=== PATIENT | male | born 1960 | race Caucasian/White ===

== ENCOUNTER → 2017-08-27 16:21 | Outpatient (CLI) | payer BC, SELFPAY ==
[2017-08-27 18:21] LABS: PSA,Total - Annual Screen 4.51 ng/mL (0.00-4.00)
== END ==
PROVIDERS: Family Provider Family Medicine; PCP Family Medicine; Visit Provider Family Medicine
DX: N40.0 Benign prostatic hyperplasia without lower urinary tract symptoms (principal); I48.91 Unspecified atrial fibrillation
CPT/HCPCS: 36415; 84153; G0103

== ENCOUNTER → 2017-09-09 16:31 | Outpatient (CLI) | payer BC, SELFPAY ==
[2017-09-09 18:21] LABS: International Normalized Ratio 2.2; Prothrombin Time (Protime)PT. 24.8 SECONDS (11.7-14.9)
== END ==
PROVIDERS: Family Provider Family Medicine; PCP Family Medicine; Visit Provider Family Medicine
DX: I48.0 Paroxysmal atrial fibrillation (principal)
CPT/HCPCS: 36415; 85610

== ENCOUNTER → 2017-09-23 16:42 | Outpatient (CLI) | payer BC, SELFPAY ==
[2017-09-23 17:56] LABS: International Normalized Ratio 3.1; Prothrombin Time (Protime)PT. 32.4 SECONDS (11.7-14.9)
== END ==
PROVIDERS: Family Provider Family Medicine; PCP Family Medicine; Visit Provider Family Medicine
DX: I48.91 Unspecified atrial fibrillation (principal)
CPT/HCPCS: 36415; 85610

== ENCOUNTER → 2017-09-30 16:37 | Outpatient (CLI) | payer BC, SELFPAY ==
--- NOTE | 2017-09-30 16:41 | RAD_ITS ---
STUDY: X-RAY - RIGHT FOOT CLINICAL: Male, 56 years old. FALL PAIN TECHNIQUE: 3 view(s) of the foot. COMPARISON: None. FINDINGS: There is a plantar calcaneal spur. There is an enthesophyte involving the posterior superior calcaneus at the site of insertion of the Achilles tendon. Normal visualized subtalar, talonavicular, calcaneocuboid, tarsal and tarsometatarsal articulations. Normal metatarsi. 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 Normal tibial and fibular sesamoid bones. Normal interphalangeal joint of the great toe. Normal phalanges of the great toe. There are atherosclerotic vascular calcifications. Normal second through fifth metatarsophalangeal joints. Normal interphalangeal joints and phalanges of the lesser toes. The soft tissue structures are unremarkable. 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 There is a plantar calcaneal spur. There is an enthesophyte involving the posterior superior calcaneus at the site of insertion of the Achilles tendon. There are atherosclerotic vascular calcifications. Electronically Signed: Callum Oliva MD at 17:01 EDT , Service support ,
== END ==
PROVIDERS: Family Provider Family Medicine; PCP Family Medicine; Visit Provider Physician Assistant Surgical
DX: S90.31XA Contusion of right foot, initial encounter (principal); X58.XXXA Exposure to other specified factors, initial encounter; Y93.9 Activity, unspecified; Y92.9 Unspecified place or not applicable; Y99.9 Unspecified external cause status
CPT/HCPCS: 73630

== ENCOUNTER → 2017-10-22 16:32 | Outpatient (CLI) | payer BC, SELFPAY ==
[2017-10-22 17:58] LABS: Prothrombin Time (Protime)PT. 35.8 SECONDS (11.7-14.9)
[2017-10-22 18:14] LABS: International Normalized Ratio 3.6
== END ==
PROVIDERS: Family Provider Family Medicine; PCP Family Medicine; Visit Provider Family Medicine
DX: I48.91 Unspecified atrial fibrillation (principal)
CPT/HCPCS: 36415; 85610

== ENCOUNTER → 2017-10-27 16:33 | Outpatient (CLI) | payer BC, SELFPAY ==
[2017-10-27 17:45] LABS: International Normalized Ratio 3.3; Prothrombin Time (Protime)PT. 33.8 SECONDS (11.7-14.9)
== END ==
PROVIDERS: Family Provider Family Medicine; PCP Family Medicine; Visit Provider Family Medicine
DX: I48.91 Unspecified atrial fibrillation (principal)
CPT/HCPCS: 36415; 85610

== ENCOUNTER → 2017-11-03 16:49 | Outpatient (CLI) | payer BC, SELFPAY ==
[2017-11-03 18:12] LABS: International Normalized Ratio 3.2; Prothrombin Time (Protime)PT. 32.6 SECONDS (11.7-14.9)
== END ==
PROVIDERS: Family Provider Family Medicine; PCP Family Medicine; Visit Provider Family Medicine
DX: I48.91 Unspecified atrial fibrillation (principal)
CPT/HCPCS: 36415; 85610

== ENCOUNTER → 2017-11-11 16:44 | Outpatient (CLI) | payer BC, SELFPAY ==
[2017-11-11 18:25] LABS: Prothrombin Time (Protime)PT. 35.9 SECONDS (11.7-14.9)
[2017-11-11 18:40] LABS: International Normalized Ratio 3.6
== END ==
PROVIDERS: Family Provider Family Medicine; PCP Family Medicine; Visit Provider Family Medicine
DX: I48.91 Unspecified atrial fibrillation (principal)
CPT/HCPCS: 36415; 85610

== ENCOUNTER → 2017-11-18 16:30 | Outpatient (CLI) | payer BC, SELFPAY ==
[2017-11-18 17:38] LABS: Prothrombin Time (Protime)PT. 36.6 SECONDS (11.7-14.9)
[2017-11-18 17:49] LABS: International Normalized Ratio 3.7
== END ==
PROVIDERS: Family Provider Family Medicine; PCP Family Medicine; Visit Provider Family Medicine
DX: I48.91 Unspecified atrial fibrillation (principal)
CPT/HCPCS: 36415; 85610

== ENCOUNTER → 2017-12-10 16:38 | Outpatient (CLI) | payer BC, SELFPAY ==
[2017-12-10 17:45] LABS: Absolute Lymphocyte Count 1.52 X10^3/ul (0.83-4.51); Absolute Neutrophil Count 5.7 X10^3/uL (2.0-7.7); Basophil# 0.04 X10^3/uL; Basophil% 0.5 % (0-1); Eosinophil# 0.19 X10^3/uL; Eosinophils% 2.3 % (0-5); Hemoglobin 14.6 g/dl (13.0-16.5); Lymphocyte # 1.52 X10^3/ul (4.0); Lymphocyte % 18.8 % (19-41); Mean Corp Hgb Conc 33.2 g/gl (32-36); Mean Corpuscular Hgb 31.2 pg (27.0-32.0); Mean Platelet Vol. 9.7 fl (6.2-12.0); Monocyte# 0.67 X10^3/uL; Monocyte% 8.3 % (0-10); Neutrophil # 5.65 X10^3/uL (2.7-7.7); Neutrophil % 69.9 % (47-70); Platelet Count 218 K/mm3 (150-450); RBC Distribution Width CV 14.2 % (11.6-14.6); RBC Distribution Width SD 48.2 fl (35.1-43.9); Red Blood Count 4.68 M/mm3 (4.6-6.2); White Blood Count 8.1 K/mm3 (4.4-11.0)
[2017-12-10 17:46] LABS: POSITIVE COUNT NO; POSITIVE DIFFERENTIAL NO; POSITIVE MORPHOLOGY NO
[2017-12-10 18:05] LABS: Anion Gap 8 (5-15); BUN 29 mg/dL (7-18); BUN/Creat Ratio 17.4 RATIO (10-20); Calcium,Total 8.9 mg/dL (8.5-10.1); Chloride 102 mmol/L (98-107); Creatinine, Serum 1.67 mg/dL (0.70-1.30); EST Glomerular Filtration Rate 45 mL/min (>60); Est Glom Filt Rate - Afr Amer 55 mL/min (>60); Glucose 94 mg/dL (74-106); Magnesium 2.3 mg/dL (1.6-2.6); Potassium 3.9 mmol/L (3.5-5.1); Sodium Level 142 mmol/L (136-145)
== END ==
PROVIDERS: Family Provider Family Medicine; PCP Family Medicine; Visit Provider Nurse Practitioner Family
DX: I48.0 Paroxysmal atrial fibrillation (principal); R42 Dizziness and giddiness; E78.5 Hyperlipidemia, unspecified; Z95.2 Presence of prosthetic heart valve
CPT/HCPCS: 36415; 80048; 83735; 85025

== ENCOUNTER → 2018-02-20 10:50 | Outpatient (CLI) | payer BC, SELFPAY | PROVIDERS: Family Provider Family Medicine; PCP Family Medicine; Visit Provider Internal Medicine Cardiovascular Disease | DX: I48.0 Paroxysmal atrial fibrillation (principal) | CPT/HCPCS: 93225; 93226 ==

== ENCOUNTER → 2018-03-20 06:05 | Outpatient (CLI) | payer BC, SELFPAY ==
[2018-03-20 06:43] LABS: Absolute Lymphocyte Count 1.11 X10^3/ul (0.83-4.51); Absolute Neutrophil Count 4.8 X10^3/uL (2.0-7.7); Basophil# 0.04 X10^3/uL; Basophil% 0.6 % (0-1); Eosinophil# 0.12 X10^3/uL; Eosinophils% 1.8 % (0-5); Hematocrit 44.6 % (40-54); Hemoglobin 14.6 g/dl (13.0-16.5); Lymphocyte # 1.11 X10^3/ul (4.0); Lymphocyte % 16.6 % (19-41); Mean Corp Hgb Conc 32.7 g/gl (32-36); Mean Corpuscular Hgb 31.1 pg (27.0-32.0); Mean Corpuscular Volume 95.1 fL (80-94); Mean Platelet Vol. 9.9 fl (6.2-12.0); Monocyte# 0.64 X10^3/uL; Monocyte% 9.6 % (0-10); Neutrophil # 4.78 X10^3/uL (2.7-7.7); Neutrophil % 71.3 % (47-70); POSITIVE COUNT NO; POSITIVE DIFFERENTIAL NO; POSITIVE MORPHOLOGY NO; Platelet Count 194 K/mm3 (150-450); RBC Distribution Width CV 14.2 % (11.6-14.6); RBC Distribution Width SD 48.4 fl (35.1-43.9); Red Blood Count 4.69 M/mm3 (4.6-6.2); White Blood Count 6.7 K/mm3 (4.4-11.0)
[2018-03-20 06:57] LABS: Anion Gap 6 (5-15); BUN 25 mg/dL (7-18); BUN/Creat Ratio 15.6 RATIO (10-20); Calcium,Total 9.2 mg/dL (8.5-10.1); Chloride 104 mmol/L (98-107); EST Glomerular Filtration Rate 47 mL/min (>60); Est Glom Filt Rate - Afr Amer 57 mL/min (>60); Glucose 125 mg/dL (74-106); Magnesium 2.7 mg/dL (1.6-2.6); Potassium 4.5 mmol/L (3.5-5.1); Sodium Level 141 mmol/L (136-145)
== END ==
PROVIDERS: Family Provider Family Medicine; PCP Family Medicine; Referring Provider Family Medicine; Visit Provider Family Medicine
DX: R55 Syncope and collapse (principal)
CPT/HCPCS: 36415; 80048; 83735; 85025

== ENCOUNTER → 2018-07-28 05:57 | Outpatient (CLI) | payer BC, SELFPAY ==
[2018-05-29 15:27] VITALS: BMI 47.6
[2018-07-28 07:47] LABS: Anion Gap 10 (5-15); BUN 22 mg/dL (7-18); BUN/Creat Ratio 13.8 RATIO (10-20); Calcium,Total 8.9 mg/dL (8.5-10.1); Chloride 105 mmol/L (98-107); Cholesterol 116 mg/dL (200); Creatinine, Serum 1.59 mg/dL (0.70-1.30); EST Glomerular Filtration Rate 48 mL/min (>60); Est Glom Filt Rate - Afr Amer 58 mL/min (>60); Glucose 110 mg/dL (74-106); High Density Lipoprotein 35 mg/dL; Potassium 4.2 mmol/L (3.5-5.1); Sodium Level 143 mmol/L (136-145); Thyroid Stim Hormone (TSH) 5.35 uIU/mL (0.358-3.74); Triglycerides 129 mg/dL; Very Low Density Lipoprotein 26 mg/dL (5-40)
== END ==
PROVIDERS: Family Provider Family Medicine; PCP Family Medicine; Referring Provider Family Medicine; Visit Provider Family Medicine
DX: E03.9 Hypothyroidism, unspecified (principal); E66.9 Obesity, unspecified
CPT/HCPCS: 36415; 80048; 80061; 84443

== ENCOUNTER → 2018-11-25 14:44 | Outpatient (CLI) | payer BC, SELFPAY ==
[2018-05-29 15:27] VITALS: BMI 47.6
--- NOTE | 2018-11-25 14:46 | ECHOD_ITS ---
Reason For Study: Valve Eval Procedure This was a 2D Doppler, Color Flow transthoracic echocardiogram. The study was technically difficult. Unable to utilize Definity for optimal endocardial imaging due to previous adverse reaction. Exam performed in department. Left Ventricle Mild to moderate concentric left ventricular hypertrophy. Based upon the 2D echocardiographic images obtained there appears to be grossly normal left ventricular size, wall motion, and systolic function. The estimated ejection fraction is 55 %. Unable to assess diastolic dysfunction. Right Ventricle Moderately dilated right ventricle. Moderate global right ventricular systolic dysfunction. Atria The left atrium is severely enlarged. The right atrium is moderately enlarged. No doppler evidence for ASD. Mitral Valve There is mild mitral annular calcification. Extension of the mitral annular calcification onto the mitral valve leaflet. Trivial mitral valve insufficiency. Tricuspid Valve Normal tricuspid valve. Mild tricuspid valve insufficiency. Right ventricular systolic pressure estimated to be 34 mmHg. Aortic Valve The aortic valve is not well visualized, however, the 2D echocardiograhic findings appear c/w a stable mechanical aortic valve prosthesis with associated spectral doppler findings c/w severe prosthetic aortic valve stenosis potentially secondary to an undersized prosthetic aortic valve. Pulmonic Valve The pulmonic valve is not well visualized. Great Vessels Normal sized aortic root. Pericardium/Pleural No pericardial effusion. MMode/2D Measurements & Calculations LVIDd: 5.2 cm IVSd: 1.6 cm LVOT diam: 2.2 cm LVIDs: 4.0 cm LVPWd: 1.3 cm LVOT area: 3.7 cm2 RVDd: 5.2 cm FS: 23.3 % Ao root diam: 2.9 cm LAV(MOD-bp): 172.7 ml LA A4 area: 41.1 cm2 LAV(MOD-bp) Indexed: 66.4 ml/m2 LAV(MOD-sp2): 156.6 ml LAV(MOD-sp4): 163.0 ml LA dimension(2D): 5.0 cm RA A4 area: 37.5 cm2 Doppler Measurements & Calculations MV E max hollis: 143.5 cm/sec Ao V2 max: 459.7 cm/sec LV V1 max: 117.8 cm/sec Ao max P.5 mmHg LV V1 max P.4 mmHg Ao V2 mean: 352.9 cm/sec LV V1 mean P.9 mmHg Ao mean P.4 mmHg LV V1 mean: 81.6 cm/sec Ao V2 VTI: 103.4 cm LV V1 VTI: 22.7 cm YOLI(I,D): 0.81 cm2 YOLI(V,D): 0.94 cm2 SV(LVOT): 83.3 ml PA V2 max: 98.0 cm/sec TR max hollis: 254.9 cm/sec TR max P.0 mmHg Interpretation Summary The study was technically difficult. The estimated ejection fraction is 55 %. Mild to moderate concentric left ventricular hypertrophy. Moderately dilated right ventricle. Moderate global right ventricular systolic dysfunction. The left atrium is severely enlarged. The right atrium is moderately enlarged. There is mild mitral annular calcification. Extension of the mitral annular calcification onto the mitral valve leaflet. Trivial mitral valve insufficiency. Mild tricuspid valve insufficiency. The aortic valve is not well visualized, however, the 2D echocardiograhic findings appear c/w a stable mechanical aortic valve prosthesis with associated spectral doppler findings c/w severe prosthetic aortic valve stenosis potentially secondary to an undersized prosthetic aortic valve. Right ventricular systolic pressure estimated to be 34 mmHg. Unable to assess diastolic dysfunction. Ordering Physician: Compa Chaudhary Referring Physician: Compa Rosado Performed By: Alida Armstrong RDCS, RVT
== END ==
PROVIDERS: Family Provider Family Medicine; PCP Family Medicine; Referring Provider Internal Medicine Cardiovascular Disease; Visit Provider Internal Medicine Cardiovascular Disease
DX: I25.10 Atherosclerotic heart disease of native coronary artery without angina pectoris (principal); I27.20 Pulmonary hypertension, unspecified; I48.0 Paroxysmal atrial fibrillation; Z95.2 Presence of prosthetic heart valve
CPT/HCPCS: 93306

== ENCOUNTER → 2018-12-29 10:51 | Outpatient (CLI) | payer BC, SELFPAY ==
[2018-12-16 06:07] VITALS: BMI 46.2
--- NOTE | 2018-12-29 10:53 | CDU_ITS ---
Reason For Study: vertigo, syncope, collapse Rt. Velocities/BP Lt. Velocities/BP Prox CCA 53.9/16.0 cm/sec. Prox CCA 77.3./24.5 cm/sec. Mid CCA 46.0/14.7 cm/sec. Mid CCA 69.6/19.0 cm/sec. Dist CCA 48.6/12.1 cm/sec. Dist CCA 59.7/11.3 cm/sec. Prox ICA 47.3/12.1 cm/sec. Prox ICA 38.8/12.4 cm/sec. Mid ICA 43.4/18.6 cm/sec. Mid ICA 54.2/19.0 cm/sec. Dist ICA 70.8/34.3 cm/sec. Dist ICA 67.4/22.3 cm/sec. Rt. ICA/CCA = 1.5. Lt. ICA/CCA = 1.0. Prox ECA 49.9/9.5 cm/sec. Prox ECA 80.6/15.7 cm/sec. Rt. Vert. 39.9/12.4 cm/sec. Lt. Vert. 22.3/7.3 cm/sec. Right Extracranial There is intimal thickening but no significant atherosclerotic plaque noted in the right common carotid artery. There is intimal thickening but no significant atherosclerotic plaque noted in the right internal carotid artery. There is intimal thickening but no significant atherosclerotic plaque noted in the right external carotid artery. Antegrade flow is noted in the right vertebral artery. Left Extracranial There is intimal thickening but no significant atherosclerotic plaque noted in the left common carotid artery. There is intimal thickening but no significant atherosclerotic plaque noted in the left internal carotid artery. There is intimal thickening but no significant atherosclerotic plaque noted in the left external carotid artery. Antegrade flow is noted in the left vertebral artery. Procedure Carotid Duplex [id number]. The exam was diagnostic. Exam performed in department. Interpretation Summary No hemodynamically significant plague or stenosis bilateral extracranial internal carotids with <50% stenosis <50% stenosis bilateral external carotids Patent and antegrade bilateral vertebrals Ordering Physician: Yessy Khan Referring Physician: Compa Chaudhary Performed By: Marcial Sandhu RVT
[2018-12-29 14:02] LABS: Absolute Lymphocyte Count 1.21 X10^3/ul (0.83-4.51); Absolute Neutrophil Count 3.5 X10^3/uL (2.0-7.7); Basophil# 0.05 X10^3/uL; Basophil% 0.9 % (0-1); Eosinophil# 0.11 X10^3/uL; Hematocrit 44.3 % (40-54); Hemoglobin 14.8 g/dl (13.0-16.5); Lymphocyte # 1.21 X10^3/ul (4.0); Lymphocyte % 22.2 % (19-41); Mean Corp Hgb Conc 33.4 g/gl (32-36); Mean Corpuscular Hgb 31.5 pg (27.0-32.0); Mean Corpuscular Volume 94.3 fL (80-94); Mean Platelet Vol. 9.7 fl (6.2-12.0); Monocyte# 0.55 X10^3/uL; Monocyte% 10.1 % (0-10); Neutrophil # 3.52 X10^3/uL (2.7-7.7); Neutrophil % 64.6 % (47-70); Platelet Count 219 K/mm3 (150-450); RBC Distribution Width CV 13.2 % (11.6-14.6); RBC Distribution Width SD 45.4 fl (35.1-43.9); White Blood Count 5.5 K/mm3 (4.4-11.0)
[2018-12-29 14:05] LABS: POSITIVE COUNT NO; POSITIVE DIFFERENTIAL NO; POSITIVE MORPHOLOGY NO
[2018-12-29 14:24] LABS: Anion Gap 6 (5-15); BUN 22 mg/dL (7-18); BUN/Creat Ratio 14.7 RATIO (10-20); Calcium,Total 9.2 mg/dL (8.5-10.1); Chloride 105 mmol/L (98-107); EST Glomerular Filtration Rate 51 mL/min (>60); Est Glom Filt Rate - Afr Amer 62 mL/min (>60); Glucose 85 mg/dL (74-106); Potassium 3.9 mmol/L (3.5-5.1); Sodium Level 139 mmol/L (136-145)
== END ==
PROVIDERS: Physician Assistant Medical; Family Provider Family Medicine; PCP Family Medicine; Referring Provider Internal Medicine Cardiovascular Disease; Visit Provider Internal Medicine Cardiovascular Disease
DX: R55 Syncope and collapse (principal)
CPT/HCPCS: 36415; 80048; 85025; 93270; 93880

== ENCOUNTER → 2019-01-15 20:00 | Outpatient (CLI) | payer BC, SELFPAY ==
[2018-12-16 06:07] VITALS: BMI 46.2
== END ==
PROVIDERS: Family Provider Family Medicine; PCP Family Medicine; Referring Provider Internal Medicine Critical Care Medicine; Visit Provider Internal Medicine Critical Care Medicine
DX: G47.33 Obstructive sleep apnea (adult) (pediatric) (principal)
CPT/HCPCS: 95811

== ENCOUNTER → 2019-01-18 16:29 | Outpatient (CLI) | payer BC, SELFPAY ==
[2018-12-16 06:07] VITALS: BMI 46.2
[2019-01-18 17:56] LABS: PSA,Total- Diagnostic 4.26 ng/mL (0.0-4.0); Thyroid Stim Hormone (TSH) 2.59 uIU/mL (0.358-3.74)
== END ==
PROVIDERS: Family Provider Family Medicine; PCP Family Medicine; Referring Provider Family Medicine; Visit Provider Family Medicine
DX: E03.9 Hypothyroidism, unspecified (principal); N40.0 Benign prostatic hyperplasia without lower urinary tract symptoms
CPT/HCPCS: 36415; 84153; 84443

== ENCOUNTER → 2019-02-12 06:41 | Outpatient (CLI) | payer BC, SELFPAY ==
[2018-12-16 06:07] VITALS: BMI 46.2
--- NOTE | 2019-02-12 13:08 | PFTCOMP ---
COMPLETE PULMONARY FUNCTION TEST INTERPRETATION Brief HPI: Patient is a 58 year old male, currently under the care of Geri Simon, who presents to [facility] for complete pulmonary function tests secondary to diagnosis of pulmonary hypertension. Respiratory therapist reports good effort and reproducible results. Interpretation: Forced expiration spirometry shows moderately severe large airways obstructive ventilatory defect with an FEV1 of 57% predicted. There is no significant bronchodilator response by strict ATS criteria. Spirograms are of good quality and plateau slowly, indicating slowly emptying areas of the lungs. The respiratory flow volume loop shows decreased expiratory flow rates at all lung volumes consistent with airway obstruction. Lung volumes by body plethysmography show a normal total lung capacity at 5.55 L, 83% predicted. FRC and RV are elevated out of proportion. Lung volume measurements are consistent with air-trapping. Diffusion capacity by carbon monoxide is normal at 81% predicted. The airway resistance is elevated. No previous pulmonary function tests were available for review. Impression: Irreversible moderately severe large airways obstructive ventilatory defect with preserved diffusion capacity.
== END ==
PROVIDERS: Family Provider Family Medicine; PCP Family Medicine; Referring Provider Nurse Practitioner Acute Care; Visit Provider Nurse Practitioner Acute Care
DX: I27.20 Pulmonary hypertension, unspecified (principal)
CPT/HCPCS: 94060; 94726; 94729

== ENCOUNTER → 2019-07-22 05:59 | Outpatient (CLI) | payer BC, SELFPAY ==
[2019-07-06 14:54] VITALS: BMI 46.7
[2019-07-22 08:19] LABS: Anion Gap 3 (5-15); BUN 25 mg/dL (7-18); BUN/Creat Ratio 15.2 RATIO (10-20); Calcium,Total 9.4 mg/dL (8.5-10.1); Chloride 106 mmol/L (98-107); Cholesterol 103 mg/dL (200); Creatinine, Serum 1.64 mg/dL (0.70-1.30); EST Glomerular Filtration Rate 46 mL/min (>60); Est Glom Filt Rate - Afr Amer 55 mL/min (>60); Free T3 3.1 pg/mL (2.18-3.98); Glucose 112 mg/dL (74-106); High Density Lipoprotein 34 mg/dL; Potassium 4.4 mmol/L (3.5-5.1); Sodium Level 141 mmol/L (136-145); T4 Total, Thyroxin 11.1 ug/dL (4.5-12.1); Thyroid Stim Hormone (TSH) 5.68 uIU/mL (0.358-3.74); Triglycerides 139 mg/dL; Very Low Density Lipoprotein 28 mg/dL (5-40)
== END ==
PROVIDERS: PCP Family Medicine; Referring Provider Family Medicine; Visit Provider Family Medicine
DX: I10 Essential (primary) hypertension (principal); E03.9 Hypothyroidism, unspecified; R53.83 Other fatigue
CPT/HCPCS: 36415; 80048; 80061; 84403; 84436; 84443; 84481

== ENCOUNTER → 2020-01-20 06:03 | Outpatient (CLI) | payer BC, SELFPAY ==
[2019-11-16 07:03] VITALS: BMI 46.7
[2020-01-20 08:30] LABS: Anion Gap 5 (5-15); BUN 23 mg/dL (7-18); BUN/Creat Ratio 14.6 RATIO (10-20); Calcium,Total 8.9 mg/dL (8.5-10.1); Chloride 106 mmol/L (98-107); Cholesterol 105 mg/dL (200); Creatinine, Serum 1.57 mg/dL (0.70-1.30); EST Glomerular Filtration Rate 48 mL/min (>60); Est Glom Filt Rate - Afr Amer 58 mL/min (>60); Glucose 124 mg/dL (74-106); High Density Lipoprotein 33 mg/dL; Potassium 4.1 mmol/L (3.5-5.1); Sodium Level 137 mmol/L (136-145); T4 Total, Thyroxin 8.9 ug/dL (4.5-12.1); Thyroid Stim Hormone (TSH) 5.03 uIU/mL (0.358-3.74); Triglycerides 151 mg/dL; Very Low Density Lipoprotein 30 mg/dL (5-40)
== END ==
PROVIDERS: PCP Family Medicine; Referring Provider Family Medicine; Visit Provider Family Medicine
DX: I10 Essential (primary) hypertension (principal); E03.9 Hypothyroidism, unspecified
CPT/HCPCS: 36415; 80048; 80061; 84436; 84443; 84481

== ENCOUNTER → 2020-02-07 14:48 | Outpatient (CLI) | payer BC, SELFPAY ==
[2020-01-20 16:13] VITALS: BMI 47.5
--- NOTE | 2020-02-07 14:50 | ECHOD_ITS ---
Reason For Study: Valve Replacement Eval Procedure This was a 2D Doppler, Color Flow transthoracic echocardiogram. Technically difficult study. Unable to utilize Definity for optimal endocardial imaging due to previous adverse reaction. The study was technically difficult. Exam performed in department. Left Ventricle Based upon the 2D echocardiographic images obtained there appears to be grossly normal left ventricular wall motion and systolic function. The estimated ejection fraction is 55 %. Post operative septal motion. Unable to assess diastolic dysfunction. Right Ventricle Moderately dilated right ventricle. Mild global right ventricular systolic dysfunction. Atria The left atrium is severely enlarged. The right atrium is severely enlarged. No doppler evidence for ASD. Mitral Valve There is mild mitral annular calcification. Extension of the mitral annular calcification onto the mitral valve leaflet. Trivial mitral valve insufficiency. Tricuspid Valve The tricuspid valve is not well visualized. Mild tricuspid valve insufficiency. Right ventricular systolic pressure estimated to be 32 mmHg. Aortic Valve The aortic valve is not well visualized. The aortic valve is not well visualized, however, the 2D echocardiograhic findings appear c/w a stable mechanical aortic valve prosthesis with associated spectral doppler findings c/w severe prosthetic aortic valve stenosis potentially secondary to an undersized prosthetic aortic valve. Pulmonic Valve The pulmonic valve is not well visualized. Great Vessels Normal sized aortic root. Pericardium/Pleural No pericardial effusion. MMode/2D Measurements & Calculations LVOT diam: 2.2 cm Ao root diam: 3.1 cm LAV(MOD-bp): 120.9 ml LVOT area: 3.8 cm2 LA dimension: 5.3 cm LAV(MOD-bp) Indexed: 47.1 ml/m2 LAV(MOD-sp2): 109.6 ml LAV(MOD-sp4): 129.6 ml LA A4 area: 35.9 cm2 RA A4 area: 36.6 cm2 Doppler Measurements & Calculations MV E max ángel: 157.2 cm/sec Lat Peak E' Ángel: 8.3 cm/sec MV V2 max: 171.4 cm/sec E/E' lat: 19.0 MV max P.8 mmHg MV V2 mean: 68.2 cm/sec MV mean P.8 mmHg MV V2 VTI: 40.3 cm MVA(VTI): 2.1 cm2 MV P1/2t max ángel: 169.5 cm/sec Ao V2 max: 485.0 cm/sec LV V1 max: 104.0 cm/sec MV P1/2t: 72.6 msec Ao max P.5 mmHg LV V1 max P.3 mmHg Ao V2 mean: 333.9 cm/sec LV V1 mean P.3 mmHg MV dec slope: 683.6 cm/sec2 Ao mean P.0 mmHg LV V1 mean: 69.9 cm/sec MVA(P1/2t): 3.0 cm2 Ao V2 VTI: 105.7 cm LV V1 VTI: 22.4 cm YOLI(I,D): 0.81 cm2 YOLI(V,D): 0.82 cm2 SV(LVOT): 85.2 ml PA V2 max: 88.6 cm/sec TR max ángel: 270.1 cm/sec TR max P.2 mmHg Interpretation Summary The study was technically difficult. Based upon the 2D echocardiographic images obtained there appears to be grossly normal left ventricular wall motion and systolic function. The estimated ejection fraction is 55 %. Post operative septal motion. Moderately dilated right ventricle. Mild global right ventricular systolic dysfunction. The left atrium is severely enlarged. The right atrium is severely enlarged. There is mild mitral annular calcification. Extension of the mitral annular calcification onto the mitral valve leaflet. Trivial mitral valve insufficiency. Mild tricuspid valve insufficiency. The aortic valve is not well visualized, however, the 2D echocardiograhic findings appear c/w a stable mechanical aortic valve prosthesis with associated spectral doppler findings c/w severe prosthetic aortic valve stenosis potentially secondary to an undersized prosthetic aortic valve. Right ventricular systolic pressure estimated to be 32 mmHg. Unable to assess diastolic dysfunction. Ordering Physician: Compa Chaudhary Referring Physician: Compa Chaudhary Performed By: [facility]
== END ==
PROVIDERS: PCP Family Medicine; Referring Provider Internal Medicine Cardiovascular Disease; Visit Provider Internal Medicine Cardiovascular Disease
DX: I48.0 Paroxysmal atrial fibrillation (principal); I49.3 Ventricular premature depolarization; I27.20 Pulmonary hypertension, unspecified; E78.5 Hyperlipidemia, unspecified; E66.01 Morbid (severe) obesity due to excess calories; Z68.42 Body mass index [BMI] 45.0-49.9, adult; Z95.2 Presence of prosthetic heart valve
CPT/HCPCS: 93306

== ENCOUNTER 2020-03-10 12:35 | Observation (INO) | payer BC, SELFPAY ==
[2020-01-20 16:13] VITALS: BMI 47.5
[2020-03-10] VITALS (10 sets, daily range): BP systolic 102–132; BP diastolic 68–95; PULSE 70–89; RESP 16–20; TEMP 36.3–36.6; O2SAT 97–100; BMI 48.4
--- NOTE | 2020-03-10 12:46 | RAD_ITS ---
STUDY: X-RAY CHEST REASON FOR EXAM: Male, 59 years old. CP/pressure on left side TECHNIQUE: Single AP portable view of the chest. COMPARISON: Comparison is made with prior study dated 05/16/2017. FINDINGS: EKG electrodes are seen. Mild degree of vascular congestion. There is no demonstrated pleural abnormality. Sternal cerclage wires and vascular clips are present from a prior sternotomy and coronary artery bypass graft procedure (CABG). Mild cardiomegaly. Aortic valve prosthesis. Normal mediastinum and arun. Normal visualized pulmonary arteries. Normal visualized aortic arch and descending thoracic aorta. There are degenerative changes of the visualized thoracic spine. Normal visualized ribs, clavicles, and shoulders. There is no demonstrated abnormality of the visualized soft tissue structures of the upper abdomen. RAD/Chest 1 View (Portable) IMPRESSION: Mild degree of vascular congestion and cardiomegaly. Electronically Signed: Kenton De Anda, at 13:35 EDT , Service support ,
--- NOTE | 2020-03-10 12:46 | EKG12_ITS ---
Test Reason : CP Blood Pressure : / mmHG Vent. Rate : 084 BPM Atrial Rate : 091 BPM P-R Int : 000 ms QRS Dur : 172 ms QT Int : 436 ms P-R-T Axes : 000 113 -09 degrees QTc Int : 515 ms Atrial fibrillation Right bundle branch block Septal infarct , age undetermined T wave abnormality, consider inferior ischemia Abnormal ECG Confirmed by ZANE LITTLE, CM ([id number]), greeting card editor SUKHDEEP STOUT ([id number]) on 03/13/2020 1:44:19 PM Referred By: ISABELLE Confirmed By:CM DEGROOT MD
--- NOTE | 2020-03-10 12:51 | ED.DCSUM_ITS ---
History of Present Illness Informant: Patient, Family Onset: Yesterday Current Severity: Mild Narrative: 59-year-old male with past medical history of hypertension, A. fib on Coumadin, mechanical aortic valve, RBBB, COPD presents with complaints of chest pain. States last night he had some left-sided chest pain before bed but slept fine. This morning around 7 AM when he woke he had left-sided chest pain that radiated to his neck that seemed worse with deep breathing. Now it just feels like left- sided pressure and is 3/10. It is worse with movement and he admits to mild shortness of breath. Denies nausea, vomiting, or diaphoresis. He had an echo done on 02/09 which he states was unremarkable. No history of OR. Quit smoking 30 years ago. Denies fevers, chills, cough, abdominal pain, or back pain. <Krysta Stern - Last Filed: 03/10/20 13:41> <Dai Hinojosa - Last Filed: 03/11/20 00:15> Chief Complaint: Chest Pain Capacity - Capacity Assessment Tool Can the patient make a choice & communicate that choice?: Yes <Krysta Stern - Last Filed: 03/10/20 13:41> Past Medical History Past Medical History: - - Hypertension, atrial fibrillation, mechanical aortic valve, COPD Surgical History: - - Aortic valve surgery x 3, most recently mechanical valve placement (prior was porcine), T+A, Ablation. Smoking Status: Former smoker - Family History Maternal Family History: Family History (Last Reviewed 01/20/20 @ 16:17 by Yessy Contreras) Father Cancer Mother Hypertension Brother Cancer Family History: Reports: Hypertension Paternal Family History: Family History (Last Reviewed 01/20/20 @ 16:17 by Yessy Contreras) Father Cancer Mother Hypertension Brother Cancer Family History: Reports: No pertinent history <Krysta Stern - Last Filed: 03/10/20 13:41> - Family History Maternal Family History: Family History (Last Reviewed 01/20/20 @ 16:17 by Yessy Contreras) Father Cancer Mother Hypertension Brother Cancer Paternal Family History: Family History (Last Reviewed 01/20/20 @ 16:17 by Yessy Contreras) Father Cancer Mother Hypertension Brother Cancer <Dai Hinojosa - Last Filed: 03/11/20 00:15> - Allergies and Home Meds Allergies/Adverse Reactions: Allergies aspirin Allergy (Verified 03/10/20 12:36) Hives Iodinated Contrast Media [Iodinated Contrast Media - IV Dye] Allergy (Verified 03/10/20 12:36) Hives shellfish derived Allergy (Verified 03/10/20 12:36) Hives Review of Systems General: Denies: Chills, Fever, Sweats Eyes: Denies: Visual changes - bilaterally, Diplopia ENT: Denies: Rhinorrhea, Sore throat Cardiovascular: Reports: Chest pain. Denies: Palpitations Respiratory: Reports: Dyspnea. Denies: Cough, Orthopnea Gastrointestinal: Denies: Abdominal pain, Nausea, Vomiting, Diarrhea Musculoskeletal: Denies: Myalgias Skin: Denies: Rash Neurological: Denies: Headache, Weakness Psych: Denies: Depression, Anxiety <Krysta Stern - Last Filed: 03/10/20 13:41> Physical Exam Vital Signs/Narrative: Vital Signs Temp Pulse Resp BP Pulse Ox 03/10/20 12:37 97.3 F L 89 19 H 119/91 H 99 Inital Vital Signs reviewed: Yes General: Well nourished, Well developed, No Acute Distress Head: Normocephalic, Atraumatic Eyes: Perrl, EOMI ENT: Moist mucous membranes, No rhinorrhea Neck: Supple, Nontender Cardiovascular: Irregular, Murmur, - - Irregularly irregular rhythm, aortic stenosis murmur Respiratory: No distress, CTA bilaterally, Chest nontender Abdomen: Soft, Nontender, Nondistended, Normal bowel sounds Back: Nontender, Normal Inspection Extremities: Nontender, - - Mild bilateral lower extremity edema Skin: Normal color Neurological: Alert, Oriented x3, Cranial nerves II-XII grossly intact, Normal Strength, Normal Sensation Psychological: Normal affect <Krysta Stern - Last Filed: 03/10/20 13:41> Diagnostic/Tx/Re-eval Clinical Impression(s) from Imaging Studies Chest X-Ray 03/10/20 12:46 IMPRESSION: Mild degree of vascular congestion and cardiomegaly. Electronically Signed: Kenton De Anda, at 13:35 EDT , Service support , Laboratory Data 03/10/20 03/10/20 03/10/20 12:40 12:40 12:40 WBC 7.4 RBC 4.66 Hgb 14.3 Hct 43.7 MCV 93.8 MCH 30.7 MCHC 32.7 RDW Std Deviation 46.3 H RDW Coeff of Ernestina 13.3 Plt Count 256 MPV 9.6 Immature Gran % (Auto) 0.300 Neut % (Auto) 70.0 Lymph % (Auto) 16.1 L Frontier % (Auto) 10.7 H Eos % (Auto) 1.8 Baso % (Auto) 1.1 H Absolute Neuts (auto) 5.2 Absolute Lymphs (auto) 1.19 Nucleated RBC % 0 PT 24.7 H INR 2.3 Sodium 141 Potassium 3.9 Chloride 107 Carbon Dioxide 27.0 Anion Gap 7 BUN 22 H Creatinine 1.47 H Estim Creat Clear Calc 55.18 Est GFR (MDRD) Af Amer 63 Est GFR (MDRD) Non-Af 52 L BUN/Creatinine Ratio 15.0 Glucose 126 H Calcium 9.3 Troponin I < 0.015 - Rhythm Strip Rhythm Strip: A-fib Rate: 84 - RBBB - Medical Decision Making Patient appears well nontoxic. Vital signs within normal limits. EKG shows A. fib with no signs of ischemia. Labs and initial troponin are negative. 3-hour delta troponin is pending. INR was therapeutic at 2.3. Chest x-ray shows no acute process. Heart score is 4 and he should be admitted for stress test. Patient has difficulty ambulating and will need a chemical stress. He was given aspirin. Case was discussed with hospitalist and he was transferred to the floor in stable condition. <Krysta Stern - Last Filed: 03/10/20 13:41> - Medical Decision Making I personally performed a [id number] assessment of the patient and have reviewed the PA note. My davila findings include 59-year-old male presenting with intermittent chest pain since last night. He has associated shortness of breath. Pain radiates into his neck. He was sent in by his primary care physician. Vitals are stable. Heart is regular rate and rhythm. Lungs are clear and equal bilaterally. Labs, EKG, chest x-ray ordered. Patient will be discussed with the hospitalist for observation. <Dai Hinojosa - Last Filed: 03/11/20 00:15> ED Disposition <Krysta Stern - Last Filed: 03/10/20 13:41> <Dai Hinojosa - Last Filed: 03/11/20 00:15> - Plan for ED Patient: Disposition: Acute Care Hospital [facility] Diagnosis: Chest pain
[2020-03-10 12:54] LABS: Absolute Lymphocyte Count 1.19 X10^3/uL (0.83-4.51); Absolute Neutrophil Count 5.2 X10^3/uL (2.0-7.7); Basophil# 0.08 X10^3/uL; Basophil% 1.1 % (0-1); Eosinophil# 0.13 X10^3/uL; Eosinophils% 1.8 % (0-5); Hematocrit 43.7 % (40-54); Hemoglobin 14.3 g/dL (13.0-16.5); Lymphocyte # 1.19 X10^3/ul (4.0); Lymphocyte % 16.1 % (19-41); Mean Corp Hgb Conc 32.7 g/dL (32-36); Mean Corpuscular Hgb 30.7 pg (27.0-32.0); Mean Corpuscular Volume 93.8 fL (80-94); Mean Platelet Vol. 9.6 fl (6.2-12.0); Monocyte# 0.79 X10^3/uL; Monocyte% 10.7 % (0-10); NRBC Flagged by Analyzer 0 % (0-5); Neutrophil # 5.18 X10^3/uL (2.7-7.7); Platelet Count 256 K/mm3 (150-450); RBC Distribution Width CV 13.3 % (11.6-14.6); RBC Distribution Width SD 46.3 fl (35.1-43.9); Red Blood Count 4.66 M/mm3 (4.6-6.2); White Blood Count 7.4 K/mm3 (4.4-11.0)
[2020-03-10 13:06] LABS: International Normalized Ratio 2.3; Prothrombin Time (Protime)PT. 24.7 SECONDS (11.7-14.9)
[2020-03-10 13:10] LABS: Anion Gap 7 (5-15); BUN 22 mg/dL (7-18); Calcium,Total 9.3 mg/dL (8.5-10.1); Chloride 107 mmol/L (98-107); Creatinine, Serum 1.47 mg/dL (0.70-1.30); EST Glomerular Filtration Rate 52 mL/min (>60); Est Glom Filt Rate - Afr Amer 63 mL/min (>60); Estimated Creatinine Clearance 55.18 ml/min; Glucose 126 mg/dL (74-106); Potassium 3.9 mmol/L (3.5-5.1); Sodium Level 141 mmol/L (136-145)
--- NOTE | 2020-03-10 13:35 | NURSING ---
DR FEDERICO RIVERS
--- NOTE | 2020-03-10 13:43 | NURSING ---
PCU OBS GABY CABALLERO
--- NOTE | 2020-03-10 14:13 | HP.PCM_ITS ---
History of Present Illness Date of Admission: 03/10/20 The patient is a 59 year old M with a PMH of permanent A-fib, Mech AV, COPD, PAOLA, Hypothyroidism, BPH, HTN, HPL and MO presented to the ED on 03/10/2020 c/o CP. He states that the pain started last evening 03/09 and was sharp on the L side and worsened with a deep breathing but was able to fall asleep and slept well. When he woke up this am around 7 am he woke with L sided chest pain and this time it radiated to his L neck and back. He states that he may have had some increases SOB as well with this. His pain was as high as 6/10 but was only 3/10 upon presentation. He had no associated N/V, diaphoresis and no increased pain with exertion. He in now pain free. In the ED he received no medications as he has an ASA allergy and is on plavix. His VSS. EKG shows chronic A-fib (rate controlled) with RBBB but no acute ischemia. His troponin is neg. His sCr is elevated but this is his baseline. His INR is 2.3. Past Medical History Past Medical History (Chronic Problems): Chronic Problems (Last Reviewed 01/20/20 @ 16:17 by Yessy Contreras) Stage 2 moderate COPD by GOLD classification (Chronic) PAOLA (obstructive sleep apnea) (Chronic) Nonrheumatic aortic (valve) stenosis (Chronic) Atherosclerotic heart disease of [place] coronary artery without angina pectoris (Chronic) Aortic valvular disease (Chronic) Aortic valve surgery 1964, AVR 02/2004, AVR redo 2010 Nicotine abuse (Chronic) Pulmonary hypertension (Chronic) Paroxysmal atrial fibrillation (Chronic) DCCV 02/2016, Cryoballon ablation 06/2016 @ [facility] [place] Hypokalemia (Chronic) Hx of aortic valve replacement, mechanical (Chronic ~2010) Aortic valve surgery 1965, AVR 02/2004, AVR redo 2010 PVC (premature ventricular contraction) (Chronic) HLD (hyperlipidemia) (Chronic) Obesity (Chronic) Morbid obesity with BMI of 45.0-49.9, adult (Chronic) Hypothyroidism (Chronic) Iron deficiency anemia (Chronic) Medical History: Medical History (Last Reviewed 03/10/20 @ 14:[address] Penny Price DO) Nonrheumatic aortic (valve) stenosis (Chronic) I35.0 Aortic valvular disease (Chronic) I35.9 Aortic valve surgery 1965, AVR 02/2004, AVR redo 2010 Nicotine abuse (Chronic) Z72.0 Pulmonary hypertension (Chronic) I27.20 Paroxysmal atrial fibrillation (Chronic) I48.0 DCCV 02/2016, Cryoballon ablation 06/2016 @ [facility] [place] Hypokalemia (Chronic) E87.6 PVC (premature ventricular contraction) (Chronic) I49.3 HLD (hyperlipidemia) (Chronic) E78.5 Morbid obesity with BMI of 45.0-49.9, adult (Chronic) E66.01, Z68.42 GERD (gastroesophageal reflux disease) K21.9 Gout M10.9 PAOLA (obstructive sleep apnea) G47.33 Abrasion, right lower leg, initial encounter (Resolved) S80.811A Contusion of right foot, initial encounter (Resolved) S90.31XA Edema R60.9 Fatigue R53.83 Shortness of breath R06.02 Atrial fibrillation and flutter (Inactive) I48.91, I48.92 Allergies aspirin Allergy (Verified 03/10/20 12:36) Hives Iodinated Contrast Media [Iodinated Contrast Media - IV Dye] Allergy (Verified 03/10/20 12:36) Hives shellfish derived Allergy (Verified 03/10/20 12:36) Hives Home Medications: Ambulatory Orders Medication Instructions Recorded Biotin/Keratin [Biotin Plus 1 ea PO QHS 04/12/16 Keratin Tablet] Cholecalciferol (VIT D3) [Vitamin 2,000 unit PO QHS 04/12/16 D3] Docusate Sodium [Colace] 100 mg PO QHS 04/12/16 Folic Acid 1 mg PO QHS 04/12/16 Fexofenadine HCl [Nikki Allergy] 60 mg PO DAILY 05/16/17 Tamsulosin HCl [Flomax] 0.4 mg PO DAILY 05/16/17 multivitamin with folic acid 400 1 tab PO BID #180 tab 06/30/17 mcg tablet terazosin 1 mg tablet 1 mg PO QDAY 12/10/17 warfarin 3 mg tablet 3 mg PO DAILY 02/11/18 potassium chloride 20 mEq 40 meq PO BID #360 tab 03/09/19 tablet,extended release torsemide 20 mg tablet 20 mg PO BID #180 tab 05/19/19 clopidogrel 75 mg tablet 75 mg PO DAILY #90 tab 06/30/19 atorvastatin 40 mg tablet 40 mg PO QHS #90 tab 07/12/19 umeclidinium 62.5 mcg-vilanterol 1 inh INHALATION QDAY #3 ea 09/20/19 25 mcg/actuation powdr for inhalation albuterol sulfate 90 mcg/actuation 2 puff INHALATION Q4H PRN #1 device 01/11/20 aerosol inhaler levothyroxine 88 mcg tablet 88 mcg PO DAILY 01/20/20 metoprolol tartrate 50 mg tablet 25 mg PO BID #180 tab 02/15/20 Ferrous Sulfate 325 mg PO DAILY@0800 03/10/20 buPROPion XL [Wellbutrin Xl] 300 mg PO DAILY 03/10/20 Surgical History: Surgical History (Last Reviewed 03/10/20 @ 14:[address] Penny Price DO) Hx of aortic valve replacement, mechanical (Chronic) Onset Date: ~2010 Z95.2 Aortic valve surgery 1965, AVR 02/2004, AVR redo 2010 H/O basal cell carcinoma excision Z98.890, Z85.828 excision 17 mm basal cell carcinoma right parietal scalp with STSG reconstruction from right lateral neck (13.7 cm2) 12/03/2016 History of deviated nasal septum Z87.09 History of tonsillectomy Z98.890, Z90.89 Hx of gastric bypass Z98.84 Surgical History: - - Aortic valve surgery x 3, most recently mechanical valve placement (prior was porcine), T+A, Ablation. Psychiatric History: No pertinent psych hx Lives: Spouse/ Significant Other Smoking Status: Former smoker Tobacco Use: Non-smoker Alcohol: Rare Drugs: None - *Family History Maternal Family History: Family History (Last Reviewed 03/10/20 @ 14:[address] Penny Price DO) Father Cancer Mother Hypertension Brother Cancer History Items: Hypertension Paternal Family History: Family History (Last Reviewed 03/10/20 @ 14:[address] Penny Price DO) Father Cancer Mother Hypertension Brother Cancer History Items: No pertinent history Review of Systems Constitutional: Denies: Anorexia, Chills, Fever, Night Sweats, Malaise, Weakness, Weight Change, Fatigue Eyes: Reports: Vision Change. Denies: Blurred vision, Double vision, Drainage, Eyelid Inflammation, Pain, Redness HEENT: Denies: Difficulty Hearing, Difficulty Swallowing, Head Aches, Nasal bleeding, Nasal Congestion, Post Nasal Drip, Sinus Congestion, Sinus Drainage, Sore Throat, Visual Changes Cardiovascular: Reports: Chest Pain, Chest Pressure, Chest Tightness, Edema - chronic. Denies: Heaviness, Light Headedness, Orthopnea, Palpitations, Paroxysmal Noc. Dyspnea, Syncope Respiratory: Reports: Shortness of Breath, Shortness of breath upon exertion. Denies: Cough, Hemoptysis, Pleuritic Pain, Shortness of breath at rest, Sputum production, Wheezing Gastrointestinal: Denies: Abdominal Pain, Constipation, Diarrhea, Dyspepsia, Hematemesis, Hematochezia, Nausea, Melena, Vomiting Genitourinary: Denies: Dysuria, Frequency, Hematuria, Hesitancy, Incontinence, Nocturia, Retention, Urgency Musculoskeletal: Reports: Back Pain, Joint stiffness, Muscle pain, Neck Pain. Denies: Joint Pain, Joint swelling, Joint Tenderness Skin: Denies: Dryness, Jaundice, Lesions, Pruritis, Rash, Skin Changes, Wounds Neurological: Reports: Blurred vision. Denies: Balance problems, Double vision, Change in Speech, Slurred speech, Confusion, Difficulty swallowing, Focal weakness, Headaches, Incoordination, Numbness, Tingling, Tremor, Seizures Psychiatric: Denies: Anxiety, Depression Endocrine: Denies: Change in Body Habitus, Heat/ Cold Intolerance, Polydipsia, Polyuria Hematologic/ Lymphatic: Denies: Adenopathy, Anemia, Easy Bruising, Easy Bleeding, Petechiae, Purpura VTE Information - Inpt Only VTE Present on Admission: No VTE Mechan Device Prophylaxis: None VTE Pharm Prophylaxis ordered?: No Reason prophylaxis not ordered:: Treatment Not Indicated - full OAC with coumadin Patient Problems: Active and Suspected Problems (Last Reviewed 01/20/20 @ 16:17 by Yessy Contreras) Chest pain (Acute) - Physical Exam Vitals/I&O's: Vital Signs Temp Pulse Resp BP Pulse Ox 97.8 F 76 20 H 110/80 97 03/10/20 14:03 03/10/20 14:03 03/10/20 14:03 03/10/20 14:03 03/10/20 14:03 Oxygen Flow Rate (L/min) 2 Oxygen Delivery Method Room Air Weight: 153 kg Body Mass Index (BMI) 48.4 General: Alert, Oriented x3, Cooperative, No apparent distress, Well developed, Well nourished, - - Obese middle aged WM sitting up in bed, at bedside HEENT: Atraumatic, PERRLA, EOMI, Normocephalic, EAC Clear, - - dentures in place, Mallampati 3 Oral: Moist Mucosa, No Gingival or Mucosal Lesions/ Ulcerations Neck: Supple, No JVD, Negative Carotid Bruits, Negative Hepatojugular Reflux, No Nodes, Trachea Midline, Thyroid Normal Size and Texture Lungs: Clear to auscultation, No rhonchi, No wheeze, No rales, Diminished - diffusely Cardiovascular: Regular rate, Regular Rhythm, Normal S1, Normal S2, No murmurs, No Ectopic Activity, No rub noted, No Gallop, - - opening click noted for AV Abdomen: Bowel Sounds Present, Soft, Non Tender, Non-Distended, No Hepato- splenomegaly, Obese, No hernias noted Extremities: No clubbing, No cyanosis Skin: No rashes, No breakdown Musculoskeletal: No Tenderness to Palpation of Joints or Extremities, No Muscle Wasting Lymphatic: No Cervical, Supraclavicular, or Inguinal Adenopathy Neurological: Cranial nerves II-XII grossly intact, Deep Tendon Reflexes 2+/4 and Symmetrical, Neuro grossly intact, Motor Exam 5/5 strength throughout, Muscle tone normal, Sensory exam intact to light touch and pain, Coordination normal Psych/Mental Status: Normal Affect, Appropriate, Alert and oriented to time, place, person, mood and affect Laboratory Results 03/10/20 12:40: WBC 7.4, RBC 4.66, Hgb 14.3, Hct 43.7, MCV 93.8, MCH 30.7, MCHC 32.7, RDW Std Deviation 46.3 H, RDW Coeff of [place] 13.3, Plt Count 256, MPV 9.6, Immature Gran % (Auto) 0.300, Neut % (Auto) 70.0, Lymph % (Auto) 16.1 L, [place] % (Auto) 10.7 H, Eos % (Auto) 1.8, Baso % (Auto) 1.1 H, Absolute Neuts (auto) 5.2, Absolute Lymphs (auto) 1.19, Nucleated RBC % 0 03/10/20 12:40: PT 24.7 H, INR 2.3 03/10/20 12:40: Sodium 141, Potassium 3.9, Chloride 107, Carbon Dioxide 27.0, Anion Gap 7, BUN 22 H, Creatinine 1.47 H, Estim Creat Clear Calc 55.18, Est GFR (MDRD) Af Amer 63, Est GFR (MDRD) Non-Af 52 L, BUN/Creatinine Ratio 15.0, Glucose 126 H, Calcium 9.3, Troponin I < 0.015 Assessment/Plan All Active Problems (Last Reviewed 01/20/20 @ 16:17 by Yessy Contreras) Chest pain (Acute) Laceration of right little finger w/o foreign body w/o damage to nail (Acute) Restless legs syndrome (RLS) (Acute) Abrasion, right lower leg, initial encounter (Resolved) Contusion of right foot, initial encounter (Resolved) Chest Pain -Initial troponin was negative -EKG shows chronic rate controlled A-fib with no ischemic changes -Pain free at this time -pt is fully anticoagulated with coumadin (INR 2.3) for [facility] AV -cycle cardiac enzymes -prn nitro -continue Statin (had full lipid profile 01/20/2020) -continue home BB -cardiac diet and NPO after MN -studies in the past have not found angiographically sig CAD previously -last stress test was in 2015 and was neg and neg cath in 2017 -check A1c -Nuc stress test in am [facility] AV -has had replacement x 3 -last replacement was 2010 (1964, 2003, 2010) -has been told that he is not a candidate for further replacement -on coumadin and INR is 2.3 with goal of 2-3 Chronic A-fib -has had multiple DCC with antiarrhythmics on board -had Ablation and Pulm vein isolation in 2016 but reverted back to fib -continue BB for rate control -OAC HPL -continue statin -lipids last assessed 01/20/2020 HTN -continue home meds PAH -mild -34 mmHg BPH -flomax CKD stage 3 -sCr is at baseline COPD -prn nebs -continue home inhaler PAOLA -CPAP 12 cm of H2O Hypothyroidism -continue Synthroid Depression -cont Wellbutrin MO recommend wgt loss DVT prophylaxis -full OAC Code status -Full Inpatient E&M: 05895 Init Hosp L3
--- NOTE | 2020-03-10 14:31 | EKG12_ITS ---
Test Reason : CHEST PAIN Blood Pressure : / mmHG Vent. Rate : 075 BPM Atrial Rate : 091 BPM P-R Int : 000 ms QRS Dur : 172 ms QT Int : 462 ms P-R-T Axes : 000 106 005 degrees QTc Int : 515 ms Atrial fibrillation Right bundle branch block Septal infarct , age undetermined T wave abnormality, consider inferior ischemia Abnormal ECG Confirmed by ZANE LITTLE, CM ([id number]), manuscript editor SUKHDEEP STOUT ([id number]) on 03/17/2020 1:09:10 PM Referred By: FEDERICO Confirmed By:CM DEGROOT MD
[2020-03-10] MEDS: Furosemide 40 MG Tablet PO (19:27)
[2020-03-10] MEDS: Ipratropium/Albuterol Sulfate 3 ML AMPUL.NEB INHALATION (19:27)
--- NOTE | 2020-03-10 19:28 | NURSING ---
Pt requesting to have Lasix early because he normally takes early afternoon so he isnt up all night.
[2020-03-10] MEDS: Metoprolol Tartrate 25 MG Tablet PO (21:03)
[2020-03-10] MEDS: Atorvastatin Calcium 40 MG Tablet PO (21:03)
[2020-03-10] MEDS: Folic Acid 1 MG Tablet PO (21:03)
[2020-03-10] MEDS: Docusate Sodium 100 MG Capsule PO (21:04)
[2020-03-10] MEDS: Doxazosin 1 MG Tablet PO (21:04)
[2020-03-11 03:00] VITALS: BP 104/75; PULSE 75; RESP 18; TEMP 36.5; O2SAT 96
[2020-03-11 03:01] VITALS: PULSE 97
[2020-03-11] MEDS: Levothyroxine 88 MCG Tablet PO (05:26)
[2020-03-11] MEDS: 0.9% Saline Lock 10 ML Syringe IV (05:32)
[2020-03-11 06:50] LABS: Absolute Lymphocyte Count 1.27 X10^3/uL (0.83-4.51); Absolute Neutrophil Count 5.3 X10^3/uL (2.0-7.7); Basophil# 0.05 X10^3/uL; Basophil% 0.7 % (0-1); Eosinophil# 0.16 X10^3/uL; Eosinophils% 2.1 % (0-5); Hematocrit 44.8 % (40-54); Hemoglobin 14.5 g/dL (13.0-16.5); Lymphocyte # 1.27 X10^3/ul (4.0); Lymphocyte % 16.7 % (19-41); Mean Corp Hgb Conc 32.4 g/dL (32-36); Mean Corpuscular Hgb 30.8 pg (27.0-32.0); Mean Corpuscular Volume 95.1 fL (80-94); Mean Platelet Vol. 9.6 fl (6.2-12.0); Monocyte# 0.78 X10^3/uL; Monocyte% 10.2 % (0-10); NRBC Flagged by Analyzer 0 % (0-5); Neutrophil # 5.33 X10^3/uL (2.7-7.7); Neutrophil % 69.9 % (47-70); Platelet Count 260 K/mm3 (150-450); RBC Distribution Width CV 13.4 % (11.6-14.6); RBC Distribution Width SD 46.9 fl (35.1-43.9); Red Blood Count 4.71 M/mm3 (4.6-6.2); White Blood Count 7.6 K/mm3 (4.4-11.0)
[2020-03-11 06:53] LABS: International Normalized Ratio 2.1; Prothrombin Time (Protime)PT. 22.8 SECONDS (11.7-14.9)
[2020-03-11 07:00] VITALS: PULSE 76
[2020-03-11 07:08] LABS: AST(SGOT) 34 U/L (15-37); Alanine Aminotransfer ALT/SGPT 38 U/L (16-61); Alkaline Phosphatase 118 U/L (45-117); Anion Gap 6 (5-15); BUN 22 mg/dL (7-18); BUN/Creat Ratio 14.9 RATIO (10-20); Calcium,Total 9.4 mg/dL (8.5-10.1); Chloride 108 mmol/L (98-107); Creatinine, Serum 1.48 mg/dL (0.70-1.30); EST Glomerular Filtration Rate 52 mL/min (>60); Est Glom Filt Rate - Afr Amer 62 mL/min (>60); Globulin 3.9 g/dL (2.2-4.2); Glucose 120 mg/dL (74-106); Magnesium 2.5 mg/dL (1.6-2.6); Phosphorus 3.6 mg/dL (2.5-4.9); Potassium 4.2 mmol/L (3.5-5.1); Protein, Total 7.9 g/dL (6.4-8.2); Sodium Level 140 mmol/L (136-145)
[2020-03-11 07:27] LABS: Hemoglobin A1c 5.8 % (3.8-5.6)
--- NOTE | 2020-03-11 08:50 | CASEMGMT ---
LW/POA forms both in summary tab of echart. HELGA Palmer
--- NOTE | 2020-03-11 09:26 | STRESSREP_ITS ---
Stress Test Report Pharmacologic myocardial perfusion stress test. 59-year-old man with a history of chest pain. Stress protocol: Resting EKG demonstrates atrial fibrillation with a rate of 76 bpm and a right bundle branch block pattern. 0.4 mg of regadenoson was infused per usual protocol. Continuous EKG monitoring was performed. The maximum heart rate attained was 112 bpm which was 70% of max impacted heart rate the maximum workload was 1 metabolic equivalent. At rest there were no ST or T wave changes noted to suggest abnormal flow reserve at p eak infusion nonspecific ST-T wave changes were noted with no meet the criteria for ischemia. The resting blood pressure was 124/82 with a final blood pressure 118/84 mmHg. Myocardial perfusion protocol. 15.0 mCi of technetium 99m sestamibi was injected at rest. 0.4 mg of regadenoson was infused per usual protocol. At peak infusion 45.0 mCi of technetium 99m sestamibi was injected stress images were obtained stress and rest images were reconstructed and compared in the short axis vertical long horizontal long axis. Gated images were also obtained per Perfusion SPECT analysis: Review of the images demonstrate normal uptake of tracer noted in all areas of the myocardium on the stress images. The resting images similarly demonstrate normal uptake of tracer noted in all areas of the myocardium. No areas of reversibility are noted to suggest ischemia. Gated SPECT analysis: The gated ejection fraction is 53%. Conclusion: Normal pharmacologic myocardial perfusion stress test. Preserved ejection fraction.
[2020-03-11 09:30] VITALS: BP 127/63; PULSE 67; RESP 16; TEMP 36.8; O2SAT 98
[2020-03-11] MEDS: Furosemide 40 MG Tablet PO (09:45)
[2020-03-11] MEDS: Ferrous Sulfate 325 MG Tablet PO (09:45)
[2020-03-11] MEDS: Multivitamins,Therapeutic Tablet 1 TABLET PO (09:45)
[2020-03-11] MEDS: Loratadine 10 MG Tablet PO (09:45)
[2020-03-11] MEDS: Clopidogrel Bisulfate 75 MG Tablet PO (09:45)
[2020-03-11] MEDS: Tamsulosin HCl 0.4 MG Capsule PO (09:45)
[2020-03-11] MEDS: buPROPion (XL) 300 MG TABLET.XL PO (09:45)
[2020-03-11 09:48] VITALS: PULSE 67
[2020-03-11] MEDS: Metoprolol Tartrate 25 MG Tablet PO (09:48)
--- NOTE | 2020-03-11 09:57 | DCINST_ITS ---
- Discharge Diagnoses Current Active Problems: Current Active and Chronic Problems (Last Reviewed 03/10/20 @ 14:[address] Penny Price, DO) Chest pain (Acute) You will use the following diet at home:: Cardiac Your food should be the consistency of: Regular Your liquids should be the consistency of: Regular/Thin Discharge Activity: Return to Normal Activity Allergies/Adverse Reactions: Allergies aspirin Allergy (Verified 03/10/20 12:36) Hives Iodinated Contrast Media [Iodinated Contrast Media - IV Dye] Allergy (Verified 03/10/20 12:36) Hives shellfish derived Allergy (Verified 03/10/20 12:36) Hives Medications to take at Discharge Biotin/Keratin [Biotin Plus Keratin Tablet] 1 ea PO QHS 04/12/16 Cholecalciferol (VIT D3) [Vitamin D3] 2,000 unit PO QHS 04/12/16 Docusate Sodium [Colace] 100 mg PO QHS 04/12/16 Folic Acid 1 mg PO QHS 04/12/16 Fexofenadine HCl [Nikki Allergy] 60 mg PO DAILY 05/16/17 Tamsulosin HCl [Flomax] 0.4 mg PO DAILY 05/16/17 warfarin 3 mg tablet 3 mg PO DAILY 02/11/18 potassium chloride 20 mEq tablet,extended release 40 meq PO BID #360 tab 03/09/19 clopidogrel 75 mg tablet 75 mg PO DAILY #90 tab 06/30/19 atorvastatin 40 mg tablet 40 mg PO QHS #90 tab 07/12/19 umeclidinium 62.5 mcg-vilanterol 25 mcg/actuation powdr for inhalation 1 inh INHALATION QDAY #3 ea 09/20/19 albuterol sulfate 90 mcg/actuation aerosol inhaler 2 puff INHALATION Q4H PRN #1 device 01/11/20 metoprolol tartrate 50 mg tablet 25 mg PO BID #180 tab 02/15/20 Ferrous Sulfate 325 mg PO QHS 03/10/20 Levothyroxine Sodium [Synthroid] 100 mcg PO DAILY 03/10/20 Multivitamins,Therapeutic [Multivitamin] 1 tab PO DAILY 03/10/20 Terazosin HCl 1 mg PO QHS 03/10/20 Torsemide [Demadex] 20 mg PO 0600,1200 03/10/20 buPROPion XL [Wellbutrin Xl] 300 mg PO DAILY 03/10/20 Primary Care Physician: Compa Rosado MD [Primary Care Provider] - Please follow up with your Primary Care Physician in: 1-2 weeks Test Results: Test results from this visit will be discussed in further detail at your follow- up appointment, if applicable. Proposed Discharge Date: 03/11/20
--- NOTE | 2020-03-11 13:24 | PCM.DC.SUM ---
<Papa Pederson - Last Filed: 03/11/20 13:24> Discharge Date and Diagnosis Date of Admission: 03/10/20 Date of Discharge: 03/11/20 - Primary Discharge Diagnosis Acute Problems: Chest pain - musculoskeletal - Secondary Discharge Diagnosis Chronic Problems: Chronic Problems (Last Reviewed 03/10/20 @ 14:[address] Penny Price, DO) Stage 2 moderate COPD by GOLD classification (Chronic) PAOLA (obstructive sleep apnea) (Chronic) Nonrheumatic aortic (valve) stenosis (Chronic) Atherosclerotic heart disease of [place] coronary artery without angina pectoris (Chronic) Aortic valvular disease (Chronic) Aortic valve surgery 1964, AVR 02/2004, AVR redo 2010 Nicotine abuse (Chronic) Pulmonary hypertension (Chronic) Paroxysmal atrial fibrillation (Chronic) DCCV 02/2016, Cryoballon ablation 06/2016 @ [facility] Hypokalemia (Chronic) Hx of aortic valve replacement, mechanical (Chronic ~2010) Aortic valve surgery 1964, AVR 02/2004, AVR redo 2010 PVC (premature ventricular contraction) (Chronic) HLD (hyperlipidemia) (Chronic) Obesity (Chronic) Morbid obesity with BMI of 45.0-49.9, adult (Chronic) Hypothyroidism (Chronic) Iron deficiency anemia (Chronic) Hospital Course and Treatment Imaging Results: DIAGNOSTICS: 03/11/20 05:55 Nuclear Stress Test - Chemical [NM] AM (NON MEDS) Gated SPECT analysis: The gated ejection fraction is 53%. Conclusion: Normal pharmacologic myocardial perfusion stress test. Preserved ejection fraction. RAD/Chest 1 View (Portable) IMPRESSION: Mild degree of vascular congestion and cardiomegaly. Operations: None Procedures: Stress test Summary of Care Provided: Hospital course: The patient is a 59 year old M with past medical history of hypertension, hyperlipidemia, chronic A. fib, mechanical aortic valve, otherwise as above, who presented to the emergency room with chest pain. This was described as left-sided pain radiating into the left side of the neck and back associated with shortness of breath. He came to the emergency room and was found to have EKG with no acute changes, negative troponin, chest x-ray with mild vascular congestion and cardiomegaly. He was admitted for chest pain work-up. He had no events on telemetry overnight. EKG showed no acute changes. Troponin was negative x3. He underwent a stress test the following morning which was negative for ischemia. He had no further chest pain the day of discharge. He was discharged home in stable condition. He will follow-up with his PCP in 1 to 2 weeks. This patient was seen by Papa Pederson PA-C under the supervision of Doctor Airam. [] - Physical Exam Vitals/I&O's: Vital Signs Temp Pulse Resp BP Pulse Ox 98.2 F 67 16 127/63 H 98 03/11/20 09:30 03/11/20 09:48 03/11/20 09:30 03/11/20 09:30 03/11/20 09:30 Oxygen Flow Rate (L/min) 2 Oxygen Delivery Method Room Air Weight: 337 lb 4.916 oz Body Mass Index (BMI) 48.4 Intake and Output for Last 24 Hours 03/09/20 03/10/20 03/11/20 23:59 23:59 23:59 Intake Total 660 / 660 Balance 660 / 660 General: Alert, Oriented x3, Cooperative HEENT: Atraumatic, PERRLA, EOMI, Normocephalic Neck: Supple, No JVD, Negative Carotid Bruits Lungs: Clear to auscultation, Normal air movement Cardiovascular: Regular rate, No murmurs Abdomen: Bowel Sounds Present, Soft, Non Tender Extremities: No edema, Capillary Refill Less than 3 Seconds Skin: No rashes, No breakdown Musculoskeletal: No Tenderness to Palpation of Joints or Extremities Neurological: Cranial nerves II-XII grossly intact Psych/Mental Status: Normal Affect, Appropriate, Alert and oriented to time, place, person, mood and affect Laboratory Results 03/10/20 14:53: Troponin I < 0.015 03/10/20 17:45: Troponin I < 0.015 03/11/20 06:18: WBC 7.6, RBC 4.71, Hgb 14.5, Hct 44.8, MCV 95.1 H, MCH 30.8, MCHC 32.4, RDW Std Deviation 46.9 H, RDW Coeff of Ernestina 13.4, Plt Count 260, MPV 9.6, Immature Gran % (Auto) 0.400, Neut % (Auto) 69.9, Lymph % (Auto) 16.7 L, Coleman % (Auto) 10.2 H, Eos % (Auto) 2.1, Baso % (Auto) 0.7, Absolute Neuts (auto) 5.3, Absolute Lymphs (auto) 1.27, Nucleated RBC % 0 03/11/20 06:18: Sodium 140, Potassium 4.2, Chloride 108 H, Carbon Dioxide 26.0, Anion Gap 6, BUN 22 H, Creatinine 1.48 H, Estim Creat Clear Calc 54.80, Est GFR (MDRD) Af Amer 62, Est GFR (MDRD) Non-Af 52 L, BUN/Creatinine Ratio 14.9, Glucose 120 H, Calcium 9.4, Phosphorus 3.6, Magnesium 2.5, Total Bilirubin 2.10 H, AST 34, ALT 38, Alkaline Phosphatase 118 H, Total Protein 7.9, Albumin 4.0, Globulin 3.9, Albumin/Globulin Ratio 1.0 03/11/20 06:18: PT 22.8 H, INR 2.1 03/11/20 06:18: Phosphorus Cancelled 03/11/20 06:18: Hemoglobin A1c 5.8 H Discharge Diet: Low fat/ Low Cholesterol, 2000 mg Sodium Diet Discharge Activity: Return to Normal Activity Home Medications: Medications to take at Discharge Biotin/Keratin [Biotin Plus Keratin Tablet] 1 ea PO QHS 04/12/16 Cholecalciferol (VIT D3) [Vitamin D3] 2,000 unit PO QHS 04/12/16 Docusate Sodium [Colace] 100 mg PO QHS 04/12/16 Folic Acid 1 mg PO QHS 04/12/16 Fexofenadine HCl [Nikki Allergy] 60 mg PO DAILY 05/16/17 Tamsulosin HCl [Flomax] 0.4 mg PO DAILY 05/16/17 warfarin 3 mg tablet 3 mg PO DAILY 02/11/18 potassium chloride 20 mEq tablet,extended release 40 meq PO BID #360 tab 03/09/19 clopidogrel 75 mg tablet 75 mg PO DAILY #90 tab 06/30/19 atorvastatin 40 mg tablet 40 mg PO QHS #90 tab 07/12/19 umeclidinium 62.5 mcg-vilanterol 25 mcg/actuation powdr for inhalation 1 inh INHALATION QDAY #3 ea 09/20/19 albuterol sulfate 90 mcg/actuation aerosol inhaler 2 puff INHALATION Q4H PRN #1 device 01/11/20 metoprolol tartrate 50 mg tablet 25 mg PO BID #180 tab 02/15/20 Ferrous Sulfate 325 mg PO QHS 03/10/20 Levothyroxine Sodium [Synthroid] 100 mcg PO DAILY 03/10/20 Multivitamins,Therapeutic [Multivitamin] 1 tab PO DAILY 03/10/20 Terazosin HCl 1 mg PO QHS 03/10/20 Torsemide [Demadex] 20 mg PO 0600,1200 03/10/20 buPROPion XL [Wellbutrin Xl] 300 mg PO DAILY 03/10/20 Primary Care Physician: Compa Rosado MD [Primary Care Provider] - Please follow up with your Primary Care Physician in: 1-2 weeks Please Follow Up With: Compa Rosado MD Disposition: Home Minutes spent on discharge:: 35 Patient Condition:: Stable Medical Necessity - Tobacco Use Smoking Status: Former smoker Tobacco Use: Cigarettes, Cigars Meaningful Use Info Meaningful Use Diagnoses (Choose all that apply): None applicable <Clay Alegria - Last Filed: 03/11/20 13:58> Discharge Date and Diagnosis - Secondary Discharge Diagnosis Chronic Problems: Chronic Problems (Last Reviewed 03/10/20 @ 14:[address] Penny Price, DO) Stage 2 moderate COPD by GOLD classification (Chronic) PAOLA (obstructive sleep apnea) (Chronic) Nonrheumatic aortic (valve) stenosis (Chronic) Atherosclerotic heart disease of [place] coronary artery without angina pectoris (Chronic) Aortic valvular disease (Chronic) Aortic valve surgery 1964, AVR 02/2004, AVR redo 2010 Nicotine abuse (Chronic) Pulmonary hypertension (Chronic) Paroxysmal atrial fibrillation (Chronic) DCCV 02/2016, Cryoballon ablation 06/2016 @ [facility] Hypokalemia (Chronic) Hx of aortic valve replacement, mechanical (Chronic ~2010) Aortic valve surgery 1964, AVR 02/2004, AVR redo 2010 PVC (premature ventricular contraction) (Chronic) HLD (hyperlipidemia) (Chronic) Obesity (Chronic) Morbid obesity with BMI of 45.0-49.9, adult (Chronic) Hypothyroidism (Chronic) Iron deficiency anemia (Chronic) Hospital Course and Treatment Imaging Results: 03/11/20 05:55 Nuclear Stress Test - Chemical [NM] AM (NON MEDS) Operations: None Procedures: Stress test Summary of Care Provided: Patient seen and examined independently. Data reviewed. I agree with the above note by the physician dental assistant medical assistant. The patient is a 59 year old M presents with chest pain. Worse with deep respirations. Patient noted that a few days prior is lifting some heavy bags of feed. Patient underwent a cardiac work-up including EKG, troponins and stress test. All of which were negative. Discussed with patient that this may be musculoskeletal though it is not reproducible on exam. No additional cardiac work-up nor hospitalization is necessary at this time. Patient has a history of heart disease and advised that if the quality changes or if he has other constitutional symptoms, such as diaphoresis or shortness of breath to notify someone or come back to the emergency room. [] - Physical Exam Vitals/I&O's: Vital Signs Temp Pulse Resp BP Pulse Ox 36.8 C 67 16 127/63 H 98 03/11/20 09:30 03/11/20 09:48 03/11/20 09:30 03/11/20 09:30 03/11/20 09:30 Oxygen Flow Rate (L/min) 2 Oxygen Delivery Method Room Air Weight: 153 kg Body Mass Index (BMI) 48.4 Intake and Output for Last 24 Hours 03/09/20 03/10/20 03/11/20 23:59 23:59 23:59 Intake Total 660 / 660 Balance 660 / 660 General: Alert, Cooperative HEENT: Atraumatic, Normocephalic Lungs: Clear to auscultation, Normal air movement, No rhonchi, No wheeze Cardiovascular: Regular rate, No murmurs Abdomen: Bowel Sounds Present, Soft, Non Tender Extremities: No edema, Capillary Refill Less than 3 Seconds Psych/Mental Status: Normal Affect, Appropriate Laboratory Results 03/10/20 14:53: Troponin I < 0.015 03/10/20 17:45: Troponin I < 0.015 03/11/20 06:18: WBC 7.6, RBC 4.71, Hgb 14.5, Hct 44.8, MCV 95.1 H, MCH 30.8, MCHC 32.4, RDW Std Deviation 46.9 H, RDW Coeff of Ernestina 13.4, Plt Count 260, MPV 9.6, Immature Gran % (Auto) 0.400, Neut % (Auto) 69.9, Lymph % (Auto) 16.7 L, Coleman % (Auto) 10.2 H, Eos % (Auto) 2.1, Baso % (Auto) 0.7, Absolute Neuts (auto) 5.3, Absolute Lymphs (auto) 1.27, Nucleated RBC % 0 03/11/20 06:18: Sodium 140, Potassium 4.2, Chloride 108 H, Carbon Dioxide 26.0, Anion Gap 6, BUN 22 H, Creatinine 1.48 H, Estim Creat Clear Calc 54.80, Est GFR (MDRD) Af Amer 62, Est GFR (MDRD) Non-Af 52 L, BUN/Creatinine Ratio 14.9, Glucose 120 H, Calcium 9.4, Phosphorus 3.6, Magnesium 2.5, Total Bilirubin 2.10 H, AST 34, ALT 38, Alkaline Phosphatase 118 H, Total Protein 7.9, Albumin 4.0, Globulin 3.9, Albumin/Globulin Ratio 1.0 03/11/20 06:18: PT 22.8 H, INR 2.1 03/11/20 06:18: Phosphorus Cancelled 03/11/20 06:18: Hemoglobin A1c 5.8 H Discharge Diet: Low fat/ Low Cholesterol, 2000 mg Sodium Diet Discharge Activity: Return to Normal Activity Disposition: Home Minutes spent on discharge:: 35 Patient Condition:: Stable Medical Necessity - Tobacco Use Smoking Status: Former smoker Tobacco Use: Cigarettes, Cigars Meaningful Use Info Meaningful Use Diagnoses (Choose all that apply): None applicable OBSV E&M: 89883 Observation care discharge
== END 2020-03-11 09:58 | disposition home or self-care (01) ==
LOC: ED 13:41 → PCU 14:27
PROVIDERS: Admitting Provider Internal Medicine; Emergency Provider Physician Assistant; PCP Family Medicine
DX: R07.89 Other chest pain (principal); J44.9 Chronic obstructive pulmonary disease, unspecified; G47.33 Obstructive sleep apnea (adult) (pediatric); E66.01 Morbid (severe) obesity due to excess calories; Z68.42 Body mass index [BMI] 45.0-49.9, adult; E03.9 Hypothyroidism, unspecified; Z23 Encounter for immunization; E78.5 Hyperlipidemia, unspecified; I25.10 Atherosclerotic heart disease of native coronary artery without angina pectoris; K21.9 Gastro-esophageal reflux disease without esophagitis; I12.9 Hypertensive chronic kidney disease with stage 1 through stage 4 chronic kidney disease, or unspecified chronic kidney disease; N18.3 Chronic kidney disease, stage 3 (moderate); D50.9 Iron deficiency anemia, unspecified; I27.20 Pulmonary hypertension, unspecified; I48.21 Permanent atrial fibrillation; N40.0 Benign prostatic hyperplasia without lower urinary tract symptoms; Z79.899 Other long term (current) drug therapy; Z79.02 Long term (current) use of antithrombotics/antiplatelets; Z79.01 Long term (current) use of anticoagulants; Z95.2 Presence of prosthetic heart valve; Z87.891 Personal history of nicotine dependence; Z98.84 Bariatric surgery status; F32.9 Major depressive disorder, single episode, unspecified
CPT/HCPCS: 36415; 71045; 78452; 80048; 80053; 83036; 83735; 84100; 84484; 85025; 85610; 93005; 93017; 94640; 99218; 99251; 99285; A9500; 90686; A4216; G0378; G0463; J2785

== ENCOUNTER 2020-06-19 15:57 | Emergency (ER) | payer BC, SELFPAY ==
[2020-03-10 12:37] VITALS: BMI 48.4
[2020-06-19 16:00] VITALS: BP 101/67; PULSE 91; RESP 17; TEMP 37.1; O2SAT 99; BMI 47.1
--- NOTE | 2020-06-19 16:18 | EKG12_ITS ---
Test Reason : WEAKNESS Blood Pressure : / mmHG Vent. Rate : 095 BPM Atrial Rate : 070 BPM P-R Int : 000 ms QRS Dur : 164 ms QT Int : 422 ms P-R-T Axes : 000 112 -12 degrees QTc Int : 530 ms Atrial fibrillation Right bundle branch block Septal infarct , age undetermined T wave abnormality, consider inferior ischemia Abnormal ECG Confirmed by NATE LITTLE, RENATO ([id number]), videotape editor SUKHDEEP STOUT ([id number]) on 06/26/2020 9:13:17 AM Referred By: DARION Confirmed By:CHENCHO SULLIVAN MD
--- NOTE | 2020-06-19 16:19 | ED.VIS.GEN ---
History of Present Illness Chief Complaint: Weakness Informant: Patient Narrative: 59-year-old male states that on Friday after dinner he began to have nausea and generalized weakness. Notes a sore throat and a left frontal headache. He states that yesterday he developed diarrhea that was pretty much every hour but is better today. He notes a slight cough. He states that he has COPD and is normally short of breath with exertion but recovers at rest. No fevers but has felt chilled. No rashes. No change in his chronic sinus congestion. He states that his is worried that he may have Covid. He denies any known bad food exposures. - Past Medical History (1) Stage 2 moderate COPD by GOLD classification Status: Chronic (2) Restless legs syndrome (RLS) Status: Chronic (3) PAOLA (obstructive sleep apnea) Status: Chronic (4) Nonrheumatic aortic (valve) stenosis Status: Chronic (5) Atherosclerotic heart disease of [place] coronary artery without angina pectoris Status: Chronic (6) Aortic valvular disease Status: Chronic Comment: Aortic valve surgery 1964, AVR 02/2004, AVR redo 2010 (7) Pulmonary hypertension Status: Chronic (8) Hx of aortic valve replacement, mechanical Status: Chronic Comment: Aortic valve surgery 1964, AVR 02/2004, AVR redo 2010 (9) HLD (hyperlipidemia) Status: Chronic (10) Obesity Status: Chronic (11) Hypothyroidism Status: Chronic (12) Iron deficiency anemia Status: Chronic Past Medical History - Allergies and Home Meds Allergies/Adverse Reactions: Allergies aspirin Allergy (Verified 06/19/20 16:00) Hives Iodinated Contrast Media [Iodinated Contrast Media - IV Dye] Allergy (Verified 06/19/20 16:00) Hives shellfish derived Allergy (Verified 06/19/20 16:00) Hives Primary Care Physician: Compa Rosado MD [Primary Care Provider] - Prior records reviewed: Yes Surgical History: - - Aortic valve surgery x 3, most recently mechanical valve placement (prior was porcine), T+A, Ablation. Lives: Spouse/ Significant Other Smoking Status: Former smoker Drugs: None - Family History Maternal Family History: Family History (Last Reviewed 03/10/20 @ 14:[address] Penny Price DO) Father Cancer Mother Hypertension Brother Cancer Family History: Reports: Hypertension Paternal Family History: Family History (Last Reviewed 03/10/20 @ 14:[address] Penny Price DO) Father Cancer Mother Hypertension Brother Cancer Family History: Reports: No pertinent history Review of Systems General: Reports: Chills, Malaise. Denies: Fever, Sweats Eyes: Denies: Visual changes - bilaterally, Diplopia ENT: Reports: Sore throat. Denies: Rhinorrhea Cardiovascular: Denies: Chest pain, Palpitations Respiratory: Reports: Cough, Dyspnea on exertion. Denies: Dyspnea Gastrointestinal: Reports: Nausea, Diarrhea. Denies: Abdominal pain, Vomiting, Melena, Hematochezia Genitourinary: Denies: Dysuria, Hematuria, Frequency Musculoskeletal: Reports: Myalgias. Denies: Back pain, Extremity Pain Skin: Denies: Rash, Wounds Neurological: Reports: Headache. Denies: Weakness, Numbness Physical Exam Vital Signs/Narrative: Vital Signs Temp Pulse Resp BP Pulse Ox 06/19/20 16:00 98.8 F 91 17 101/67 99 Inital Vital Signs reviewed: Yes General: Well nourished, Well developed, Obese, No Acute Distress Head: Normocephalic, Atraumatic Eyes: Perrl, EOMI ENT: Moist mucous membranes, No rhinorrhea Neck: Supple, Nontender Cardiovascular: No murmurs, Irregular - Irregularly irregular heart rhythm that appears rate controlled at rest. Respiratory: No distress, CTA bilaterally, Chest nontender Abdomen: Soft, Nontender, Nondistended, Normal bowel sounds Back: Nontender, Normal Inspection Extremities: Nontender, No edema Skin: Normal color, No rash Neurological: Alert, Oriented x3, Cranial nerves II-XII grossly intact, Normal Strength, Normal Sensation Psychological: Normal affect, Normal Mood Diagnostic/Tx/Re-eval Clinical Impression(s) from Imaging Studies Chest X-Ray 06/19/20 16:40 IMPRESSION: Mild congestive heart failure. Electronically Signed: Gus Birmingham MD at 16:49 EST Tel , Service support , Laboratory Last Values WBC 4.2 K/mm3 (4.4-11.0) L 06/19/20 16:25 RBC 4.81 M/mm3 (4.6-6.2) 06/19/20 16:25 Hgb 14.9 g/dL (13.0-16.5) 06/19/20 16:25 Hct 45.8 % (40-54) 06/19/20 16:25 MCV 95.2 fL (80-94) H 06/19/20 16:25 MCH 31.0 pg (27.0-32.0) 06/19/20 16:25 MCHC 32.5 g/dL (32-36) 06/19/20 16:25 RDW Std Deviation 49.1 fl (35.1-43.9) H 06/19/20 16:25 RDW Coeff of Ernestina 13.9 % (11.6-14.6) 06/19/20 16:25 Plt Count 226 K/mm3 (150-450) 06/19/20 16:25 MPV 9.6 fl (6.2-12.0) 06/19/20 16:25 Immature Gran % (Auto) 0.200 % (0.0-0.9) 06/19/20 16:25 Neut % (Auto) 57.1 % (47-70) 06/19/20 16:25 Lymph % (Auto) 19.3 % (19-41) 06/19/20 16:25 Edmunds % (Auto) 21.4 % (0-10) H 06/19/20 16:25 Eos % (Auto) 1.0 % (0-5) 06/19/20 16:25 Baso % (Auto) 1.0 % (0-1) 06/19/20 16:25 Absolute Neuts (auto) 2.4 X10^3/uL (2.0-7.7) 06/19/20 16:25 Absolute Lymphs (auto) 0.80 X10^3/uL (0.83-4.51) L 06/19/20 16:25 Nucleated RBC % 0 % (0-5) 06/19/20 16:25 PT 18.1 SECONDS (11.7-14.9) H 06/19/20 16:25 INR 1.6 06/19/20 16:25 Sodium 138 mmol/L (136-145) 06/19/20 16:25 Potassium 4.0 mmol/L (3.5-5.1) 06/19/20 16:25 Chloride 106 mmol/L (98-107) 06/19/20 16:25 Carbon Dioxide 26.0 mmol/L (21.0-32.0) 06/19/20 16:25 Anion Gap 6 (5-15) 06/19/20 16:25 BUN 24 mg/dL (7-18) H 06/19/20 16:25 Creatinine 1.75 mg/dL (0.70-1.30) H 06/19/20 16:25 Estim Creat Clear Calc 46.35 ml/min 06/19/20 16:25 Est GFR (MDRD) Af Amer 51 mL/min (>60) L 06/19/20 16:25 Est GFR (MDRD) Non-Af 42 mL/min (>60) L 06/19/20 16:25 BUN/Creatinine Ratio 13.7 RATIO (10-20) 06/19/20 16:25 Glucose 93 mg/dL (74-106) 06/19/20 16:25 Calcium 8.6 mg/dL (8.5-10.1) 06/19/20 16:25 Total Bilirubin 2.00 mg/dL (0.20-1.00) H 06/19/20 16:25 AST 54 U/L (15-37) H 06/19/20 16:25 ALT 48 U/L (16-61) 06/19/20 16:25 Alkaline Phosphatase 115 U/L (45-117) 06/19/20 16:25 Total Protein 8.0 g/dL (6.4-8.2) 06/19/20 16:25 Albumin 4.0 g/dL (3.2-5.0) 06/19/20 16:25 Globulin 4.0 g/dL (2.2-4.2) 06/19/20 16:25 Albumin/Globulin Ratio 1.0 RATIO (0.9-2.4) 06/19/20 16:25 - EKG Initial EKG Interpretation: Atrial Fibrillation - EKG demonstrates atrial fibrillation with right bundle branch block. Ventricular rate of 95. No concerning features of ACS - Medical Decision Making EKG shows his chronic atrial fibrillation. My interpretation of the single view portable chest x-ray shows prominent vasculature consistent with his history of CHF. Patient has a mild bump in his creatinine which would not be too unexpected given his diarrhea. His electrolytes are in check. Patient is Covid positive. On go to write for Decadron. He is otherwise having normal vital signs. He is subtherapeutic on his INR when I have him double his Coumadin dose for the next 3 days and have it rechecked on . He can call his doctor find out how they want to have him checked that day. Patient is advised to quarantine and inform those who are at his house for [place] that he is now positive. He was given return instructions and notes understanding. It also would appear based on screening criteria that the patient would initially qualify for a monoclonal antibody infusion. I will make the referral. ED Disposition - Plan for ED Patient: Disposition: Home or Assisted Living Diagnosis: COVID-19, Subtherapeutic anticoagulation Instructions: Coronavirus Disease 2019 (COVID-19): Caring for Yourself or Others Prescriptions: Dexamethasone [Decadron] 6 mg PO DAILY 5 Days #5 tab Prescription Printed Ondansetron [Zofran Odt] 4 mg PO Q6H PRN PRN #10 tab PRN Reason: Nausea Prescription Printed Referrals: Compa Rosado MD [Primary Care Provider] - Additional Instructions: You need to double your Coumadin dose for the next 3 nights and have your INR checked on . I have written you a prescription for Decadron. Monitor your breathing return if worsening or concerns. You need to self quarantine.
[2020-06-19 16:28] VITALS: BP 101/67; PULSE 91; RESP 17; TEMP 37.1; O2SAT 99
[2020-06-19 16:37] LABS: Absolute Neutrophil Count 2.4 X10^3/uL (2.0-7.7); Basophil# 0.04 X10^3/uL; Eosinophil# 0.04 X10^3/uL; Hematocrit 45.8 % (40-54); Hemoglobin 14.9 g/dL (13.0-16.5); Lymphocyte % 19.3 % (19-41); Mean Corp Hgb Conc 32.5 g/dL (32-36); Mean Corpuscular Volume 95.2 fL (80-94); Mean Platelet Vol. 9.6 fl (6.2-12.0); Monocyte# 0.89 X10^3/uL; Monocyte% 21.4 % (0-10); NRBC Flagged by Analyzer 0 % (0-5); Neutrophil # 2.37 X10^3/uL (2.7-7.7); Neutrophil % 57.1 % (47-70); Platelet Count 226 K/mm3 (150-450); RBC Distribution Width CV 13.9 % (11.6-14.6); RBC Distribution Width SD 49.1 fl (35.1-43.9); Red Blood Count 4.81 M/mm3 (4.6-6.2); White Blood Count 4.2 K/mm3 (4.4-11.0)
--- NOTE | 2020-06-19 16:40 | RAD_ITS ---
STUDY: X-RAY CHEST REASON FOR EXAM: Male, 59 years old. weakness, sore throat, headache, shortness of breath, nausea TECHNIQUE: Single AP portable view of the chest. COMPARISON: 03/10/2020 FINDINGS: Status post median sternotomy. The lungs are clear and expanded. There is no demonstrated pleural abnormality. There is moderate cardiac enlargement. Normal mediastinum and arun. There is prominence of the pulmonary hilar arteries and peripheral pulmonary arteries, consistent with congestive heart failure (CHF). Normal visualized aortic arch and descending thoracic aorta. Normal visualized thoracic spine. Normal visualized ribs, clavicles, and shoulders. There is no demonstrated abnormality of the visualized soft tissue structures of the upper abdomen. RAD/Chest 1 View (Portable) IMPRESSION: Mild congestive heart failure. Electronically Signed: Gus Birmingham MD at 16:49 EST Tel , Service support ,
[2020-06-19 16:57] LABS: AST(SGOT) 54 U/L (15-37); Alanine Aminotransfer ALT/SGPT 48 U/L (16-61); Alkaline Phosphatase 115 U/L (45-117); Anion Gap 6 (5-15); BUN 24 mg/dL (7-18); BUN/Creat Ratio 13.7 RATIO (10-20); Calcium,Total 8.6 mg/dL (8.5-10.1); Chloride 106 mmol/L (98-107); Creatinine, Serum 1.75 mg/dL (0.70-1.30); EST Glomerular Filtration Rate 42 mL/min (>60); Est Glom Filt Rate - Afr Amer 51 mL/min (>60); Estimated Creatinine Clearance 46.35 ml/min; Glucose 93 mg/dL (74-106); Sodium Level 138 mmol/L (136-145)
[2020-06-19 17:05] VITALS: BP 110/82; PULSE 89; RESP 17; TEMP 37.1; O2SAT 99
[2020-06-19 17:07] LABS: International Normalized Ratio 1.6; Prothrombin Time (Protime)PT. 18.1 SECONDS (11.7-14.9)
[2020-06-19 17:48] VITALS: PULSE 90; RESP 18
== END 2020-06-19 17:59 | disposition home or self-care (01) ==
PROVIDERS: Emergency Provider Emergency Medicine; PCP Family Medicine
DX: U07.1 COVID-19 (principal); R79.1 Abnormal coagulation profile; I48.20 Chronic atrial fibrillation, unspecified; I27.20 Pulmonary hypertension, unspecified; J44.9 Chronic obstructive pulmonary disease, unspecified; I45.10 Unspecified right bundle-branch block; I50.9 Heart failure, unspecified; I35.0 Nonrheumatic aortic (valve) stenosis; I25.10 Atherosclerotic heart disease of native coronary artery without angina pectoris; D50.9 Iron deficiency anemia, unspecified; E78.5 Hyperlipidemia, unspecified; E03.9 Hypothyroidism, unspecified; G25.81 Restless legs syndrome; G47.33 Obstructive sleep apnea (adult) (pediatric); E66.9 Obesity, unspecified; Z79.01 Long term (current) use of anticoagulants; Z79.02 Long term (current) use of antithrombotics/antiplatelets; Z79.899 Other long term (current) drug therapy; Z87.891 Personal history of nicotine dependence; Z95.2 Presence of prosthetic heart valve
CPT/HCPCS: 71045; 80053; 85025; 85610; 87426; 93005; 99283; A4216

== ENCOUNTER 2020-06-20 13:20 | Outpatient (CLI) | payer BC, SELFPAY ==
[2020-06-20 12:55] VITALS: BP 100/58; PULSE 81; RESP 18; TEMP 36.8; O2SAT 97; BMI 47.1
[2020-06-20 13:34] VITALS: BP 92/53; PULSE 80; RESP 18; O2SAT 97
[2020-06-20 14:04] VITALS: BP 102/74; PULSE 86; RESP 18; TEMP 36.8; O2SAT 97
[2020-06-20 14:34] VITALS: BP 95/63; PULSE 89; RESP 18; O2SAT 95
[2020-06-20 15:13] VITALS: BP 96/57; PULSE 75; RESP 18; TEMP 37; O2SAT 97
== END 2020-06-20 15:13 | disposition home or self-care (01) ==
LOC: MS2OUT 13:42
PROVIDERS: PCP Family Medicine; Referring Provider Nurse Practitioner Acute Care; Visit Provider Nurse Practitioner Acute Care
DX: U07.1 COVID-19 (principal)
CPT/HCPCS: 96365; J7050; M0239; Q0239

== ENCOUNTER → 2020-09-22 05:57 | Outpatient (CLI) | payer BC, SELFPAY ==
[2020-08-18 15:37] VITALS: BMI 48.0
[2020-09-22 07:56] LABS: Anion Gap 4 (5-15); BUN 24 mg/dL (7-18); BUN/Creat Ratio 15.6 RATIO (10-20); Calcium,Total 9.4 mg/dL (8.5-10.1); Chloride 103 mmol/L (98-107); Cholesterol 110 mg/dL (200); Creatinine, Serum 1.54 mg/dL (0.70-1.30); EST Glomerular Filtration Rate 49 mL/min (>60); Est Glom Filt Rate - Afr Amer 59 mL/min (>60); Glucose 158 mg/dL (74-106); High Density Lipoprotein 36 mg/dL; Potassium 4.3 mmol/L (3.5-5.1); Sodium Level 138 mmol/L (136-145); Thyroid Stim Hormone (TSH) 3.52 uIU/mL (0.358-3.74); Triglycerides 197 mg/dL; Very Low Density Lipoprotein 39 mg/dL (5-40)
[2020-09-22 08:32] LABS: Hemoglobin A1c 5.8 % (3.8-5.6)
== END ==
PROVIDERS: PCP Family Medicine; Referring Provider Family Medicine; Visit Provider Family Medicine
DX: E66.9 Obesity, unspecified (principal)
CPT/HCPCS: 36415; 80048; 80061; 83036; 84443

== ENCOUNTER 2020-09-27 16:09 | Outpatient (RCR) | payer BC, SELFPAY ==
[2020-08-18 15:37] VITALS: BMI 48.0
== END 2020-11-28 23:59 ==
LOC: IMMUN 16:09
PROVIDERS: PCP Family Medicine; Visit Provider Family Medicine
DX: Z23 Encounter for immunization (principal)
CPT/HCPCS: 0001A; 0002A; 91300

== ENCOUNTER → 2020-10-16 05:58 | Outpatient (CLI) | payer BC, SELFPAY ==
[2020-08-18 15:37] VITALS: BMI 48.0
[2020-10-16 06:42] LABS: Absolute Lymphocyte Count 0.88 X10^3/uL (0.83-4.51); Absolute Neutrophil Count 4.7 X10^3/uL (2.0-7.7); Basophil# 0.06 X10^3/uL; Eosinophil# 0.12 X10^3/uL; Hematocrit 46.3 % (40-54); Hemoglobin 15.1 g/dL (13.0-16.5); Lymphocyte # 0.88 X10^3/ul (0.83-4.51); Lymphocyte % 14.4 % (19-41); Mean Corp Hgb Conc 32.6 g/dL (32-36); Mean Corpuscular Hgb 31.1 pg (27.0-32.0); Mean Corpuscular Volume 95.3 fL (80-94); Mean Platelet Vol. 9.9 fl (6.2-12.0); Monocyte# 0.33 X10^3/uL; Monocyte% 5.4 % (0-10); NRBC Flagged by Analyzer 0 % (0-5); Neutrophil # 4.69 X10^3/uL (2.7-7.7); Platelet Count 231 K/mm3 (150-450); RBC Distribution Width CV 12.8 % (11.6-14.6); RBC Distribution Width SD 44.8 fl (35.1-43.9); Red Blood Count 4.86 M/mm3 (4.6-6.2); White Blood Count 6.1 K/mm3 (4.4-11.0)
[2020-10-16 06:47] LABS: Erythrocyte Sedimentation Rate 17 mm/hr (0-20)
[2020-10-16 07:15] LABS: ALB/GLOB Ratio 1.1 RATIO (0.9-2.4); AST(SGOT) 30 U/L (15-37); Alanine Aminotransfer ALT/SGPT 32 U/L (16-61); Albumin, Serum 3.9 g/dL (3.2-5.0); Alkaline Phosphatase 127 U/L (45-117); Anion Gap 7 (5-15); BUN 22 mg/dL (7-18); BUN/Creat Ratio 14.1 RATIO (10-20); CRP 8.04 mg/L (0.0-3.0); Calcium,Total 8.8 mg/dL (8.5-10.1); Chloride 104 mmol/L (98-107); Creatinine, Serum 1.56 mg/dL (0.70-1.30); EST Glomerular Filtration Rate 48 mL/min (>60); Est Glom Filt Rate - Afr Amer 59 mL/min (>60); Globulin 3.5 g/dL (2.2-4.2); Glucose 207 mg/dL (74-106); Potassium 3.8 mmol/L (3.5-5.1); Protein, Total 7.4 g/dL (6.4-8.2); Rheumatoid Factor < 10.0 IU/mL (<15); Sodium Level 139 mmol/L (136-145); Thyroid Stim Hormone (TSH) 3.45 uIU/mL (0.358-3.74)
[2020-10-16 08:51] LABS: Vitamin B12 645 pg/mL (211-911); Vitamin D,25 Hydroxy 47.3 ng/mL
[2020-10-17 23:03] LABS: ANTINUCLEAR ANTIBODIES DIRECT Negative (Negative)
[2020-10-20 16:49] LABS: CCP IgG Antibodies 3 units (0-19)
== END ==
PROVIDERS: PCP Family Medicine; Referring Provider Podiatrist; Visit Provider Podiatrist
DX: G62.9 Polyneuropathy, unspecified (principal)
CPT/HCPCS: 36415; 80053; 82306; 82607; 83036; 84207; 84443; 84550; 85025; 85652; 86038; 86140; 86200; 86431

== ENCOUNTER → 2020-11-03 13:30 | Outpatient (CLI) | payer BC, SELFPAY ==
[2020-08-18 15:37] VITALS: BMI 48.0
--- NOTE | 2020-11-03 13:37 | ART_ITS ---
Reason For Study: PVD Procedure A bilateral lower extremity continuous wave Doppler with analog waveform analysis,segmental pressures,and ankle brachial indexes without exercise. Left Segmental Pressures Left brachial= 106mmHg. Left posterior tibial artery = 163mmHg. Left dorsalis pedis artery = 157mmHg. Left digit = 131 mmHg. The left dorsalis pedis waveforms are triphasic. The left posterior tibial artery waveforms are triphasic. Right Segmental Pressures Right brachial= 109mmHg. Right posterior tibial artery = 152mmHg. Right dorsalis pedis artery = 150mmHg. Right digit = 113 mmHg. The right dorsalis pedis waveforms are triphasic. The right posterior tibial artery waveforms are triphasic. Indices The right ankle brachial index by the dorsalis pedis is 1.38. The right ankle brachial index by the posterior tibial artery is 1.39. The right digital-brachial index is 1.04. The left ankle brachial index by the dorsalis pedis is 1.44. The left ankle brachial index by the posterior tibial artery is 1.50. The left digital-brachial index is 1.20. VL/Lower Ext Art Exam w/o Exercis Interpretation Summary Triphasic Doppler waveforms are noted at ankle level bilaterally. Pulse-volume recordings appear satisfactory at all levels bilaterally, including low-thigh, calf, ankle, and d igital levels. The resting right ankle-brachial index is normal. The resting left ankle-brachial i ndex is supra-normal. Digital-brachial indices are normal biaterally. There is evidence of arterial calcification at ankle level on the left. There i s no evidence of significant arterial occlusive disease in the lower extremities bilaterally. Ordering Physician: Guilherme Scott Referring Physician: Compa Rosado Performed By: Penelope Duvall RVT
== END ==
PROVIDERS: PCP Family Medicine; Referring Provider Podiatrist; Visit Provider Podiatrist
DX: I73.9 Peripheral vascular disease, unspecified (principal)
CPT/HCPCS: 93923

== ENCOUNTER → 2020-11-29 07:47 | Outpatient (CLI) | payer BC, SELFPAY ==
[2020-08-18 15:37] VITALS: BMI 48.0
--- NOTE | 2020-11-29 14:54 | NEURO ---
NCS and/or EMG Patient Report Ordering Doctor: Compa Rosado DATE OF SERVICE: 11/29/20 Renato presents for electrodiagnostic testing with complaints of numbness and tingling in both hands. Electrodiagnostic findings: Prolonged left median motor latency with normal amplitude and reduced conduction velocity. Reduced right median motor conduction velocity. Ulnar motor conduction velocity is reduced bilaterally, though there is no evidence of conduction block at the elbow. Prolonged median sensory latency at the wrist and palm bilaterally. Prolonged ulnar sensory latency at the wrist bilaterally. On needle EMG, all muscles tested in upper limbs showed no evidence of denervation with normal motor unit action potentials. Electrodiagnostic assessment: This is an abnormal study in the upper limbs 1. Electrodiagnostic findings demonstrate bilateral median mononeuropathy. This consistent with a mild to moderate bilateral carpal tunnel syndrome. 2. 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 There is no electrodiagnostic evidence for cubital tunnel syndrome. 3. Would consider clinical correlation with electrodiagnostic testing in the lower limbs to evaluate for peripheral polyneuropathy.
== END ==
PROVIDERS: PCP Family Medicine; Referring Provider Family Medicine; Visit Provider Family Medicine
DX: R20.2 Paresthesia of skin (principal)
CPT/HCPCS: 95886; 95913

== ENCOUNTER → 2021-01-01 11:19 | Outpatient (CLI) | payer BC, SELFPAY ==
[2020-08-18 15:37] VITALS: BMI 48.0
--- NOTE | 2021-01-01 13:21 | NEURO ---
NCS and/or EMG Patient Report Ordering Doctor: Guilherme Scott DATE OF SERVICE: 01/01/21 Indication: Bilateral lower extremity numbness and tingling which has been progressive over several years. Feet feel cold. Frequent spasms in the legs. Prior electrodiagnostic testing of the upper extremities was completed on 11/29/20. This evaluation was recommended to screen for peripheral polyneuropathy based on the results of that study. Findings: Nerve conduction studies were performed in the bilateral lower extremities. The right peroneal motor study recording the extensor digitorum brevis showed a reduced amplitude and normal distal latency. The right tibial motor study recording the abductor hallucis brevis showed a reduced amplitude, normal distal latency and normal conduction velocity. The right sural sensory response was absent. The right superficial peroneal sensory response was absent. The right medial plantar sensory response was absent. The right lateral plantar sensory response was absent. The left peroneal motor study recording the extensor digitorum brevis showed a reduced amplitude, normal distal latency and borderline conduction velocity. No conduction block or focal slowing was present across the fibular neck. The left tibial motor study recording the abductor hallucis brevis showed a reduced amplitude, normal distal latency and normal conduction velocity. The left sural sensory response was absent. The left superficial peroneal sensory response was absent. The left medial plantar sensory response was absent. The left lateral plantar sensory response was absent. Limited needle EMG of the right lower extremity muscles was performed as the patient is on warfarin. Active denervation was present in any the right extensor hallucis longus muscle. Motor units in the right tibialis anterior and medial gastrocnemius were borderline large amplitude and long duration with normal recruitment. Motor units in the right extensor hallucis longus were large with reduced recruitment. Motor unit morphology, activation, and recruitment patterns were normal in the vastus medialis and tensor fascia sol muscles. Impression: This is a markedly abnormal study. There is electrophysiologic evidence of an active and chronic, length-dependent, sensorimotor, peripheral polyneuropathy. While this was a limited study, there was no clear evidence of a superimposed lumbosacral radiculopathy. These findings should be taken into consideration when interpreting the electrodiagnostic testing performed on 11/29/20. Nacho Berman D.O.
== END ==
PROVIDERS: PCP Family Medicine; Referring Provider Podiatrist; Visit Provider Podiatrist
DX: G62.9 Polyneuropathy, unspecified (principal); R20.0 Anesthesia of skin
CPT/HCPCS: 95886; 95912

== ENCOUNTER → 2021-01-08 16:55 | Outpatient (CLI) | payer BC, SELFPAY ==
[2020-08-18 15:37] VITALS: BMI 48.0
[2021-01-08 18:35] LABS: Anion Gap 10 (5-15); BUN 24 mg/dL (7-18); BUN/Creat Ratio 17.8 RATIO (10-20); Calcium,Total 9.1 mg/dL (8.5-10.1); Chloride 103 mmol/L (98-107); Creatinine, Serum 1.35 mg/dL (0.70-1.30); EST Glomerular Filtration Rate 57 mL/min (>60); Est Glom Filt Rate - Afr Amer 69 mL/min (>60); Glucose 103 mg/dL (74-106); Potassium 3.5 mmol/L (3.5-5.1); Sodium Level 139 mmol/L (136-145); Uric Acid 9.1 mg/dL (3.5-7.2)
== END ==
PROVIDERS: PCP Family Medicine; Referring Provider Family Medicine; Visit Provider Family Medicine
DX: M10.9 Gout, unspecified (principal)
CPT/HCPCS: 36415; 80048; 84550

== ENCOUNTER → 2021-04-04 05:57 | Outpatient (CLI) | payer BC, SELFPAY ==
[2021-04-04 07:09] LABS: Hemoglobin 14.5 g/dL (13.0-16.5); Mean Corp Hgb Conc 32.2 g/dL (32-36); Mean Corpuscular Hgb 30.5 pg (27.0-32.0); Mean Corpuscular Volume 94.5 fL (80-94); Platelet Count 243 K/mm3 (150-450); RBC Distribution Width CV 13.9 % (11.6-14.6); RBC Distribution Width SD 47.8 fl (35.1-43.9); Red Blood Count 4.76 M/mm3 (4.6-6.2); White Blood Count 7.6 K/mm3 (4.4-11.0)
[2021-04-04 08:20] LABS: Vitamin B12 739 pg/mL (211-911)
[2021-04-04 08:21] LABS: ALB/GLOB Ratio 0.9 RATIO (0.9-2.4); AST(SGOT) 37 U/L (15-37); Alanine Aminotransfer ALT/SGPT 38 U/L (16-61); Albumin, Serum 3.7 g/dL (3.2-5.0); Alkaline Phosphatase 137 U/L (45-117); Anion Gap 10 (5-15); BUN 27 mg/dL (7-18); BUN/Creat Ratio 16.4 RATIO (10-20); Chloride 104 mmol/L (98-107); Creatinine, Serum 1.65 mg/dL (0.70-1.30); EST Glomerular Filtration Rate 45 mL/min (>60); Est Glom Filt Rate - Afr Amer 55 mL/min (>60); Globulin 3.9 g/dL (2.2-4.2); Glucose 178 mg/dL (74-106); Potassium 4.3 mmol/L (3.5-5.1); Protein, Total 7.6 g/dL (6.4-8.2); Sodium Level 138 mmol/L (136-145); Thyroid Stim Hormone (TSH) 4.96 uIU/mL (0.358-3.74)
[2021-04-05 17:09] LABS: Free Kappa Light Chains 53.3 mg/L (3.3-19.4); Free Lambda Light Chains 28.2 mg/L (5.7-26.3)
== END ==
PROVIDERS: PCP Family Medicine; Referring Provider Psychiatry & Neurology Neurology; Visit Provider Psychiatry & Neurology Neurology
DX: G62.9 Polyneuropathy, unspecified (principal)
CPT/HCPCS: 36415; 80053; 82607; 82746; 83883; 84443; 85027

== ENCOUNTER → 2021-04-17 12:31 | Outpatient (CLI) | payer BC, SELFPAY ==
--- NOTE | 2021-04-17 12:42 | ECHOD_ITS ---
Reason For Study: Mechanical AV Procedure This was a 2D Doppler, Color Flow transthoracic echocardiogram. Technically difficult study due to patients body habitus. Unable to utilize Definity due to previously noted adverse reaction. The study was technically difficult. Exam performed in department. Left Ventricle Based upon the 2D echocardiographic images obtained there appears to be grossly normal left ventricular size, wall motion, and systolic function. The estimated ejection fraction is 55 %. There is evidence of diastolic dysfunction. Right Ventricle Moderately dilated right ventricle. Moderate global right ventricular systolic dysfunction. Atria The left atrium is severely enlarged. The right atrium is severely enlarged. No doppler evidence for ASD. Mitral Valve Mitral valve not well visualized. Trivial mitral valve insufficiency. Tricuspid Valve The tricuspid valve is not well visualized. Mild tricuspid valve insufficiency. Right ventricular systolic pressure estimated to be 44 mmHg. Aortic Valve The aortic valve is not well visualized, however, based upon the 2D echocardiographic findings there appears to be a stable mechanical aortic valve prosthesis with associated spectral Doppler findings compatible with moderate prosthetic aortic valve stenosis potentially secondary to an undersized prosthetic aortic valve. Pulmonic Valve The pulmonic valve is not well visualized. Great Vessels The aortic root is not well visualized. Pericardium/Pleural No pericardial effusion. MMode/2D Measurements & Calculations RVDd: 6.2 cm LVOT diam: 2.1 cm LAV(MOD-sp4): 117.5 ml LVOT area: 3.5 cm2 LA A4 area: 32.4 cm2 RA A4 area: 39.1 cm2 Time Measurements MV dec time: 0.19 sec Doppler Measurements & Calculations MV E max ángel: 152.3 cm/sec Lat Peak E' Ángel: 8.6 cm/sec Med Peak E' Ángel: 7.0 cm/sec MV A max ángel: 39.4 cm/sec E/E' lat: 17.7 E/E' med: 21.7 MV E/A: 3.9 MV V2 max: 183.6 cm/sec MV P1/2t max ángel: 183.6 cm/sec Ao V2 max: 484.9 cm/sec MV max P.5 mmHg MV P1/2t: 65.1 msec Ao max P.3 mmHg MV V2 mean: 80.5 cm/sec MV dec slope: 826.3 cm/sec2 Ao V2 mean: 339.3 cm/sec MV mean P.5 mmHg Ao mean P.9 mmHg MV V2 VTI: 40.8 cm MVA(P1/2t): 3.4 cm2 Ao V2 VTI: 101.5 cm MVA(VTI): 3.2 cm2 YOLI(I,D): 1.3 cm2 YOLI(V,D): 1.1 cm2 LV V1 max: 158.6 cm/sec SV(LVOT): 128.7 ml PA V2 max: 117.5 cm/sec LV V1 max P.1 mmHg LV V1 mean P.2 mmHg LV V1 mean: 115.9 cm/sec LV V1 VTI: 36.7 cm TR max ángel: 321.3 cm/sec TR max P.3 mmHg ECHO/Echo Complete Interpretation Summary The study was technically difficult. Based upon the 2D echocardiographic images obtained there appears to be grossly normal left ventricular size, wall motion, and systolic function. The estimated ejection fraction is 55 %. Moderately dilated right ventricle. Moderate global right ventricular systolic dysfunction. The left atrium is severely enlarged. The right atrium is severely enlarged. Trivial mitral valve insufficiency. Mild tricuspid valve insufficiency. The aortic valve is not well visualized, however, based upon the 2D echocardiog raphic findings there appears to be a stable mechanical aortic valve prosthesis with associated spect ral Doppler findings compatible with moderate prosthetic aortic valve stenosis potentially secondary to an undersized prosthetic aortic valve. Right ventricular systolic pressure estimated to be 44 mmHg. There is evidence of diastolic dysfunction. Ordering Physician: Marty Gonzales Referring Physician: Compa Rosado Performed By: Teofilo Ty RCS
== END ==
PROVIDERS: PCP Family Medicine; Referring Provider Nurse Practitioner Family; Visit Provider Nurse Practitioner Family
DX: I48.0 Paroxysmal atrial fibrillation (principal); Z95.2 Presence of prosthetic heart valve
CPT/HCPCS: 93306

== ENCOUNTER → 2021-04-19 05:59 | Outpatient (CLI) | payer BC, SELFPAY ==
[2021-04-20 16:09] LABS: Alpha-1-Globulins 0.2 g/dL (0.0-0.4); Alpha-2-Globulins 0.6 g/dL (0.4-1.0); Gamma Globulin 1.3 g/dL (0.4-1.8); Immunoglobulin A 250 mg/dL (61-437); Immunoglobulin G 1060 mg/dL (603-1613); Immunoglobulin M 180 mg/dL (20-172); PROEL- TOTAL PROTEIN 7.1 g/dL (6.0-8.5)
== END ==
PROVIDERS: PCP Family Medicine; Referring Provider Psychiatry & Neurology Neurology; Visit Provider Psychiatry & Neurology Neurology
DX: G62.9 Polyneuropathy, unspecified (principal)
CPT/HCPCS: 36415; 82784; 84165; 86334

== ENCOUNTER → 2021-04-20 | Outpatient (CLI) | payer BC, SELFPAY | END | disposition home or self-care (01) | LOC: LABSPEC 06:22 | PROVIDERS: PCP Family Medicine; Referring Provider Psychiatry & Neurology Neurology; Visit Provider Psychiatry & Neurology Neurology | DX: G62.9 Polyneuropathy, unspecified (principal) | CPT/HCPCS: 86335 ==

== ENCOUNTER → 2021-05-07 11:17 | Outpatient (CLI) | payer BC, SELFPAY ==
[2021-05-07 15:16] LABS: Hemoglobin A1c 6.3 % (3.8-5.6)
== END ==
PROVIDERS: PCP Family Medicine; Referring Provider Psychiatry & Neurology Neurology; Visit Provider Psychiatry & Neurology Neurology
DX: R73.9 Hyperglycemia, unspecified (principal)
CPT/HCPCS: 36415; 83036

== ENCOUNTER 2021-05-08 14:00 | Emergency (ER) | payer BC, SELFPAY ==
[2021-05-08 14:01] VITALS: BP 118/70; PULSE 78; RESP 16; TEMP 36.4; O2SAT 100; BMI 94.8
--- NOTE | 2021-05-08 14:34 | EDS_ITS ---
HPI History of Present Illness Chief Complaint: Nosebleed Detail of Chief Complaint: Nosebleed that started approximately 1 PM Informant: patient Narrative Narrative: Patient states that he was in his office working in approximately 1 PM when he started having spontaneous bleeding from the left side of his nose. Patient states this is happened over the last several days but would typically stop quickly with a little bit of pressure. Patient states that the bleeding is not stopping and is coughing up large clots. Patient is on Coumadin for history of A. fib and history of mechanical aortic valve. Patient's last INR was 2.3 a week ago. Patient denies any trauma to his nose. Typically does not have frequent nosebleeds. [facility] Medical History (Updated 05/08/21 @ 15:[address] Maureen Schaffer, ) Abrasion, right lower leg, initial encounter Aortic valvular disease Atrial fibrillation and flutter Contusion of right foot, initial encounter COVID-19 (06/19/20) Edema Fatigue GERD (gastroesophageal reflux disease) Gout HLD (hyperlipidemia) Hypokalemia Morbid obesity with BMI of 45.0-49.9, adult Nicotine abuse Nonrheumatic aortic (valve) stenosis PAOLA (obstructive sleep apnea) Paroxysmal atrial fibrillation Pulmonary hypertension PVC (premature ventricular contraction) Shortness of breath Home Medications biotin-keratin 1 ea PO QHS 04/12/16 [History Last Taken 03/09/20] cholecalciferol (vitamin D3) 2,000 unit PO QHS 04/12/16 [History Last Taken 03/09/20] docusate sodium 100 mg PO QHS 04/12/16 [History Last Taken 03/09/20] folic acid 1 mg PO QHS 04/12/16 [History Last Taken 03/09/20] fexofenadine 60 mg PO DAILY 05/16/17 [History Last Taken 03/10/20] tamsulosin 0.4 mg PO DAILY 05/16/17 [History Last Taken 03/10/20] warfarin 3 mg tablet 3 mg PO DAILY 02/11/18 [History Last Taken 03/09/20] bupropion HCl 300 mg PO DAILY 03/10/20 [History Last Taken 03/10/20] ferrous sulfate 325 mg PO QHS 03/10/20 [History Last Taken 03/09/20] levothyroxine 100 mcg PO DAILY 03/10/20 [History Last Taken 03/10/20] multivitamin 1 tab PO DAILY 03/10/20 [History Last Taken 03/10/20] terazosin 1 mg PO QHS 03/10/20 [History Last Taken 03/09/20] umeclidinium 62.5 mcg-vilanterol 25 mcg/actuation powdr for inhalation 1 inh INHALATION QDAY #3 ea 07/11/20 [Rx Last Taken Unknown] torsemide 20 mg tablet See Rx Instructions .ROUTE .COMPLEX #180 tablet 07/17/20 [Rx Last Taken Unknown] magnesium 200 mg tablet 200 mg PO QHS tab 08/18/20 [History Last Taken Unknown] metoprolol tartrate 50 mg tablet 25 mg PO BID #90 tablet 10/02/20 [Rx Last Taken Unknown] allopurinol 100 mg tablet 100 mg PO DAILY 01/11/21 [History Last Taken Unknown] atorvastatin 40 mg tablet 40 mg PO QHS 01/11/21 [History Last Taken Unknown] potassium chloride 20 mEq tablet,extended release 40 meq PO BID #360 tab 02/23/21 [Rx Last Taken Unknown] Disability Placard #1 ea 04/20/21 [Rx Last Taken Unknown] albuterol sulfate 90 mcg/actuation aerosol inhaler 2 puff INHALATION Q4H PRN #1 device 05/08/21 [Rx Last Taken Unknown] amoxicillin-pot clavulanate [Augmentin] 1 tab PO BID #10 tab 05/08/21 [Rx Last Taken Unknown] Allergy/AdvReac Type Severity Reaction Status Date / Time aspirin Allergy Hives Verified 05/08/21 14:09 Iodinated Contrast Media Allergy Hives Verified 05/08/21 14:09 [Iodinated Contrast Media - IV Dye] shellfish derived Allergy Hives Verified 05/08/21 14:09 Family History Father , age 40 Cancer stomach CA Mother Hypertension Brother Cancer Lung CA Aunt Cerebral aneurysm Surgical History H/O basal cell carcinoma excision History of deviated nasal septum History of tonsillectomy Hx of aortic valve replacement, mechanical (~2010) Hx of gastric bypass Social History Smoking Status: Former smoker Tobacco: How many years used: 20 how long ago did patient quit smokin, 0.5 second hand exposure: Yes alcohol intake: current alcohol intake frequency: holidays/special occasions only Alcohol type: beer details: social substance use type: former substance user Date of last use: used Marijuana as a teenager caffeine: Yes Type: coffee Number of servings: 2 what type of physical activity do you participate in: walking frequency: 3-4 times per week duration: 15-30 minutes/day seatbelt use: always do you feel safe at home: Yes ROS ROS ED Constitutional Constitutional ED: Reports systems reviewed and no addt'l complaints, except as documented; Denies body ache(s), change in weight or chills Eyes Eyes: Denies acute decrease in peripheral vision, change in vision, double vi marycruz or loss of vision ENT ENT ED: Reports none and other Details: Left-sided epistaxis ; Denies ear pain, lip swelling, loss taste/smell, neck pain, otalgia or sore throat Cardiovascular Cardiovascular: Reports none; Denies abdominal pain, chest pain with activity, leg edema, lightheadedness, palpitations, rapid heart rate or syncope Respiratory/Chest Respiratory/Chest: Reports none; Denies change in mental status, dry cough, dyspnea, hemoptysis, shortness of breath at rest or shortness of breath with exertion Gastrointestinal Gastrointestinal: Reports none; Denies abdominal pain, change in stool character, diarrhea, hematemesis, hematochezia, melena, rectal bleeding or vomiting Genitourinary Genitourinary ED: Reports none; Denies abdominal discomfort, anuria, dysuria, genital pain or polyuria Musculoskeletal Musculoskeletal: Reports none; Denies arthralgias, back pain, difficulty walking, extremity pain, muscle weakness or myalgias Integumentary Reports none; Denies abscess or rash Neurologic Neurologic: Reports none; Denies abnormal gait, confusion, focal weakness, frequent falls, headache(s), loss of vision, numbness, paresthesias, radicular pain, vertigo or weakness Psychiatric Psychiatric: Reports systems reviewed and no addt'l complaints, except as documented and none; Denies behavioral changes, confusion, difficulty concentrating, hallucinations, suicidal ideation, tactile hallucinations or visual hallucinations Endocrine Endocrinology: Denies none, cold intolerance, excessive sweating, fatigue or heat intolerance Hematologic/Lymphatic Hematologic/Lymphatic: Reports none; Denies anemia, easy bleeding or easy bruising Allergic/Immunologic Allergic/Immunologic ED: Denies as per HPI, none, lip swelling, mouth swelling, throat swelling, tongue swelling or hives EXAM Physical Exam Const Vital Signs: 05/08/21 14:01 Temperature 97.6 F L Temperature Source Temporal Pulse Rate 78 Respiratory Rate 16 Blood Pressure 118/70 Blood Pressure Mean 86 Pulse Ox 100 Oxygen Delivery Method Room Air Positive well nourished and well developed General Appearance ED: well developed and NAD HEENT Reports TM's clear and moist mucous membranes normocephalic and atraumatic; Negative for trauma or tenderness Tympanic Membrane ED: Yes TM's clear Eyes PERRL and EOMs intact bilaterally Eyes Narrative: Evaluation of the left side of the nose notes that he is got blood and clot within the nasal vault and difficult to assess where the location of the bleeding is. I had patient blow out the clot from the left side of his nose and inserted a 7.5 cm Rhino Rocket into the left nasal vault and inflated the balloon. General Eye ED: Negative for pale conjunctiva or scleral icterus Neck no lymphadenopathy, supple and no JVD General: Negative for tenderness Chest Wall inspection of chest normal and palpation of chest normal Chest: Negative for tenderness Resp normal respiratory effort and clear to auscultation bilaterally Effort and Inspection: Negative for respiratory distress or pain with movement Auscultation: Negative for rhonchi, wheezes or diminished lung sounds Cardio regular rate, regular rhythm, S1 normal heart sound, S2 normal heart sound and no murmurs Peripheral Pulses: pulses 2+ throughout GI normal to inspection, nondistended, normoactive bowel sounds, soft to palpation, non-tender, non-distended and no masses Back/Spine no CVA tenderness and no thoracic nor lumbar tenderness Extremity normal to inspection General Extremety ED: Negative for edema General Extremity: Negative for edema Neuro oriented x3, CN's II-XII intact bilaterally, no sensory deficits noted and gait normal Sensorium / Orientation: awake, alert, oriented to person, oriented to place and oriented to time Motor Exam: strength 5/5 throughout and strength abnormal Psych mental status grossly normal Skin no rashes or lesions noted and no wounds MDM MDM MDM Narrative Medical decision making narrative: After Rhino Rocket was placed in the left nasal vault patient was observed in the department for about an hour. On repeat evaluation he has no blood down the posterior oropharynx. Patient having small amount of pink-tinged fluid slowly oozing from the left side of the nasal vault but no bright red bleeding noted. Patient was started on Augmentin. He will be advised to follow-up with ENT within next 3 to 4 days to have the tampon removed. Lab Data Attestation: I reviewed the patient's lab results. Labs: Laboratory Results - last 24 hr 05/08/21 05/08/21 14:45 14:45 WBC 6.3 RBC 4.61 Hgb 14.2 Hct 43.9 MCV 95.2 H MCH 30.8 MCHC 32.3 RDW Std Deviation 48.9 H RDW Coeff of Ernestina 14.0 Plt Count 225 MPV 9.9 Immature Gran % (Auto) 0.200 Neut % (Auto) 71.8 H Lymph % (Auto) 13.9 L Meigs % (Auto) 10.1 H Eos % (Auto) 3.0 Baso % (Auto) 1.0 Absolute Neuts (auto) 4.5 Absolute Lymphs (auto) 0.88 Nucleated RBC % 0 PT 22.6 H INR 2.1 Discharge Plan Triage Chief Complaint: Nosebleed ED Provider: Maureen Schaffer Dx/Rx/DC Orders Clinical Impression: Epistaxis Instructions: ED Epistaxis (Adult) Prescriptions: New amoxicillin-pot clavulanate [Augmentin] 875-125 mg tablet 1 tab PO BID Qty: 10 RF: 0 No Action warfarin [Coumadin] 3 mg tablet 3 mg PO DAILY RF: 0 Anoro Ellipta 62.5-25 mcg/actuation blister with device 1 inh INHALATION QDAY Qty: 3 RF: 4 allopurinol 100 mg tablet 100 mg PO DAILY RF: 0 atorvastatin 40 mg tablet 40 mg PO QHS RF: 0 docusate sodium 100 MG capsule 100 mg PO QHS RF: 0 folic acid 1 MG tablet 1 mg PO QHS RF: 0 cholecalciferol (vitamin D3) 1,000 UNIT tablet 2,000 unit PO QHS RF: 0 biotin-keratin 1 EACH tablet 1 ea PO QHS RF: 0 tamsulosin 0.4 MG capsule 0.4 mg PO DAILY RF: 0 fexofenadine 60 MG tablet 60 mg PO DAILY RF: 0 ferrous sulfate 325 MG tablet 325 mg PO QHS RF: 0 bupropion HCl 300 MG tablet extended release 24 hr 300 mg PO DAILY RF: 0 multivitamin 1 TABLET tablet 1 tab PO DAILY RF: 0 terazosin 1 MG capsule 1 mg PO QHS RF: 0 levothyroxine 100 MCG tablet 100 mcg PO DAILY RF: 0 magnesium 200 mg tablet 200 mg PO QHS RF: 0 torsemide 20 mg tablet See Rx Instructions .ROUTE .COMPLEX Qty: 180 RF: 3 metoprolol tartrate 50 mg tablet 25 mg PO BID Qty: 90 RF: 3 potassium chloride 20 mEq tablet extended release 40 meq PO BID Qty: 360 RF: 3 (DME) Disability Placard See Rx Instructions .Route .MEDSUPPLY Qty: 1 RF: 0 albuterol sulfate 90 mcg/actuation HFA aerosol inhaler 2 puff INHALATION Q4H PRN (Reason: shortness of breath or wheezing) Qty: 1 RF: 3 Primary Care Provider: Compa Rosado Referrals: Jonas Gamboa MD [STAFF PHYSICIAN] - 3-5 Days Compa Rosado MD [Primary Care Provider] - Disposition Disposition: Home, Self Care
[2021-05-08 14:52] LABS: Absolute Lymphocyte Count 0.88 X10^3/uL (0.83-4.51); Absolute Neutrophil Count 4.5 X10^3/uL (2.0-7.7); Basophil# 0.06 X10^3/uL; Eosinophil# 0.19 X10^3/uL; Hematocrit 43.9 % (40-54); Hemoglobin 14.2 g/dL (13.0-16.5); Lymphocyte # 0.88 X10^3/ul (0.83-4.51); Lymphocyte % 13.9 % (19-41); Mean Corp Hgb Conc 32.3 g/dL (32-36); Mean Corpuscular Hgb 30.8 pg (27.0-32.0); Mean Corpuscular Volume 95.2 fL (80-94); Mean Platelet Vol. 9.9 fl (6.2-12.0); Monocyte# 0.64 X10^3/uL; Monocyte% 10.1 % (0-10); NRBC Flagged by Analyzer 0 % (0-5); Neutrophil # 4.53 X10^3/uL (2.7-7.7); Neutrophil % 71.8 % (47-70); Platelet Count 225 K/mm3 (150-450); RBC Distribution Width SD 48.9 fl (35.1-43.9); Red Blood Count 4.61 M/mm3 (4.6-6.2); White Blood Count 6.3 K/mm3 (4.4-11.0)
[2021-05-08 15:01] LABS: International Normalized Ratio 2.1; Prothrombin Time (Protime)PT. 22.6 SECONDS (11.7-14.9)
[2021-05-08] MEDS: Amox/Clavulanate 875 MG Tablet PO (16:00)
[2021-05-08 16:08] VITALS: BP 111/78; RESP 18
== END 2021-05-08 16:25 | disposition home or self-care (01) ==
PROVIDERS: Emergency Provider Emergency Medicine; PCP Family Medicine
DX: R04.0 Epistaxis (principal); I48.0 Paroxysmal atrial fibrillation; I27.20 Pulmonary hypertension, unspecified; E78.5 Hyperlipidemia, unspecified; M10.9 Gout, unspecified; K21.9 Gastro-esophageal reflux disease without esophagitis; G47.33 Obstructive sleep apnea (adult) (pediatric); E66.01 Morbid (severe) obesity due to excess calories; Z68.42 Body mass index [BMI] 45.0-49.9, adult; Z79.01 Long term (current) use of anticoagulants; Z79.890 Hormone replacement therapy; Z79.899 Other long term (current) drug therapy; Z87.891 Personal history of nicotine dependence; Z95.2 Presence of prosthetic heart valve; Z98.84 Bariatric surgery status
CPT/HCPCS: 30901; 85025; 85610; 99283; A4216

== ENCOUNTER 2021-06-29 05:52 | Outpatient (CLI) | payer BC, SELFPAY ==
[2021-06-29 07:49] LABS: AST(SGOT) 39 U/L (15-37); Alanine Aminotransfer ALT/SGPT 42 U/L (16-61); Albumin, Serum 3.7 g/dL (3.2-5.0); Alkaline Phosphatase 137 U/L (45-117); Bilirubin, Direct 0.59 mg/dL (0.00-0.30); Cholesterol 104 mg/dL (200); Globulin 4.1 g/dL (2.2-4.2); High Density Lipoprotein 34 mg/dL; Protein, Total 7.8 g/dL (6.4-8.2); Triglycerides 139 mg/dL; Very Low Density Lipoprotein 28 mg/dL (5-40)
== END 2021-06-29 23:59 | disposition short-term general hospital (02) ==
PROVIDERS: PCP Family Medicine; Referring Provider Internal Medicine Cardiovascular Disease; Visit Provider Internal Medicine Cardiovascular Disease
DX: E78.00 Pure hypercholesterolemia, unspecified (principal)
CPT/HCPCS: 36415; 80061; 80076

== ENCOUNTER 2021-07-23 05:53 | Outpatient (CLI) | payer BC, SELFPAY ==
[2021-07-23 08:09] LABS: Anion Gap 8 (5-15); BUN 24 mg/dL (7-18); BUN/Creat Ratio 14.5 RATIO (10-20); Calcium,Total 9.1 mg/dL (8.5-10.1); Chloride 104 mmol/L (98-107); Creatinine, Serum 1.65 mg/dL (0.70-1.30); EST Glomerular Filtration Rate 45 mL/min (>60); Est Glom Filt Rate - Afr Amer 55 mL/min (>60); Glucose 208 mg/dL (74-106); Sodium Level 138 mmol/L (136-145)
[2021-07-23 11:22] LABS: Vitamin B12 732 pg/mL (211-911)
[2021-07-30 13:36] LABS: Vitamin B1, Thiamine 209.1 nmol/L (66.5-200.0)
== END 2021-07-23 23:59 | disposition short-term general hospital (02) ==
LOC: LAB 05:54
PROVIDERS: PCP Family Medicine; Referring Provider Psychiatry & Neurology Neurology; Visit Provider Psychiatry & Neurology Neurology
DX: F03.90 Unspecified dementia, unspecified severity, without behavioral disturbance, psychotic disturbance, mood disturbance, and anxiety (principal)
CPT/HCPCS: 36415; 80048; 82607; 82746; 84425

== ENCOUNTER 2021-07-30 12:50 | Outpatient (CLI) | payer BC, SELFPAY ==
--- NOTE | 2021-07-31 08:25 | PFT ---
INTRODUCTION: The patient is a 60-year-old male that presents for pulmonary function studies secondary to a diagnosis of COPD. Respiratory therapy reported good patient effort. Bronchodilators were used during testing. INTERPRETATION: Forced expiration spirometry demonstrates the presence of a severe large airways obstructive ventilatory defect. There was no significant response to aerosolized bronchodilators. Spirograms are of good quality but do not plateau indicating slow emptying of the lungs. Body plethysmography was performed and revealed a decreased TLC to 4.38 L, 66% of predicted, indicative of a moderate restrictive ventilatory impairment. Diffusing capacity by single breath CO is mildly reduced at 76% of predicted. IMPRESSION: Irreversible severe mixed ventilatory defect with mild reduction in diffusing capacity.
== END 2021-07-30 23:59 | disposition home or self-care (01) ==
LOC: PSN 12:51
PROVIDERS: PCP Family Medicine; Referring Provider Internal Medicine Critical Care Medicine; Visit Provider Internal Medicine Critical Care Medicine
DX: J44.9 Chronic obstructive pulmonary disease, unspecified (principal)
CPT/HCPCS: 94060; 94726; 94729

== ENCOUNTER 2021-08-03 12:20 | Outpatient (CLI) | payer BC, SELFPAY ==
[2021-08-03 12:30] VITALS: PULSE 100; PULSE 103; PULSE 107; PULSE 108; PULSE 74; PULSE 98; O2SAT 92; O2SAT 93; O2SAT 94; O2SAT 95; O2SAT 96
--- NOTE | 2021-08-04 08:09 | PCM.PSN.6M ---
PSN 6 Minute Walk Test 6 Minute Walk Test 6 Minute Walk Test: 6 Minute Walk Test PSN:6-Minute Walk Test Start: 08/03/21 12:48 Freq: Status: Active Protocol: [id number].6MINW Document 08/03/21 12:30 JOAN (Rec: 08/03/21 13:02 JLA [id number]) 6 Minute Walk Test Date Performed 08/03/21 Time Performed 12:30 Height 5 ft 10 in Weight: 154.221 kg Weight in Pounds 340.[address]: Franck Barger Assistive device used: None Pre-test Oxygen Delivery Method Room Air Pulse Ox (%) 95 Pulse Rate (60-100 beats/min) 74 Dyspnea Tabatha Scale (0-10) 0 Exertion Tabatha Scale (6-20) 6 1st minute Oxygen Delivery Method Room Air Pulse Ox (%) 96 Pulse Rate (60-100 beats/min) 103 H 2nd minute Oxygen Delivery Method Room Air Pulse Ox (%) 95 Pulse Rate (60-100 beats/min) 107 H 3rd minute Oxygen Delivery Method Room Air Pulse Ox (%) 94 Pulse Rate (60-100 beats/min) 108 H 4th minute Oxygen Delivery Method Room Air Pulse Ox (%) 94 Pulse Rate (60-100 beats/min) 103 H 5th minute Oxygen Delivery Method Room Air Pulse Ox (%) 92 Pulse Rate (60-100 beats/min) 100 6th minute Oxygen Delivery Method Room Air Pulse Ox (%) 93 Pulse Rate (60-100 beats/min) 98 Dyspnea Tabatha Scale (0-10) 3 Exertion Tabatha Scale (6-20) 11 Post-test Oxygen Delivery Method Room Air Pulse Ox (%) 95 Pulse Rate (60-100 beats/min) 98 Full Laps Walked 15 Partial Lap, Number of Tiles Walked 30 Total Distance Walked (ft) 915 Interpretation Interpretation: The patient ambulated 950 feet over the course of 6 minutes beginning on room air without assistive devices. Pretesting oxygen saturation was noted to be 95% on room air. With ambulation, the che oxygen saturation was 92%. There was no significant exertional oxygen desaturation. Recommendations Recommendations: There is no indication for the use of supplemental oxygen at this time.
== END 2021-08-03 23:59 | disposition home or self-care (01) ==
LOC: PSN 12:21
PROVIDERS: PCP Family Medicine; Referring Provider Internal Medicine Critical Care Medicine; Visit Provider Internal Medicine Critical Care Medicine
DX: J44.9 Chronic obstructive pulmonary disease, unspecified (principal)
CPT/HCPCS: 94618

== ENCOUNTER 2021-08-10 06:25 | Outpatient (CLI) | payer BC, SELFPAY ==
--- NOTE | 2021-08-10 06:26 | MRI_ITS ---
EXAM: MR HEAD WITHOUT AND WITH INTRAVENOUS CONTRAST : 1960 CLINICAL INDICATION: Dementia -- TECHNIQUE: Multiplanar and multisequence MR images of the brain were obtained without and with intravenous contrast. This report was created using [employer] report generation technology. CONTRAST: IV 30cc dotarem COMPARISON: CT brain March 30, 2016 FINDINGS: BRAIN AND EXTRA-AXIAL SPACES: Tiny foci of susceptibility artifact noted within the left parietal lobe and right temporal occipital junction white matter suggestive of calcification. 4 mm focal T2 signal intensity within the left parietal white matter suggestive of gliosis. Brain signal intensity is otherwise unremarkable. No abnormal contrast enhancement. Prominence of the cortical sulci and ventricles related to volume loss change. No intra- or extra-axial hemorrhage. No evidence of acute infarct. No intracranial mass or mass effect. There is preservation of the gatica/white matter interface. Posterior fossa structures are unremarkable. Basal cisterns are patent. SELLA: Unremarkable. Normal sella turcica, pituitary gland, infundibular stalk, optic chiasm and hypothalamus. AUDITORY SYSTEM: Unremarkable. The internal auditory canals are patent. BONES/JOINTS: Unremarkable. No discrete lytic or blastic abnormalities. SINUSES: Unremarkable as visualized. Clear. MASTOID AIR CELLS: Unremarkable as visualized. Clear. ORBITS: Unremarkable as visualized. Both globes, extraocular muscles, optic nerves and retrobulbar fat appear unremarkable. VASCULATURE: Unremarkable as visualized. Normal flow voids in the major intracranial circulation. MRI/Brain W/WO Contrast IMPRESSION: 1. No acute intracranial abnormality. 2. As above. at 0859 Reported and signed by: Leandro Kam MD Electronically Signed: Leandro Kam MD at 8:57 EST ,
== END 2021-08-10 23:59 | disposition home or self-care (01) ==
PROVIDERS: PCP Family Medicine; Referring Provider Psychiatry & Neurology Neurology; Visit Provider Psychiatry & Neurology Neurology
DX: F03.90 Unspecified dementia, unspecified severity, without behavioral disturbance, psychotic disturbance, mood disturbance, and anxiety (principal)
CPT/HCPCS: 70553; A9575

== ENCOUNTER 2021-08-28 06:47 | Outpatient (CLI) | payer BC, SELFPAY ==
--- NOTE | 2021-08-28 06:50 | CT_ITS ---
STUDY: CT CHEST WITHOUT CONTRAST REASON FOR EXAM: Male, 60 years old. Restrictive lung disease RADIATION DOSAGE (If Supplied By Facility): CTDIvol = ( 20.15 ) mGy, DLP = ( 725.01 ) mGycm TECHNIQUE: Transaxial imaging was performed without the administration of intravenous contrast material. Individualized dose optimization techniques were used for this CT. COMPARISON: None. FINDINGS: Small benign-appearing bilateral axillary lymph nodes. Minimal increased linear markings in the anterior medial aspect of the lingular segment of the left upper lobe in keeping with a linear atelectasis and/or scarring. No radiographic evidence of interstitial fibrosis. There is no demonstrated pleural abnormality. There are calcifications of the coronary arteries. Prior CABG. Cardiomegaly. There are multiple small lymph nodes within the mediastinum, which are normal in size and morphology most compatible with reactive lymph hyperplasia. Normal hilar regions. Normal unenhanced pulmonary arteries. There is atherosclerotic calcification of the aortic arch with tortuosity and elongation of the aortic arch and descending thoracic aorta. There are degenerative changes of the thoracic spine. Small hiatal hernia. CT/Chest without Contrast IMPRESSION: Minimal increased linear markings in the anterior medial aspect of the lingular segment of the left upper lobe suggestive of mild linear atelectasis and/or scar. Electronically Signed: Kenton De Anda MD at 10:30 EST ,
== END 2021-08-28 23:59 | disposition home or self-care (01) ==
LOC: CT 06:50
PROVIDERS: PCP Family Medicine; Referring Provider Nurse Practitioner Acute Care; Visit Provider Nurse Practitioner Acute Care
DX: J98.4 Other disorders of lung (principal)
CPT/HCPCS: 71250

== ENCOUNTER 2021-11-01 06:25 | Emergency (ER) | payer BC, SELFPAY ==
[2021-11-01] VITALS (9 sets, daily range): BP systolic 89–113; BP diastolic 55–84; PULSE 59–109; RESP 17–22; TEMP 36.6; O2SAT 96–97; BMI 48.9
--- NOTE | 2021-11-01 06:47 | EDS_ITS ---
HPI <Dr. Clay Gutierrez DO - Last Filed: 11/01/21 07:08> History of Present Illness Chief Complaint: Chest Pain Informant: patient Onset/Context/Timing Onset: Today and Hours (1) Activity at onset: sudden Timing: Continuous Quality: Positive for Sharp Location: Substernal and Right Chest Worsened By: Breathing Relieved By: NTG Associated Symptoms: Positive for Lightheadedness; Negative for Nausea, Vomiting, Diaphoresis, Dyspnea, Cough, Fever, Acid Reflux and Palpitations Narrative Narrative: Patient presents with chest pain that began approximately 1 hour prior to arrival. Patient states he was moving his lunch box when the pain began. Patient states the pain started on the right side of his chest and is now in the substernal area. Patient describes the pain as sharp. Patient states the pain is worse with deep breathing. Patient states EMS gave him a sublingual nitroglycerin tablet which helped. Patient admits to some lightheadedness with the pain. Patient denies any nausea or vomiting. Patient denies any diaphoresis. Patient denies any shortness of breath. Patient states pain radiates into his neck and back. CVD Risk Factors: Positive for Hypercholesterolemia; Negative for Hypertension, Diabetes, Family History 1' </=55 and Smoking PE Risk Factors: Negative for Recent Travel/Surgery, Recent Immobilization, Prior DVT or PE, Cancer and OCP + Smoking + >/=35 PFSH <Dr. Clay Gutierrez DO - Last Filed: 11/01/21 07:08> [facility] Medical History Abrasion, right lower leg, initial encounter Aortic valvular disease Atrial fibrillation and flutter Contusion of right foot, initial encounter COVID-19 (06/19/20) Edema Fatigue GERD (gastroesophageal reflux disease) Gout HLD (hyperlipidemia) Hypokalemia Morbid obesity with BMI of 45.0-49.9, adult Nicotine abuse Nonrheumatic aortic (valve) stenosis PAOLA (obstructive sleep apnea) Paroxysmal atrial fibrillation Pulmonary hypertension PVC (premature ventricular contraction) Shortness of breath Home Medications biotin-keratin 1 ea PO QHS 04/12/16 [History Last Taken 03/09/20] cholecalciferol (vitamin D3) 2,000 unit PO QHS 04/12/16 [History Last Taken 03/09/20] docusate sodium 100 mg PO QHS 04/12/16 [History Last Taken 03/09/20] folic acid 1 mg PO QHS 04/12/16 [History Last Taken 03/09/20] fexofenadine 60 mg PO DAILY 05/16/17 [History Last Taken 03/10/20] tamsulosin 0.4 mg PO DAILY 05/16/17 [History Last Taken 03/10/20] warfarin 3 mg tablet 3 mg PO DAILY 02/11/18 [History Last Taken 03/09/20] bupropion HCl 300 mg PO DAILY 03/10/20 [History Last Taken 03/10/20] ferrous sulfate 325 mg PO QHS 03/10/20 [History Last Taken 03/09/20] levothyroxine 100 mcg PO DAILY 03/10/20 [History Last Taken 03/10/20] multivitamin 1 tab PO DAILY 03/10/20 [History Last Taken 03/10/20] terazosin 1 mg PO QHS 03/10/20 [History Last Taken 03/09/20] allopurinol 100 mg tablet 100 mg PO DAILY 01/11/21 [History Last Taken Unknown] potassium chloride 20 mEq tablet,extended release 40 meq PO BID #360 tab 02/23/21 [Rx Last Taken Unknown] Disability Placard #1 ea 04/20/21 [Rx Last Taken Unknown] albuterol sulfate 90 mcg/actuation aerosol inhaler 2 puff INHALATION Q4H PRN #1 device 05/08/21 [Rx Last Taken Unknown] torsemide 20 mg tablet See Rx Instructions .ROUTE .COMPLEX #180 tablet 06/25/21 [Rx Last Taken Unknown] atorvastatin 40 mg tablet 40 mg PO QHS #90 tab 07/16/21 [Rx Last Taken Unknown] fluticasone fur. 100 mcg-umeclid 62.5 mcg-vilant 25 mcg inhalat.powder 1 inh INHALATION DAILY #3 ea 08/08/21 [Rx Last Taken Unknown] oxcarbazepine 300 mg tablet 300 mg PO BID #60 tab 09/28/21 [Rx Last Taken Unknown] metoprolol tartrate 25 mg tablet 25 mg PO BID #180 tab 10/17/21 [Rx Last Taken Unknown] Allergy/AdvReac Type Severity Reaction Status Date / Time aspirin Allergy Hives Verified 11/01/21 06:30 Iodinated Contrast Media Allergy Hives Verified 11/01/21 06:30 [Iodinated Contrast Media - IV Dye] shellfish derived Allergy Hives Verified 11/01/21 06:30 Family History Father , age 40 Cancer stomach CA Mother Hypertension Brother Cancer Lung CA Aunt Cerebral aneurysm Surgical History H/O basal cell carcinoma excision History of deviated nasal septum History of tonsillectomy Hx of aortic valve replacement, mechanical (~2010) Hx of gastric bypass Social History Smoking Status: Former smoker Tobacco: How many years used: 20 how long ago did patient quit smokin, 0.5 second hand exposure: Yes alcohol intake: current alcohol intake frequency: holidays/special occasions only Alcohol type: beer details: social substance use type: former substance user Date of last use: used Marijuana as a teenager caffeine: Yes Type: coffee Number of servings: 2 what type of physical activity do you participate in: walking frequency: 3-4 times per week duration: 15-30 minutes/day seatbelt use: always do you feel safe at home: Yes ROS <Dr. Clay Gutierrez, - Last Filed: 11/01/21 07:08> ROS ED Constitutional Constitutional ED: Denies chills or fever(s) Eyes Eyes: Denies blurry vision or change in vision ENT ENT ED: Denies rhinorrhea or sore throat Cardiovascular Cardiovascular: Reports chest pain; Denies palpitations Respiratory/Chest Respiratory/Chest: Denies cough or dyspnea Gastrointestinal Gastrointestinal: Denies abdominal pain, nausea or vomiting Genitourinary Genitourinary ED: Denies dysuria or hematuria Musculoskeletal Musculoskeletal: Reports back pain and neck pain Integumentary Denies abscess or rash Neurologic Neurologic: Denies headache(s) or weakness Allergic/Immunologic Allergic/Immunologic ED: Denies mouth swelling or urticaria EXAM <Dr. Clay Gutierrez DO - Last Filed: 11/01/21 07:08> Physical Exam Const Vital Signs: 11/01/21 06:26 11/01/21 06:30 11/01/21 06:45 Temperature 97.9 F Temperature Source Temporal Pulse Rate 109 H Respiratory Rate 18 Blood Pressure 113/74 107/76 99/61 Blood Pressure Mean 87 86 73 Pulse Ox 97 Oxygen Delivery Method Room Air 11/01/21 06:57 11/01/21 07:12 11/01/21 07:31 Temperature Temperature Source Pulse Rate 71 71 Respiratory Rate 20 H 22 H Blood Pressure 93/56 L 97/57 L Blood Pressure Mean 68 70 Pulse Ox 97 97 Oxygen Delivery Method Room Air Room Air Room Air 11/01/21 08:06 11/01/21 08:12 11/01/21 09:14 Temperature Temperature Source Pulse Rate 59 L 70 Respiratory Rate 17 Blood Pressure 89/55 L 113/81 H 111/84 H Blood Pressure Mean 66 91 93 Pulse Ox 96 Oxygen Delivery Method Room Air Room Air Positive well nourished, well developed and obese General Appearance ED: well developed and NAD Nutritional Appearance: obese HEENT normocephalic and atraumatic Eyes PERRL and EOMs intact bilaterally Neck supple and no JVD Chest Wall Chest: tenderness pectoral muscle right and sternum Resp normal respiratory effort and clear to auscultation bilaterally Effort and Inspection: Negative for respiratory distress Cardio regular rate Rhythm: abnormal rhythm irregularly irregular GI normal to inspection, nondistended, normoactive bowel sounds, soft to palpation, non-tender and non-distended Extremity normal to inspection General Extremety ED: Negative for edema or tenderness General Extremity: Negative for edema Neuro oriented x3, CN's II-XII intact bilaterally and no sensory deficits noted Sensorium / Orientation: awake and alert Motor Exam: strength 5/5 throughout Psych mental status grossly normal <Dr. Oscar Bang MD - Last Filed: 11/01/21 09:34> Physical Exam Const Vital Signs: 11/01/21 06:26 11/01/21 06:30 11/01/21 06:45 Temperature 97.9 F Temperature Source Temporal Pulse Rate 109 H Respiratory Rate 18 Blood Pressure 113/74 107/76 99/61 Blood Pressure Mean 87 86 73 Pulse Ox 97 Oxygen Delivery Method Room Air 11/01/21 06:57 11/01/21 07:12 11/01/21 07:31 Temperature Temperature Source Pulse Rate 71 71 Respiratory Rate 20 H 22 H Blood Pressure 93/56 L 97/57 L Blood Pressure Mean 68 70 Pulse Ox 97 97 Oxygen Delivery Method Room Air Room Air Room Air 11/01/21 08:06 11/01/21 08:12 11/01/21 09:14 Temperature Temperature Source Pulse Rate 59 L 70 Respiratory Rate 17 Blood Pressure 89/55 L 113/81 H 111/84 H Blood Pressure Mean 66 91 93 Pulse Ox 96 Oxygen Delivery Method Room Air Room Air <Dr. Clay Gutierrez, - Last Filed: 11/01/21 07:08> Heart Score History: Slightly/Non-Suspicious ECG: Nonspecific Repolarization Age: >45 - <65 years Risk Factors: 1 or 2 Risk Factors Score: 3 <Dr. Oscar Bang MD - Last Filed: 11/01/21 09:34> Heart Score History: Slightly/Non-Suspicious ECG: Nonspecific Repolarization Age: >45 - <65 years Risk Factors: 1 or 2 Risk Factors Troponin: </= Normal Limit Score: 3 MDM <Dr. Clay Gutierrez, - Last Filed: 11/01/21 07:08> MDM MDM Narrative Medical decision making narrative: EKG was obtained. On my interpretation it shows atrial fibrillation with a rate of 82. QRS interval was slightly prolong ed at 166 ms. QTc interval was 521 ms. There are nonspecific ST-T wave changes noted. This was unchanged compared to previous EKG. CBC, basic metabolic profile, troponin, and PT with INR were ordered and are pending. Portable chest x-ray was ordered and is pending. Care of the patient was turned over to the oncoming physician. Lab Data Labs: Laboratory Results - last 24 hr 11/01/21 11/01/21 11/01/21 06:31 06:31 06:31 WBC 6.7 RBC 4.77 Hgb 14.7 Hct 44.8 MCV 93.9 MCH 30.8 MCHC 32.8 RDW Std Deviation 50.3 H RDW Coeff of Ernestina 14.4 Plt Count 194 MPV 9.9 Immature Gran % (Auto) 0.400 Neut % (Auto) 75.4 H Lymph % (Auto) 12.9 L Trinity % (Auto) 8.2 Eos % (Auto) 1.9 Baso % (Auto) 1.2 H Absolute Neuts (auto) 5.0 Absolute Lymphs (auto) 0.86 Nucleated RBC % 0 PT 25.2 H INR 2.3 Sodium 139 Potassium 3.9 Chloride 107 Carbon Dioxide 25.0 Anion Gap 7 BUN 22 H Creatinine 1.33 H Estim Creat Clear Calc 60.22 Est GFR (MDRD) Af Amer 70 Est GFR (MDRD) Non-Af 58 L BUN/Creatinine Ratio 16.5 Glucose 222 H Calcium 9.1 Troponin I High Sens 10 11/01/21 09:00 WBC RBC Hgb Hct MCV MCH MCHC RDW Std Deviation RDW Coeff of Ernestina Plt Count MPV Immature Gran % (Auto) Neut % (Auto) Lymph % (Auto) Trinity % (Auto) Eos % (Auto) Baso % (Auto) Absolute Neuts (auto) Absolute Lymphs (auto) Nucleated RBC % PT INR Sodium Potassium Chloride Carbon Dioxide Anion Gap BUN Creatinine Estim Creat Clear Calc Est GFR (MDRD) Af Amer Est GFR (MDRD) Non-Af BUN/Creatinine Ratio Glucose Calcium Troponin I High Sens 10 Radiography Diagnostic Testing: Clinical Impression(s) from Imaging Studies Chest X-Ray 11/01/21 06:56 IMPRESSION: No significant interval change. Stable mild findings of cardiac decompensation with cardiomegaly and pulmonary venous hypertension. No pneumonia or pulmonary edema. Electronically Signed: West Azul MD at 7:44 EDT , EKG Initial EKG: Attestation: I personally reviewed and interpreted this EKG as follows: Interpretation: Atrial Fibrillation (82), RBBB and Non-Specific ST Changes Prior EKG tracings: available for review Prior: Unchanged (06/19/2020) <Dr. Oscar Bang MD - Last Filed: 11/01/21 09:34> [facility] Narrative Medical decision making narrative: Patient checked out to me for reevaluation. He is chest pain-free. His initial troponin came back at 10 and his repeat 2.5 hours later came back at 10, for a delta of 0. He is feeling well. His warfarin is therapeutic. His pre-existing right bundle and atrial fibrillation with repolarization abnormality is chronic. His heart score is relatively low, I think outpatient follow-up is reasonable as the initial physician had planned if his delta was negative which it is. Patient is feeling well, he is reassured and advised to follow closely with his doctor. Lab Data Attestation: I reviewed the patient's lab results. Labs: Laboratory Results - last 24 hr 11/01/21 11/01/21 11/01/21 06:31 06:31 06:31 WBC 6.7 RBC 4.77 Hgb 14.7 Hct 44.8 MCV 93.9 MCH 30.8 MCHC 32.8 RDW Std Deviation 50.3 H RDW Coeff of Ernestina 14.4 Plt Count 194 MPV 9.9 Immature Gran % (Auto) 0.400 Neut % (Auto) 75.4 H Lymph % (Auto) 12.9 L Trinity % (Auto) 8.2 Eos % (Auto) 1.9 Baso % (Auto) 1.2 H Absolute Neuts (auto) 5.0 Absolute Lymphs (auto) 0.86 Nucleated RBC % 0 PT 25.2 H INR 2.3 Sodium 139 Potassium 3.9 Chloride 107 Carbon Dioxide 25.0 Anion Gap 7 BUN 22 H Creatinine 1.33 H Estim Creat Clear Calc 60.22 Est GFR (MDRD) Af Amer 70 Est GFR (MDRD) Non-Af 58 L BUN/Creatinine Ratio 16.5 Glucose 222 H Calcium 9.1 Troponin I High Sens 10 11/01/21 09:00 WBC RBC Hgb Hct MCV MCH MCHC RDW Std Deviation RDW Coeff of Ernestina Plt Count MPV Immature Gran % (Auto) Neut % (Auto) Lymph % (Auto) Trinity % (Auto) Eos % (Auto) Baso % (Auto) Absolute Neuts (auto) Absolute Lymphs (auto) Nucleated RBC % PT INR Sodium Potassium Chloride Carbon Dioxide Anion Gap BUN Creatinine Estim Creat Clear Calc Est GFR (MDRD) Af Amer Est GFR (MDRD) Non-Af BUN/Creatinine Ratio Glucose Calcium Troponin I High Sens 10 Radiography Diagnostic Testing: Clinical Impression(s) from Imaging Studies Chest X-Ray 11/01/21 06:56 IMPRESSION: No significant interval change. Stable mild findings of cardiac decompensation with cardiomegaly and pulmonary venous hypertension. No pneumonia or pulmonary edema. Electronically Signed: West Azul MD at 7:44 EDT , Discharge Plan Triage Chief Complaint: Chest Pain ED Provider: Clay Gutierrez Dx/Rx/DC Orders Clinical Impression: Atypical chest pain Instructions: ED Chest Pain, Uncertain Cause Prescriptions: No Action warfarin [Coumadin] 3 mg tablet 3 mg PO DAILY RF: 0 allopurinol 100 mg tablet 100 mg PO DAILY RF: 0 Trelegy Ellipta 100-62.5-25 mcg blister with device 1 inh inhalation DAILY Qty: 3 RF: 3 oxcarbazepine 300 mg tablet 300 mg PO BID Qty: 60 RF: 4 docusate sodium 100 MG capsule 100 mg PO QHS RF: 0 folic acid 1 MG tablet 1 mg PO QHS RF: 0 cholecalciferol (vitamin D3) 1,000 UNIT tablet 2,000 unit PO QHS RF: 0 biotin-keratin 1 EACH tablet 1 ea PO QHS RF: 0 tamsulosin 0.4 MG capsule 0.4 mg PO DAILY RF: 0 fexofenadine 60 MG tablet 60 mg PO DAILY RF: 0 ferrous sulfate 325 MG tablet 325 mg PO QHS RF: 0 bupropion HCl 300 MG tablet extended release 24 hr 300 mg PO DAILY RF: 0 multivitamin 1 TABLET tablet 1 tab PO DAILY RF: 0 terazosin 1 MG capsule 1 mg PO QHS RF: 0 levothyroxine 100 MCG tablet 100 mcg PO DAILY RF: 0 potassium chloride 20 mEq tablet extended release 40 meq PO BID Qty: 360 RF: 3 (DME) Disability Placard See Rx Instructions .Route .MEDSUPPLY Qty: 1 RF: 0 albuterol sulfate 90 mcg/actuation HFA aerosol inhaler 2 puff INHALATION Q4H PRN (Reason: shortness of breath or wheezing) Qty: 1 RF: 3 torsemide 20 mg tablet See Rx Instructions .ROUTE .COMPLEX Qty: 180 RF: 3 atorvastatin 40 mg tablet 40 mg PO QHS Qty: 90 RF: 3 metoprolol tartrate 25 mg tablet 25 mg PO BID Qty: 180 RF: 3 Primary Care Provider: Compa Rosado Referrals: Compa Rosado MD [Primary Care Provider] - 3-5 Days Disposition Disposition: Home, Self Care
--- NOTE | 2021-11-01 06:56 | RAD_ITS ---
STUDY: X-RAY CHEST REASON FOR EXAM: Male, 60 years old. chest pain TECHNIQUE: Single AP portable upright view of the chest. COMPARISON: Previous chest radiograph of 06/11/2020 and 03/10/2020. Chest CT of 08/28/2021. FINDINGS: Lordotic positioning. Large body habitus. Sternal wires are again noted. Heart size remains moderately enlarged. Stable minimal elongation of the thoracic aorta. There is stable chronic mild cephalization of pulmonary blood flow. No acute interstitial or alveolar pulmonary infiltrates. No pleural effusion. No hilar enlargement or mediastinal widening. No acute osseous abnormality. There is no demonstrated abnormality of the visualized soft tissue structures of the upper abdomen. RAD/Chest 1 View (Portable) IMPRESSION: No significant interval change. Stable mild findings of cardiac decompensation with cardiomegaly and pulmonary venous hypertension. No pneumonia or pulmonary edema. Electronically Signed: West Azul MD at 7:44 EDT ,
--- NOTE | 2021-11-01 06:56 | EKG12_ITS ---
Test Reason : CP Blood Pressure : / mmHG Vent. Rate : 082 BPM Atrial Rate : 088 BPM P-R Int : 000 ms QRS Dur : 166 ms QT Int : 446 ms P-R-T Axes : 000 112 -03 degrees QTc Int : 521 ms Atrial fibrillation Right bundle branch block Septal infarct , age undetermined T wave abnormality, consider inferior ischemia vs IVCD effect Abnormal ECG Confirmed by DAVID LITTLE, JEANNETTE ([id number]), brands editor SUKHDEEP STOUT ([id number]) on 11/05/2021 1:22:59 PM Referred By: CARMELINA Confirmed By:JEANNETTE HERNANDEZ MD
[2021-11-01 07:07] LABS: Absolute Lymphocyte Count 0.86 X10^3/uL (0.83-4.51); Basophil# 0.08 X10^3/uL; Basophil% 1.2 % (0-1); Eosinophil# 0.13 X10^3/uL; Eosinophils% 1.9 % (0-5); Hematocrit 44.8 % (40-54); Hemoglobin 14.7 g/dL (13.0-16.5); Lymphocyte # 0.86 X10^3/ul (0.83-4.51); Lymphocyte % 12.9 % (19-41); Mean Corp Hgb Conc 32.8 g/dL (32-36); Mean Corpuscular Hgb 30.8 pg (27.0-32.0); Mean Corpuscular Volume 93.9 fL (80-94); Mean Platelet Vol. 9.9 fl (6.2-12.0); Monocyte# 0.55 X10^3/uL; Monocyte% 8.2 % (0-10); NRBC Flagged by Analyzer 0 % (0-5); Neutrophil # 5.02 X10^3/uL (2.7-7.7); Neutrophil % 75.4 % (47-70); Platelet Count 194 K/mm3 (150-450); RBC Distribution Width CV 14.4 % (11.6-14.6); RBC Distribution Width SD 50.3 fl (35.1-43.9); Red Blood Count 4.77 M/mm3 (4.6-6.2); White Blood Count 6.7 K/mm3 (4.4-11.0)
[2021-11-01 07:25] LABS: Anion Gap 7 (5-15); BUN 22 mg/dL (7-18); BUN/Creat Ratio 16.5 RATIO (10-20); Calcium,Total 9.1 mg/dL (8.5-10.1); Chloride 107 mmol/L (98-107); Creatinine, Serum 1.33 mg/dL (0.70-1.30); EST Glomerular Filtration Rate 58 mL/min (>60); Est Glom Filt Rate - Afr Amer 70 mL/min (>60); Estimated Creatinine Clearance 60.22 ml/min; Glucose 222 mg/dL (74-106); Potassium 3.9 mmol/L (3.5-5.1); Sodium Level 139 mmol/L (136-145); Troponin-I HS (w/2H Reflex) 10 pg/mL (3.0-78.0)
[2021-11-01 08:28] LABS: International Normalized Ratio 2.3; Prothrombin Time (Protime)PT. 25.2 SECONDS (11.7-14.9)
[2021-11-01 09:00] LABS: Reflex Troponin-HS? (from REC) Y
[2021-11-01 09:28] LABS: Troponin-I HS 10 pg/mL (3.0-78.0)
== END 2021-11-01 09:56 | disposition home or self-care (01) ==
PROVIDERS: Emergency Medicine; Emergency Provider Emergency Medicine; PCP Family Medicine; Visit Provider Emergency Medicine
DX: R07.89 Other chest pain (principal); I48.0 Paroxysmal atrial fibrillation; E66.01 Morbid (severe) obesity due to excess calories; Z68.42 Body mass index [BMI] 45.0-49.9, adult; E78.5 Hyperlipidemia, unspecified; E78.00 Pure hypercholesterolemia, unspecified; K21.9 Gastro-esophageal reflux disease without esophagitis; G47.33 Obstructive sleep apnea (adult) (pediatric); Z79.01 Long term (current) use of anticoagulants; Z79.899 Other long term (current) drug therapy; Z87.891 Personal history of nicotine dependence; Z98.84 Bariatric surgery status; Z95.2 Presence of prosthetic heart valve
CPT/HCPCS: 71045; 80048; 84484; 85025; 85610; 93005; 99285; A4216

== ENCOUNTER 2021-11-12 01:53 | Emergency (ER) | payer BC, SELFPAY ==
[2021-11-12 01:54] VITALS: BP 149/104; PULSE 111; RESP 24; TEMP 35.7; O2SAT 96; BMI 48.2
--- NOTE | 2021-11-12 02:05 | EKG12_ITS ---
Test Reason : DYSRYTHMIA Blood Pressure : / mmHG Vent. Rate : 092 BPM Atrial Rate : 072 BPM P-R Int : 000 ms QRS Dur : 174 ms QT Int : 438 ms P-R-T Axes : 000 114 -15 degrees QTc Int : 541 ms Atrial fibrillation Right bundle branch block Anteroseptal infarct , age undetermined T wave abnormality, consider inferior ischemia Abnormal ECG Confirmed by ZANE LITTLE, CM ([id number]), supervising editor news reel SUKHDEEP STOUT ([id number]) on 11/13/2021 7:19:25 AM Referred By: ION Confirmed By:CM DEGROOT MD
--- NOTE | 2021-11-12 02:05 | EX.ED.DYSGE1 ---
HPI History of Present Illness Chief Complaint: Foreign Body Narrative Narrative: Several hours prior to arrival patient was taking his nighttime medications, he takes a lot of medicines at night. He was taking the oxcarbazepine by itself and he felt like it got stuck in his throat or the base of his tongue, he started swallowing liquids to try to get it to go down but it did not feel like it worked. Eventually he drank some coke and it felt like it went down and then he started having pain in his chest, he started coughing a lot. He did not feel like he aspirated it or choked on it. His throat still negrete, he has been coughing a lot for the last hour, and he still has some mid/right mid chest discomfort that is nonpleuritic. He has COPD and tried a breathing treatment but it did not make a difference. He is coughing up occasional mucus and a small amount of blood, he is on warfarin because of a mechanical heart valve, and there is a small amount of blood in it the last time. He checked his INR last 2 days ago and it was 2.1. No recent illness and he was feeling fine before swallowing the pills tonight. Last medication change he had was switching pregabalin for oxcarbazepine 5 months ago. [facility] Medical History Abrasion, right lower leg, initial encounter Aortic valvular disease Atrial fibrillation and flutter Contusion of right foot, initial encounter COVID-19 (06/19/20) Edema Fatigue GERD (gastroesophageal reflux disease) Gout HLD (hyperlipidemia) Hypokalemia Morbid obesity with BMI of 45.0-49.9, adult Nicotine abuse Nonrheumatic aortic (valve) stenosis PAOLA (obstructive sleep apnea) Paroxysmal atrial fibrillation Pulmonary hypertension PVC (premature ventricular contraction) Shortness of breath Home Medications biotin-keratin 1 ea PO QHS 04/12/16 [History Last Taken 03/09/20] cholecalciferol (vitamin D3) 2,000 unit PO QHS 04/12/16 [History Last Taken 03/09/20] docusate sodium 100 mg PO QHS 04/12/16 [History Last Taken 03/09/20] folic acid 1 mg PO QHS 04/12/16 [History Last Taken 03/09/20] fexofenadine 60 mg PO DAILY 05/16/17 [History Last Taken 03/10/20] tamsulosin 0.4 mg PO DAILY 05/16/17 [History Last Taken 03/10/20] warfarin 3 mg tablet 3 mg PO DAILY 02/11/18 [History Last Taken 03/09/20] bupropion HCl 300 mg PO DAILY 03/10/20 [History Last Taken 03/10/20] ferrous sulfate 325 mg PO QHS 03/10/20 [History Last Taken 03/09/20] levothyroxine 100 mcg PO DAILY 03/10/20 [History Last Taken 03/10/20] multivitamin 1 tab PO DAILY 03/10/20 [History Last Taken 03/10/20] terazosin 1 mg PO QHS 03/10/20 [History Last Taken 03/09/20] allopurinol 100 mg tablet 100 mg PO DAILY 01/11/21 [History Last Taken Unknown] potassium chloride 20 mEq tablet,extended release 40 meq PO BID #360 tab 02/23/21 [Rx Last Taken Unknown] Disability Placard #1 ea 04/20/21 [Rx Last Taken Unknown] albuterol sulfate 90 mcg/actuation aerosol inhaler 2 puff INHALATION Q4H PRN #1 device 05/08/21 [Rx Last Taken Unknown] torsemide 20 mg tablet See Rx Instructions .ROUTE .COMPLEX #180 tablet 06/25/21 [Rx Last Taken Unknown] atorvastatin 40 mg tablet 40 mg PO QHS #90 tab 07/16/21 [Rx Last Taken Unknown] fluticasone fur. 100 mcg-umeclid 62.5 mcg-vilant 25 mcg inhalat.powder 1 inh INHALATION DAILY #3 ea 08/08/21 [Rx Last Taken Unknown] oxcarbazepine 300 mg tablet 300 mg PO BID #60 tab 09/28/21 [Rx Last Taken Unknown] metoprolol tartrate 25 mg tablet 25 mg PO BID #180 tab 10/17/21 [Rx Last Taken Unknown] Allergy/AdvReac Type Severity Reaction Status Date / Time aspirin Allergy Hives Verified 11/01/21 06:30 Iodinated Contrast Media Allergy Hives Verified 11/01/21 06:30 [Iodinated Contrast Media - IV Dye] shellfish derived Allergy Hives Verified 11/01/21 06:30 Family History Father , age 40 Cancer stomach CA Mother Hypertension Brother Cancer Lung CA Aunt Cerebral aneurysm Surgical History H/O basal cell carcinoma excision History of deviated nasal septum History of tonsillectomy Hx of aortic valve replacement, mechanical (~2010) Hx of gastric bypass Social History Smoking Status: Former smoker Tobacco: How many years used: 20 how long ago did patient quit smokin, 0.5 second hand exposure: Yes alcohol intake: current alcohol intake frequency: holidays/special occasions only Alcohol type: beer details: social substance use type: former substance user Date of last use: used Marijuana as a teenager caffeine: Yes Type: coffee Number of servings: 2 what type of physical activity do you participate in: walking frequency: 3-4 times per week duration: 15-30 minutes/day seatbelt use: always do you feel safe at home: Yes ROS ROS ED Constitutional Constitutional ED: Denies chills or fever(s) Eyes Eyes: Denies change in vision or diplopia ENT ENT ED: Reports sore throat; Denies rhinorrhea Cardiovascular Cardiovascular: Reports as per HPI and chest pain; Denies palpitations Respiratory/Chest Respiratory/Chest: Reports cough; Denies dyspnea Gastrointestinal Gastrointestinal: Denies abdominal pain, diarrhea, nausea or vomiting Genitourinary Genitourinary ED: Denies dysuria or hematuria Musculoskeletal Musculoskeletal: Denies back pain or neck pain Integumentary Denies abscess or rash Neurologic Neurologic: Denies headache(s), paresthesias or weakness Psychiatric Psychiatric: Denies anxiety or suicidal thoughts EXAM Physical Exam Const Vital Signs: 11/12/21 01:54 11/12/21 02:01 Temperature 96.3 F L Temperature Source Temporal Pulse Rate 111 H Respiratory Rate 24 H Respiratory Effort Normal Non-Labored Respiratory Pattern Normal Blood Pressure 149/104 H Blood Pressure Mean 119 Pulse Ox 96 Oxygen Delivery Method Room Air Positive well nourished, well developed and obese General Appearance ED: well developed and NAD Nutritional Appearance: obese HEENT Reports moist mucous membranes normocephalic and atraumatic Mouth ED: Yes oral and palatal mucosa normal, Yes lips normal and Yes tongue normal Mouth: oral and palatal mucosa normal, lips normal and tongue normal Throat: posterior oropharynx normal, uvula midline and other Other Details: No stridor. Speaking normally with intermittent nonproductive coughing. No hemoptysis objectively. ; Negative for hoarseness Eyes PERRL and EOMs intact bilaterally Neck full ROM and supple Resp normal respiratory effort and clear to auscultation bilaterally Cardio regular rate and regular rhythm Cardio Narrative: Click and systolic decrescendo murmur Rate: Negative for tachycardic GI non-tender and non-distended Auscultation: normoactive bowel sounds Palpation: soft Back/Spine no CVA tenderness General Back: other FROM Extremity normal to inspection General Extremety ED: Negative for edema, pulses abnormal or tenderness General Extremity: Negative for edema or pulses abnormal Neuro oriented x3, CN's II-XII intact bilaterally and no sensory deficits noted Sensorium / Orientation: awake and alert Motor Exam: strength 5/5 throughout Skin no rashes or lesions noted and no wounds MDM MDM MDM Narrative Medical decision making narrative: Patient exam is normal except for the fact that he is intermittently coughing without any blood. He did cough up a small amount of blood prior to arrival, I think that was just because he was coughing so hard and so much with anticoagulation on warfarin, certainly he has had no clinically significant bleeding, and with his INR being checked 2 days ago I do not think we need to repeat that since he has not had any other medication changes. I did an EKG and a chest x-ray, they are stable and unremarkable. Given a GI cocktail and this fixed most of his symptoms. He states his throat is still little sore, his chest is still a little sore as well but he feels much better and he is no longer coughing. I reassured him, I suspect he has a mild case of pill esophagitis, may also involve the vallecula and/or the base of his tongue, but I think he unlikely aspirated. Supportive care advised, we discussed reasons to return. Radiography Diagnostic Testing: Clinical Impression(s) from Imaging Studies Chest X-Ray 11/12/21 02:14 IMPRESSION: 1. Stable moderate cardiomegaly. 2. Pulmonary vascular congestion. 3. No pulmonary edema. Electronically Signed: Marcos Bee MD at 2:37 EDT , Rhythm Strip Rhythm Strip: A-fib Rate: 90 Ectopy: None EKG Initial EKG: Attestation: I personally reviewed and interpreted this EKG as follows: Interpretation: No Acute Injury Pattern, Atrial Fibrillation and RBBB Prior EKG tracings: available for review Prior: Unchanged Discharge Plan Triage Chief Complaint: Foreign Body ED Provider: Oscar Bang Dx/Rx/DC Orders Clinical Impression: Globus sensation, Pill esophagitis Instructions: ED Esophageal Foreign Body, Resolved Prescriptions: No Action warfarin [Coumadin] 3 mg tablet 3 mg PO DAILY RF: 0 allopurinol 100 mg tablet 100 mg PO DAILY RF: 0 Trelegy Ellipta 100-62.5-25 mcg blister with device 1 inh inhalation DAILY Qty: 3 RF: 3 oxcarbazepine 300 mg tablet 300 mg PO BID Qty: 60 RF: 4 docusate sodium 100 MG capsule 100 mg PO QHS RF: 0 folic acid 1 MG tablet 1 mg PO QHS RF: 0 cholecalciferol (vitamin D3) 1,000 UNIT tablet 2,000 unit PO QHS RF: 0 biotin-keratin 1 EACH tablet 1 ea PO QHS RF: 0 tamsulosin 0.4 MG capsule 0.4 mg PO DAILY RF: 0 fexofenadine 60 MG tablet 60 mg PO DAILY RF: 0 ferrous sulfate 325 MG tablet 325 mg PO QHS RF: 0 bupropion HCl 300 MG tablet extended release 24 hr 300 mg PO DAILY RF: 0 multivitamin 1 TABLET tablet 1 tab PO DAILY RF: 0 terazosin 1 MG capsule 1 mg PO QHS RF: 0 levothyroxine 100 MCG tablet 100 mcg PO DAILY RF: 0 potassium chloride 20 mEq tablet extended release 40 meq PO BID Qty: 360 RF: 3 (DME) Disability Placard See Rx Instructions .Route .MEDSUPPLY Qty: 1 RF: 0 albuterol sulfate 90 mcg/actuation HFA aerosol inhaler 2 puff INHALATION Q4H PRN (Reason: shortness of breath or wheezing) Qty: 1 RF: 3 torsemide 20 mg tablet See Rx Instructions .ROUTE .COMPLEX Qty: 180 RF: 3 atorvastatin 40 mg tablet 40 mg PO QHS Qty: 90 RF: 3 metoprolol tartrate 25 mg tablet 25 mg PO BID Qty: 180 RF: 3 Primary Care Provider: Compa Rosado Referrals: Compa Rosado MD [Primary Care Provider] - As Needed Disposition Disposition: Home, Self Care
[2021-11-12] MEDS: Mag Hydrox/Al Hydrox/Simeth 30 ML UDC PO (02:11)
--- NOTE | 2021-11-12 02:14 | RAD_ITS ---
EXAM: XR CHEST, 2 VIEWS CLINICAL INDICATION: chest pain/cough TECHNIQUE: Frontal and lateral views of the chest. This report was created using 140Fire report generation technology. COMPARISON: 11/01/2021. FINDINGS: LUNGS AND PLEURAL SPACES: Pulmonary vascular congestion. No pulmonary edema. No pneumothorax. No effusion. HEART: Stable moderate cardiomegaly. MEDIASTINUM: Central airways and mediastinal contour are unremarkable. BONES/JOINTS: Sternal wires. SOFT TISSUES: Unremarkable. RAD/Chest PA and Lateral IMPRESSION: 1. Stable moderate cardiomegaly. 2. Pulmonary vascular congestion. 3. No pulmonary edema. Electronically Signed: Marcos Bee MD at 2:37 EDT ,
[2021-11-12 02:57] VITALS: BP 112/63; PULSE 89; RESP 15; O2SAT 95
[2021-11-12 02:59] VITALS: BP 112/63; PULSE 89; RESP 20; O2SAT 95
== END 2021-11-12 03:00 | disposition home or self-care (01) ==
PROVIDERS: Emergency Provider Emergency Medicine; PCP Family Medicine; Visit Provider Emergency Medicine
DX: K20.80 Other esophagitis without bleeding (principal); J44.9 Chronic obstructive pulmonary disease, unspecified; I27.20 Pulmonary hypertension, unspecified; I48.91 Unspecified atrial fibrillation; E66.01 Morbid (severe) obesity due to excess calories; F45.8 Other somatoform disorders; G47.33 Obstructive sleep apnea (adult) (pediatric); E78.5 Hyperlipidemia, unspecified; K21.9 Gastro-esophageal reflux disease without esophagitis; Z79.01 Long term (current) use of anticoagulants; Z79.890 Hormone replacement therapy; Z79.899 Other long term (current) drug therapy; Z95.2 Presence of prosthetic heart valve; Z87.891 Personal history of nicotine dependence
CPT/HCPCS: 71046; 93005; 99284

== ENCOUNTER → 2021-12-03 | Outpatient (CLI) | payer BC, SELFPAY ==
--- NOTE | 2021-12-03 08:40 | RAD_ITS ---
STUDY: X-RAY - ESOPHAGUS (BARIUM SWALLOW) WITH FLUOROSCOPY REASON FOR EXAM: Male, 61 years old. DYSPHAGIA TECHNIQUE: 19 view(s) of the esophagus were obtained following swallowing of barium. FLUOROSCOPY TIME (if supplied): (27 seconds) minutes/seconds COMPARISON: None. FINDINGS: There is no demonstrated esophageal foreign body. There is no demonstrated stricture or mucosal abnormality. Normal gastroesophageal junction, without a demonstrated hiatal hernia. The patient ingested a 12 mm tablet of barium without any difficulty. There is atherosclerotic calcification of the aortic arch with tortuosity of the descending aorta. Normal visualized pulmonary parenchyma. There are diffuse degenerative changes of the visualized thoracic spine. RAD/Esophagus Dual Contrast IMPRESSION: Normal plain film x-ray examination (barium swallow) of the esophagus. Electronically Signed: Kenton De Anda MD at 13:18 EDT ,
== END | disposition home or self-care (01) ==
LOC: RAD 08:15
PROVIDERS: PCP Family Medicine; Visit Provider Family Medicine
DX: R13.10 Dysphagia, unspecified (principal)
CPT/HCPCS: 74221

== ENCOUNTER → 2022-01-01 | Outpatient (CLI) | payer BC, SELFPAY ==
[2022-01-01 17:06] LABS: Basophil# 0.09 X10^3/uL; Basophil% 1.1 % (0-1); Eosinophil# 0.19 X10^3/uL; Eosinophils% 2.3 % (0-5); Hematocrit 46.1 % (40-54); Hemoglobin 15.2 g/dL (13.0-16.5); Lymphocyte % 15.4 % (19-41); Mean Corpuscular Hgb 31.5 pg (27.0-32.0); Mean Corpuscular Volume 95.6 fL (80-94); Mean Platelet Vol. 9.7 fl (6.2-12.0); Monocyte# 0.85 X10^3/uL; Monocyte% 10.1 % (0-10); NRBC Flagged by Analyzer 0 % (0-5); Neutrophil # 5.98 X10^3/uL (2.7-7.7); Neutrophil % 70.7 % (47-70); Platelet Count 238 K/mm3 (150-450); RBC Distribution Width CV 13.6 % (11.6-14.6); RBC Distribution Width SD 47.9 fl (35.1-43.9); Red Blood Count 4.82 M/mm3 (4.6-6.2); White Blood Count 8.4 K/mm3 (4.4-11.0)
[2022-01-01 17:20] LABS: Anion Gap 7 (5-15); BUN 23 mg/dL (7-18); BUN/Creat Ratio 15.8 RATIO (10-20); Calcium,Total 9.2 mg/dL (8.5-10.1); Chloride 106 mmol/L (98-107); Creatinine, Serum 1.46 mg/dL (0.70-1.30); EST Glomerular Filtration Rate 52 mL/min (>60); Est Glom Filt Rate - Afr Amer 63 mL/min (>60); Glucose 133 mg/dL (74-106); Potassium 3.4 mmol/L (3.5-5.1); Sodium Level 139 mmol/L (136-145)
[2022-01-01 17:21] LABS: BNP,B-Type NATRIURETIC PEPTIDE 196.8 pg/mL (0-100)
[2022-01-01 17:49] LABS: AST(SGOT) 35 U/L (15-37); Alanine Aminotransfer ALT/SGPT 37 U/L (16-61); Albumin, Serum 4.1 g/dL (3.2-5.0); Alkaline Phosphatase 158 U/L (45-117); Bilirubin, Direct 0.47 mg/dL (0.00-0.30); Cholesterol 118 mg/dL (200); Globulin 3.6 g/dL (2.2-4.2); High Density Lipoprotein 35 mg/dL; Protein, Total 7.7 g/dL (6.4-8.2); Triglycerides 161 mg/dL; Very Low Density Lipoprotein 32 mg/dL (5-40)
== END | disposition home or self-care (01) ==
LOC: LAB 16:02
PROVIDERS: Internal Medicine Cardiovascular Disease; PCP Family Medicine; Referring Provider Nurse Practitioner Gerontology; Visit Provider Nurse Practitioner Gerontology
DX: R06.09 Other forms of dyspnea (principal); E78.00 Pure hypercholesterolemia, unspecified; R73.9 Hyperglycemia, unspecified
CPT/HCPCS: 36415; 80048; 80061; 80076; 83880; 85025

== ENCOUNTER → 2022-01-10 | Outpatient (CLI) | payer BC, SELFPAY ==
[2022-01-10 07:45] LABS: Anion Gap 7 (5-15); BUN 24 mg/dL (7-18); BUN/Creat Ratio 17.9 RATIO (10-20); Calcium,Total 9.3 mg/dL (8.5-10.1); Chloride 105 mmol/L (98-107); Creatinine, Serum 1.34 mg/dL (0.70-1.30); EST Glomerular Filtration Rate 57 mL/min (>60); Est Glom Filt Rate - Afr Amer 69 mL/min (>60); Glucose 184 mg/dL (74-106); Potassium 3.8 mmol/L (3.5-5.1); Sodium Level 137 mmol/L (136-145)
== END | disposition home or self-care (01) ==
LOC: LAB 06:04
PROVIDERS: PCP Family Medicine; Referring Provider Nurse Practitioner Gerontology; Visit Provider Nurse Practitioner Gerontology
DX: R06.09 Other forms of dyspnea (principal)
CPT/HCPCS: 36415; 80048

== ENCOUNTER → 2022-02-06 | Outpatient (CLI) | payer BC, SELFPAY ==
[2022-02-06 08:29] LABS: Anion Gap 9 (5-15); BUN 26 mg/dL (7-18); Calcium,Total 8.9 mg/dL (8.5-10.1); Chloride 103 mmol/L (98-107); Creatinine, Serum 1.37 mg/dL (0.70-1.30); EST Glomerular Filtration Rate 56 mL/min (>60); Est Glom Filt Rate - Afr Amer 68 mL/min (>60); Glucose 163 mg/dL (74-106); Potassium 3.3 mmol/L (3.5-5.1); Sodium Level 139 mmol/L (136-145)
== END | disposition home or self-care (01) ==
LOC: LAB 05:58
PROVIDERS: PCP Family Medicine; Referring Provider Nurse Practitioner Gerontology; Visit Provider Nurse Practitioner Gerontology
DX: R06.09 Other forms of dyspnea (principal)
CPT/HCPCS: 36415; 80048

== ENCOUNTER → 2022-02-22 | Outpatient (CLI) | payer BC, SELFPAY ==
[2022-02-22 07:43] LABS: Anion Gap 9 (5-15); BUN 22 mg/dL (7-18); BUN/Creat Ratio 15.1 RATIO (10-20); Chloride 105 mmol/L (98-107); Creatinine, Serum 1.46 mg/dL (0.70-1.30); EST Glomerular Filtration Rate 52 mL/min (>60); Est Glom Filt Rate - Afr Amer 63 mL/min (>60); Glucose 165 mg/dL (74-106); Potassium 3.6 mmol/L (3.5-5.1); Sodium Level 140 mmol/L (136-145)
== END | disposition home or self-care (01) ==
LOC: LAB 05:50
PROVIDERS: PCP Family Medicine; Referring Provider Internal Medicine Cardiovascular Disease; Visit Provider Internal Medicine Cardiovascular Disease
DX: R06.09 Other forms of dyspnea (principal); Z95.2 Presence of prosthetic heart valve
CPT/HCPCS: 80048

== ENCOUNTER → 2022-03-12 | Outpatient (CLI) | payer BC, SELFPAY ==
--- NOTE | 2022-03-12 14:04 | SP.MBSS_ITS ---
Modified Barium Swallow - Patient Information Study Date: 03/12/22 Study Time: 13:00 Direct Billable Minutes: 90 Total Minutes procedure & reportin Diagnosis: Dysphagia (R13.10), COPD (J44.9) Referring Physician: Derek Fagan Reason for Referral: Objectively assess swallow function, risk for aspiration, and determine recommendations for least restrictive diet textures and compensatory strategies to improve safety of swallow. Medical History: The patient is a 61-year-old male with PMH including COPD, dysphagia, fatigue, GERD, paroxysmal A fib, pulmonary HTN (SEE EMR for full PMH and diagnoses). He reports swallowing difficulty since October of 2021 when he experienced difficulty swallowing a pill. He felt the pill was caught in his throat, and he required a visit to the ED. Since, he has predominantly had difficulty swallowing liquids. He coughs when he drinks too quickly. He also reports increased hoarseness since November of 2021. He is following with automation mechanic, Dr. Fagan, who referred him for this MBSS to assess aspiration risk. Dr. Fagan additionally referred the patient to ENT for endoscopy, which is planned in March of 2022 per pt report. Current Diet Ordered: Regular textures / Thin liquids Dentition: Partials - Patient removed dentures for the study because he stated he never eats with them in place. Mental Status: WNL Respiratory Status: Oxygenating on Room Air - Penetration-Aspiration Scale Penetration-Aspiration Scale: OBJECTIVE ASSESSMENT OF SWALLOW FUNCTION (QUANTITATIVE ? PER TRIAL): PENETRATION / ASPIRATION SCALE (ROBERT): 1 = does not enter airway 2 = enters airway/above vocal folds/ejected 3 = enters airway/above vocal folds/not ejected 4 = enters airway/contacts vocal folds/ejected 5 = enters airway/contacts vocal folds/not ejected 6 = enters airway/below vocal folds/ejected 7 = enters airway/below vocal folds/not ejected despite effort 8 = enters airway/below vocal folds/no effort VIDEOFLOROSCOPIC SCALE SCORE (ROBERT): Grade I = aspiration of material that has penetrated into the laryngeal vestibule, intact cough reflex Grade II = aspiration < 10 % of the bolus, intact cough reflex Grade III = aspiration of < 10 % of the bolus, reduced cough reflex or aspiration of > 10 % of the bolus, intact cough reflex Grade IV = aspiration of > 10 % of the bolus, reduced cough reflex - Penetration-Aspiration Scale Score Thin Liquid via teaspoon Result: 1= does not enter airway Thin Liquid via teaspoon Trial 2 Result: 1= does not enter airway Thin Liquid via large single sip from cup Result: 3= enters airways/above vocal folds/not ejected - laryngeal penetration of pharyngeal residue on the second swallow initiated by the patient Thin Liquid via sequential sips from cup Result: 3= enters airways/above vocal folds/not ejected - Cannot definitively rule out aspiration due to patient's body habitus Thin Liquid via small single sip from cup Effortful swallow Result: 1= does not enter airway [place] Thick Liquid via large single sip from cup Result: 1= does not enter airway [place] Thick Liquid via small single sip from cup Result: 1= does not enter airway Pudding via teaspoon Result: 1= does not enter airway Cookie with barium coating and esophageal screen Result: 1= does not enter airway Thin Liquid via single sip from straw Result: 1= does not enter airway Barium Tablet with water Result: 1= does not enter airway - good oral and pharyngeal clearance on the first swallow - Oral Phase Labial Seal: No Labial Escape Tongue Control During Bolus Hold: Posterior escape of greater than half of bolus Bolus Preparation/Mastication: Timely and efficient chewing and mashing Bolus Transport/Lingual Motion: Delayed initiation of tongue motion Oral Residue: Residue collection on oral structures - Pharyngeal Phase Initiation of Pharyngeal Swallow: Bolus head in pyriforms Soft Palate Elevation: Trace column of contrast/air between soft palate and pharyngeal wall Laryngeal Elevation: Partial superior movement thyroid cart/partial apprx aryt- epig petiole Anterior Hyoid Excursion: Partial anterior movement Epiglottic Movement: Complete inversion Laryngeal Vestibule Closure at Height of Swallow: Incomplete; narrow column of air/contrast in laryngeal vestibule Pharyngeal Stripping Wave: Present - complete Pharyngoesophageal Segment Opening: Complete distension and complete duration; no obstruction of flow Tongue Base Retraction: Narrow column of contrast between tongue base & post. pharyngeal wall - Esophageal Phase Esophageal Clearance: Esophageal retention - minimal retention of cookie in mid esophagus - Diagnosis/Impression Diagnosis: Mild oropharyngeal phase dysphagia (R13.12) Impression: Cannot definitively rule out aspiration for any of the above trials due to pt's body habitus. [employer] unable to view the level of the vocal folds or below to vocal folds to determine if aspiration occurred. The oral phase is primarily marked by... -Decreased bolus control with premature posterior loss of >1/2 of thin liquid boluses when consumed sequentially to the pyriforms prior to swallow onset. -Collection of oral residue, most notable with larger sips, which the patient effectively cleared with use of second swallow. -Timely and effective mastication abilities despite missing teeth. The pharyngeal phase is primarily marked by... -Delayed initiation of the swallow, most notable with large, sequential sips of thin liquids. -Decreased airway closure during the swallow due to decreased laryngeal elevation and anterior hyoid excursion. -Mildly decreased tongue base retraction with resulting trace-mild pharyngeal residues in the vallecula after the swallow. The patient did experience laryngeal penetration of thin liquid residue (large, single cup sip) remaining in the pharynx on a subsequent swallow. -Laryngeal penetration of large, single and sequential sips of thin liquids by cup, which did not fully eject from the laryngeal vestibule. A cued cough and re-swallow cleared the contrast from the larynx. - Recommendations Diet: Regular Textures, Thin Liquids Comment: consider taking large medications whole in applesauce/yogurt/pudding Compensatory Strategies: Small Bites, Small Sips - effortful swallows, Slow Rate, Alternate bites/solids and sips/liquids, Sitting upright, Remain sitting upright for 30 minutes after PO intake Recommend Repeat Modified Barium Swallow: No Need for Skilled Speech Therapy Services: Yes Comment: Will recommend the patient for outpatient dysphagia therapy to address deficits in oropharyngeal swallow function, as well as for voice evaluation and intervention due to increased hoarseness since November 2021. Will recommend the patient for oropharyngeal strengthening to improve laryngeal elevation, hyoid excursion, swallow onset, and tongue base retraction (Krystyna, Natalio, CTAR, effortful breath hold and swallow). The patient would benefit from thorough education regarding diet recommendations and recommended compensatory strategies. Recommended Referrals: ENT Consult - Proceed with ENT consult from Dr. Fagan due to increased hoarseness since November 2021. Education Completed: 1. Described result of evaluation. - Additional education provided re: general vocal hygiene strategies., 2. Pt understands evaluation & agrees with goals and treatment plan., 7. Pt requires further education on strategies & risks. - Status Active ST Patient: Active - Contact Information [facility] Speech Therapy:: Tiffany Schrader M.A. [facility]-[employer] L[employer]AGE INTERPRETER Speech-Language Pathologist [address] [address] [email or web address] [phone] 03/12/22 14:14
== END | disposition home or self-care (01) ==
LOC: RAD 12:47
PROVIDERS: PCP Family Medicine; Referring Provider Internal Medicine Gastroenterology; Visit Provider Internal Medicine Gastroenterology
DX: R13.10 Dysphagia, unspecified (principal)
CPT/HCPCS: 74230; 92611

== ENCOUNTER 2022-04-15 09:51 | Day surgery (SDC) | payer BC, SELFPAY ==
[2022-04-15] VITALS (7 sets, daily range): BP systolic 96–114; BP diastolic 66–78; PULSE 80–88; RESP 14–20; TEMP 36.3–36.6; O2SAT 92–97; BMI 46.1
--- NOTE | 2022-04-15 | ESO_PTH ---
PATIENT: STEPAN RIGGS LOC: EN U#:[id number] AGE/SX: 61/M ROOM: RE04/15/[address]: Dr. Derek Fagan DO : 1960 BED: DIS: 04/15/2022 SPEC #: [id number] RECD: 04/15/22 13:33 STATUS: JAMES REStanley #: [id number] ANN: 04/15/22 00:[address]: Derek Fagan DEPT: SURGICAL PATHOLOGY RECD BY: George Farah ENTERED: 04/16/22 09:08 SP TYPE: AUDRA ASHRAF DR: Dr. Compa Rosado MD Tissues: A - Esophagus, NOS B - Gastric mucous membrane Procedures: Special Stain Group II Surgery Specimen Level IV Alcian Blue/PAS (control) HEADER OPERATION: EGD (MAC), biopsy, dilation PRE-OP DIAGNOSIS: Dysphagia TISSUE SUBMITTED: A ? Distal esophagus biopsy, B ? Gastric body biopsy MICROSCOPIC DIAGNOSIS A. Distal esophagus, biopsy: Gastroesophageal junctional mucosa with chronic inflammation. Focal changes of reflux. No evidence of goblet cell metaplasia. See comment. B. Gastric body, biopsy: Mild chronic gastritis. See comment. AM:eileen 04/17/2022 COMMENT A. Alcian blue/PAS stain with matched control supports the above diagnosis. B. The results of immunohistochemistry for Helicobacter pylori will be reported separately ([id number]). MICROSCOPIC DESCRIPTION Slides are reviewed. GROSS DESCRIPTION A - Received in fixative is one container labeled with the patient's name and designated distal esophagus biopsy. The specimen consists of two irregular fragments of light mariscal soft tissue that in aggregate measure 0.6 x 0.2 x 0.1 cm. The specimen is totally submitted in one cassette. B - Received in fixative is one container labeled with the patient's name and designated gastric body biopsy. The specimen consists of one irregular fragment of light mariscal soft tissue that measures 0.7 x 0.2 x 0.1 cm. The specimen is totally submitted in one cassette. / AM:eileen 04/16/2022 TC:3 CPT: 67335 x2, 56497
[2022-04-15] MEDS: Lactated Ringers 1,000 ML 15 ML IV (10:53)
--- NOTE | 2022-04-15 11:00 | IMM_PTH ---
PATIENT: STEPAN RIGGS LOC: EN U#:[id number] AGE/SX: 61/M ROOM: RE04/15/[address]: Dr. Derek Fagan DO : 1960 BED: DIS: 04/15/2022 SPEC #: [id number] RECD: 04/16/22 09:58 STATUS: JAMES REQ #: [id number] ANN: 04/15/22 11:[address]: Derek Fagan DEPT: IMMUNOHISTOCHEMISTRY RECD BY: Deborah Oneill ENTERED: 04/16/22 09:59 SP TYPE: IMMUNO OTHR DR: Dr. Compa Rosado MD Tissues: B - Stomach, NOS Procedures: H Pylori (initial) PHYSICIAN & INSTITUTION [place] [id number] SPECIMEN INFORMATION: Tissue Source: B ? Gastric body biopsy Clinical Info: Dysphagia Specimen Number: [id number] CPT code: 89233 METHODOLOGY: Deparaffinized sections of prefer/formalin-fixed tissue or PAP/DQ stained slides are incubated with monoclonal/polyclonal antibodies/oligonucleotide probes. Localization is made via biotin free immunoperoxidase method. Appropriate controls are performed and reacted as expected. Results on target cell population are indicated in the following table: RESULTS: ANTIBODY / CLONE RESULT Block B H Pylori (polyclonal) negative These tests were developed and their performance characteristics determined by [facility]. They may not have been cleared or approved by the U.[place]. Food and Drug Administration. The FDA has determined that such clearance or approval is not necessary. The above immunohistochemical/dualISH markers are ordered and reviewed by the Pathologist. INTERPRETATION: B. Gastric body, biopsy: Negative for Helicobacter pylori organisms. AM:eileen 04/17/2022
--- NOTE | 2022-04-15 11:01 | PCM.HP.BLA ---
History and Physical Date of Admission: 04/15/22 61 M who presents to the office today for Initial consult. Renato established with this clinic 02.14.22 with referral from PCP for dysphagia with hoarseness and cough; symptoms occur spontaneously. [facility] ED presentation 11.12.21 for a globus sensation that was not relied with use of breathing treatment (COPD). EKG and CXR performed and stable and he was discharged home. Since this time he is continuing to have difficulty swallowing water, food and pills and liquids; approximately once a day he will have an issue with coughing for an extended time: ?it feels like it?s going down the wrong pipe?. PMH COPD, mechanical heart valve with anticoagulation (A-Fib, PVC), PAOLA, pulmonary HTN. Denies history of EGD. ROS Const Constitutional: Positive for other (10 ROS negative unless otherwise noted); No fatigue, fever(s) or weight change Eyes Eyes: Positive for blurry vision, irritation and vision loss ENT ENT: Positive for tinnitus, nasal congestion and difficulty swallowing Resp Respiratory: Positive for shortness of breath sob: SOB with activity and SOB at rest and wheezing Cardio Cardiology: Positive for shortness of breath and difficulty breathing; No chest pain at rest or chest pain with exertion Gastro GI: Positive for difficulty swallowing; No abdominal pain, change in bowel habits, constipation, diarrhea or nausea/dyspepsia Genitourinary Male: Positive for urinary frequency and urinary urgency; No difficulty urinating, urinary incontinence, urinary hesitancy, urinary retention or blood in urine Musc Musculoskeletal: Positive for joint pain, joint swelling, muscle cramps, muscle weakness, numbness, tingling and leg pain at night Skin Skin: Positive for dry skin and itchy eyes; No redness or rash Neuro Neurology: Positive for numbness and tingling; No memory loss or tremor(s) Psych Psychiatric: No anxiety, No depression and No memory loss Endo Endocrine: Positive for cold intolerance and increased thirst/drinking; No fatigue or weight change Aller/Imm Allergy/Immunologic: Positive for itchy eyes and wheezing Exam Const General: cooperative and comfortable Nutritional Appearance: average body habitus and well nourished HENMT Head: normal to inspection Ears: hearing grossly normal bilaterally Nose: external nose normal Face and sinus: normal facial exam Mouth: oral mucosae normal Throat: posterior oropharynx normal Eyes General: appearance normal, both eyes and all related structures Neck Neck: normal visual inspection Chest Chest palpation & inspection: normal inspection of the chest and normal palpation of entire chest wall Resp Effort & Inspection: normal respiratory effort Auscultation: Bilateral: Clear to Auscultation Cardio Palpation: normal PMI Rate: regular rate Rhythm: regular rhythm GI Inspection: normal to inspection Auscultation: normal bowel sounds Percussion: normal to percussion Palpation: no hepatosplenomegaly Skin General: no rashes or lesions noted Neuro General: patient alert Extrem General: normal to inspection Psych Affect: normal affect Quality Reporting Tobacco Screening ([facility] 138) Smoking Status: Former smoker Assessment and Plan Assessment and Plan (1) Dysphagia: ?Plan: The differential diagnosis for esophageal dysphagia would be oropharyngeal dysphagia secondary to transfer dysphagia from abnormalities of the cricopharyngeus.? Such as cricopharyngeal achalasia.? Most of his dysphagia is liquid dysphagia.? I think is associated with cold liquids could be causing esophageal spasm of the upper esophageal sphincter also in the differential diagnosis would be Suzanne esophagitis due to his corticosteroids.? Along with pill induced esophagitis due to the fact that he takes multiple pills a day in particular, very large potassium pill.? He should undergo an upper endoscopy to evaluate his upper GI tract, swallowing study and esophageal manometry. ? ? ? Orders: Orders Swallowing Function w/Video Today R13.10 - Dysphagia, unspecified ? I have re-examined the patient. There are no clinical changes since date of exam.
[2022-04-15 11:16] LABS: INR Fingerstick 1.6; Prothrombin Time Fingerstick 19.4 SEC (11.7-14.9)
--- NOTE | 2022-04-15 11:34 | OP.EGD_ITS ---
Patient Name: Renato Polo Procedure Date: 04/15/2022 11:03 AM Date of : 1960 Age: 61 Procedure: Upper GI endoscopy Indications: Dysphagia, Suspected esophageal reflux, Failure to respond to medical treatment Providers: Derek Fagan DO Medicines: Monitored Anesthesia Care Patient Profile: This is a 61 year old male. Refer to note in patient chart for documentation of history and physical. Patient has symptoms of dysphagia with both liquids and solids. Complications: No immediate complications. Procedure: Pre-Anesthesia Assessment: - Prior to the procedure, a History and Physical was performed, and patient medications and allergies were reviewed. The patient is competent. The risks and benefits of the procedure and the sedation options and risks were discussed with the patient. All questions were answered and informed consent was obtained. Patient identification and proposed procedure were verified by the physician in the pre-procedure area. Mental Status Examination: alert and oriented. Airway Examination: normal oropharyngeal airway and neck mobility. Respiratory Examination: clear to auscultation. CV Examination: normal. Prophylactic Antibiotics: The patient does not require prophylactic antibiotics. Prior Anticoagulants: The patient has taken no previous anticoagulant or antiplatelet agents. ASA Grade Assessment: II - A patient with mild systemic disease. After reviewing the risks and benefits, the patient was deemed in satisfactory condition to undergo the procedure. The anesthesia plan was to use monitored anesthesia care (MAC). Immediately prior to administration of medications, the patient was re-assessed for adequacy to receive sedatives. The heart rate, respiratory rate, oxygen saturations, blood pressure, adequacy of pulmonary ventilation, and response to care were monitored throughout the procedure. The physical status of the patient was re-assessed after the procedure. After obtaining informed consent, the endoscope was passed under direct vision. Throughout the procedure, the patient's blood pressure, pulse, and oxygen saturations were monitored continuously. The gastroscope was introduced through the mouth, and advanced to the second part of duodenum. The upper GI endoscopy was accomplished without difficulty. The patient tolerated the procedure well. Scope In: 11:14:34 AM Scope Out: 11:21:29 AM Total Procedure Duration Time 0 hours 6 minutes 55 seconds Findings: The cricopharyngeus and proximal esophagus were moderately tortuous. A moderate Schatzki ring was found in the lower third of the esophagus. A guidewire was placed and the scope was withdrawn. Dilation was performed with a Savary dilator with no resistance at 60 Fr. The dilation site was examined following endoscope reinsertion and showed moderate improvement in luminal narrowing. Estimated blood loss: none. The Z-line was irregular and was found 39 cm from the incisors. Biopsies were taken with a cold forceps for histology. Verification of patient identification for the specimen was done. Estimated blood loss was minimal. A small hiatal hernia was present. Patchy mildly erythematous mucosa without bleeding was found in the gastric body. Biopsies were taken with a cold forceps for histology. Verification of patient identification for the specimen was done. Estimated blood loss was minimal. The first portion of the duodenum was normal. Impression: - Tortuous esophagus. - Moderate Schatzki ring. Dilated. - Z-line irregular, 39 cm from the incisors. Biopsied. - Small hiatal hernia. - Erythematous mucosa in the gastric body. Biopsied. - Normal first portion of the duodenum. Recommendation: - Discharge patient to home. - Resume previous diet today. - Continue present medications. - Await pathology results. Procedure Code(s): --- Professional --- 16361, Esophagogastroduodenoscopy, flexible, transoral; with insertion of guide wire followed by passage of dilator(s) through esophagus over guide wire 46232, 59,51, Esophagogastroduodenoscopy, flexible, transoral; with biopsy, single or multiple CPT copyright 2017 [employer]. All rights reserved. The codes documented in this report are preliminary and upon legal advisor review may be revised to meet current compliance requirements. Derek Fagan DO 04/15/2022 11:33:47 AM This report has been signed electronically. Number of Addenda: 0 Note Initiated On: 04/15/2022 11:03 AM
--- NOTE | 2022-04-15 11:35 | OP.CCLET_ITS ---
04/15/2022 Compa Rosado MD [address] [phone] Re : Upper GI endoscopy procedure for [facility] Dear Dr. Rosado This procedure was performed on Friday, April 15, 2022. My impressions and recommendations are as follows: Impressions : - Tortuous esophagus. - Moderate Schatzki ring. Dilated. - Z-line irregular, 39 cm from the incisors. Biopsied. - Small hiatal hernia. - Erythematous mucosa in the gastric body. Biopsied. - Normal first portion of the duodenum. Recommendations : - Discharge patient to home. - Resume previous diet today. - Continue present medications. - Await pathology results. My findings are described in the full procedure note, which is enclosed. If I can be of further assistance, please feel free to contact me at . Sincerely, Derek Fagan, 04/15/2022 11:33:47 AM This report has been signed electronically.
== END 2022-04-15 12:40 | disposition home or self-care (01) ==
LOC: EN 09:52 → AC 09:53
PROVIDERS: PCP Family Medicine; Referring Provider Family Medicine; Visit Provider Internal Medicine Gastroenterology
PROC: 0DJ08ZZ Inspection of Upper Intestinal Tract, Via Natural or Artificial Opening Endoscopic (ICD-10-PCS; CPT 43235; principal; 2022-04-15 10:55)
DX: K22.2 Esophageal obstruction (principal); Z95.812 Presence of fully implantable artificial heart; J44.9 Chronic obstructive pulmonary disease, unspecified; I27.20 Pulmonary hypertension, unspecified; I48.91 Unspecified atrial fibrillation; R13.12 Dysphagia, oropharyngeal phase; K20.90 Esophagitis, unspecified without bleeding; K44.9 Diaphragmatic hernia without obstruction or gangrene; G47.33 Obstructive sleep apnea (adult) (pediatric); Z79.01 Long term (current) use of anticoagulants; Z79.890 Hormone replacement therapy; Z79.899 Other long term (current) drug therapy; Z87.891 Personal history of nicotine dependence
CPT/HCPCS: 43248; 43239; 36416; 85610; 88305; 88313; 88342; J7120; C1769; J2405

== ENCOUNTER → 2022-05-03 | Outpatient (CLI) | payer BC, SELFPAY ==
[2022-05-03 16:38] LABS: Absolute Lymphocyte Count 1.43 X10^3/uL (0.83-4.51); Absolute Neutrophil Count 7.2 X10^3/uL (2.0-7.7); Basophil# 0.09 X10^3/uL; Basophil% 0.9 % (0-1); Eosinophil# 0.16 X10^3/uL; Eosinophils% 1.6 % (0-5); Hematocrit 47.2 % (40-54); Lymphocyte # 1.43 X10^3/ul (0.83-4.51); Lymphocyte % 14.4 % (19-41); Mean Corp Hgb Conc 33.9 g/dL (32-36); Mean Corpuscular Hgb 31.6 pg (27.0-32.0); Mean Corpuscular Volume 93.3 fL (80-94); Mean Platelet Vol. 9.3 fl (6.2-12.0); Monocyte# 0.97 X10^3/uL; Monocyte% 9.8 % (0-10); NRBC Flagged by Analyzer 0 % (0-5); Neutrophil # 7.24 X10^3/uL (2.7-7.7); Platelet Count 264 K/mm3 (150-450); RBC Distribution Width SD 43.9 fl (35.1-43.9); Red Blood Count 5.06 M/mm3 (4.6-6.2); White Blood Count 9.9 K/mm3 (4.4-11.0)
[2022-05-03 17:25] LABS: Anion Gap 7 (5-15); BUN 25 mg/dL (7-18); BUN/Creat Ratio 17.6 RATIO (10-20); Calcium,Total 9.9 mg/dL (8.5-10.1); Chloride 105 mmol/L (98-107); Creatinine, Serum 1.42 mg/dL (0.70-1.30); EST Glomerular Filtration Rate 54 mL/min (>60); Est Glom Filt Rate - Afr Amer 65 mL/min (>60); Free T3 2.3 pg/mL (2.18-3.98); Glucose 148 mg/dL (74-106); Magnesium 2.4 mg/dL (1.6-2.6); Potassium 3.6 mmol/L (3.5-5.1); Sodium Level 139 mmol/L (136-145); T4 Free Direct 1.18 ng/dL (0.76-1.46); Thyroid Stim Hormone (TSH) 4.25 uIU/mL (0.358-3.74)
== END | disposition home or self-care (01) ==
LOC: LAB 16:14
PROVIDERS: PCP Family Medicine; Visit Provider Nurse Practitioner Gerontology
DX: R53.83 Other fatigue (principal)
CPT/HCPCS: 36415; 80048; 83735; 84439; 84443; 84481; 85025

== ENCOUNTER → 2022-05-24 | Outpatient (CLI) | payer BC, SELFPAY ==
--- NOTE | 2022-05-24 06:19 | ECHOD_ITS ---
Reason For Study: AV DISORDER Procedure This was a 2D Doppler, Color Flow transthoracic echocardiogram. The study was technically difficult. PT is noted to have a previous adverse reaction to Defininty. Exam performed in department. Left Ventricle Based upon the 2D echocardiographic images obtained there appears to be grossly normal left ventricular size, wall motion, and systolic function. The estimated ejection fraction is 55 %. Diastolic function is indeterminate. Right Ventricle Moderately dilated right ventricle. Moderate global right ventricular systolic dysfunction. Atria The left atrium is severely enlarged. The right atrium is severely enlarged. No doppler evidence for ASD. Mitral Valve There is no mitral annular calcification. Mild focal mitral valve calcification. Trivial mitral valve insufficiency. Tricuspid Valve Normal tricuspid valve. Mild tricuspid valve insufficiency. Right ventricular systolic pressure estimated to be 43 mmHg. 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 Pulmonic Valve The pulmonic valve is not well visualized. Great Vessels The aortic root is not well visualized. Pericardium/Pleural No pericardial effusion. MMode/2D Measurements & Calculations LVIDd: 5.5 cm IVSd: 1.2 cm LVOT diam: 2.1 cm LVIDs: 4.0 cm LVPWd: 1.3 cm LVOT area: 3.5 cm2 RVDd: 5.1 cm FS: 27.0 % LAV(MOD-bp): 180.4 ml LA A4 area: 45.3 cm2 LA dimension(2D): 5.2 cm LAV(MOD-bp) Indexed: 71.0 ml/m2 LAV(MOD-sp2): 157.9 ml LAV(MOD-sp4): 203.2 ml RA A4 area: 35.3 cm2 Doppler Measurements & Calculations MV E max hollis: 145.8 cm/sec MV V2 max: 163.6 cm/sec Ao V2 max: 441.6 cm/sec MV max P.7 mmHg Ao max P.1 mmHg MV V2 mean: 55.2 cm/sec Ao V2 mean: 345.1 cm/sec MV mean P.0 mmHg Ao mean P.8 mmHg MV V2 VTI: 30.6 cm Ao V2 VTI: 95.9 cm MVA(VTI): 3.5 cm2 AV (velocity ratio): 0.31 YOLI(I,D): 1.1 cm2 YOLI(V,D): 1.0 cm2 LV V1 max: 127.4 cm/sec SV(LVOT): 105.5 ml PA V2 max: 126.6 cm/sec LV V1 max P.5 mmHg PA V2 mean: 87.0 cm/sec LV V1 mean P.2 mmHg LV V1 mean: 99.3 cm/sec LV V1 VTI: 30.1 cm TR max hollis: 295.9 cm/sec TR max P.1 mmHg ECHO/Echo Complete Interpretation Summary The study was technically difficult. Based upon the 2D echocardiographic images obtained there appears to be grossly normal left ventricular size, wall motion, and systolic function. The estimated ejection fraction is 55 %. Moderately dilated right ventricle. Moderate global right ventricular systolic dysfunction. The left atrium is severely enlarged. The right atrium is severely enlarged. Mild focal mitral valve calcification. Trivial mitral valve insufficiency. Mild tricuspid valve insufficiency. 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 Right ventricular systolic pressure estimated to be 43 mmHg. Diastolic function is indeterminate. Ordering Physician: Halima Silverio Referring Physician: Compa Rosado Performed By: Alida Armstrong, GRANTCS, RVT
--- NOTE | 2022-05-24 08:07 | STRESSREP_ITS ---
Stress Test Report Date: 05-24-2022 Procedure: Pharmacologic stress nuclear imaging study Indications: Chest pain; fatigue; CAD; status post AVR x3;-year-old for relation; status post EPS/RFA Consent: Per the patient Procedure: The patient underwent pharmacologic (Regadenoson 0.4mg ) evaluation with a peak heart rate of 108 beats per minute (68%predicted maximal heart rate) and a resting blood pressure of 122/70 mmHg and a peak blood pressure of 122/70 mmHg. The baseline ECG demonstrated atrial fibrillation; right bundle branch block. The peak pharmacologic ECG demonstrated no obvious ECG changes. There were no cardiac dysrhythmias pretest, during pharmacologic infusion, or recovery. There was no complaint of chest discomfort during pharmacologic infusion or recovery. The examination was discontinued secondary to completion of protocol. Impression: 1. Pharmacologic (Regadenoson) evaluation 2. Peak pharmacologic ECG with continued atrial fibrillation with right bundle branch block with no obvious ECG changes. 3. There were no cardiac dysrhythmias pretest, during pharmacologic infusion, or recovery. 4. Nuclear images pending Myocardial perfusion imaging study: Technique: The patient was injected with 14.9 millicuries of technetium 99m Cardiolite and subsequently rest SPECT Cardiolite nuclear imaging was obtained in the hori zontal long, vertical long, and short axis views. The patient underwent pharmacologic (Regadenoson) evaluation with a peak heart rate of 108 beats per minute (68% percent predicted maximal heart rate) and a resting blood pressure of 122/70 mmHg and a peak blood pressure of 122/7 mmHg. The patient was injected with 44.8= millicuries of technetium 99m Cardiolite and subsequently stress SPECT Cardiolite nuclear imaging was obtained in the horizontal long, vertical long, and short axis views. A gated Cardiolite study at peak stress was obtained. Interpretation: Rest and stress SPECT Cardiolite nuclear imaging status post realignment, normalization, and attenuation correction demonstrate area of subtle diminished tracer uptake near the apical segments at both rest and stress without signific ant change. There is end systolic thickening and brightening. The gated Cardiolite study demonstrates myocardial thickening and inward wall motion. The reported LVEF is 51%. Impression: 1. Rest and stress SPECT current nuclear imaging demonstrate myocardial perfusion changes appearing compatible with an element of physiologic apical thinning with no myocardial perfusion changes considered diagnostic for associated stress-induced myocardial ischemia. 2. The gated Cardiolite study reports an LVEF of 51%. This note was generated with [employer] software. It may contain incorrect words, spelling, and punctuation that were not noted in checking the note before signing.
== END | disposition home or self-care (01) ==
LOC: CVS 06:18
PROVIDERS: PCP Family Medicine; Visit Provider Nurse Practitioner Gerontology
DX: R07.9 Chest pain, unspecified (principal); R53.83 Other fatigue; I35.9 Nonrheumatic aortic valve disorder, unspecified
CPT/HCPCS: 78452; 93017; 93306; A9500; A4216; J2785

== ENCOUNTER → 2022-05-28 | Outpatient (CLI) | payer BC, SELFPAY ==
[2022-05-28 17:07] LABS: Vitamin D,25 Hydroxy 60.7 ng/mL
[2022-05-28 17:14] LABS: Prothrombin Time (Protime)PT. 38.6 SECONDS (11.7-14.9)
[2022-05-28 17:20] LABS: AST(SGOT) 36 U/L (15-37); Alanine Aminotransfer ALT/SGPT 45 U/L (16-61); Albumin, Serum 3.9 g/dL (3.2-5.0); Alkaline Phosphatase 142 U/L (45-117); Bilirubin, Direct 0.72 mg/dL (0.00-0.30); Ferritin 877 ng/mL (26-388); Globulin 3.7 g/dL (2.2-4.2); Iron 58 ug/dL (65-175); Iron Binding Capacity,Total 311 ug/dL (250-450); PERCENT IRON SATURATION 18.6 % (15.0-55.0); PSA,Total- Diagnostic 7.65 ng/mL (0.0-4.0); Protein, Total 7.6 g/dL (6.4-8.2)
== END | disposition home or self-care (01) ==
LOC: BIMLAB 14:56
PROVIDERS: PCP Internal Medicine; Referring Provider Internal Medicine; Visit Provider Internal Medicine
DX: E61.1 Iron deficiency (principal); I25.10 Atherosclerotic heart disease of native coronary artery without angina pectoris; R39.11 Hesitancy of micturition; I35.9 Nonrheumatic aortic valve disorder, unspecified
CPT/HCPCS: 36415; 80076; 82306; 82728; 83540; 83550; 84153; 85610

== ENCOUNTER → 2022-05-30 | Outpatient (CLI) | payer BC, SELFPAY | END | disposition home or self-care (01) | LOC: PSN 10:24 | PROVIDERS: PCP Internal Medicine; Visit Provider Internal Medicine | DX: R42 Dizziness and giddiness (principal); I48.0 Paroxysmal atrial fibrillation | CPT/HCPCS: 93225; 93226 ==

== ENCOUNTER → 2022-06-03 | Outpatient (CLI) | payer BC, SELFPAY ==
--- NOTE | 2022-06-03 07:53 | AAAS_ITS ---
Reason For Study: Screening Aorta Measurements Aorta Doppler Measurements Proximal aorta measures1.74 x 1.79cm. in cross- Peak systolic flow velocities within the proximal sectional axis. aorta measure 122.7 cm/sec. Proximal aorta measures1.78cm. in longitudinal Peak systolic flow velocities within the mid aorta axis. measure 89.8 cm/sec. Mid aorta measures1.57 x 1.57cm. in cross- Peak systolic flow velocities within the distal sectional axis. aorta measure 122.7 cm/sec. Mid aorta measures1.53cm. in longitudinal axis. Distal aorta measures1.73 x 1.73cm. in cross- sectional axis. Distal aorta measures1.76cm. in longitudinal axis. Left Iliac Artery Left iliac artery measures 1.09 x 1.09 cm. in the cross-sectional axis. Left iliac artery measures 1.10 cm. in the longitudinal axis. Peak systolic velocity in the left iliac artery measures 76.6 cm/sec. Right Iliac Artery Right iliac artery measures 1.10 x 1.09 cm. in the cross-sectional axis. Right iliac artery measures 1.09 cm. in the longitudinal axis. Peak systolic velocity in the right iliac artery measures 65.6 cm/sec. Procedure Aorta IVC Iliac vasculature or bypass grafts 84391. Technically difficult due to patient body habitus. Exam performed in department. VL/AAA Screening Interpretation Summary Technically difficult examination secondary to body habitus Maximum dimension of the abdominal aorta at 1.74 x 1.75 cm proximally. Flow rates just slightly elevated proximally and distally of undetermined signi ficance. Left common iliac artery measures a normal 1.09 x 1.09 cm Right common iliac artery measures abnormal 1.1 x 1.09 cm in diameter Ordering Physician: Silva Webster Referring Physician: [place]. Ascencio Performed By: Penelope Duvall RVRosio
== END | disposition home or self-care (01) ==
LOC: CVS 07:52
PROVIDERS: PCP Internal Medicine; Visit Provider Internal Medicine
DX: Z13.6 Encounter for screening for cardiovascular disorders (principal)
CPT/HCPCS: 76706

== ENCOUNTER 2022-06-19 11:40 | Outpatient (RCR) | payer BC, SELFPAY ==
[2022-06-19 12:30] LABS: International Normalized Ratio 3.9; Prothrombin Time (Protime)PT. 37.7 SECONDS (11.7-14.9)
== END 2022-06-22 23:59 ==
LOC: BIMLAB 11:40
PROVIDERS: PCP Internal Medicine; Referring Provider Internal Medicine; Visit Provider Internal Medicine
DX: I35.9 Nonrheumatic aortic valve disorder, unspecified (principal)
CPT/HCPCS: 36415; 85610

== ENCOUNTER → 2022-06-19 | Outpatient (CLI) | payer BC, SELFPAY ==
--- NOTE | 2022-06-19 09:08 | US_ITS ---
INDICATION: Elevated liver enzymes EXAMINATION: Ultrasound US Abdomen Limited (quadrant) TECHNIQUE: Layne scale and color doppler imaging was performed of the right upper quadrant. COMPARISON: None. FINDINGS: LIVER: Nodular, hyperechoic liver. No focal hepatic lesion. There is no free fluid. GALLBLADDER AND BILIARY TREE: Small gallstones without gallbladder wall thickening or pericystic fluid. The proximal common bile duct measures 7.1 mm, which is within normal limits for the patient''s age. Sonographic Burton''s sign: Negative. PANCREAS: Limited visualization of the head with nonvisualization of the remaining pancreas. RIGHT KIDNEY: Left 0.8 x 6.2 x 7.0 cm. Cortex measures 2.1 cm. No hydronephrosis or renal mass. US/Liver IMPRESSION: Early cirrhotic appearance of the liver. Electronically Signed: Compa Ayala MD at 22:26 EST ,
--- NOTE | 2022-06-19 13:03 | NEURO ---
NCS and/or EMG Patient Report Ordering Doctor: Kevin Britton DATE OF SERVICE: 06/19/22 Renato presents for electrodiagnostic testing of the upper limbs. He reports numbness and weakness in both hands. Electrodiagnostic findings: Left median motor nerve demonstrates borderline prolonged distal latency with normal amplitude and reduced conduction velocity. Right median motor nerve demonstrates normal distal latency and amplitude with reduced conduction velocity. Left ulnar motor nerve demonstrates normal distal latency with reduced amplitude and approximately 20% drop in conduction across the elbow. Right ulnar motor nerve demonstrates normal distal latency with reduced amplitude and reduced conduction velocity. Prolonged right median right ulnar F wave. Prolonged sensory latency at the wrist bilaterally. Prolonged ulnar sensory latency bilaterally. On needle EMG, 1+ plus fibrillations noted bilaterally in the first dorsal interosseous with decreased recruitment pattern. Electrodiagnostic impression: This is an abnormal study in the upper limbs 1. Electrodiagnostic findings suggestive of bilateral median mononeuropathy, consistent with a mild to moderate carpal tunnel syndrome. 2. Electrodiagnostic evidence suggestive of a mild left cubital tunnel syndrome. 3. Electrodiagnostic evidence is suggestive of peripheral polyneuropathy. 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
== END | disposition home or self-care (01) ==
LOC: PSN 09:06
PROVIDERS: PCP Internal Medicine; Referring Provider Psychiatry & Neurology Neurology; Visit Provider Psychiatry & Neurology Neurology
DX: R74.8 Abnormal levels of other serum enzymes (principal); G56.03 Carpal tunnel syndrome, bilateral upper limbs; G56.20 Lesion of ulnar nerve, unspecified upper limb
CPT/HCPCS: 76705; 95886; 95913

== ENCOUNTER 2022-07-22 05:27 | Day surgery (SDC) | payer BC, SELFPAY ==
[2022-07-22] VITALS (8 sets, daily range): BP systolic 84–123; BP diastolic 58–94; PULSE 66–86; RESP 16–18; TEMP 36.2–36.3; O2SAT 93–98; BMI 43.3
--- NOTE | 2022-07-22 | COLBX_PTH ---
PATIENT: STEPAN RIGGS LOC: EN U#:[id number] AGE/SX: 61/M ROOM: RE07/22/[address]: Dr. Derek Fagan DO : 1960 BED: DIS: 07/22/2022 SPEC #: [id number] RECD: 07/22/22 14:38 STATUS: JAMES REQ #: [id number] ANN: 07/22/22 00:[address]: Derek Fagan DEPT: SURGICAL PATHOLOGY RECD BY: George Farah ENTERED: 07/23/22 09:08 SP TYPE: COLON BX OTHR DR: Dr. Silva Webster MD Tissues: A - Transverse colon B - SPLENIC FLEXURE Procedures: Surgery Specimen Level IV HEADER OPERATION: Colonoscopy (MAC) PRE-OP DIAGNOSIS: Screening TISSUE SUBMITTED: A ? Transverse colon polyp, B ? Splenic flexure polyp biopsy and hot snare MICROSCOPIC DIAGNOSIS A. Transverse colon polyp, biopsy: Fragments of tubular adenoma. B. Colonic polyp at splenic flexure, biopsy: Fragments of hyperplastic polyp. Tubular adenoma. AM:eileen 07/24/2022 MICROSCOPIC DESCRIPTION Slides are reviewed. GROSS DESCRIPTION A - Received in fixative is one container labeled with the patient's name and designated transverse colon polyp. The specimen consists of multiple irregular fragments of light mariscal soft tissue mixed with fecal material that in aggregate measure 2.5 x 0.5 x 0.1 cm. The specimen is totally submitted in one cassette. B - Received in fixative is one container labeled with the patient's name and designated splenic flexure polyp biopsy. The specimen consists of multiple irregular fragments of mariscal-pink polypoid tissue mixed with fecal material that in aggregate measure 1.8 x 1 x 0.4 cm. The specimen is totally submitted in one cassette. / SJ:eileen 07/23/2022 TC:5 CPT: 89276 x2
[2022-07-22] MEDS: Lactated Ringers 1,000 ML 15 ML IV (06:06)
--- NOTE | 2022-07-22 07:30 | OP.COLON_ITS ---
Patient Name: Renato Polo Procedure Date: 07/22/2022 6:20 AM Date of : 1960 Age: 61 Procedure: Colonoscopy Indications: Screening for colorectal malignant neoplasm Providers: Derek Fagan DO Referring MD: Silva Webster Md Medicines: Monitored Anesthesia Care Patient Profile: This is a 61 year old male. Refer to note in patient chart for documentation of history and physical. Last Colonoscopy: none. The patient's first colonoscopy is today. Complications: No immediate complications. Procedure: Pre-Anesthesia Assessment: - Prior to the procedure, a History and Physical was performed, and patient medications and allergies were reviewed. The risks and benefits of the procedure and the sedation options and risks were discussed with the patient. All questions were answered and informed consent was obtained. Patient identification and proposed procedure were verified by the physician. Mental Status Examination: alert and oriented. Respiratory Examination: clear to auscultation. Prophylactic Antibiotics: The patient does not require prophylactic antibiotics. Prior Anticoagulants: The patient has taken no previous anticoagulant or antiplatelet agents. ASA Grade Assessment: II - A patient with mild systemic disease. After reviewing the risks and benefits, the patient was deemed in satisfactory condition to undergo the procedure. The anesthesia plan was to use moderate sedation / analgesia (conscious sedation). Immediately prior to administration of medications, the patient was re-assessed for adequacy to receive sedatives. The heart rate, respiratory rate, oxygen saturations, blood pressure, adequacy of pulmonary ventilation, and response to care were monitored throughout the procedure. The physical status of the patient was re-assessed after the procedure. After I obtained informed consent, the scope was passed under direct vision. Throughout the procedure, the patient's blood pressure, pulse, and oxygen saturations were monitored continuously. The Colonoscope was introduced through the anus and advanced to the cecum, identified by appendiceal orifice and ileocecal valve. The colonoscopy was performed without difficulty. The patient tolerated the procedure well. The quality of the bowel preparation was adequate. Scope In: 6:48:11 AM Scope Withdrawal Time 0 hours 15 minutes 53 seconds Scope Out: 7:12:23 AM Total Procedure Duration Time 0 hours 24 minutes 12 seconds Findings: The perianal and digital rectal examinations were normal. A moderate amount of stool was found in the recto-sigmoid colon, in the sigmoid colon and in the cecum. Seven sessile polyps were found in the splenic flexure, transverse colon and hepatic flexure. The polyps were 1 to 2 mm in size. These polyps were removed with a hot snare. Resection and retrieval were complete. Verification of patient identification for the specimen was done. Estimated blood loss was minimal. Impression: - Stool in the recto-sigmoid colon, in the sigmoid colon and in the cecum. - Seven 1 to 2 mm polyps at the splenic flexure, in the transverse colon and at the hepatic flexure, removed with a hot snare. Resected and retrieved. Recommendation: - Repeat colonoscopy in 3 years for surveillance. - Continue present medications. Procedure Code(s): --- Professional --- 27760, Colonoscopy, flexible; with removal of tumor(s), polyp(s), or other lesion(s) by snare technique CPT copyright 2017 [employer]. All rights reserved. The codes documented in this report are preliminary and upon orderlies teacher review may be revised to meet current compliance requirements. Derek Fagan DO 07/22/2022 7:29:25 AM This report has been signed electronically. Number of Addenda: 0 Note Initiated On: 07/22/2022 6:20 AM
--- NOTE | 2022-07-22 07:30 | OP.CCLET_ITS ---
07/22/2022 Silva Webster Md Re : Colonoscopy procedure for Renato Polo Dear Eleanor This procedure was performed on Friday, July 22, 2022. My impressions and recommendations are as follows: Impressions : - Stool in the recto-sigmoid colon, in the sigmoid colon and in the cecum. - Seven 1 to 2 mm polyps at the splenic flexure, in the transverse colon and at the hepatic flexure, removed with a hot snare. Resected and retrieved. Recommendations : - Repeat colonoscopy in 3 years for surveillance. - Continue present medications. My findings are described in the full procedure note, which is enclosed. If I can be of further assistance, please feel free to contact me at . Sincerely, Derek Fagan, 07/22/2022 7:29:25 AM This report has been signed electronically.
--- NOTE | 2022-07-22 07:45 | HP.PCM_ITS ---
[facility] - General General Date of Admission: 07/22/22 Date of Service: 07/22/22 Chief Complaint: Screening colonoscopy HPI Narrative STEPAN RIGGS, is a 61 M who presents today for screening colonoscopy. He has a history of aortic valve disease with aortic valve replacement ?3, he currently has a #19 Top-Hat aortic valve apparatus, atrial fibrillation, PVCs, hyperlipidemia, and pulmonary hypertension. He is currently being bridged for colonoscopy with Lovenox. His last INR was 2.7 that was back on 07/19/2022. He is not have any abdominal pain. He not having any nausea, vomiting or diarrhea. [facility] Medical History (Updated 07/22/22 @ 07:[address] Reed Friend, DO) Abrasion, right lower leg, initial encounter Anemia Aortic valvular disease Cardiology follow-up encounter Contusion of right foot, initial encounter COPD (chronic obstructive pulmonary disease) COVID-19 (06/19/20) CPAP (continuous positive airway pressure) dependence Dysphagia Edema Fatigue Former smoker GERD (gastroesophageal reflux disease) Gout History of echocardiogram History of echocardiogram History of edema History of Holter monitoring History of stress test History of stress test HLD (hyperlipidemia) Hypertension Hypokalemia Injury of back long-term current use of anticoagulant Loss of hearing Morbid obesity with BMI of 45.0-49.9, adult Nicotine abuse Nonrheumatic aortic (valve) stenosis PAOLA (obstructive sleep apnea) Paroxysmal atrial fibrillation Prostate disease Pulmonary hypertension PVC (premature ventricular contraction) Shortness of breath Shortness of breath on exertion Thyroid disease Wears glasses Wears partial dentures Home Medications biotin 10,000 mcg-keratin 100 mg tablet 1 ea PO QHS supplement 04/12/16 [History Last Taken 03/09/20] cholecalciferol (vitamin D3) 25 mcg (1,000 unit) tablet 2,000 unit PO QHS supplement 04/12/16 [History Last Taken 03/09/20] folic acid 1 mg tablet 1 mg PO QHS supplement 04/12/16 [History Last Taken 03/09/20] tamsulosin 0.4 mg capsule 0.4 mg PO DAILY help with urinating 05/16/17 [History Last Taken 03/10/20] warfarin 3 mg tablet (Coumadin) 3 mg PO DAILY 02/11/18 [History Last Taken 07/17/22] ferrous sulfate 325 mg (65 mg iron) tablet 325 mg PO QHS anemia 03/10/20 [History Last Taken 03/09/20] levothyroxine 100 mcg tablet 100 mcg PO DAILY thyroid 03/10/20 [History Last Taken 07/22/22] multivitamin 1 tab PO DAILY supplement 03/10/20 [History Last Taken 03/10/20] terazosin 1 mg capsule 1 mg PO QHS blood pressure 03/10/20 [History Last Taken 03/09/20] allopurinol 100 mg tablet 100 mg PO DAILY 01/11/21 [History Last Taken Unknown] Disability Placard #1 ea 04/20/21 [Rx Last Taken Unknown] albuterol sulfate 90 mcg/actuation aerosol inhaler 2 puff inhalation Q4H PRN shortness of breath or wheezing #1 device 05/08/21 [Rx Last Taken Unknown] fluticasone fur. 100 mcg-umeclid 62.5 mcg-vilant 25 mcg inhalat.powder (Trelegy Ellipta) 1 inh inhalation DAILY #3 ea 08/08/21 [Rx Last Taken Unknown] metoprolol tartrate 25 mg tablet 25 mg PO BID blood pressure/heart rate #180 tabs 10/17/21 [Rx Last Taken 07/22/22] docusate sodium 100 mg capsule 200 mg PO QHS stool softener 01/01/22 [History Last Taken Unknown] spironolactone 25 mg tablet 25 mg PO DAILY pt waiting on mail order RX #30 tabs 03/04/22 [Rx Last Taken Unknown] cetirizine 10 mg tablet (Zyrtec) 10 mg PO DAILY PRN ALLLERGY 04/23/22 [History Last Taken Unknown] fluticasone propionate 50 mcg/actuation nasal spray,suspension (Flonase Allergy Relief) 1 spray intranasal DAILY 04/23/22 [History Last Taken Unknown] pantoprazole 40 mg tablet,delayed release 40 mg PO QAM #90 tabs 04/30/22 [Rx Last Taken 07/22/22] potassium chloride 10 mEq capsule,extended release 60 meq PO DAILY Pt has Throat injury, needs capsules #540 caps 05/03/22 [Rx Last Taken Unknown] bupropion HCl 300 mg 24 hr tablet, extended release 300 mg PO DAILY mental health #90 tabs 06/04/22 [Rx Last Taken Unknown] torsemide 20 mg tablet See Rx Instructions .Route .COMPLEX #180 tabs 06/11/22 [Rx Last Taken Unknown] diltiazem HCl 120 mg capsule,extended release 24 hr 120 mg PO DAILY #90 caps 07/04/22 [Rx Last Taken 07/22/22] atorvastatin 40 mg tablet 40 mg PO QHS #90 tabs 07/15/22 [Rx Last Taken Unknown] enoxaparin 120 mg/0.8 mL subcutaneous syringe (Lovenox) 120 mg (0.8 mL) subcut Q12H #8 mL 07/16/22 [Rx Last Taken Unknown] duloxetine 60 mg capsule,delayed release 60 mg PO DAILY 07/17/22 [History Last Taken Unknown] Allergy/AdvReac Type Severity Reaction Status Date / Time aspirin Allergy Hives Verified 07/22/22 06:00 Iodinated Contrast Media Allergy Hives Verified 07/22/22 06:00 [Iodinated Contrast Media - IV Dye] shellfish derived Allergy Hives Verified 07/22/22 06:00 Family History Father , age 40 Cancer COPD (chronic obstructive pulmonary disease) Mother Hypertension Brother Cancer Lung CA Aunt Cerebral aneurysm Brother Aortic valve disease Surgical History (Updated 07/17/22 @ 14:06 by Geraldine Kinsey) H/O basal cell carcinoma excision History of cardiac catheterization History of deviated nasal septum History of esophagogastroduodenoscopy (EGD) History of tonsillectomy Hx of aortic valve replacement, mechanical (~2010) Hx of gastric bypass Social History household members: spouse current occupational status: employed 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 Smoking Status: Former smoker quit date: 06/23/96 pack-years: 10 Tobacco: How many years used: 20 Electronic Cigarette Use: not used how long ago did patient quit smokin, 0.5 second hand exposure: Yes alcohol intake: current alcohol intake frequency: holidays/special occasions only Alcohol type: beer details: social substance use type: former substance user Date of last use: used Marijuana as a teenager caffeine: Yes Type: coffee Number of servings: 2 what type of physical activity do you participate in: walking frequency: 3-4 times per week duration: 15-30 minutes/day seatbelt use: always do you feel safe at home: Yes ROS Review of Systems ROS Unobtainable: other Constitutional Constitutional: Denies fatigue, fever(s), poor appetite, weight gain or weight loss ENT HEENT: Denies mouth lesions Cardiovascular Cardiovascular: Denies abdominal bloating, abdominal edema or abdominal pain Respiratory/Chest Respiratory/Chest: Denies change in mental status, change in phlegm color, chest congestion or chest tightness Gastrointestinal Gastrointestinal: Denies belching, bloating, change in bowel habits, change in stool character, chewing difficulty, coffee ground emesis, constipation, cramping, diarrhea, dyspepsia, dysphagia, early satiety, excessive flatus, fecal incontinence, heartburn, hematemesis, hematochezia, hemorrhoids, loose stools, melena, nausea, odynophagia, rectal bleeding, tenesmus, vomiting or weight changes Genitourinary Genitourinary: Denies abdominal discomfort, burning urination or itching Musculoskeletal Musculoskeletal: Reports as per HPI; Denies muscle weakness or myalgias Integumentary Integumentary: Denies jaundice Neurologic Neurologic: Denies lack of coordination or weakness Psychiatric Psychiatric: Denies confusion, depression, memory loss, mood swings, paranoia or suicidal ideation Endocrine Endocrinology: Denies systems reviewed and no addt'l complaints, except as documented Hematologic/Lymphatic Hematologic/Lymphatic: Denies anemia, easy bleeding, easy bruising or lymphadenopathy Allergic/Immunologic Allergic/Immunologic: Denies systems reviewed and no addt'l complaints, except a s documented Vital Signs Vital Signs Vital Signs: 07/22/22 05:48 07/22/22 05:48 07/22/22 07:20 Temperature 97.4 F L 97.1 F L Temperature Source Temporal Temporal Pulse Rate 86 70 Respiratory Rate 18 16 Respiratory Pattern Normal Normal Blood Pressure 123/77 H 109/90 H Blood Pressure Mean 92 96 Blood Pressure Source Monitor Monitor Blood Pressure Position Semi-Fowlers Left Lateral Blood Pressure Location Left Arm Left Arm Baseline BP 123/77 Pulse Ox 98 94 Oxygen Delivery Method Room Air Nasal Cannula Oxygen Flow Rate (L/min) 2 07/22/22 07:25 07/22/22 07:30 07/22/22 07:35 Temperature Temperature Source Pulse Rate 70 68 70 Respiratory Rate 18 16 16 Respiratory Pattern Blood Pressure 121/94 H 95/67 84/58 L Blood Pressure Mean 103 76 66 Blood Pressure Source Monitor Monitor Monitor Blood Pressure Position Left Lateral Left Lateral Semi-Fowlers Blood Pressure Location Left Arm Left Arm Left Arm Baseline BP 123/77 123/77 123/77 Pulse Ox 94 96 93 Oxygen Delivery Method Nasal Cannula Nasal Cannula Room Air Oxygen Flow Rate (L/min) 2 2 07/22/22 07:40 Temperature Temperature Source Pulse Rate 66 Respiratory Rate 18 Respiratory Pattern Blood Pressure 98/68 Blood Pressure Mean 78 Blood Pressure Source Monitor Blood Pressure Position Semi-Fowlers Blood Pressure Location Left Arm Baseline BP 123/77 Pulse Ox 94 Oxygen Delivery Method Room Air Oxygen Flow Rate (L/min) Weight Weight: 302 lb 0.533 oz Body Mass Index (BMI) 43.3 Physical Exam Const alert General Appearance: cooperative Orientation / Consciousness: oriented to person HEENT hearing grossly normal bilaterally Head and Scalp: normal to inspection Face and Sinus: face symmetric Nose: external nose normal Mouth: oral and palatal mucosa normal Eyes conjunctivae normal General Eye: normal appearance of both eyes Neck full ROM General: normal visual inspection Lymph Lymphatic: no lymphadenopathy noted Chest inspection of chest normal and palpation of chest normal Chest: symmetrical chest wall rise Resp normal respiratory effort Effort and Inspection: able to speak in complete sentences Cardio regular rate GI non-distended Percussion: normal to percussion Rectal Exam: deferred Neuro Speech: speech normal Gait (Neuro): normal gait Assessment & Plan Assessment/Plan (1) Encounter for screening for colorectal cancer in high risk patient: PLAN: He was explained alternatives, risk, benefits including infection, sepsis, perforation,. He will have an ASA of 3.
--- NOTE | 2022-07-22 08:10 | SUR.PHASEII ---
Spoke with Dr. Fagan's nurse, Viktoriya, who verified with Dr. Fagan, ok for patient to resume Coumadin tonight.
== END 2022-07-22 08:23 | disposition home or self-care (01) ==
LOC: EN 05:27 → AC 05:28
PROVIDERS: PCP Internal Medicine; Referring Provider Internal Medicine; Visit Provider Internal Medicine Gastroenterology
PROC: 0DJD8ZZ Inspection of Lower Intestinal Tract, Via Natural or Artificial Opening Endoscopic (ICD-10-PCS; CPT 45378; principal; 2022-07-22 06:25)
DX: Z12.11 Encounter for screening for malignant neoplasm of colon (principal); D12.3 Benign neoplasm of transverse colon; J44.9 Chronic obstructive pulmonary disease, unspecified; I27.20 Pulmonary hypertension, unspecified; I48.0 Paroxysmal atrial fibrillation; Z79.01 Long term (current) use of anticoagulants; I10 Essential (primary) hypertension; M10.9 Gout, unspecified; D64.9 Anemia, unspecified; I49.3 Ventricular premature depolarization; E78.5 Hyperlipidemia, unspecified; E07.9 Disorder of thyroid, unspecified; Z87.891 Personal history of nicotine dependence; Z95.2 Presence of prosthetic heart valve
CPT/HCPCS: 45385; 88305; J7120; J2405

== ENCOUNTER 2022-07-23 05:54 | Outpatient (RCR) | payer BC, SELFPAY ==
[2022-06-25 07:46] LABS: AST(SGOT) 30 U/L (15-37); Alanine Aminotransfer ALT/SGPT 38 U/L (16-61); Albumin, Serum 3.6 g/dL (3.2-5.0); Alkaline Phosphatase 147 U/L (45-117); Bilirubin, Direct 0.68 mg/dL (0.00-0.30); Cholesterol 126 mg/dL (200); High Density Lipoprotein 40 mg/dL; Protein, Total 7.6 g/dL (6.4-8.2); Triglycerides 159 mg/dL; Very Low Density Lipoprotein 32 mg/dL (5-40)
[2022-06-25 08:25] LABS: International Normalized Ratio 3.2; Prothrombin Time (Protime)PT. 32.6 SECONDS (11.7-14.9)
[2022-07-02 09:10] LABS: International Normalized Ratio 3.7; Prothrombin Time (Protime)PT. 36.4 SECONDS (11.7-14.9)
[2022-07-10 08:26] LABS: International Normalized Ratio 3.2; Prothrombin Time (Protime)PT. 32.2 SECONDS (11.7-14.9)
[2022-07-18 06:52] LABS: International Normalized Ratio 3.5; Prothrombin Time (Protime)PT. 34.8 SECONDS (11.7-14.9)
[2022-07-19 08:34] LABS: International Normalized Ratio 2.7; Prothrombin Time (Protime)PT. 28.3 SECONDS (11.7-14.9)
[2022-07-23 09:00] LABS: International Normalized Ratio 1.5; Prothrombin Time (Protime)PT. 17.3 SECONDS (11.7-14.9)
== END 2022-07-23 07:00 | disposition home or self-care (01) ==
LOC: LAB 05:54
PROVIDERS: Internal Medicine Cardiovascular Disease; PCP Internal Medicine; Referring Provider Internal Medicine; Visit Provider Internal Medicine
DX: I35.9 Nonrheumatic aortic valve disorder, unspecified (principal); E78.5 Hyperlipidemia, unspecified
CPT/HCPCS: 36415; 80061; 80076; 85610

== ENCOUNTER → 2022-08-01 | Outpatient (CLI) | payer BC, SELFPAY ==
--- NOTE | 2022-08-01 | IMM_PTH ---
PATIENT: STEPAN RIGGS LOC: [facility] U#:[id number] AGE/SX: 61/M ROOM: RE08/01/[address]: Dr. David Romero MD : 1960 BED: DIS: 08/01/2022 SPEC #: [id number] RECD: 08/05/22 13:25 STATUS: JAMES REQ #: [id number] ANN: 08/01/22 00:[address]: David Romero DEPT: IMMUNOHISTOCHEMISTRY RECD BY: Deborah Oneill ENTERED: 08/05/22 13:26 SP TYPE: IMMUNO OTHR DR: Dr. Silva Webster MD Tissues: B - PROSTATE RIGHT C - PROSTATE RIGHT E - PROSTATE LEFT Procedures: 34BE12 (add) P40 (add) 34BE12 (initial) PHYSICIAN & INSTITUTION [place] [address] SPECIMEN INFORMATION: Tissue Source: A - Right prostate, mid, B - Right prostate, base, E - Left prostate, mid Clinical Info: Elevated PSA Specimen Number: [id number] B, C & E CPT code: 22922, 77877 x5 METHODOLOGY: Deparaffinized sections of prefer/formalin-fixed tissue or PAP/DQ stained slides are incubated with monoclonal/polyclonal antibodies/oligonucleotide probes. Localization is made via biotin free immunoperoxidase method. Appropriate controls are performed and reacted as expected. Results on target cell population are indicated in the following table: RESULTS: ANTIBODY / CLONE RESULT Block B 34BE12 (34BE12) negative P40 (BC28) negative Block C 34BE12 (34BE12) negative P40 (BC28) negative Block E 34BE12 (34BE12) negative P40 (BC28) negative These tests were developed and their performance characteristics determined by [facility]. They may not have been cleared or approved by the U.S. Food and Drug Administration. The FDA has determined that such clearance or approval is not necessary. The above immunohistochemical/dualISH markers are ordered and reviewed by the Pathologist. INTERPRETATION: B. Right prostate, mid, core biopsy: Adenocarcinoma. C. Right prostate, base, core biopsy: Adenocarcinoma. E. Left prostate, mid, core biopsy: Adenocarcinoma. AM:eileen 08/06/2022
--- NOTE | 2022-08-01 13:30 | PROSBIL_PTH ---
PATIENT: STEPAN RIGGS LOC: [facility] U#:[id number] AGE/SX: 61/M ROOM: RE08/01/[address]: Dr. David Romero MD : 1960 BED: DIS: 08/01/2022 SPEC #: [id number] RECD: 08/02/22 08:15 STATUS: JAMES VASQUEZ #: [id number] ANN: 08/01/22 13:[address]: David Romero DEPT: SURGICAL PATHOLOGY RECD BY: Marion Poon ENTERED: 08/02/22 08:15 SP TYPE: PROST BX ANDRIY DR: Dr. Silva Webster MD Tissues: A - PROSTATE RIGHT B - PROSTATE RIGHT C - PROSTATE RIGHT D - PROSTATE LEFT E - PROSTATE LEFT F - PROSTATE LEFT Procedures: PROSTATE BX HEADER OPERATION: Prostate biopsy PRE-OP DIAGNOSIS: Elevated PSA TISSUE SUBMITTED: A - Right apex, B - Right mid, C - Right base, D - Left apex, E - Left mid, F - Left base MICROSCOPIC DIAGNOSIS A. Right prostate, apex, core biopsy: Focal high-grade prostatic intraepithelial neoplasia (HGPIN). B. Right prostate, mid, core biopsy: Adenocarcinoma. Shane grade: 6 (3+3) Cores involved: 1 out of 2 cores Tissue involved: 5% Greatest tumor length: 2 millimeters Perineural invasion: Focally present. See comment. C. Right prostate, base, core biopsy: Adenocarcinoma. Shane grade: 6 (3+3) Cores involved: 2 out of 2 cores Tissue involved: % Greatest tumor length: 8 millimeters (discontinuous) See comment. D. Left prostate, apex, core biopsy: Benign prostatic tissue. E. Left prostate, mid, core biopsy: Adenocarcinoma. Dagmar grade: 6 (3+3) Cores involved: 1 out of 2 cores Tissue involved: 15% Greatest tumor length: 3 millimeters See comment. F. Left prostate, base, core biopsy: Adenocarcinoma. Dagmar grade: 7 (3+4) Cores involved: 2 out of 2 cores Tissue involved: 80% Greatest tumor length: 13.0 millimeters Perineural invasion: Present. AM:eileen 08/06/2022 COMMENT B, C & E - Immunohistochemistry ([id number]) supports the above diagnosis. Case has been reviewed in consultation with Dr. Loving who concurs with the above diagnosis. IDC:SJ MICROSCOPIC DESCRIPTION Slides are reviewed. GROSS DESCRIPTION A - Received is one container designated prostate, right apex. The specimen consists of two elongated fragments of light mariscal-white soft tissue each measuring 1 cm in length and 0.1 cm in diameter. The specimen is totally submitted in one cassette. B - Received is one container designated prostate, right mid. The specimen consists of two elongated fragments of light mariscal-white soft tissue each measuring 1.5 cm in length and 0.1 cm in diameter. The specimen is totally submitted in one cassette. C - Received is one container designated prostate, right base. The specimen consists of two elongated fragments of light mariscal-white soft tissue each measuring 1 cm in length and 0.1 cm in diameter. The specimen is totally submitted in one cassette. D - Received is one container designated prostate, left apex. The specimen consists of two elongated fragments of light mariscal-white soft tissue each measuring 1 cm in length and 0.1 cm in diameter. The specimen is totally submitted in one cassette. E - Received is one container designated prostate, left mid. The specimen consists of two elongated fragments of light mariscal-white soft tissue each measuring 1 cm in length and 0.1 cm in diameter. The specimen is totally submitted in one cassette. F - Received is one container designated prostate, left base. The specimen consists of two elongated fragments of light mariscal-white soft tissue each measuring 1.5 cm in length and 0.1 cm in diameter. The specimen is totally submitted in one cassette. / AM:eileen 08/02/2022 TC:0 [facility]: [id number] x6
== END | disposition home or self-care (01) ==
LOC: LABSPEC 16:39
PROVIDERS: PCP Internal Medicine; Referring Provider Urology; Visit Provider Urology
DX: C61 Malignant neoplasm of prostate (principal); R97.20 Elevated prostate specific antigen [PSA]
CPT/HCPCS: 88305; 88341; 88342; G0416

== ENCOUNTER → 2022-08-07 | Outpatient (CLI) | payer BC, SELFPAY ==
--- NOTE | 2022-08-07 09:36 | CDU_ITS ---
Reason For Study: Rt Carotid Bruit Rt. Velocities/BP Lt. Velocities/BP Prox CCA 58/8 cm/sec. Prox CCA 104/12 cm/sec. Mid CCA 63/8 cm/sec. Mid CCA 86/12 cm/sec. Dist CCA 50/20 cm/sec. Dist CCA 67/12 cm/sec. Prox ICA 41/9 cm/sec. Prox ICA 75/15 cm/sec. Mid ICA 46/12 cm/sec. Mid ICA 49/12 cm/sec. Dist ICA 60/13 cm/sec. Dist ICA 56/18 cm/sec. Rt. ICA/CCA = 1.0. Lt. ICA/CCA = 0.9. Prox ECA 70/10 cm/sec. Prox ECA 85/6 cm/sec. Rt. Vert. 39/14 cm/sec. Lt. Vert. 24/6 cm/sec. Right Extracranial There is intimal thickening but no significant atherosclerotic plaque noted in the right common carotid artery. There is intimal thickening but no significant atherosclerotic plaque noted in the right internal carotid artery. There is no significant atherosclerotic plaque noted in the right external carotid artery. Antegrade flow is noted in the right vertebral artery. Left Extracranial There is intimal thickening but no significant atherosclerotic plaque noted in the left common carotid artery. There is heterogeneous, smooth atherosclerotic plaque noted in the left internal carotid artery. There is no significant atherosclerotic plaque noted in the left external carotid artery. Antegrade flow is noted in the left vertebral artery. Procedure Carotid Duplex 26689. This is a Carotid Duplex examination using B-mode, color flow and specral Doppler. Exam performed in department. VL/Carotid Duplex Ultrasound Interpretation Summary Normal right extracranial internal carotid. Mild (<50%) stenosis left extracranial internal carotid. Patent and antegrade vertebrals bilaterally. Ordering Physician: Kevin Britton Referring Physician: Naty Webster Performed By: Natacha Gonzales, GRANTCS, RVT
== END | disposition home or self-care (01) ==
LOC: CVS 09:35
PROVIDERS: PCP Internal Medicine; Referring Provider Psychiatry & Neurology Neurology; Visit Provider Psychiatry & Neurology Neurology
DX: R09.89 Other specified symptoms and signs involving the circulatory and respiratory systems (principal)
CPT/HCPCS: 93880

== ENCOUNTER 2022-08-09 08:07 | Outpatient (RCR) | payer BC, SELFPAY ==
[2022-08-05 16:42] LABS: International Normalized Ratio 1.4; Prothrombin Time (Protime)PT. 16.4 SECONDS (11.7-14.9)
[2022-08-07 08:36] LABS: International Normalized Ratio 2.1
[2022-08-09 10:11] LABS: International Normalized Ratio 2.9; Prothrombin Time (Protime)PT. 29.6 SECONDS (11.7-14.9)
== END 2022-08-09 18:00 | disposition home or self-care (01) ==
LOC: LAB 08:07
PROVIDERS: Internal Medicine Cardiovascular Disease; PCP Internal Medicine; Referring Provider Internal Medicine; Visit Provider Internal Medicine
DX: I35.0 Nonrheumatic aortic (valve) stenosis (principal)
CPT/HCPCS: 36415; 85610

== ENCOUNTER → 2022-08-27 | Outpatient (CLI) | payer BC, SELFPAY ==
--- NOTE | 2022-08-27 09:14 | NM_ITS ---
CLINICAL: 61-year-old male with history of primary prostate carcinoma. WHOLE BODY 99m Tc MDP RADIONUCLIDE BONE SCINTIGRAPHY COMPARISON: None available FINDINGS: Following the intravenous administration of 25.3 mCi of 99m Tc MDP, whole body bone images reveal: 1. Increased radiotracer is defined in the acromioclavicular compartments of both shoulders, the patellofemoral compartments of the bilateral knees, the posterior midline sacrum. 2. The remaining skeletal structures are scintigraphically unremarkable with normal-appearing renal images and urinary bladder activity identified. Facilitated uptake is defined in the proximal-distal sternum most consistent with post surgical change-sternotomy. NM/Bone Scan Whole Body IMPRESSION: 1. The increase in radiopharmaceutical defined in the bilateral shoulders, both knee articulations, the visualized posterior midline sacrum is commensurate with degenerative arthrosis. 2. There is no definitive scintigraphic evidence of diffuse axial skeletal metastatic disease on the current examination. Electronically Signed: Gus Umaña, at 20:30 EST ,
== END | disposition home or self-care (01) ==
LOC: NM 09:03
PROVIDERS: PCP Internal Medicine; Referring Provider Urology; Visit Provider Urology
DX: C61 Malignant neoplasm of prostate (principal)
CPT/HCPCS: 78306; A9503

== ENCOUNTER 2022-09-19 06:14 | Outpatient (RCR) | payer BC, SELFPAY ==
[2022-08-27 09:52] LABS: International Normalized Ratio 3.6; Prothrombin Time (Protime)PT. 35.3 SECONDS (11.7-14.9)
[2022-09-11 08:15] LABS: Prothrombin Time (Protime)PT. 38.5 SECONDS (11.7-14.9)
[2022-09-19 07:12] LABS: International Normalized Ratio 3.8; Prothrombin Time (Protime)PT. 36.9 SECONDS (11.7-14.9)
== END 2022-09-20 23:21 | disposition home or self-care (01) ==
LOC: LAB 06:14
PROVIDERS: Internal Medicine Cardiovascular Disease; PCP Internal Medicine; Referring Provider Internal Medicine; Visit Provider Internal Medicine
DX: Z95.2 Presence of prosthetic heart valve (principal); Z79.01 Long term (current) use of anticoagulants
CPT/HCPCS: 36415; 85610

== ENCOUNTER 2022-10-02 09:20 | Day surgery (SDC) | payer BC, SELFPAY ==
[2022-10-02] VITALS (8 sets, daily range): BP systolic 93–124; BP diastolic 65–86; PULSE 65–79; RESP 16–18; TEMP 36.1–36.8; O2SAT 92–98; BMI 44.1
[2022-10-02] MEDS: Lactated Ringers 1,000 ML 15 ML IV (09:51)
[2022-10-02] MEDS: Cefazolin 2 GM in 0.9% Normal Saline 100 ML IV (10:32)
--- NOTE | 2022-10-02 10:56 | HP.PCM_ITS ---
[facility] - General General Date of Service: 10/02/22 HPI Narrative STEPAN RIGGS, is a 61 M who presents for placement of gold markers and spacer gel matrix the patient has prostate cancer and is elected to have radiation treatments. [facility] Medical History (Reviewed 10/01/22 @ 14:34 by Geri Simon [employer], [employer]) Abrasion, right lower leg, initial encounter Anemia Aortic valvular disease Cardiology follow-up encounter Contusion of right foot, initial encounter COPD (chronic obstructive pulmonary disease) COVID-19 (06/19/20) CPAP (continuous positive airway pressure) dependence Dysphagia Edema Emphysema, unspecified Fatigue Former smoker GERD (gastroesophageal reflux disease) Gout History of echocardiogram History of echocardiogram History of edema History of Holter monitoring History of stress test History of stress test HLD (hyperlipidemia) Hypertension Hypokalemia Impacted cerumen of both ears Injury of back FPC current use of anticoagulant Loss of hearing Morbid obesity with BMI of 45.0-49.9, adult Nicotine abuse Nocturia Nonrheumatic aortic (valve) stenosis PAOLA (obstructive sleep apnea) Paroxysmal atrial fibrillation Prostate disease Pulmonary hypertension PVC (premature ventricular contraction) Shortness of breath Shortness of breath on exertion Thyroid disease Wears glasses Wears partial dentures Home Medications biotin 10,000 mcg-keratin 100 mg tablet 1 ea PO QHS supplement 04/12/16 [History Last Taken 03/09/20] cholecalciferol (vitamin D3) 25 mcg (1,000 unit) tablet 2,000 unit PO QHS supplement 04/12/16 [History Last Taken 03/09/20] folic acid 1 mg tablet 1 mg PO QHS supplement 04/12/16 [History Last Taken 03/09/20] tamsulosin 0.4 mg capsule 0.4 mg PO DAILY help with urinating 05/16/17 [History Last Taken 03/10/20] warfarin 3 mg tablet (Coumadin) 3 mg PO DAILY 02/11/18 [History Last Taken 09/26/22 17:00] ferrous sulfate 325 mg (65 mg iron) tablet 325 mg PO QHS anemia 03/10/20 [History Last Taken 03/09/20] levothyroxine 100 mcg tablet 100 mcg PO DAILY thyroid 03/10/20 [History Last Taken 10/02/22 06:30] multivitamin 1 tab PO DAILY supplement 03/10/20 [History Last Taken 03/10/20] terazosin 1 mg capsule 1 mg PO QHS blood pressure 03/10/20 [History Last Taken 03/09/20] allopurinol 100 mg tablet 100 mg PO DAILY 01/11/21 [History Last Taken Unknown] Disability Placard #1 ea 04/20/21 [Rx Last Taken Unknown] albuterol sulfate 90 mcg/actuation aerosol inhaler 2 puff inhalation Q4H PRN shortness of breath or wheezing #1 device 05/08/21 [Rx Last Taken Unknown] docusate sodium 100 mg capsule 200 mg PO QHS stool softener 01/01/22 [History Last Taken Unknown] spironolactone 25 mg tablet 25 mg PO DAILY pt waiting on mail order RX #30 tabs 03/04/22 [Rx Last Taken Unknown] cetirizine 10 mg tablet (Zyrtec) 10 mg PO DAILY PRN ALLLERGY 04/23/22 [History Last Taken Unknown] fluticasone propionate 50 mcg/actuation nasal spray,suspension (Flonase Allergy Relief) 1 spray intranasal DAILY 04/23/22 [History Last Taken Unknown] potassium chloride 10 mEq capsule,extended release 60 meq PO DAILY Pt has Throat injury, needs capsules #540 caps 05/03/22 [Rx Last Taken Unknown] torsemide 20 mg tablet See Rx Instructions .Route .COMPLEX #180 tabs 06/11/22 [Rx Last Taken Unknown] diltiazem HCl 120 mg capsule,extended release 24 hr 120 mg PO DAILY #90 caps 07/04/22 [Rx Last Taken 10/02/22 06:30] atorvastatin 40 mg tablet 40 mg PO QHS #90 tabs 07/15/22 [Rx Last Taken Unknown] Bilateral wrist splints for carpal tunnel syndrome #2 ea 07/31/22 [Rx Last Taken Unknown] duloxetine 30 mg capsule,delayed release 30 mg PO QPM #90 caps 07/31/22 [Rx Last Taken Unknown] duloxetine 60 mg capsule,delayed release 60 mg PO QAM #90 caps 07/31/22 [Rx Last Taken Unknown] pantoprazole 40 mg tablet,delayed release 40 mg PO QAM #90 tabs 08/07/22 [Rx Last Taken 10/02/22 06:30] bupropion HCl 300 mg 24 hr tablet, extended release 300 mg PO DAILY mental health #90 tabs 09/02/22 [Rx Last Taken Unknown] fluticasone fur. 100 mcg-umeclid 62.5 mcg-vilant 25 mcg inhalat.powder (Trelegy Ellipta) 1 inh inhalation DAILY #3 ea 09/16/22 [Rx Last Taken Unknown] metoprolol tartrate 25 mg tablet 25 mg PO BID blood pressure/heart rate #180 tabs 09/23/22 [Rx Last Taken 10/02/22 06:30] dutasteride 0.5 mg capsule 0.5 mg PO DAILY 09/25/22 [History Last Taken Unknown] enoxaparin 120 mg/0.8 mL subcutaneous syringe (Lovenox) 120 mg subcut Q12H 09/27/22 [History Last Taken Unknown] Allergy/AdvReac Type Severity Reaction Status Date / Time aspirin Allergy Hives Verified 10/02/22 09:49 Iodinated Contrast Media Allergy Hives Verified 10/02/22 09:49 [Iodinated Contrast Media - IV Dye] shellfish derived Allergy Hives Verified 10/02/22 09:49 Family History (Reviewed 10/01/22 @ 14:34 by Geri Simon [employer], [employer]) Father , age 40 Cancer COPD (chronic obstructive pulmonary disease) Mother Hypertension Brother Cancer Lung CA Aunt Cerebral aneurysm Brother Aortic valve disease Surgical History (Reviewed 10/01/22 @ 14:34 by Geri Simon [employer], [employer]) H/O basal cell carcinoma excision History of cardiac catheterization History of deviated nasal septum History of esophagogastroduodenoscopy (EGD) History of tonsillectomy Hx of aortic valve replacement, mechanical (~2010) Hx of gastric bypass Social History (Reviewed 10/01/22 @ 14:34 by Geri Simon [employer], [employer]) household members: spouse current occupational status: employed 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 Smoking Status: Former smoker quit date: 06/23/96 pack-years: 10 Tobacco: How many years used: 20 Electronic Cigarette Use: not used how long ago did patient quit smokin, 0.5 second hand exposure: Yes alcohol intake: current alcohol intake frequency: holidays/special occasions only Alcohol type: beer details: social substance use type: former substance user Date of last use: used Marijuana as a teenager caffeine: Yes Type: coffee Number of servings: 2 what type of physical activity do you participate in: walking frequency: 3-4 times per week duration: 15-30 minutes/day seatbelt use: always do you feel safe at home: Yes Vital Signs Vital Signs Vital Signs: 10/02/22 09:52 10/02/22 09:52 Temperature 97.3 F L Temperature Source Temporal Pulse Rate 66 Respiratory Rate 18 Respiratory Pattern Normal Blood Pressure 124/86 H Blood Pressure Mean 98 Blood Pressure Source Monitor Blood Pressure Position Semi-Fowlers Blood Pressure Location Right Arm Pulse Ox 98 Oxygen Delivery Method Room Air Weight Weight: 139.706 kg Body Mass Index (BMI) 44.1 Assessment & Plan Assessment/Plan (1) Cancer of prostate with intermediate recurrence risk (stage T2b-c or Francitas 7 or PSA 10-20): PLAN: Plan to proceed with placement of gold markers and spacer gel matrix
--- NOTE | 2022-10-02 10:57 | DCINST_ITS ---
Discharge Instructions Diet Discharge Diet: No restrictions Activity Discharge Activity: Return to Normal Activity Dressing / Incision Call your doctor if you observe: Fever of 101 or Higher Follow Up Care Please Follow Up With: David Romero MD When: 4 months Test Results: Test results from this visit will be discussed in further detail at your follow- up appointment, if applicable. Discharge Plan Admission Primary Reason for Your Visit: Placement of gold markers and spacer gel Attending Provider: David Romero Primary Care Provider: Silva Webster Discharge Orders/Prescriptions Prescriptions: No Action warfarin [Coumadin] 3 mg tablet 3 mg PO DAILY Protocol: Dose Management Condition: Friday Dose/Route: 0 mg Instruction: 0 tablets Condition: Friday Dose/Route: 0 mg Instruction: 0 tablets Condition: Friday Dose/Route: 0 mg Instruction: 0 tablets Condition: Friday Dose/Route: 0 mg Instruction: 0 tablets Condition: Dose/Route: 1.5 mg Instruction: 0.5 x 3 mg tablets Condition: Friday Dose/Route: 1.5 mg Instruction: 0.5 x 3 mg tablets Condition: Friday Dose/Route: 3 mg Instruction: 1 x 3 mg tablet Protocol Text: Adjustment Start Date: Friday10/01/22 INR Value: 1.8 INR Date: 10/01/22 allopurinol 100 mg tablet 100 mg PO DAILY cetirizine [Zyrtec] 10 mg tablet 10 mg PO DAILY PRN (Reason: ALLLERGY) fluticasone propionate [Flonase Allergy Relief] 50 mcg/actuation spray,suspension 1 spray intranasal DAILY Rx Instructions: administer into each nostril diltiazem HCl 120 mg capsule,extended release 24hr 120 mg PO DAILY Qty: 90 3RF potassium chloride 10 mEq capsule, extended release 60 meq PO DAILY Qty: 540 3RF pantoprazole 40 mg tablet,delayed release (DR/EC) 40 mg PO QAM Qty: 90 3RF (DME) Bilateral wrist splints for carpal tunnel syndrome See Rx Instructions .Route .MEDSUPPLY Qty: 2 0RF Rx Instructions: Wear at night duloxetine 60 mg capsule,delayed release(DR/EC) 60 mg PO QAM Qty: 90 1RF duloxetine 30 mg capsule,delayed release(DR/EC) 30 mg PO QPM Qty: 90 1RF folic acid 1 MG tablet 1 mg PO QHS cholecalciferol (vitamin D3) 1,000 UNIT tablet 2,000 unit PO QHS biotin-keratin 1 EACH tablet 1 ea PO QHS docusate sodium 100 mg capsule 200 mg PO QHS tamsulosin 0.4 MG capsule 0.4 mg PO DAILY ferrous sulfate 325 MG tablet 325 mg PO QHS multivitamin 1 TABLET tablet 1 tab PO DAILY terazosin 1 MG capsule 1 mg PO QHS levothyroxine 100 MCG tablet 100 mcg PO DAILY dutasteride 0.5 mg capsule 0.5 mg PO DAILY (DME) Disability Placard See Rx Instructions .Route .MEDSUPPLY Qty: 1 0RF Rx Instructions: expires 04/20/2026 albuterol sulfate 90 mcg/actuation HFA aerosol inhaler 2 puff INHALATION Q4H PRN (Reason: shortness of breath or wheezing) Qty: 1 3RF Rx Instructions: administer with spacer spironolactone 25 mg tablet 25 mg PO DAILY Qty: 30 11RF torsemide 20 mg tablet See Rx Instructions .ROUTE .COMPLEX Qty: 180 3RF Dose Instruction: TAKE 1 TABLET TWICE A DAY Rx Instructions: TAKE 1 TABLET TWICE A DAY atorvastatin 40 mg tablet 40 mg PO QHS Qty: 90 3RF bupropion HCl 300 mg tablet extended release 24 hr 300 mg PO DAILY Qty: 90 0RF Trelegy Ellipta 100-62.5-25 mcg blister with device 1 inh inhalation DAILY Qty: 3 3RF metoprolol tartrate 25 mg tablet 25 mg PO BID Qty: 180 3RF enoxaparin [Lovenox] 120 mg/0.8 mL syringe 120 mg subcut Q12H Referrals / Follow Up: Silva Webster MD [Primary Care Provider] - David Romero MD [Med Staff - Active Staff] - Disposition Disposition (needs filled in before D/C Order can be placed): Home, Self Care
--- NOTE | 2022-10-02 10:58 | PCM.OPRPT ---
Report of Operation Date of Procedure: 10/02/22 Pre-Operative Diagnosis: Prostate cancer Post-Operative Diagnosis: The same Surgery/Procedure Performed:: Placement of spacer gel matrix gel and also placement of gold markers for radiation treatments Description of Surgical Findings:: In the preoperative area I reviewed with the patient how the procedure is done we talked about the risk of the procedure including the risk of infection, bleeding, migration of the spacer gel, the patient is planning to have radiation to the prostate he understands that the spacer gel has demonstrated benefit in reducing the risk of toxicity from the ration radiation to the rectum but there is no guarantees that this spacer gel will prevent any serious complications or toxicity to the rectum or bowels. After reviewing this with the patient and his family organ to proceed with placement of a spacer gel matrix. Patient was taken back to the operating room after smooth induction of anesthesia he was placed supine on the table. The penis and testicles were prepped and draped in usual sterile fashion, ultrasound probe was placed into the rectum and biplanar ultrasound was performed on the prostate. Identified the base mid and apex of the prostate identified the transition zone prostate. Then using a needle the first chief deputy court clerk was placed into the right base of the prostate, the second chief deputy court clerk was placed in the left base of the prostate, and the third core marker was placed in the right apex of the prostate after all 3 markers were placed the placement of the markers were confirmed by ultrasonography The genitals and perineum were prepped and draped in usual sterile fashion. I then introduced a biplanar ultrasound probe into the rectum and performed ultrasonography and identified the Denonvilliers' fascia the prostate mid base and apex and seminal vesicles. The spacer gel mix was then prepared on the back table per manufactures instruction. Under ultrasound guidance in the midline perineum a bevel needle down we advanced through the perineum below the prostate into the space of Denonvilliers' fascia. This space which could be identified by ultrasound with a bright white layer between the prostate and the rectum. I then injected a puff of normal saline to identify the space further. After I confirmed that the needle was in the correct space in the mid prostate and the space of Denonvilliers' fascia between the rectum and the prostate. Then over the course of 15 seconds the gel matrix was injected slowly there was nice separation between the prostate and the rectum at the gel matrix was injected. The position of the gel matrix was confirmed by ultrasound. Then the injection needle was removed intact. Patient's perineum was cleaned patient was taken out of stirrups and then taken back to the PACU in good condition. . Type of Anesthesia: General Admit VTE Documentation VTE Present on Admission: No VTE Mechan Device Prophylaxis: SCD's
[2022-10-02 13:20] LABS: INR Fingerstick 1.7; Prothrombin Time Fingerstick 18.9 SEC (11.7-14.9)
== END 2022-10-02 12:45 | disposition home or self-care (01) ==
LOC: SDC 09:23 → AC 09:23
PROVIDERS: PCP Internal Medicine; Referring Provider Urology; Visit Provider Urology
PROC: (CPT 55874; principal; 2022-10-02 11:15)
DX: C61 Malignant neoplasm of prostate (principal); J43.9 Emphysema, unspecified; I48.0 Paroxysmal atrial fibrillation; E66.01 Morbid (severe) obesity due to excess calories; Z68.42 Body mass index [BMI] 45.0-49.9, adult; I25.10 Atherosclerotic heart disease of native coronary artery without angina pectoris; I10 Essential (primary) hypertension; E78.5 Hyperlipidemia, unspecified; D64.9 Anemia, unspecified; E07.9 Disorder of thyroid, unspecified; G47.33 Obstructive sleep apnea (adult) (pediatric); M10.9 Gout, unspecified; Z79.01 Long term (current) use of anticoagulants; Z79.890 Hormone replacement therapy; Z79.899 Other long term (current) drug therapy; Z87.891 Personal history of nicotine dependence; Z86.16 Personal history of COVID-19
CPT/HCPCS: 55874; 55876; 00902; 36416; 85610; J2405

== ENCOUNTER → 2022-10-07 | Outpatient (CLI) | payer BC, SELFPAY ==
--- NOTE | 2022-10-07 08:02 | MRI_ITS ---
STUDY: MR PELVIS WITH T WITHOUT CONTRAST REASON FOR EXAM: Male, 61 years old. Evaluate for prostate cancer. Planning for x-ray therapy for prostate cancer. TECHNIQUE: Standardized fat and water weighted pulse sequences were obtained in all 3 orthogonal planes, pre-and post contrast administration. IV 28ML CLARISCAN was administered for the contrast portion of the examination. COMPARISON: None. FINDINGS: The prostate measures 6.1 x 6.1 x 5.8 cm with a volume of 108 mL. The left aspect peripheral zone demonstrates focal low signal on diffusion-weighted imaging and ADC mapping measuring 1.7 x 0.7 cm. This appears low in signal intensity on T2-weighted imaging. Measures approximately 2 x 1.2 cm (image 23 of series 4. This area demonstrates mildly decreased enhancement on post gadolinium imaging. The transitional zone is markedly heterogenous. There is large triangular area of low signal on the right seen on image 24 of series 3. This appears to be markedly low in signal with a halo of increased signal intensity on diffusion-weighted imaging and markedly low signal on ADC mapping. Question whether this represents focal calcification. This area is markedly low signal on postgadolinium imaging as well as other levels smaller focal areas of very low signal. Superiorly there is soft tissue mass which is low signal on T2-weighted imaging and the loculated imaging which demonstrates normal enhancement which extends upward into the bladder floor. Normal seminal vesicles. There is trabeculation of the urinary bladder lumen without focal mass. Normal visualized small intestine. Normal visualized colon. There is no pelvic fluid. There is no pelvic mass lesion or lymphadenopathy. Normal visualized pelvic arteries. Normal osseous structures. Normal abdominal wall. MRI/Pelvis W/WO Contrast IMPRESSION: 1. A focal area in the left posterior peripheral zone considered highly suspicious for malignancy (PI-RADS 5) 2. Heterogenous transitional zone which is intermediate presence of cancer (PI-RADS 3). Electronically Signed: Manuel Wall DO at 19:06 EDT ,
[2022-10-07 08:40] LABS: EGFR FINGERSTICK > 60.0000 mL/min (>60)
== END | disposition home or self-care (01) ==
LOC: MRI 08:02
PROVIDERS: PCP Internal Medicine; Visit Provider Student in an Organized Health Care Education/Training Program
DX: C61 Malignant neoplasm of prostate (principal)
CPT/HCPCS: 72197; A9575

== ENCOUNTER 2022-10-09 07:08 | Outpatient (RCR) | payer BC, SELFPAY ==
[2022-09-27 07:09] LABS: Prothrombin Time (Protime)PT. 38.7 SECONDS (11.7-14.9)
[2022-09-30 07:05] LABS: International Normalized Ratio 2.2; Prothrombin Time (Protime)PT. 24.1 SECONDS (11.7-14.9)
[2022-10-01 09:04] LABS: International Normalized Ratio 1.8; Prothrombin Time (Protime)PT. 20.8 SECONDS (11.7-14.9)
[2022-10-07 10:30] LABS: International Normalized Ratio 1.7; Prothrombin Time (Protime)PT. 19.8 SECONDS (11.7-14.9)
[2022-10-09 08:36] LABS: International Normalized Ratio 2.3; Prothrombin Time (Protime)PT. 25.2 SECONDS (11.7-14.9)
== END 2022-10-20 02:12 | disposition home or self-care (01) ==
LOC: LAB 07:08
PROVIDERS: Anesthesiology; Nurse Practitioner Family; PCP Internal Medicine; Referring Provider Internal Medicine; Visit Provider Internal Medicine
DX: Z95.2 Presence of prosthetic heart valve (principal); Z79.01 Long term (current) use of anticoagulants; I35.9 Nonrheumatic aortic valve disorder, unspecified; Z01.818 Encounter for other preprocedural examination
CPT/HCPCS: 36415; 85610; J7120

== ENCOUNTER 2022-11-05 15:30 | Outpatient (RCR) | payer BC, SELFPAY ==
--- NOTE | 2022-10-07 18:03 | HP.PTEVAL ---
Patient's Visit Information STEPAN RIGGS is a 61 year old M referred to Physical Therapy by Dr. Kevin Britton MD with a diagnosis of polyneuropathy. Date of Evaluation: 10/07/22 Physical Therapist: Callum Bonds, PT, ATC - Visit Plan Frequency: 2-3x /Week Duration: 4-6 Weeks Plan: B LE strengthening, balance and proprio, core strengthening, gait training, stair negotiation, nustep, and HEP - Subjective Pt reports he is here today secondary to his balance and Hx of falls. Pt reports he has fallen at least 12 times in the past month. Pt reports he has had varying opinions as to why he has fallen so many times. Pt reports he has been told he has Neuropathy, and that he has pinched nerves in his spine. 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 Pt reports he has been using a cane for stability, and notes he has not fallen with the cane. Pt reports he cane just barely feel his feet as it feels like his feet are wrapped in a cast. Pt reports he is currently getting teady to move, but for now lives in a condo with a lot of stairs. Pt is not in any pain today - Objective Neuro: Pt is hyposensitive from the ankles down. Otherwise, is WNL to light touch. ROM: B LE's are WNL when compared bilaterally. MMT: L LE is grossly 4-/5, R LE is 4+/5 throughout. Gait: Pt is able to ambulate 680 feet until needing to rest secondary to pain. Pt experienced 1 LOB episode but was able to recover quickly. Pt requires the use of a cane at this time - Balance/Special Test Scores Lower Extremity Functional Score: 22 - Goals Goal 1:: Increase B LE strength x 1 grade to aid with stair negotiation Goal Time Frame: 4-6 Weeks Goal 2:: Pt will be able to ascend and descend 10 stairs without difficulty to aid with I with stairs Goal Time Frame: 4-6 Weeks Goal 3:: Pt will be able3 to ambulate 1000 feet with cane to aid with community Goal Time Frame: 4-6 Weeks Goal 4:: I with HEP Goal Time Frame: 4-6 Weeks - Rehabilitation Potential Physical Therapy Diagnosis: Pt has L LE weakness and a Hx of falls secondary to polyneuropathy Rehabilitation Potential: Good - Anticipated Interventions Patient/Client Instruction: Educate patient on: Condition, Plan of Care For the Purpose of:: To improve self management Therapeutic Exercise to Include: Strength training, Endurance training, Balance training, Gait and locomotor training, Dynamic Lumbar Stabilization For the Purpose of:: To improve muscle performance and motor function, To improve ability to perform ADL's, To increase tolerance to activity/condition/position Thank you for the opportunity to evaluate your patient. For Medicare and Medicare HMO plans, please review the plan of care and approve it. It will need to be FAXED BACK to us at [phone] for Medicare purposes. For Medicare only, by signing this I certify the plan of care. Please let me know if there are questions or concerns regarding this plan of care. Physician Signature: Date:
--- NOTE | 2022-11-05 16:39 | HP.PTREVAL ---
Dr. Kevin Britton MD, It has been my pleasure to treat STEPAN RIGGS over the last 8 visits for polyneuropathy. Please see the progress note below for an update on the physical therapy plan of care! Subjective: Pt reports he is getting a little better overall, but he still has balance issues. Objective/Function: B LE MMT 4/5 throughout. Pt is able to negotiate stairs reciprocally with use of cane and one handrail. Pt is able to ambulate 1000 feet without difficulty. Pt is progressing with strength and tolerance for ambulation, but lacks dynamic balance still Plan Plan: Attempt to get 12 more visits approved to focus on safe ambulation and LE strengthening Balance/Gait/Functional tests - Balance/Special Test Scores Lower Extremity Functional Score: 30 Goals Goal 1:: Increase B LE strength x 1 grade to aid with stair negotiation Goal Time Frame: 4-6 Weeks Goal Progress: Progressing Goal 2:: Pt will be able to ascend and descend 10 stairs without difficulty to aid with I with stairs Goal Time Frame: 4-6 Weeks Goal Progress: Progressing Goal 3:: Pt will be able3 to ambulate 1000 feet with cane to aid with community Goal Time Frame: 4-6 Weeks Goal Progress: Goal Met Goal 4:: I with HEP Goal Time Frame: 4-6 Weeks Goal Progress: Progressing Anticipated Interventions Patient/Client Instruction: Educate patient on: Condition, Plan of Care For the Purpose of:: To improve self management Therapeutic Exercise to Include: Strength training, Endurance training, Balance training, Gait and locomotor training, Dynamic Lumbar Stabilization For the Purpose of:: To improve muscle performance and motor function, To improve ability to perform ADL's, To increase tolerance to activity/condition/position Please do not hesitate to contact me at [phone] by phone or if you have questions or concerns regarding this new plan of care! Sincerely, Callum Bonds, PT, ATC
== END 2022-11-05 19:00 | disposition home or self-care (01) ==
LOC: PT 15:30
PROVIDERS: PCP Internal Medicine; Referring Provider Psychiatry & Neurology Neurology; Visit Provider Psychiatry & Neurology Neurology
DX: G62.9 Polyneuropathy, unspecified (principal); M54.2 Cervicalgia; Z91.81 History of falling
CPT/HCPCS: 97110; 97161; 97164

== ENCOUNTER → 2022-11-12 | Outpatient (CLI) | payer BC, SELFPAY ==
--- NOTE | 2022-11-12 07:01 | CT_ITS ---
INDICATION: prostate cancer, balance problems EXAMINATION: CT Spine Cervical W/O Contrast Injection TECHNIQUE: Helically acquired images were obtained of the cervical spine. 2D reformatted images were reviewed. A radiation dose optimization technique was used for this scan. IV Contrast dosage and agent: None. COMPARISON: Cervical spine radiograph from July 11, 2015. FINDINGS: No acute fracture or subluxation. Mild reversal of the normal cervical curvature which may relate to patient positioning or muscle spasm or strain. No spondylolisthesis or traumatic malalignment. Mild multilevel degenerative spondylitic changes most prominent at the C6-C7 level. Assessment of the spinal canal is limited without intrathecal contrast but there is no definitive high-grade stenosis or foraminal narrowing on an osseous basis. No suspicious destructive osseous lesions. The visualized neck soft tissues are unremarkable. The minimally visualized lung apices are clear. CT/Spine Cervical without Contras IMPRESSION: 1. No acute fracture or subluxation. 2. No suspicious destructive osseous lesions. 3. Mild reversal of the normal cervical curvature may relate to patient positioning or muscle spasm/strain. 4. Mild multilevel degenerative changes most prominent at the C6-C7 level. Electronically Signed: Darrion Vazquez MD at 12:12 EDT ,
--- NOTE | 2022-11-12 07:04 | MRI_ITS ---
STUDY: MRI BRAIN WITHOUT CONTRAST REASON FOR EXAM: Male, 62 years old. prostate cancer, vision change, balance problems TECHNIQUE: Standardized multiplanar fat and water weighted pulse sequences were obtained. COMPARISON: August 10, 2021 FINDINGS: Normal size of the ventricles and extra-axial spaces for the patient''s age. Minor nonspecific periventricular white matter disease most likely small vessel ischemic changes without mass effect or restricted diffusion.. Normal bilateral basal ganglia. Normal thalami. There is no extra-axial fluid accumulation. Normal flow voids within the major intracranial circulation suggesting patency by spin echo criteria. Normal sella turcica, pituitary gland, infundibular stalk, optic chiasm and hypothalamus. Normal tectal plate and pineal gland. Normal midbrain, linda and medulla. Normal cerebellum. Normal basal cisterns. Normal bilateral temporal bones. Normal bilateral internal auditory canals. No demonstrated orbital abnormality, within the constraints of a routine brain study. Normal visualized paranasal sinuses. There are focal areas of low signal intensity within the diploic space of the skull on the T1-weighted imaging sequences as well as T2 raising question of blastic metastasis however this may be better assessed with CAT scan or bone scan if clinically warranted. Normal visualized soft tissue structures. Normal visualized upper cervical spine. No significant change since prior study MRI/Brain without Contrast IMPRESSION: Minor periventricular white matter ischemic changes without evidence for acute infarct. No definitive evidence for brain metastasis however this may be further assessed with contrast-enhanced exam if clinically warranted Electronically Signed: Guilherme Lee MD at 19:50 EDT ,
== END | disposition home or self-care (01) ==
LOC: MRI 06:58
PROVIDERS: PCP Internal Medicine; Referring Provider Internal Medicine; Visit Provider Internal Medicine
DX: C61 Malignant neoplasm of prostate (principal); R26.89 Other abnormalities of gait and mobility; H53.9 Unspecified visual disturbance
CPT/HCPCS: 70551; 72125

== ENCOUNTER 2022-11-20 06:52 | Outpatient (RCR) | payer BC, SELFPAY ==
[2022-10-22 08:37] LABS: Prothrombin Time (Protime)PT. 44.2 SECONDS (11.7-14.9)
[2022-10-22 08:51] LABS: International Normalized Ratio 4.6
[2022-11-06 08:26] LABS: ALB/GLOB Ratio 1.1 RATIO (0.9-2.4); AST(SGOT) 36 U/L (15-37); Alanine Aminotransfer ALT/SGPT 40 U/L (16-61); Alkaline Phosphatase 155 U/L (45-117); Anion Gap 6 (5-15); BUN 31 mg/dL (7-18); BUN/Creat Ratio 20.4 RATIO (10-20); Calcium,Total 9.2 mg/dL (8.5-10.1); Chloride 105 mmol/L (98-107); Creatinine, Serum 1.52 mg/dL (0.70-1.30); EST Glomerular Filtration Rate 50 mL/min (>60); Est Glom Filt Rate - Afr Amer 60 mL/min (>60); Globulin 3.7 g/dL (2.2-4.2); Glucose 197 mg/dL (74-106); Potassium 3.8 mmol/L (3.5-5.1); Protein, Total 7.7 g/dL (6.4-8.2); Sodium Level 139 mmol/L (136-145); Thyroid Stim Hormone (TSH) 4.35 uIU/mL (0.358-3.74)
[2022-11-06 09:06] LABS: International Normalized Ratio 2.5; Prothrombin Time (Protime)PT. 26.9 SECONDS (11.7-14.9)
[2022-11-20 08:00] LABS: Prothrombin Time (Protime)PT. 31.3 SECONDS (11.7-14.9)
== END 2022-11-20 08:00 | disposition home or self-care (01) ==
LOC: LAB 06:52
PROVIDERS: PCP Internal Medicine; Referring Provider Nurse Practitioner Family; Visit Provider Nurse Practitioner Family
DX: Z95.2 Presence of prosthetic heart valve (principal); Z79.01 Long term (current) use of anticoagulants; I35.9 Nonrheumatic aortic valve disorder, unspecified; E11.9 Type 2 diabetes mellitus without complications; E03.9 Hypothyroidism, unspecified
CPT/HCPCS: 36415; 80053; 84443; 85610

== ENCOUNTER → 2022-11-20 | Outpatient (CLI) | payer BC, SELFPAY ==
--- NOTE | 2022-11-20 17:57 | CT_ITS ---
EXAM: CT HEAD WITHOUT AND WITH INTRAVENOUS CONTRAST CLINICAL INDICATION: BALANCE TROUBLE TECHNIQUE: Multiple axial images were obtained of the head without and with intravenous contrast. This CT exam was performed using one or more of the following dose reduction techniques: automated exposure control, adjustment of the mA and/or kV according to patient size, and/or use of iterative reconstruction technique. CONTRAST: 50 cc of Isovue-370 IV. RADIATION DOSE: CTDIvol = 44.99 mGy, DLP = 2528.94 mGy-cm COMPARISON: Noncontrast CT of the brain 03/30/2016. MR brain 09/12/2022. FINDINGS: LIMITATIONS: The evaluation of brain parenchyma is limited due to poor enhancement of the brain on the postcontrast images. The patient may have not gotten contrast. BRAIN AND EXTRA-AXIAL SPACES: Small cortical calcifications involving the right insular cortex in the left posterior parieto-occipital cortex unchanged since previous exam. Mild generalized atrophy. Mild low density bilaterally in the deep white matter. No intra- or extra-axial hemorrhage. BONES/JOINTS: Unremarkable. No discrete lytic or blastic abnormalities. SINUSES: Unremarkable as visualized. Clear. MASTOID AIR CELLS: Unremarkable. Clear. ORBITS: Visualized globes, extraocular muscles, optic nerves and retrobulbar fat appear unremarkable. CT/Brain/Head W/WO Contrast IMPRESSION: 1. The evaluation of brain parenchyma is limited due to poor enhancement of the brain on the postcontrast images. The patient may have not gotten contrast. 2. No blastic metastases identified. 3. Mild generalized atrophy. Mild low density bilaterally in the deep white matter. This likely represents chronic small vessel ischemic changes in the deep white matter. No acute intracranial abnormality. Electronically Signed: Marcos Bee MD at 22:50 EDT ,
== END | disposition home or self-care (01) ==
LOC: CT 17:55
PROVIDERS: PCP Internal Medicine; Referring Provider Internal Medicine; Visit Provider Internal Medicine
DX: C61 Malignant neoplasm of prostate (principal); R26.89 Other abnormalities of gait and mobility; H53.9 Unspecified visual disturbance; R93.89 Abnormal findings on diagnostic imaging of other specified body structures
CPT/HCPCS: 70470

== ENCOUNTER 2022-12-04 06:33 | Outpatient (RCR) | payer BC, SELFPAY ==
[2022-12-04 07:06] LABS: International Normalized Ratio 2.8
== END 2022-12-04 18:00 | disposition home or self-care (01) ==
LOC: LAB 06:33
PROVIDERS: PCP Internal Medicine; Referring Provider Nurse Practitioner Family; Visit Provider Nurse Practitioner Family
DX: Z95.2 Presence of prosthetic heart valve (principal); Z79.01 Long term (current) use of anticoagulants; I35.9 Nonrheumatic aortic valve disorder, unspecified
CPT/HCPCS: 36415; 85610

== ENCOUNTER 2023-01-02 06:09 | Outpatient (RCR) | payer BC, SELFPAY ==
[2023-01-02 07:09] LABS: International Normalized Ratio 3.1; Prothrombin Time (Protime)PT. 32.1 SECONDS (11.7-14.9)
[2023-01-02 08:21] LABS: AST(SGOT) 45 U/L (15-37); Alanine Aminotransfer ALT/SGPT 49 U/L (16-61); Albumin, Serum 3.8 g/dL (3.2-5.0); Alkaline Phosphatase 146 U/L (45-117); Bilirubin, Direct 0.47 mg/dL (0.00-0.30); Cholesterol 124 mg/dL (200); Globulin 3.7 g/dL (2.2-4.2); High Density Lipoprotein 42 mg/dL; Protein, Total 7.5 g/dL (6.4-8.2); Triglycerides 163 mg/dL; Very Low Density Lipoprotein 33 mg/dL (5-40)
== END 2023-01-20 18:00 | disposition home or self-care (01) ==
LOC: LAB 06:09
PROVIDERS: Internal Medicine Cardiovascular Disease; PCP Internal Medicine; Referring Provider Nurse Practitioner Family; Visit Provider Nurse Practitioner Family
DX: Z95.2 Presence of prosthetic heart valve (principal); Z79.01 Long term (current) use of anticoagulants; I35.9 Nonrheumatic aortic valve disorder, unspecified
CPT/HCPCS: 36415; 80061; 80076; 85610

== ENCOUNTER 2023-01-13 07:38 | Emergency (ER) | payer BC, SELFPAY ==
[2023-01-13 07:39] VITALS: BP 133/85; PULSE 68; RESP 18; TEMP 36.2; O2SAT 97; BMI 43.6
[2023-01-13 08:10] VITALS: BP 101/73; PULSE 88; RESP 16; TEMP 36.6; O2SAT 100
--- NOTE | 2023-01-13 08:15 | EKG12_ITS ---
Test Reason : SOB Blood Pressure : / mmHG Vent. Rate : 107 BPM Atrial Rate : 000 BPM P-R Int : 000 ms QRS Dur : 176 ms QT Int : 422 ms P-R-T Axes : 000 110 020 degrees QTc Int : 563 ms Atrial fibrillation with rapid ventricular response Right bundle branch block Septal infarct , age undetermined Abnormal ECG Confirmed by ZANE LITTLE, CM ([id number]), proposal editor SUKHDEEP STOTU ([id number]) on 01/15/2023 9:15:19 AM Referred By: CARA Confirmed By:CM DEGROOT MD
--- NOTE | 2023-01-13 08:23 | RAD_ITS ---
INDICATION: chest pain EXAMINATION/TECHNIQUE: X-RAY - XR Chest 2 Views COMPARISON: November 12, 2021 FINDINGS: LINES/DEVICES: None. LUNGS: There is mild pulmonary vascular congestion appearing stable. Otherwise no consolidation, edema or effusion. No pneumothorax. MEDIASTINUM AND CARDIOVASCULAR STRUCTURES: Cardiac silhouette not enlarged. Central airways and mediastinal contour are unremarkable. BONES AND SOFT TISSUES: Unremarkable. RAD/Chest PA and Lateral IMPRESSION: Mild pulmonary vascular congestion. Otherwise no Radiographic evidence of acute cardiopulmonary disease. Electronically Signed: Cecil Pace, at 8:34 EDT ,
[2023-01-13 08:39] LABS: Absolute Lymphocyte Count 0.51 X10^3/uL (0.83-4.51); Absolute Neutrophil Count 4.7 X10^3/uL (2.0-7.7); Basophil# 0.05 X10^3/uL; Basophil% 0.8 % (0-1); Eosinophil# 0.02 X10^3/uL; Eosinophils% 0.3 % (0-5); Hematocrit 39.6 % (40-54); Hemoglobin 13.5 g/dL (13.0-16.5); Lymphocyte # 0.51 X10^3/ul (0.83-4.51); Lymphocyte % 8.3 % (19-41); Mean Corp Hgb Conc 34.1 g/dL (32-36); Mean Corpuscular Hgb 31.7 pg (27.0-32.0); Mean Platelet Vol. 9.7 fl (6.2-12.0); Monocyte# 0.83 X10^3/uL; Monocyte% 13.5 % (0-10); NRBC Flagged by Analyzer 0 % (0-5); Neutrophil # 4.73 X10^3/uL (2.7-7.7); Neutrophil % 76.6 % (47-70); POSITIVE DIFFERENTIAL YES; Platelet Count 241 K/mm3 (150-450); RBC Distribution Width CV 13.7 % (11.6-14.6); RBC Distribution Width SD 46.5 fl (35.1-43.9); Red Blood Count 4.26 M/mm3 (4.6-6.2); White Blood Count 6.2 K/mm3 (4.4-11.0)
[2023-01-13 08:44] LABS: Differential Indicated SCAN CRITERIA MET
[2023-01-13 08:49] LABS: International Normalized Ratio 1.9; Prothrombin Time (Protime)PT. 22.4 SECONDS (11.7-14.9)
[2023-01-13 08:56] LABS: Anion Gap 7 (5-15); BUN 26 mg/dL (7-18); BUN/Creat Ratio 14.9 RATIO (10-20); Calcium,Total 8.9 mg/dL (8.5-10.1); Chloride 102 mmol/L (98-107); Creatinine, Serum 1.74 mg/dL (0.70-1.30); EST Glomerular Filtration Rate 42 mL/min (>60); Est Glom Filt Rate - Afr Amer 51 mL/min (>60); Estimated Creatinine Clearance 44.87 ml/min; Glucose 214 mg/dL (74-106); Magnesium 2.2 mg/dL (1.6-2.6); Potassium 3.4 mmol/L (3.5-5.1); Sodium Level 135 mmol/L (136-145); Troponin-I HS (w/2H Reflex) 11 pg/mL (3.0-78.0)
--- NOTE | 2023-01-13 09:03 | EDS_ITS ---
HPI History of Present Illness Chief Complaint: Chest Pain Narrative Narrative: Patient is a 62-year-old male presenting from home with for shortness of breath. Patient states over the weekend (is currently Friday) he started to have sinus congestion and felt like he is coming in with a cold. He notes he was very short of breath this morning and was having hard time breathing. He also developed a pain in the center of his chest. It is worse with deep breathing. His cough has been mildly productive of yellow phlegm. Denies any fever. Denies any swelling of his legs. Notes he is on Coumadin long-term for atrial fibrillation as well as mechanical aortic valve. Patient denies any GI or complaints. No other complaints at this time. [facility] Medical History Abrasion, right lower leg, initial encounter Anemia Aortic valvular disease Cardiology follow-up encounter Contusion of right foot, initial encounter COPD (chronic obstructive pulmonary disease) COVID-19 (06/19/20) CPAP (continuous positive airway pressure) dependence Dysphagia Edema Emphysema, unspecified Fatigue Former smoker GERD (gastroesophageal reflux disease) Gout History of echocardiogram History of echocardiogram History of edema History of Holter monitoring History of stress test History of stress test HLD (hyperlipidemia) Hypertension Hypokalemia Impacted cerumen of both ears 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 Longstanding persistent atrial fibrillation Loss of hearing Morbid obesity with BMI of 45.0-49.9, adult Nicotine abuse Nocturia Nonrheumatic aortic (valve) stenosis PAOLA (obstructive sleep apnea) Paroxysmal atrial fibrillation Prostate disease Pulmonary hypertension PVC (premature ventricular contraction) Shortness of breath Shortness of breath on exertion Thyroid disease Wears glasses Wears partial dentures Home Medications biotin 10,000 mcg-keratin 100 mg tablet 1 ea PO QHS supplement 04/12/16 [History Last Taken 03/09/20] cholecalciferol (vitamin D3) 25 mcg (1,000 unit) tablet 2,000 unit PO QHS supplement 04/12/16 [History Last Taken 03/09/20] folic acid 1 mg tablet 1 mg PO QHS supplement 04/12/16 [History Last Taken 03/09/20] warfarin 3 mg tablet (Coumadin) 3 mg PO DAILY 02/11/18 [History Last Taken 09/26/22 17:00] ferrous sulfate 325 mg (65 mg iron) tablet 325 mg PO QHS anemia 03/10/20 [History Last Taken 03/09/20] levothyroxine 100 mcg tablet 100 mcg PO DAILY thyroid 03/10/20 [History Last Taken 10/02/22 06:30] multivitamin 1 tab PO DAILY supplement 03/10/20 [History Last Taken 03/10/20] terazosin 1 mg capsule 1 mg PO QHS blood pressure 03/10/20 [History Last Taken 03/09/20] allopurinol 100 mg tablet 100 mg PO DAILY 01/11/21 [History Last Taken Unknown] Disability Placard #1 ea 04/20/21 [Rx Last Taken Unknown] albuterol sulfate 90 mcg/actuation aerosol inhaler 2 puff inhalation Q4H PRN shortness of breath or wheezing #1 device 05/08/21 [Rx Last Taken Unknown] docusate sodium 100 mg capsule 200 mg PO QHS stool softener 01/01/22 [History Last Taken Unknown] spironolactone 25 mg tablet 25 mg PO DAILY pt waiting on mail order RX #30 tabs 03/04/22 [Rx Last Taken Unknown] cetirizine 10 mg tablet (Zyrtec) 10 mg PO DAILY PRN ALLLERGY 04/23/22 [History Last Taken Unknown] fluticasone propionate 50 mcg/actuation nasal spray,suspension (Flonase Allergy Relief) 1 spray intranasal DAILY 04/23/22 [History Last Taken Unknown] potassium chloride 10 mEq capsule,extended release 60 meq (6 x 10 mEq) PO DAILY Pt has Throat injury, needs capsules #540 caps 05/03/22 [Rx Last Taken Unknown] torsemide 20 mg tablet See Rx Instructions .Route .COMPLEX #180 tabs 06/11/22 [Rx Last Taken Unknown] diltiazem HCl 120 mg capsule,extended release 24 hr 120 mg PO DAILY #90 caps 07/04/22 [Rx Last Taken 10/02/22 06:30] atorvastatin 40 mg tablet 40 mg PO QHS #90 tabs 07/15/22 [Rx Last Taken Unknown] Bilateral wrist splints for carpal tunnel syndrome #2 ea 07/31/22 [Rx Last Taken Unknown] pantoprazole 40 mg tablet,delayed release 40 mg PO QAM #90 tabs 08/07/22 [Rx Last Taken 10/02/22 06:30] fluticasone fur. 100 mcg-umeclid 62.5 mcg-vilant 25 mcg inhalat.powder (Trelegy Ellipta) 1 inh inhalation DAILY #3 ea 09/16/22 [Rx Last Taken Unknown] dutasteride 0.5 mg capsule 0.5 mg PO DAILY 09/25/22 [History Last Taken Unknown] tamsulosin 0.4 mg capsule 0.8 mg PO DAILY help with urinating 10/31/22 [History Last Taken Unknown] bupropion HCl 300 mg 24 hr tablet, extended release 300 mg PO DAILY mental health #90 tabs 11/13/22 [Rx Last Taken Unknown] diphenhydramine HCl 50 mg tablet 50 mg PO ONCE #1 TAB 11/19/22 [Rx Last Taken Unknown] prednisone 50 mg tablet 50 mg PO .COMPLEX #3 tabs 11/19/22 [Rx Last Taken Unknown] metoprolol tartrate 25 mg tablet 12.5 mg (1/2 x 25 mg) PO BID blood pressure/heart rate #180 tabs 11/21/22 [Rx Last Taken Unknown] duloxetine 60 mg capsule,delayed release 60 mg PO DAILY #90 caps 12/07/22 [Rx Last Taken Unknown] azithromycin 250 mg tablet 250 mg PO DAILY #6 TABLETS 01/13/23 [Rx Last Taken Unknown] prednisone 20 mg tablet 40 mg (2 x 20 mg) PO DAILY #10 tabs 01/13/23 [Rx Last Taken Unknown] Allergy/AdvReac Type Severity Reaction Status Date / Time aspirin Allergy Hives Verified 01/09/23 14:31 Iodinated Contrast Media Allergy Hives Verified 01/09/23 14:31 [Iodinated Contrast Media - IV Dye] shellfish derived Allergy Hives Verified 01/09/23 14:31 Family History Father , age 40 Cancer COPD (chronic obstructive pulmonary disease) Mother Hypertension Brother Cancer Lung CA Aunt Cerebral aneurysm Brother Aortic valve disease Surgical History H/O basal cell carcinoma excision History of cardiac catheterization History of colonoscopy History of deviated nasal septum History of esophagogastroduodenoscopy (EGD) History of tonsillectomy Hx of aortic valve replacement, mechanical (~2010) Hx of gastric bypass Social History household members: spouse current occupational status: employed 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 Smoking Status: Former smoker quit date: 06/23/96 pack-years: 10 Tobacco: How many years used: 20 Electronic Cigarette Use: not used how long ago did patient quit smokin, 0.5 second hand exposure: Yes alcohol intake: current alcohol intake frequency: holidays/special occasions only Alcohol type: beer details: social substance use type: former substance user Date of last use: used Marijuana as a teenager caffeine: Yes Type: coffee Number of servings: 2 what type of physical activity do you participate in: walking frequency: 3-4 times per week duration: 15-30 minutes/day seatbelt use: always do you feel safe at home: Yes EXAM Physical Exam Const Vital Signs: 01/13/23 07:39 01/13/23 08:10 01/13/23 08:10 Temperature 97.2 F L 97.8 F Temperature Source Temporal Oral Pulse Rate 68 88 Respiratory Rate 18 16 Respiratory Pattern Normal Blood Pressure 133/85 H 101/73 Blood Pressure Mean 101 82 Pulse Ox 97 100 Oxygen Delivery Method Room Air Room Air 01/13/23 08:15 01/13/23 10:52 01/13/23 10:52 Temperature 98 F Temperature Source Oral Pulse Rate 90 90 Respiratory Rate 20 H 20 H Respiratory Pattern Blood Pressure 105/80 105/80 Blood Pressure Mean 88 88 Pulse Ox 98 98 Oxygen Delivery Method Room Air Room Air Room Air 01/13/23 11:20 01/13/23 11:21 Temperature 98 F Temperature Source Oral Pulse Rate 86 88 Respiratory Rate 18 16 Respiratory Pattern Blood Pressure 99/55 L 99/55 L Blood Pressure Mean 69 69 Pulse Ox 98 Oxygen Delivery Method Room Air Room Air MDM MDM MDM Narrative Medical decision making narrative: Patient is evaluated for URI symptoms, cough and then chest pain. Patient notes he started to feel better while in the emergency room. Patient is mildly tachycardic in the ER but EKG is nonischemic. Differential includes pneumonia, viral syndrome, ACS, pleurisy and less likely pulmonary emboli as he is chronically anticoagulated. Patient does not have a leukocytosis, fever or other symptoms consistent with an acute bacterial process. Chest x-ray does not show any acute infiltrate. Patient's heart rate improved without any further intervention in the ER and I do not think this is atrial fibrillation with RVR that is causing his symptoms. The A-fib is chronic. While he is mildly subtherapeutic on his INR, 1.9, he states just 11 days ago he was 3.1 and I do not think he has been subtherapeutic long enough to developed a pulmonary emboli. Patient is able in the ER and does not have any hypoxia. Again he states he is feeling better in the emergency room. Delta high-sensitivity troponin stable at 11 and 13. Low suspicion for ACS. He does have a mild elevation of his BNP however this appears chronic is actually lower than his last BNP. Chest x-ray shows findings shows chronic venous congestion. This is interpreted myself as well as radiology. I do not think he has decompensated heart failure. Patient does have significant underlying COPD and is on Trilogy. We will place him on a course of steroids as well as a short course of antibiotics as he has had change in his cough as well as sputum production. Patient agreeable this plan of care. Is comfortable waiting till he picks up his prescriptions later today instead of receiving first dose in the emergency room. Is given return precautions. Discharged home in stable condition. As his preceding symptoms included sinus congestion will be treated likely has a viral syndrome. Lab Data Labs: Laboratory Results - last 24 hr 01/13/23 01/13/23 08:10 10:58 WBC 6.2 RBC 4.26 L Hgb 13.5 Hct 39.6 L MCV 93.0 MCH 31.7 MCHC 34.1 RDW Std Deviation 46.5 H RDW Coeff of Ernestina 13.7 Plt Count 241 MPV 9.7 Immature Gran % (Auto) 0.500 Neut % (Auto) 76.6 H Lymph % (Auto) 8.3 L [place] % (Auto) 13.5 H Eos % (Auto) 0.3 Baso % (Auto) 0.8 Absolute Neuts (auto) 4.7 Absolute Lymphs (auto) 0.51 L Nucleated RBC % 0 Differential Comment COMMENT PT 22.4 H INR 1.9 Sodium 135 L Potassium 3.4 L Chloride 102 Carbon Dioxide 26.0 Anion Gap 7 BUN 26 H Creatinine 1.74 H Estim Creat Clear Calc 44.87 Est GFR (MDRD) Af Amer 51 L Est GFR (MDRD) Non-Af 42 L BUN/Creatinine Ratio 14.9 Glucose 214 H Calcium 8.9 Magnesium 2.2 Troponin I High Sens 11 13 B-Natriuretic Peptide 173.7 H Radiography Diagnostic Testing: Clinical Impression(s) from Imaging Studies Chest X-Ray 01/13/23 08:23 IMPRESSION: Mild pulmonary vascular congestion. Otherwise no Radiographic evidence of acute cardiopulmonary disease. Electronically Signed: Cecil Pace, at 8:34 EDT Reading Location ID and State: [address] [place] [address] Tel , Service support , Rhythm Strip Rhythm Strip: A-fib Rate: 107 Ectopy: None EKG Initial EKG: Attestation: I personally reviewed and interpreted this EKG as follows: Interpretation: Atrial Fibrillation Comments: Atrial fibrillation at a rate of 107 bpm Right bundle branch block Nonspecific T wave changes Compared to prior EKG on 11/12/2021, patient's rate is slightly increased but no other acute changes Discharge Plan Triage Chief Complaint: Chest Pain Other Complaint: Shortness of Breath ED Provider: Ruby Carrasco Dx/Rx/DC Orders Clinical Impression: Acute viral syndrome, Subtherapeutic anticoagulation, Chest pain of uncertain etiology Instructions: ED COPD Flare, ED Chest Pain, Uncertain Cause Prescriptions: New prednisone 20 mg tablet 40 mg PO DAILY Qty: 10 0RF azithromycin 250 mg tablet 250 mg PO DAILY Qty: 6 0RF Rx Instructions: 2 tablets the first day, 1 tablet daily after that No Action warfarin [Coumadin] 3 mg tablet 3 mg PO DAILY Protocol: Dose Management Condition: Friday Dose/Route: 3 mg Instruction: 1 x 3 mg tablet Condition: Friday Dose/Route: 3 mg Instruction: 1 x 3 mg tablet Condition: Friday Dose/Route: 3 mg Instruction: 1 x 3 mg tablet Condition: Friday Dose/Route: 3 mg Instruction: 1 x 3 mg tablet Condition: Dose/Route: 1.5 mg Instruction: 0.5 x 3 mg tablets Condition: Friday Dose/Route: 1.5 mg Instruction: 0.5 x 3 mg tablets Condition: Friday Dose/Route: 3 mg Instruction: 1 x 3 mg tablet Protocol Text: Adjustment Start Date: 01/02/23 INR Value: 3.1 INR Date: 01/02/23 Recheck Date: 02/27/23 allopurinol 100 mg tablet 100 mg PO DAILY cetirizine [Zyrtec] 10 mg tablet 10 mg PO DAILY PRN (Reason: ALLLERGY) fluticasone propionate [Flonase Allergy Relief] 50 mcg/actuation spray,suspension 1 spray intranasal DAILY Rx Instructions: administer into each nostril diltiazem HCl 120 mg capsule,extended release 24hr 120 mg PO DAILY Qty: 90 3RF potassium chloride 10 mEq capsule, extended release 60 meq PO DAILY Qty: 540 3RF pantoprazole 40 mg tablet,delayed release (DR/EC) 40 mg PO QAM Qty: 90 3RF (DME) Bilateral wrist splints for carpal tunnel syndrome See Rx Instructions .Route .MEDSUPPLY Qty: 2 0RF Rx Instructions: Wear at night duloxetine 60 mg capsule,delayed release(DR/EC) 60 mg PO DAILY Qty: 90 1RF metoprolol tartrate 25 mg tablet 12.5 mg PO BID Qty: 180 3RF folic acid 1 MG tablet 1 mg PO QHS cholecalciferol (vitamin D3) 1,000 UNIT tablet 2,000 unit PO QHS biotin-keratin 1 EACH tablet 1 ea PO QHS docusate sodium 100 mg capsule 200 mg PO QHS tamsulosin 0.4 mg capsule 0.8 mg PO DAILY ferrous sulfate 325 MG tablet 325 mg PO QHS multivitamin 1 TABLET tablet 1 tab PO DAILY terazosin 1 MG capsule 1 mg PO QHS levothyroxine 100 MCG tablet 100 mcg PO DAILY dutasteride 0.5 mg capsule 0.5 mg PO DAILY (DME) Disability Placard See Rx Instructions .Route .MEDSUPPLY Qty: 1 0RF Rx Instructions: expires 04/20/2026 albuterol sulfate 90 mcg/actuation HFA aerosol inhaler 2 puff INHALATION Q4H PRN (Reason: shortness of breath or wheezing) Qty: 1 3RF Rx Instructions: administer with spacer spironolactone 25 mg tablet 25 mg PO DAILY Qty: 30 11RF torsemide 20 mg tablet See Rx Instructions .ROUTE .COMPLEX Qty: 180 3RF Dose Instruction: TAKE 1 TABLET TWICE A DAY Rx Instructions: TAKE 1 TABLET TWICE A DAY atorvastatin 40 mg tablet 40 mg PO QHS Qty: 90 3RF Trelegy Ellipta 100-62.5-25 mcg blister with device 1 inh inhalation DAILY Qty: 3 3RF bupropion HCl 300 mg tablet extended release 24 hr 300 mg PO DAILY Qty: 90 0RF prednisone 50 mg tablet 50 mg PO .COMPLEX Qty: 3 0RF Rx Instructions: Take 50 mg orally at 13 hours prior, 7 hours prior and [address] scan; diphenhydramine HCl 50 mg tablet 50 mg PO ONCE Qty: 1 0RF Rx Instructions: take [address] scan Primary Care Provider: Silva Webster Referrals: Silva Webster MD [Primary Care Provider] - Activity Restrictions/Additional Instructions: Follow-up with your primary care doctor for your Coumadin therapy as your level was 1.9 today. I suspect you may have a viral syndrome which possibly could be flaring up some underlying lung disease and that is what is causing your chest pain and symptoms today. If your symptoms progress or worsen please return to the emergency room. Unless you hear otherwise, double your warfarin dose today and follow-up closely for outpatient monitoring of your INR. Use your rescue inhaler as needed for shortness of breath or chest discomfort. Disposition Disposition: Home, Self Care
[2023-01-13 09:37] LABS: BNP,B-Type NATRIURETIC PEPTIDE 173.7 pg/mL (0-100)
[2023-01-13 10:29] LABS: Reflex Troponin-HS? (from REC) Y
[2023-01-13 10:52] VITALS: BP 105/80; PULSE 90; RESP 20; TEMP 36.6; O2SAT 94; O2SAT 98
[2023-01-13 11:20] VITALS: BP 99/55; PULSE 86; RESP 18; TEMP 36.6
[2023-01-13 11:21] VITALS: BP 99/55; PULSE 88; RESP 16; O2SAT 98
[2023-01-13 11:22] LABS: Troponin-I HS 13 pg/mL (3.0-78.0)
--- NOTE | 2023-01-13 11:40 | ED.RN ---
Patient resting without complaint. Awaiting reevaluation. at bedside.
== END 2023-01-13 12:04 | disposition home or self-care (01) ==
PROVIDERS: Emergency Provider Emergency Medicine; PCP Internal Medicine; Visit Provider Emergency Medicine
DX: B34.9 Viral infection, unspecified (principal); J43.9 Emphysema, unspecified; I48.20 Chronic atrial fibrillation, unspecified; R06.02 Shortness of breath; I10 Essential (primary) hypertension; R79.1 Abnormal coagulation profile; E78.5 Hyperlipidemia, unspecified; K21.9 Gastro-esophageal reflux disease without esophagitis; Z79.01 Long term (current) use of anticoagulants; Z79.890 Hormone replacement therapy; Z79.899 Other long term (current) drug therapy; Z98.84 Bariatric surgery status; Z95.2 Presence of prosthetic heart valve; Z87.891 Personal history of nicotine dependence
CPT/HCPCS: 71046; 80048; 83735; 83880; 84484; 85025; 85610; 93005; 99284; A4216

== ENCOUNTER 2023-01-30 18:00 | Outpatient (RCR) | payer BC, SELFPAY ==
--- NOTE | 2023-01-02 18:28 | HP.PTEVAL ---
Patient's Visit Information Visit Information Visit Information: STEPAN RIGGS is a 62 year old M referred to Physical Therapy by Dr. Kevin Britton MD with a diagnosis of falling, cervicalgia. Date of Evaluation: 01/02/23 Physical Therapist: Clay Rosado, DAIANAT, OCS, CSCS Visit Plan Frequency: 1x/Week Duration: 4-6 Weeks Plan: 2x/week for 4-6 weeks for 1. balance ex to utilize motor control in feet and ankles/proprioception 2. ankle strength 3. hip strength, stretch quads, HS, gastroc 4. General ex for body, neck, posture, hips, function Please progress all to I with pics as safety allows. Subjective Subjective: Have neuropathy in hands and feet adn upper legs start shaking and can fall over. Laasts 10 sec -50 seconds. This happens 2-3x/week and heavy ones monthly. neuroapthy in hands and feet is constant. hands and feet 2+ years and worsening. Shaking in legs started 3 yrs ago. Uses cane now to to unpredictable nature of it. Gets a one second warning in head and it is insidous. Sees neurologist and may have pinched nerve in spine and needs therapy to get MRI. Had PT and was working on balance and leg strength. Had previous head and neck MRI which was OK. Therapy was helping for endurance and moving around. Balance feels off lately. No recent falls outside of legs shaking. 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 Wants to retire at 64 Sleeping is not great as he uses a cpap, hard to get back to sleep if he wakes up. No real neck pain, intermittent central neck pain for no reason. No regular exercise. Both knees are shot. Basic ADLS are getting done slowly. cooks cleans. Hobbies: waste collector, puzzles. Usses cane to get around and has for 3 weeks since his legs shake and he fell. Moving to one story house. Objective Objective: Walks very slowly without cane and short steps hesitantly. Walks slowly back to PT with cane mod I but avoiding pushoff and weight shifts and slow. neuropathic gait pattern. back and neck move reasonably well for his girth and are symmetrical and not painful. bi and tri reflexes 1/3 sensation UE at deficit in wrists and hands. Hands and wrist and elbow and shoulder AROM WFL but hands have muscular degeneration in fine motor and muscle wasting in hands. Full aROM UE and LE but tightness in quads, HS at -40 90-90 test and gastroc at 0 DF. strength hips abd R 3 and L 3+, extension R 3 and L 3+, flexion R 3+ and L 4-, knee ext adn flexion 5/5 B. ankle strength 4-/5 ev adn inversion with poor motor control here. DF 3+ R and 4- L, PF 4- B, hard to heel raise due to balance, can do it with UE assist. reflexes 1/3 patella adn achilles, - babinski, no clonus noted. - Hoffmans. Sensation B feet and ankles at deficit to gross light touch. Obvious motor control deficits with reciprocal toe and heel tapping. Weakness in trunk and excessive girth make mobility harder. SOB after steps but recovers quickly. 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 requires PT to have MRI of neck(has already had head MRI and NCT in UE and LE without finding problem) Rehabilitation Potential: Questionable Anticipated Interventions Patient/Client Instruction: Educate patient on: Condition and Plan of Care For the Purpose of:: To increase ROM, To improve nutrient delivery to tissue, To improve muscle performance and motor function, To increase tolerance to activity/condition/position, To improve gait and locomotor functions, To improve health of tissue and To improve balance Therapeutic Exercise to Include: Strength training, Balance training, Flexibilty training, Gait and locomotor training, Passive ROM and Active ROM For the Purpose of:: To increase ROM, To improve nutrient delivery to tissue, To improve muscle performance and motor function, To increase tolerance to activity/condition/position, To improve performance and independence with ADL's, To improve ability of physical actions for home/community/work/leisure and To improve gait and locomotor functions Text: Thank you for the opportunity to evaluate your patient. For Medicare and Medicare HMO plans, please review the plan of care and approve it. It will need to be FAXED BACK to us at [phone] for Medicare purposes. For Medicare only, by signing this I certify the plan of care. Please let me know if there are questions or concerns regarding this plan of care. Physician Signature: Date:
--- NOTE | 2023-01-30 18:55 | HP.PTDCSUM ---
Discharge Summary D/C summary: It has been my pleasure to treat STEPAN RIGGS referred by Dr. Kevin Britton MD, with the diagnosis of falling, cervicalgia for a total of 7 visit(s). Discharge Date: 01/30/23 Please see the following information for a summary of their discharge status. Subjective Subjective: No episodes of leg getting weak over the last two days! Legs are generally a little tired today though from walking in [place] quite a bit. Overall Improvement % Improvement: 10 Objective Objective/Function: Alternated upper body and lower body exercises in circuit to allow for recovery between bouts. Tolerated this set up well. Goals Goal 1:: FGA to limit fall risk Goal Progress: Not Progressing Goal 2:: I appropr HEP to helop with retirement strength and balance Goal Progress: Progressing Goal 3:: Pt feel 50% better in moblity and balance Goal Progress: 10% Goal 4:: Fulfill requirement to have MRI for docctor Goal Progress: Goal Met Goal 5:: 45 LEFS score Goal Progress: Not Progressing Plan Plan: Progress to I with other exercises adn per POC.2x/week for 4-6 weeks for 1. balance ex to utilize motor control in feet and ankles/proprioception 2. ankle strength 3. hip strength, stretch quads, HS, gastroc 4. General ex for body, neck, posture, hips, function Please progress all to I with pics as safety allows. D/C Information Discharge Comments: back to doctor for next appropriate step due to lack of progress. d/c sentence: If there are questions or concerns regarding this patient's physical therapy, please feel free to call me at [phone]. Thank you for the referral of this patient. Sincerely, Clay Rosado, DPT, OCS, CSCS Balance/Gait/Functional tests Balance/Special Test Scores Functional Gait Assessment Score: 18 % Disability: 40.0000 Lower Extremity Functional Score: 18
== END 2023-01-30 19:00 | disposition home or self-care (01) ==
LOC: PT 18:00
PROVIDERS: PCP Internal Medicine; Referring Provider Psychiatry & Neurology Neurology; Visit Provider Psychiatry & Neurology Neurology
DX: M54.2 Cervicalgia (principal); G62.9 Polyneuropathy, unspecified; Z91.81 History of falling
CPT/HCPCS: 97110; 97163; 97164

== ENCOUNTER 2023-02-19 06:13 | Outpatient (RCR) | payer BC, SELFPAY ==
[2023-01-22 07:13] LABS: International Normalized Ratio 2.9
[2023-01-22 07:46] LABS: PSA,Total- Diagnostic 0.79 ng/mL (0.0-4.0)
[2023-02-19 08:29] LABS: International Normalized Ratio 2.9; Prothrombin Time (Protime)PT. 30.8 SECONDS (11.7-14.9)
== END 2023-02-19 18:00 | disposition home or self-care (01) ==
LOC: LAB 06:13
PROVIDERS: PCP Internal Medicine; Referring Provider Nurse Practitioner Family; Visit Provider Nurse Practitioner Family
DX: Z79.01 Long term (current) use of anticoagulants; I35.9 Nonrheumatic aortic valve disorder, unspecified; C61 Malignant neoplasm of prostate
CPT/HCPCS: 36415; 84153; 85610

== ENCOUNTER → 2023-02-25 | Outpatient (CLI) | payer BC, SELFPAY ==
[2023-02-25 10:33] LABS: Bacteria 0 SEEN /hpf (None Seen); Mucous, Urine 0 SEEN /hpf (<or=2+); Red Blood Cells-Urine 0 SEEN /hpf (0-5); Squamous Epithelial Cells - UA 0 SEEN /hpf (0-5); White Blood Cells 0 SEEN /hpf (0-5)
[2023-02-25 12:27] LABS: Color, Urine Yellow (Yellow); Glucose, Dipstick Normal (Normal); Ketone-Dipstick Negative (Negative); Leukocyte Esterase-Dipstick Negative /ul (Negative); Nitrite-Dipstick Negative (Negative); Occult Blood-Urine Negative /ul (Negative); Protein-Dipstick Negative (Negative); Urine Bilirubin Dipstick Negative (Negative); Urine Clarity Clear (Clear); Urine Urobilinogen Normal (Normal)
[2023-02-25 13:06] LABS: Microalbumin,Random Urine 18.1 mg/L (NO RANGE EST.); Microalbumin:Creatinine Ratio 73.6 mg/g CRE (<30 mg/g CRE)
== END | disposition home or self-care (01) ==
LOC: BIMLAB 10:32
PROVIDERS: PCP Internal Medicine; Visit Provider Internal Medicine
DX: E11.9 Type 2 diabetes mellitus without complications (principal); R39.11 Hesitancy of micturition
CPT/HCPCS: 81001; 82043; 82570

== ENCOUNTER → 2023-02-27 | Outpatient (CLI) | payer BC, SELFPAY ==
--- NOTE | 2023-02-27 15:14 | MRI_ITS ---
INDICATION: Cervicalgia; gait imbalance EXAMINATION: MRI - MR Spine Cervical W/O Contrast TECHNIQUE: Multiplanar and multisequence MR images of the cervical spine were performed. IV Contrast Dosage and Agent: None. COMPARISON: 11/12/2022 CT. No prior MRI for comparison. FINDINGS: No acute abnormal bone marrow signal. No fracture or subluxation. Degenerative signal changes in the discs. Mild spondylotic degenerative change. Zlar-uj-ypjkwkag facet arthrosis. Exam is limited due to poor dvtgvp-oq-bjgxt ratio with the neural foramina not well evaluated on the axial images. C2-C3: Unremarkable. C3-C4: Unremarkable. C4-C5: Unremarkable. C5-C6: Unremarkable. C6-C7: Small broad posterior disc protrusion with no significant central canal stenosis. C7-T1: Unremarkable. CERVICAL SPINAL CORD: Unremarkable. CRANIOCERVICAL JUNCTION: Unremarkable. SOFT TISSUES: Unremarkable. MRI/Spine Cervical (Routine) IMPRESSION: Mild degenerative changes and a small disc protrusion at C6-C7 with no evidence of significant central canal stenosis. Exam is limited due to poor efwxpf-sk-ymrjf ratio with the neural foramina not well evaluated. Electronically Signed: Guilherme Orellana DO at 22:48 EDT ,
== END | disposition home or self-care (01) ==
PROVIDERS: PCP Internal Medicine; Referring Provider Psychiatry & Neurology Neurology; Visit Provider Psychiatry & Neurology Neurology
DX: M54.2 Cervicalgia (principal); R26.89 Other abnormalities of gait and mobility; Z91.81 History of falling
CPT/HCPCS: 72141

== ENCOUNTER → 2023-03-11 | Outpatient (CLI) | payer BC, SELFPAY ==
[2023-03-11 14:35] LABS: Bacteria 0 SEEN /hpf (None Seen); Mucous, Urine 0 SEEN /hpf (<or=2+); Red Blood Cells-Urine 0 SEEN /hpf (0-5); Squamous Epithelial Cells - UA 0 SEEN /hpf (0-5); White Blood Cells 0 SEEN /hpf (0-5)
[2023-03-11 14:45] LABS: Color, Urine Yellow (Yellow); Glucose, Dipstick 1000 mg/dl (Normal); Ketone-Dipstick Negative (Negative); Leukocyte Esterase-Dipstick Negative /ul (Negative); Nitrite-Dipstick Negative (Negative); Occult Blood-Urine Negative /ul (Negative); Protein-Dipstick 15 mg/dl (Negative); Specific Gravity, Urine 1.015 (1.002-1.030); Urine Bilirubin Dipstick Negative (Negative); Urine Clarity Clear (Clear); Urine Urobilinogen Normal (Normal)
== END | disposition home or self-care (01) ==
LOC: LABSPEC 14:33
PROVIDERS: PCP Internal Medicine; Referring Provider Internal Medicine; Visit Provider Internal Medicine
DX: R35.0 Frequency of micturition (principal)
CPT/HCPCS: 81001

== ENCOUNTER → 2023-03-14 | Outpatient (CLI) | payer BC, SELFPAY ==
--- NOTE | 2023-03-14 14:38 | CT_ITS ---
STUDY: CT ABDOMEN AND PELVIS WITH CONTRAST REASON FOR EXAM: Male, 62 years old. cirrhosis RADIATION DOSAGE (If Supplied By Facility): CTDIvol = ( 15.41 ) mGy, DLP = ( 1305.09 ) mGycm TECHNIQUE: Transaxial images were obtained from the dome of the diaphragm to the symphysis pubis without oral contrast. 100mL Isovue-300 was administered. Sagittal and coronal images were reconstructed. Individualized dose optimization techniques were used for this CT. COMPARISON: None. FINDINGS: The visualized lung bases are unremarkable. The visualized portions of the heart are within normal limits. Sternotomy wires. No hepatic masses. Gallbladder sludge layers dependently. Normal spleen. Normal pancreas. Normal bilateral adrenal glands. Punctate calculi of the inferior right kidney are stable. No hydronephrosis. Status post surgery of the stomach. Normal small intestine. Normal colon. The appendix is visualized and appears normal. Normal abdominal aorta. There is an IVC filter in place. Normal retroperitoneum. Poorly evaluated/distended urinary bladder. Metallic implants of the prostate gland. Normal abdominal wall. There are diffuse degenerative changes of the visualized lumbar spine. 9.7 mm sclerotic lesion of right L2 vertebral body on image 45 series [address]/Abdomen/Pelvis WITH Contrast IMPRESSION: 1. Metallic implants of the prostate gland. No pelvic sidewall adenopathy. 2. Nonspecific 9.7 mm L2 sclerotic lesion, unchanged since 10/07/2022. Electronically Signed: Blair Patrick MD ([place]) at 19:16 EDT ,
[2023-03-14 15:04] LABS: EGFR FINGERSTICK > 60.0000 mL/min (>60)
== END | disposition home or self-care (01) ==
LOC: CT 14:32
PROVIDERS: PCP Internal Medicine; Referring Provider Internal Medicine; Visit Provider Internal Medicine
DX: K74.60 Unspecified cirrhosis of liver (principal)
CPT/HCPCS: 74177; Q9967

== ENCOUNTER 2023-03-20 06:44 | Outpatient (RCR) | payer BC, SELFPAY ==
[2023-03-20 07:49] LABS: International Normalized Ratio 2.1; Prothrombin Time (Protime)PT. 23.4 SECONDS (11.7-14.9)
== END 2023-03-20 18:00 | disposition home or self-care (01) ==
LOC: LAB 06:44
PROVIDERS: PCP Internal Medicine; Referring Provider Nurse Practitioner Family; Visit Provider Nurse Practitioner Family
DX: Z79.01 Long term (current) use of anticoagulants (principal); Z95.2 Presence of prosthetic heart valve
CPT/HCPCS: 36415; 85610

== ENCOUNTER → 2023-03-20 | Outpatient (CLI) | payer BC, SELFPAY ==
--- NOTE | 2023-03-20 14:45 | RAD_ITS ---
STUDY: X-RAY - LUMBAR SPINE REASON FOR EXAM: Male, 62 years old. sclerotic lesion on CT abdomen TECHNIQUE: 3 view(s) of the lumbar spine were obtained. COMPARISON: Bone scan 08/27/2022, CT scan 03/14/2023 FINDINGS: Normal lumbar lordosis. There is no substantial scoliosis. There is a normal alignment of the vertebrae. There is multilevel endplate spondylosis of the lumbar vertebrae. There is multi-level degenerative disc disease with multi-level disc space narrowing. There is no demonstrated fracture. No focal blastic or lytic lesions are seen. IVC filter in normal position. RAD/Lumbar Spine 2 or 3 Views IMPRESSION: Degenerative changes consistent with patient''s age. No definite lytic or blastic lesions. Note: Radiographs are far less sensitive than the recent CT scan or the bone scan performed in August. Electronically Signed: Pj Luis MD at 16:17 EDT ,
== END | disposition home or self-care (01) ==
LOC: RAD 14:41
PROVIDERS: PCP Internal Medicine; Referring Provider Internal Medicine; Visit Provider Internal Medicine
DX: M89.9 Disorder of bone, unspecified (principal)
CPT/HCPCS: 72100

== ENCOUNTER 2023-04-16 07:07 | Outpatient (RCR) | payer BC, SELFPAY ==
[2023-04-16 08:19] LABS: International Normalized Ratio 1.5; Prothrombin Time (Protime)PT. 18.5 SECONDS (11.7-14.9)
== END 2023-04-16 18:00 | disposition home or self-care (01) ==
LOC: LAB 07:07
PROVIDERS: PCP Internal Medicine; Referring Provider Nurse Practitioner Family; Visit Provider Nurse Practitioner Family
DX: I35.9 Nonrheumatic aortic valve disorder, unspecified
CPT/HCPCS: 36415; 85610

== ENCOUNTER → 2023-04-23 | Outpatient (CLI) | payer BC, SELFPAY ==
--- NOTE | 2023-04-23 11:55 | RAD_ITS ---
STUDY: X-RAY - UNILATERAL RIBS ( RIGHT ) WITH CHEST REASON FOR EXAM: Male, 62 years old. Right rib pain s/p fall TECHNIQUE - RIBS: 4 view(s) of the ribs. TECHNIQUE - CHEST: Single PA view of the chest. COMPARISON: Comparison is made with prior chest radiograph dated January 13, 2023. FINDINGS - RIBS: Normal visualized ribs without a demonstrated fracture. FINDINGS - CHEST: The lungs are clear and expanded. There is no demonstrated pleural abnormality. Sternal cerclage wires and vascular clips are present from a prior sternotomy and coronary artery bypass graft procedure (CABG). Mild cardiomegaly. Normal mediastinum and arun. Normal visualized pulmonary arteries. There is atherosclerotic calcification of the aortic arch with tortuosity. There are diffuse degenerative changes of the visualized thoracic spine. Normal visualized ribs, clavicles, and shoulders. Inferior vena cava filter is seen. RAD/Ribs Uni Min 3V w/PA Chest IMPRESSION: RIBS: Normal x-ray examination of the ribs. CHEST: Normal x-ray examination of the chest. Electronically Signed: Kenton De Anda MD at 12:46 EDT ,
== END | disposition home or self-care (01) ==
LOC: MTLAB 11:52
PROVIDERS: PCP Internal Medicine; Referring Provider Physician Assistant; Visit Provider Physician Assistant
DX: R07.81 Pleurodynia (principal); W19.XXXA Unspecified fall, initial encounter
CPT/HCPCS: 71101

== ENCOUNTER 2023-05-22 06:43 | Outpatient (RCR) | payer BC, SELFPAY ==
[2023-05-01 07:07] LABS: International Normalized Ratio 3.4; Prothrombin Time (Protime)PT. 34.8 SECONDS (11.7-14.9)
[2023-05-22 08:27] LABS: Prothrombin Time (Protime)PT. 40.7 SECONDS (11.7-14.9)
[2023-05-22 08:36] LABS: International Normalized Ratio 4.1
== END 2023-05-22 18:00 | disposition home or self-care (01) ==
LOC: LAB 06:43
PROVIDERS: PCP Internal Medicine; Referring Provider Nurse Practitioner Family; Visit Provider Nurse Practitioner Family
DX: Z79.01 Long term (current) use of anticoagulants (principal); Z95.2 Presence of prosthetic heart valve
CPT/HCPCS: 36415; 85610

== ENCOUNTER 2023-06-18 06:53 | Outpatient (RCR) | payer BC, SELFPAY ==
[2023-05-30 09:20] LABS: International Normalized Ratio 2.2; Prothrombin Time (Protime)PT. 24.7 SECONDS (11.7-14.9)
[2023-06-18 07:47] LABS: International Normalized Ratio 3.1; Prothrombin Time (Protime)PT. 32.1 SECONDS (11.7-14.9)
[2023-06-18 08:18] LABS: AST(SGOT) 33 U/L (15-37); Alanine Aminotransfer ALT/SGPT 36 U/L (16-61); Albumin, Serum 3.7 g/dL (3.2-5.0); Alkaline Phosphatase 144 U/L (45-117); Bilirubin, Direct 0.41 mg/dL (0.00-0.30); Cholesterol 137 mg/dL (200); Globulin 3.8 g/dL (2.2-4.2); High Density Lipoprotein 38 mg/dL; Protein, Total 7.5 g/dL (6.4-8.2); Triglycerides 199 mg/dL; Very Low Density Lipoprotein 40 mg/dL (5-40)
== END 2023-06-22 18:00 | disposition home or self-care (01) ==
LOC: LAB 06:53
PROVIDERS: PCP Internal Medicine; Referring Provider Nurse Practitioner Family; Visit Provider Nurse Practitioner Family
DX: Z79.01 Long term (current) use of anticoagulants (principal); Z95.2 Presence of prosthetic heart valve
CPT/HCPCS: 36415; 80061; 80076; 85610

== ENCOUNTER → 2023-06-24 | Outpatient (CLI) | payer BC, SELFPAY ==
[2023-06-24 16:08] LABS: Bacteria 0 SEEN /hpf (None Seen); Mucous, Urine 0 SEEN /hpf (<or=2+); Red Blood Cells-Urine 0 SEEN /hpf (0-5); Squamous Epithelial Cells - UA 0 SEEN /hpf (0-5); White Blood Cells 0 SEEN /hpf (0-5)
[2023-06-24 16:52] LABS: Color, Urine Yellow (Yellow); Glucose, Dipstick 100 mg/dl (Normal); Ketone-Dipstick Negative (Negative); Leukocyte Esterase-Dipstick Negative /ul (Negative); Nitrite-Dipstick Negative (Negative); Occult Blood-Urine Negative /ul (Negative); Protein-Dipstick Negative (Negative); Specific Gravity, Urine 1.015 (1.002-1.030); Urine Bilirubin Dipstick Negative (Negative); Urine Clarity Clear (Clear); Urine Urobilinogen Normal (Normal); Urine pH 6.5 (5.0 - 8.0)
[2023-06-24 17:06] LABS: Anion Gap 6 (5-15); BUN 30 mg/dL (7-18); BUN/Creat Ratio 18.6 RATIO (10-20); Calcium,Total 9.8 mg/dL (8.5-10.1); Chloride 103 mmol/L (98-107); Creatinine, Serum 1.61 mg/dL (0.70-1.30); EST Glomerular Filtration Rate 46 mL/min (>60); Est Glom Filt Rate - Afr Amer 56 mL/min (>60); Glucose 169 mg/dL (74-106); Potassium 3.7 mmol/L (3.5-5.1); Sodium Level 138 mmol/L (136-145)
== END | disposition home or self-care (01) ==
LOC: BIMLAB 16:06
PROVIDERS: PCP Internal Medicine; Visit Provider Internal Medicine
DX: E11.9 Type 2 diabetes mellitus without complications (principal)
CPT/HCPCS: 36415; 80048; 81001

== ENCOUNTER 2023-07-14 07:59 | Outpatient (RCR) | payer BC, SELFPAY ==
[2023-07-01 17:26] LABS: International Normalized Ratio 3.6; Prothrombin Time (Protime)PT. 36.4 SECONDS (11.7-14.9)
[2023-07-14 09:09] LABS: International Normalized Ratio 3.4; Prothrombin Time (Protime)PT. 34.6 SECONDS (11.7-14.9)
[2023-07-14 09:13] LABS: PSA,Total- Diagnostic 0.05 ng/mL (0.0-4.0)
== END 2023-07-14 18:00 | disposition home or self-care (01) ==
LOC: LAB 07:59
PROVIDERS: Student in an Organized Health Care Education/Training Program; PCP Internal Medicine; Referring Provider Nurse Practitioner Family; Visit Provider Nurse Practitioner Family
DX: Z79.01 Long term (current) use of anticoagulants (principal); Z95.2 Presence of prosthetic heart valve; C61 Malignant neoplasm of prostate
CPT/HCPCS: 36415; 84153; 85610

== ENCOUNTER → 2023-07-21 | Outpatient (CLI) | payer BC, SELFPAY ==
--- OUTSIDE RECORDS SUMMARY | 2023-07-21 08:12 | XMS RPT_ITS | CCD ---
Author Name Unknown Address [address] [place] [address] Organization [facility] Care Team Providers Care [employer] Name Role Phone Compa Wills Unavailable [phone] Luis Antonio Centeno Unavailable COMPA HERNANDEZ Unavailable Unavailable LUIS ANTONIO CENTENO Unavailable Unavailab COMPA Busby Unavailable Unavailable COMPA WILLS Unavailable Unavailable LUIS ANTONIO CENTENO Unavailable Unavailab LUIS ANTONIO Thakur Unavailable Unavailab COMPA Gardner Unavailable Unavailable Compa Wills Primary Care Provider Luis Antonio Centeno Unavailable Allergies Allergy Classification Reported Allergen(s) Allergy Type Date of Onset Reaction(s) Facility (4 sources) aspirin; Translations: [ASPIRIN] Drug Allergy 6 Hives [facility] Work Phone: (4 sources) Iodine Compounds; Translations: [IODINE AND IODIDE CONTAINING PRODUCTS] Propensity to adverse reactions to drug 6 Unknown [facility] Work Phone: Medications Current Medications Medication Drug Class(es) Dates Sig (Normalized) Sig (Original) atorvastatin 40 mg oral tablet (1 source) HMG-CoA Reductase Inhibitor Start: 12-29-2017 take 1 tablet by mouth once daily atorvastatin (LIPITOR) 40 MG tablet Take 40 mg by mouth daily. 0 12/29/2017 Active biotin (2 sources) take 1 tablet by mouth once daily BIOTIN ORAL Take 1 tablet by mouth daily. 0 Active Completed/Discontinued Medications Medication Drug Class(es) Dates Sig (Normalized) Sig (Original) NALTREXONE HCL/BUPROPION HCL (CONTRAVE ORAL) (1 source) End: 05-13-2017 take 2 tablets by mouth twice daily NALTREXONE HCL/BUPROPION HCL (CONTRAVE ORAL) Take 2 tablets by mouth 2 (two) times a day. 05/13/2017 Discontinued Problems Problem Classification Problem Date Documented Da te Episodic/Chronic Cardiac dysrhythmias (7 sources) Paroxysmal atrial fibrillation; Translations: [Paroxysmal atrial fibrillation] Onset: 05-15-2016 05-13-2017 Chronic Heart valve disorders (2 sources) History of aortic valve replacement; Translations: [S/P AVR (aortic valve replacement)] Onset: 05-15-2016 05-15-2016 Chronic Results Test Name Value Interpretation Reference Range Facil ity Vital Signs Date Time Vital Sign Value Performing Clinician Italia martinez 05-13-2017 09:46-0500 BP Diastolic 75 mm[Hg] [facility] 05-13-2017 09:46-0500 BP Systolic 113 mm[Hg] [facility] Work [facility]: 05-13-2017 09:46-0500 Pulse (Heart Rate) 63 /min [facility] Work [facility]: 05-13-2017 09:40-0500 BMI (Body Mass Index) 46.13 kg/m2 [facility] Work Phone: 05-13-2017 09:40-0500 Height 177.8 cm [facility] Work [facility]: 05-13-2017 09:40-0500 Weight 145.83 kg Luis Antonio [facility] Work Phone: Encounters Encounter Date Encounter Type Care Provider Facility Start: 08-23-2020 End: 08-23-2020 Orders Only Lennie Ledezma Work Phone: [facility] Start: 03-25-2018 End: 03-26-2018 Patient encounter procedure LUIS ANTONIO BROOKS [facility] Start: 05-13-2017 End: 05-13-2017 Ambulatory COMPA HERNANDEZ [facility] Start: 05-13-2017 Office outpatient vi sit 15 minutes Compa Hernandez Work Phone: [facility] Plan of Treatment Date Care Activity Detail Author Start: 09-04-2022 Tetanus vaccination Tetanus: Every 10yrs [facility] Start: 02-22-2020 Influenza vaccination given Sequential Influenza Vaccine (#1) [facility] Start: 2017 CLASS III : OFFICE VISIT CLASS III : OFFICE VISIT [facility] Work Phone: Start: 02-21-2017 Influenza vaccination SEQUENTIAL INFLUENZA VACCINE (#1) [facility] Work Phone: Start: 11-09-2009 Administration of herpes zoster vaccine Zoster Vaccines (1 of 2) [facility] Start: 11-09-2009 Screening for malignant neoplasm of colon [facility] Start: 11-09-1977 Hepatitis C antibody, confirmatory test Hepatitis C Screening [facility] Start: 1975 COVID-19 Vaccine (1 of 2) COVID-19 Vaccine (1 of 2) [facility] Start: 11-09-1974 HIV screening HIV Screening [facility] Start: 1971 Adolescent depression screening assessment Depression Screening (PHQ9) [facility] Start: 11-09-1962 History and physical examination, annual for health maintenance Wellness Visit [facility] Start: 1959 Prostate specific antigen measurement PSA Level [facility] Start: 1959 CLASS III : CREATININE CLASS III : CREATININE [facility] Work Phone: Start: 1959 CLASS III : EKG CLASS III : EKG [facility] Work Phone: Start: 1959 CLASS III : MAGNESIUM CLASS III : MAGNESIUM [facility] Work Phone: Start: 1959 CLASS III : POTASSIUM CLASS III : POTASSIUM [facility] Work Phone: Start: 1959 HEPATITIS C SCREENING HEPATITIS C SCREENING [facility] Work Phone: Start: 1959 Screening colonoscopy COLONOSCOPY [facility] Work Phone: Start: 1959 Tetanus vaccination TETANUS EVERY 10 YR [facility] Work Phone: Payers Date Payer Category Payer Unknown [id number] 2015 Unknown K[employer]USHAL JALLOH/PREF/HMO/PPO [id number] 2015-Present [id number] 1959 Unknown [id number] Social History Date Type Detail Facility Start: 05-13-2017 End: 03-24-2018 Tobacco smoking status NHIS Former smoker [facility] Work Phone: End: 06-23-2014 History of tobacco use Current smoker [facility] Work Phone: Sex Assigned At Not on file [facility] Work Phone: Start: 03-24-2018 Tobacco use and exposure Former user [facility] Start: 03-24-2018 Alcohol intake Current drinke r of alcohol (finding) [facility] Start: 09-20-2016 Alcohol Comment rob [facility] Instructions * Patient Instructions - Emmy Scales RN - 05/13/2017 9:30 AM EST 1. Please increase your Metoprolol from 25 mg to 50 mg twice daily. in this encounter Assessments Diagnosis Paroxysmal atrial fibrillati on - Primary Atrial fibrillation Summary Purpose Family History No Family History Records FoundNo Family History Records FoundNo Family History Records Found Advance Directives Latest Code Status on File Code Status Date Activated Date Inactivated Comments Full Code - Unverified 07/03/2016 10:33 AM Additional Source Comments Assessment & Plan Note - Luis Antonio Centeno MD - 05/13/2017 10:06 AM EST Miscellaneous Notes (unrecog nized section and content) Associated Problem(s): Paroxysmal atrial fibrillation I would advise continuation of Tikosyn at this juncture. I am not in favor of repeat ablation as of yet. Metoprolol was increased to 50 mg twice daily. I suggested continued efforts at weight loss and compliance with CPAP for obstructive sleep apnea. He plans to have repeat echocardiography for reassessment of valve function and left ventricular systolic function through Dr. Hernandez's office. A 30 day MCOT to assess atrial fibrillation burden would also be useful. Further adjustment of his diuretic regimen may be needed.in this encounter (unrecognized sect ion and content) No Status Records FoundNo Status Records FoundNo Status Records Found INFORMATION SOURCE (unrecogn ized section and content) DATE CREATED AUTHOR AUTHOR'S GENARO ATION 05/31/2018 [facility] DATE CREATED AUTHOR AUTHOR'S ORGANIZ ATION 04/02/2019 [facility] FOR RECORDS PERTAINING TO PATIENTS WHO ARE OR HAVE BEEN ENROLLED IN A CHEMICAL DEPENDENCY/SUBSTANCEABUSE PROGRAM, SOME INFORMATION MAY BE OMITTED. This clinical summary was aggregated from multiple sources. Caution should be exercised in using it in the provision of clinical care. This summary normalizes information from multiple sources, and as a consequence, information in this document may materially change the coding, format and clinical context of patient data. In addition, data may be omitted in some cases. CLINICAL DECISIONS SHOULD BE BASED ON THE PRIMARY CLINICAL RECORDS. [facility] [employer] [facility]. provides no warranty or guarantee of the accuracy or completeness of information in this document.
[2023-07-21 09:51] LABS: Anion Gap 7 (5-15); BUN 28 mg/dL (7-18); BUN/Creat Ratio 19.7 RATIO (10-20); Calcium,Total 9.8 mg/dL (8.5-10.1); Chloride 105 mmol/L (98-107); Creatinine, Serum 1.42 mg/dL (0.70-1.30); EST Glomerular Filtration Rate 53 mL/min (>60); Est Glom Filt Rate - Afr Amer 65 mL/min (>60); Glucose 182 mg/dL (74-106); Potassium 3.4 mmol/L (3.5-5.1); Sodium Level 138 mmol/L (136-145)
== END | disposition home or self-care (01) ==
LOC: LAB 07:57
PROVIDERS: PCP Internal Medicine; Visit Provider Physician Assistant Medical
DX: E11.9 Type 2 diabetes mellitus without complications (principal); Z51.81 Encounter for therapeutic drug level monitoring; Z79.899 Other long term (current) drug therapy
CPT/HCPCS: 36415; 80048

== ENCOUNTER → 2023-07-30 | Outpatient (CLI) | payer BC, SELFPAY ==
--- OUTSIDE RECORDS SUMMARY | 2023-07-30 08:54 | XMS RPT_ITS | CCD ---
Author Name Unknown Address [address] [place] [address] Organization [facility] Care Team Providers Care [employer] Eng[employer]ver Name Role Phone Compa Wills Unavailable [phone] Luis Antonio Centeno Unavailable [phone] COMPA HERNANDEZ Unavailable Unavailable LUIS ANTONIO CENTENO Unavailable Unavailab COMPA Busby Unavailable Unavailable COMPA WILLS Unavailable Unavailable LUIS ANTONIO CENTENO Unavailable Unavailab LUIS ANTONIO Thakur Unavailable Unavailab COMPA Gardner Unavailable Unavailable Compa Wills Primary Care Provider Luis Antonio Centeno Unavailable Allergies Allergy Classification Reported Allergen(s) Allergy Type Date of Onset Reaction(s) Facility (4 sources) aspirin; Translations: [ASPIRIN] Drug Allergy 6 Hives [facility] Work Phone: (4 sources) Iodine Compounds; Translations: [IODINE AND IODIDE CONTAINING PRODUCTS] Propensity to adverse reactions to drug 6 Unknown [facility] Work Phone: Medications Current Medications Medication Drug [...] 09:46-0500 BP Diastolic 75 mm[Hg] [facility]: 05-13-2017 09:46-0500 BP Systolic 113 mm[Hg] [facility] Work Phone: 05-13-2017 09:46-0500 Pulse (Heart Rate) 63 /min [facility] Work Phone: 05-13-2017 09:40-0500 BMI (Body Mass Index) 46.13 kg/m2 [facility] Work Phone: 05-13-2017 09:40-0500 Height 177.8 cm [facility] Work Phone: 05-13-2017 09:40-0500 Weight 145.83 kg Luis Antonio [facility] Work Phone: Encounters Encounter Date Encounter Type Care Provider Facility Start: 08-23-2020 End: 08-23-2020 Orders Only Lennie Ledezma Work Phone: [facility] Start: 03-25-2018 End: 03-26-2018 Patient encounter procedure LUIS ANTONIO BROOKS [facility] Start: 05-13-2017 End: 05-13-2017 Ambulatory COMPA HERNANDEZ [facility] Start: 05-13-2017 Office outpatient vi sit 15 minutes Compa Hernandez Work Phone: [facility] Plan of Treatment Date Care Activity Detail Author Start: 09-04-2022 Tetanus vaccination Tetanus: Every 10yrs [facility] Start: 02-22-2020 Influenza vaccination given Sequential Influenza Vaccine (#1) [facility] Start: 2017 CLASS III : OFFICE VISIT CLASS III : OFFICE VISIT [facility] Work Phone: Start: 02-21-2017 Influenza vaccination SEQUENTIAL INFLUENZA VACCINE (#1) [facility] Work Phone: Start: 11-09-2009 Administration of herpes zoster vaccine Zoster Vaccines (1 of 2) [facility] Start: 11-09-2009 Screening for malignant neoplasm of colon [facility] Start: 11-09-1977 Hepatitis C antibody, confirmatory test Hepatitis C Screening [facility] Start: 1975 COVID-19 Vaccine (1 of 2) COVID-19 Vaccine (1 of 2) [facility] Start: 11-09-1974 HIV screening HIV Screening [facility] Start: 1971 Adolescent depression screening assessment Depression Screening (PHQ9) [facility] Start: 11-09-1962 History and physical examination, annual for health maintenance Wellness Visit [facility] Start: 1959 Prostate specific antigen measurement PSA Level [facility] Start: 1959 CLASS III : CREATININE CLASS III : CREATININE [facility] Work Phone: Start: 1959 CLASS III : EKG CLASS III : EKG [facility] Work Phone: Start: 1959 CLASS III : MAGNESIUM CLASS III : MAGNESIUM [facility] Work Phone: Start: 1959 CLASS III : POTASSIUM CLASS III : POTASSIUM [facility] Work Phone: Start: 1959 HEPATITIS C SCREENING HEPATITIS C SCREENING [facility] Work Phone: Start: 1959 Screening colonoscopy COLONOSCOPY [facility] Work Phone: Start: 1959 Tetanus vaccination TETANUS EVERY 10 YR [facility] Work Phone: Payers Date Payer Category Payer Unknown [id number] 2015 Unknown KAUSHAL JALLOH/PREF/HMO/PPO [id number] 2015-Present [id number] 1959 Unknown [id number] Social History Date Type Detail Facility Start: 05-13-2017 End: 03-24-2018 Tobacco smoking status NHIS Former smoker [facility] Work Phone: End: 06-23-2014 History of tobacco use Current smoker [facility] Work Phone: Sex Assigned At Not on file [facility] Work Phone: Start: 03-24-2018 Tobacco use and exposure Former user [facility] Start: 03-24-2018 Alcohol intake Current drinke r of alcohol (finding) [facility] Start: 09-20-2016 Alcohol Comment rob [facility] Instructions * Patient Instructions - Emmy Scales [...] DATE CREATED AUTHOR AUTHOR'S GENARO ATION 05/31/2018 [facility] DATE CREATED AUTHOR AUTHOR'S ORGANIZ ATION 04/02/2019 [facility] FOR RECORDS PERTAINING TO PATIENTS WHO ARE [...] BE BASED ON THE PRIMARY CLINICAL RECORDS. [facility]. provides no warranty or guarantee of the accuracy or completeness of information in this document.
--- NOTE | 2023-07-30 12:49 | NEURO_ITS ---
NCS and/or EMG Patient Report Ordering Doctor: Silva Webster DATE OF SERVICE: 07/30/23 Renato presents for electrodiagnostic testing of the upper limbs. He complains of numbness and tingling in both hands. Electrodiagnostic Testing: Testing was performed in the upper limbs. Median motor nerve on the right side demonstrates prolonged distal latency with normal amplitude and reduced conduction velocity. Left median motor nerve demonstrates prolonged distal latency with normal amplitude. Decreased ulnar motor amplitudes and conduction velocities bilaterally. Prolonged left ulnar F?wave. Absent median sensory latency at the wrist bilaterally. Absent median palmar latency bilaterally. Absent radial sensory responses bilaterally. Absent right ulnar sensory response. Needle EMG testing was performed in the upper limbs. Decreased recruitment pattern noted bilaterally in the first dorsal interosse ous. Electrodiagnostic impression: This is an abnormal study in the upper limbs 1. Electrodiagnostic findings are suggestive of peripheral polyneuropathy, with evidence of both demyelination and axonal loss. There is sensory and motor nerve involvement. Correlation should be made with electrodiagnostic testing in the lower limbs to more accurately assess for this condition. Multi [facility] Codes Neurology Neurology Interp Codes: 75035-94 Musc test done w/n test comp (interp) (2) and 87268-65 [facility] cndj test 13/> studies (interp)
== END | disposition home or self-care (01) ==
LOC: PSN 08:30
PROVIDERS: PCP Internal Medicine; Referring Provider Internal Medicine; Visit Provider Internal Medicine
DX: G62.9 Polyneuropathy, unspecified (principal)
CPT/HCPCS: 95886; 95913

== ENCOUNTER 2023-09-17 07:02 | Outpatient (RCR) | payer BC, SELFPAY ==
[2023-09-02 07:55] LABS: International Normalized Ratio 3.5; Prothrombin Time (Protime)PT. 34.8 SECONDS (11.7-14.9)
[2023-09-17 08:31] LABS: International Normalized Ratio 3.4
== END 2023-09-21 01:12 | disposition home or self-care (01) ==
LOC: LAB 07:02
PROVIDERS: PCP Internal Medicine; Referring Provider Nurse Practitioner Family; Visit Provider Nurse Practitioner Family
DX: Z79.01 Long term (current) use of anticoagulants (principal); Z95.2 Presence of prosthetic heart valve
CPT/HCPCS: 36415; 85610

== ENCOUNTER 2023-10-05 14:38 | Emergency (ER) | payer BC, SELFPAY ==
[2023-10-05 14:39] VITALS: BP 115/80; PULSE 95; RESP 18; TEMP 36.7; O2SAT 95; BMI 41.7
--- NOTE | 2023-10-05 15:07 | CT_ITS ---
STUDY: CT THORACIC SPINE WITHOUT CONTRAST REASON FOR EXAM: Male, 62 years old. thoracic injury TECHNIQUE: The patient was scanned in a multi detector CT scanner. High resolution imaging was performed. Images were obtained from T1 to T12. Sagittal and coronal images were reconstructed. Individualized dose optimization techniques were used for this CT. COMPARISON: None. FINDINGS: Normal visualized cervical spine. Normal kyphosis of the thoracic spine. There is no substantial scoliosis. There is multilevel endplate spondylosis of the thoracic spine. There is multilevel degenerative disc disease with loss of the disc space heights. Median sternotomy wires. Coronary artery calcifications. Thoracic aortic calcifications. Subcentimeter mediastinal lymph nodes. The soft tissue structures are unremarkable. CT/Spine Thoracic without Contras IMPRESSION: (NOT LISTED IN ORDER OF SIGNIFICANCE) There are degenerative changes as noted above. Electronically Signed: Callum Oliva MD at 16:01 EDT ,
--- NOTE | 2023-10-05 15:07 | CT_ITS ---
STUDY: CT LUMBAR SPINE WITHOUT CONTRAST REASON FOR EXAM: Male, 62 years old. Trauma hit head RADIATION DOSAGE (If Supplied By Facility): CTDIvol = ( 47.90 ) mGy, DLP = ( 1846.75 ) mGycm Individualized dose optimization techniques were used for this CT. TECHNIQUE: The patient was scanned in a multi detector CT scanner. High resolution transaxial imaging was performed. Images were obtained from T12 to S1. Sagittal and coronal images were reconstructed. COMPARISON: None FINDINGS: There is normal alignment. The vertebral bodies do maintain their height. No pre-vertebral soft tissue swelling is seen. The conus medullaris is seen at the level of L1. There is no anterolisthesis or fracture. The intravertebral disc height is lost. There are degenerative changes of the osseous structures. There is bilateral facet arthropathy. IVC filter in place. Degenerative findings in the hips. There is bilateral neural foraminal stenosis at L4-5 and L5-S1. Normal visualized paraspinous soft tissue structures. CT/Spine Lumbar without Contrast IMPRESSION: No acute abnormality of the lumbar spine. Electronically Signed: Callum Oliva MD at 16:00 EDT ,
--- NOTE | 2023-10-05 15:07 | CT_ITS ---
EXAM: CT HEAD WITHOUT INTRAVENOUS CONTRAST CLINICAL INDICATION: head injury TECHNIQUE: Multiple axial images were obtained of the head without intravenous contrast. This CT exam was performed using one or more of the following dose reduction techniques: automated exposure control, adjustment of the mA and/or kV according to patient size, and/or use of iterative reconstruction technique. RADIATION DOSE: CTDIvol = 44.99 mGy, DLP = 829.85 mGy-cm COMPARISON: 5.31.23 FINDINGS: BRAIN AND EXTRA-AXIAL SPACES: Unremarkable. No intra- or extra-axial hemorrhage. No evidence of acute infarct. No intracranial mass or mass effect. There is preservation of the gatica/white matter interface. Posterior fossa structures are unremarkable. Ventricles are appropriate for age. No hydrocephalus. Basal cisterns are patent. BONES/JOINTS: Unremarkable. No discrete lytic or blastic abnormalities. SINUSES: Unremarkable as visualized. Clear. MASTOID AIR CELLS: Unremarkable. Clear. ORBITS: Visualized globes, extraocular muscles, optic nerves and retrobulbar fat appear unremarkable. CT/Brain/Head without Contrast IMPRESSION: Negative head/brain CT without intravenous contrast. Electronically Signed: Callum Oliva MD at 15:44 EDT ,
--- NOTE | 2023-10-05 15:07 | CT_ITS ---
EXAM: CT SPINE - CERVICAL WITHOUT IV REASON FOR EXAM: Male, 62 years old. NECK PAIN neck injury HISTORY: NECK PAIN neck injury Individualized dose optimization techniques were used for this CT. TECHNIQUE: Multiplanar images were obtained of the cervical spine. IV contrast was not utilized. COMPARISON: None. FINDINGS: The vertebral bodies do maintain their height. The odontoid process is intact. No pre-vertebral soft tissue swelling is seen. The intravertebral disc height is lost. There are scattered lymph nodes in the neck. There are degenerative changes of the osseous structures. There is bilateral facet arthropathy. There are scattered levels of foraminal stenosis. There are vascular calcifications. CT/Spine Cervical without Contras IMPRESSION: Degenerative changes of the cervical spine. There are no acute findings. Electronically Signed: Callum Oliva MD at 15:59 EDT ,
--- NOTE | 2023-10-05 15:13 | EX.ED.DYSGE1 ---
HPI <HINA Wong - Last Filed: 10/05/23 16:38> History of Present Illness Chief Complaint: Fall Narrative Narrative: Patient is a 62-year-old male with history of type 2 diabetes, obesity, hypothyroidism, COPD, atrial fibrillation on Coumadin who presents to the emergency department after mechanical fall. Patient dates he was doing some work on the counter when he slid off striking his back and the back of his head on a corner. Patient denies any LOC however the patient did come in by ambulance. Patient is bleeding from the back of his head, he denies any LOC. Patient's most of his pain is in his head neck and thoracic spine. Patient is also complaining of pain to his lumbar area. He denies any other injuries. PFS <HINA Wong - Last Filed: 10/05/23 16:38> [facility] Medical History Abrasion, right lower leg, initial encounter Anemia Aortic valvular disease Cardiology follow-up encounter Contusion of right chest wall Contusion of right foot, initial encounter COPD (chronic obstructive pulmonary disease) COVID-19 (06/19/20) CPAP (continuous positive airway pressure) dependence Dysphagia Edema Emphysema, unspecified Fatigue Former smoker GERD (gastroesophageal reflux disease) Gout History of echocardiogram History of echocardiogram History of edema History of Holter monitoring History of stress test History of stress test HLD (hyperlipidemia) Hypertension Hypokalemia Impacted cerumen of both ears Injury of back senior care current use of anticoagulant Longstanding persistent atrial fibrillation Loss of hearing Morbid obesity with BMI of 45.0-49.9, adult Nicotine abuse Nocturia Nonrheumatic aortic (valve) stenosis PAOLA (obstructive sleep apnea) Paroxysmal atrial fibrillation Prostate disease Pulmonary hypertension PVC (premature ventricular contraction) Shortness of breath Shortness of breath on exertion Thyroid disease Wears glasses Wears partial dentures Home Medications biotin 10,000 mcg-keratin 100 mg tablet 1 ea PO QHS supplement 04/12/16 [History Last Taken 03/09/20] cholecalciferol (vitamin D3) 25 mcg (1,000 unit) tablet 2,000 unit PO QHS supplement 04/12/16 [History Last Taken 03/09/20] folic acid 1 mg tablet 1 mg PO QHS supplement 04/12/16 [History Last Taken 03/09/20] ferrous sulfate 325 mg (65 mg iron) tablet 325 mg PO QHS anemia 03/10/20 [History Last Taken 03/09/20] levothyroxine 100 mcg tablet 100 mcg PO DAILY thyroid 03/10/20 [History Last Taken 10/02/22 06:30] multivitamin 1 tab PO DAILY supplement 03/10/20 [History Last Taken 03/10/20] Disability Placard #1 ea 04/20/21 [Rx Last Taken Unknown] docusate sodium 100 mg capsule 200 mg PO QHS stool softener 01/01/22 [History Last Taken Unknown] cetirizine 10 mg tablet (Zyrtec) 10 mg PO DAILY PRN ALLLERGY 04/23/22 [History Last Taken Unknown] fluticasone propionate 50 mcg/actuation nasal spray,suspension (Flonase Allergy Relief) 1 spray intranasal DAILY 04/23/22 [History Last Taken Unknown] dutasteride 0.5 mg capsule 0.5 mg PO DAILY 09/25/22 [History Last Taken Unknown] Bilateral wrist splints #2 ea 02/17/23 [Rx Last Taken Unknown] warfarin 3 mg tablet 3 mg PO DAILY 02/25/23 [History Last Taken Unknown] blood-glucose meter #1 ea 03/06/23 [Rx Last Taken Unknown] atorvastatin 40 mg tablet 40 mg PO QHS #90 tabs 06/17/23 [Rx Last Taken Unknown] tamsulosin 0.4 mg capsule 0.4 mg PO DAILY help with urinating 06/24/23 [History Last Taken Unknown] duloxetine 60 mg capsule,delayed release 60 mg PO QAM #10 caps 07/21/23 [Rx Last Taken Unknown] albuterol sulfate 90 mcg/actuation aerosol inhaler 2 puff inhalation Q4H PRN shortness of breath or wheezing #1 device 07/25/23 [Rx Last Taken Unknown] diltiazem HCl 120 mg capsule,extended release 24 hr 120 mg PO DAILY #90 caps 07/25/23 [Rx Last Taken Unknown] potassium chloride 10 mEq capsule,extended release 60 meq (6 x 10 mEq) PO DAILY Pt has Throat injury, needs capsules #540 caps 07/25/23 [Rx Last Taken Unknown] terazosin 1 mg capsule 1 mg PO QHS blood pressure #90 caps 07/25/23 [Rx Last Taken Unknown] torsemide 20 mg tablet 20 mg PO .COMPLEX #180 tabs 07/29/23 [Rx Last Taken Unknown] duloxetine 30 mg capsule,delayed release 30 mg PO QHS #90 caps 07/30/23 [Rx Last Taken Unknown] tizanidine 4 mg tablet 4 mg PO QHS #90 tabs 07/30/23 [Rx Last Taken Unknown] pantoprazole 40 mg tablet,delayed release 40 mg PO QAM #90 tabs 08/05/23 [Rx Last Taken Unknown] dapagliflozin propanediol 10 mg tablet (Farxiga) 10 mg PO DAILY #90 tabs 08/20/23 [Rx Last Taken Unknown] lancets (Accu-Chek Softclix Lancets) #100 ea 09/01/23 [Rx Last Taken Unknown] blood sugar diagnostic (Accu-Chek Guide test strips) #100 ea 09/09/23 [Rx Last Taken Unknown] spironolactone 25 mg tablet 25 mg PO DAILY #90 tabs 09/10/23 [Rx Last Taken Unknown] fluticasone fur. 100 mcg-umeclid 62.5 mcg-vilant 25 mcg inhalat.powder (Trelegy Ellipta) 1 inh inhalation DAILY #3 ea 09/12/23 [Rx Last Taken Unknown] bupropion HCl 300 mg 24 hr tablet, extended release 300 mg PO DAILY mental health #90 tabs 09/15/23 [Rx Last Taken Unknown] amoxicillin 875 mg tablet 875 mg PO BID 10 days #20 tabs 09/28/23 [Rx Last Taken Unknown] metoprolol succinate 25 mg tablet,extended release 24 hr 25 mg PO DAILY #90 tabs 10/03/23 [Rx Last Taken Unknown] oxycodone-acetaminophen 5 mg-325 mg tablet (Percocet) 1 tab PO Q8H PRN pain 3 days #10 tabs 10/05/23 [Rx Last Taken Unknown] Allergy/AdvReac Type Severity Reaction Status Date / Time aspirin Allergy Severe Hives Verified 10/05/23 14:38 Iodinated Contrast Media Allergy Severe Hives Verified 10/05/23 14:38 [Iodinated Contrast Media - IV Dye] shellfish derived Allergy Severe Hives Verified 10/05/23 14:38 Family History Father , age 40 Cancer COPD (chronic obstructive pulmonary disease) Mother Hypertension Brother Cancer Lung CA Aunt Cerebral aneurysm Brother Aortic valve disease Surgical History H/O basal cell carcinoma excision History of cardiac catheterization History of colonoscopy History of deviated nasal septum History of esophagogastroduodenoscopy (EGD) History of tonsillectomy Hx of aortic valve replacement, mechanical (~2010) Hx of gastric bypass Social History household members: spouse current occupational status: employed current occupation: [employer] Smoking Status: Former smoker quit date: 06/23/96 pack-years: 10 Tobacco: How many years used: 20 Electronic Cigarette Use: not used how long ago did patient quit smokin, 0.5 second hand exposure: Yes alcohol intake: current alcohol intake frequency: holidays/special occasions only Alcohol type: beer details: social substance use type: former substance user Date of last use: used Marijuana as a teenager caffeine: Yes Type: coffee Number of servings: 2 what type of physical activity do you participate in: walking frequency: 3-4 times per week duration: 15-30 minutes/day seatbelt use: always do you feel safe at home: Yes ROS <HINA Wong - Last Filed: 10/05/23 16:38> ROS ED ROS Narrative Constitutional: Negative for fever, chills, weight loss, weakness Eyes: Negative for vision loss, vision change, double vision ENT: Negative for any sore throat, ear pain, congestion Cardiovascular: Negative for any chest pain, tightness, palpitations Respiratory: Negative for any cough, sputum production, hemoptysis, dyspnea, dyspnea on exertion, orthopnea Gastrointestinal: Negative for any abdominal pain, nausea, vomiting, diarrhea, constipation, blood in stool, blood in vomit : Negative for any urinary frequency, dysuria, retention, blood in urine Muscle skeletal: Positive for neck, back pain Neurological: Negative for any syncope, dizziness. Positive for headache Skin: Negative for any rashes, itching, abrasions. positive scalp laceration Psychiatric: Negative for any depression, anxiety, stress, suicidal ideation, homicidal ideation Hematologic: Negative for any excessive bruising, easy bleeding EXAM <HINA Wong - Last Filed: 10/05/23 16:38> Physical Exam Narrative Exam Narrative: Vital signs reviewed. HEET: Head normocephalic atraumatic, TMs clear bilaterally. Posterior pharynx is clear, moist mucous membranes. Nares clear bilaterally. Pupils are equal round reactive to light. Patient is acting appropriate. Denies any hematoma, septal hematoma. Negative any Shepherd sign. Patient does have a laceration to the posterior scalp. Neck: Supple with no lymphadenopathy . No signs of meningismus. Cardiac: Regular rate and rhythm no murmurs gallops or rubs, equal peripheral pulses bilaterally. Respiratory: Lungs clear to auscultation bilaterally. No chest tenderness. Abdomen: Soft, nontender, nondistended. No abdominal bruit or pulsatile masses. No hepatosplenomegaly Extremities: No peripheral edema, no signs of gross trauma or deformity. Active full range of motion of all extremities. Neuro: Cranial nerves II through XII intact, no focal neurological deficits. Skin: Clean dry and intact with no rash, purpura, petechiae, vesicles or pustules. Backs/flank: No CVA tenderness, no deformity. Patient has tenderness from the cervical spine down to the lumbar spine, this is likely from falling directly hitting a corner. No step-off deformity. There is no bruising. Psych: Normal mood and affect. No SI, HI or acute psychosis. Const Vital Signs: 10/05/23 14:39 10/05/23 14:46 10/05/23 15:38 Temperature 98.1 F Temperature Source Oral Pulse Rate 95 85 Respiratory Rate 18 16 Respiratory Effort Normal Respiratory Depth Normal Respiratory Pattern Normal Blood Pressure 115/80 128/88 H Blood Pressure Mean 91 101 Pulse Ox 95 97 Oxygen Delivery Method Room Air Room Air 10/05/23 16:00 10/05/23 16:50 Temperature 97.9 F Temperature Source Pulse Rate 99 72 Respiratory Rate 16 18 Respiratory Effort Respiratory Depth Respiratory Pattern Blood Pressure 102/70 112/67 Blood Pressure Mean 80 82 Pulse Ox 96 95 Oxygen Delivery Method Room Air Positive well nourished and well developed General Appearance ED: well developed <Otoniel Pederson MD - Last Filed: 10/05/23 18:54> Physical Exam Const Vital Signs: 10/05/23 14:39 10/05/23 14:46 10/05/23 15:38 Temperature 98.1 F Temperature Source Oral Pulse Rate 95 85 Respiratory Rate 18 16 Respiratory Effort Normal Respiratory Depth Normal Respiratory Pattern Normal Blood Pressure 115/80 128/88 H Blood Pressure Mean 91 101 Pulse Ox 95 97 Oxygen Delivery Method Room Air Room Air 10/05/23 16:00 10/05/23 16:50 Temperature 97.9 F Temperature Source Pulse Rate 99 72 Respiratory Rate 16 18 Respiratory Effort Respiratory Depth Respiratory Pattern Blood Pressure 102/70 112/67 Blood Pressure Mean 80 82 Pulse Ox 96 95 Oxygen Delivery Method Room Air MDM <Compa [facility]ina [employer] - Last Filed: 10/05/23 16:38> MDM Radiography Diagnostic Testing: Clinical Impression(s) from Imaging Studies Brain CT 10/05/23 15:07 IMPRESSION: Negative head/brain CT without intravenous contrast. Electronically Signed: Callum Oliva MD at 15:44 EDT , Cervical Spine CT 10/05/23 15:07 IMPRESSION: Degenerative changes of the cervical spine. There are no acute findings. Electronically Signed: Callum Oliva MD at 15:59 EDT , Lumbar Spine CT 10/05/23 15:07 IMPRESSION: No acute abnormality of the lumbar spine. Electronically Signed: Callum Oliva MD at 16:00 EDT , Thoracic Spine CT 10/05/23 15:07 IMPRESSION: (NOT LISTED IN ORDER OF SIGNIFICANCE) There are degenerative changes as noted above. Electronically Signed: Callum Oliva MD at 16:01 EDT , Treatment and Re-Evaluation :: Differential diagnosis includes however is not limited to: Closed head injury, scalp laceration, skull fracture, intracranial bleeding, spinal fracture, spinal contusion Patient appears to be in no obvious respiratory distress vital signs are stable, patient is in atrial fibrillation however this is chronic. Patient received a CT scan of the brain cervical thoracic and lumbar spine secondary to the trauma. Tdap will be updated today. Patient will be reevaluated. All radiologic examinations were read, reviewed by the emergency department attending. From these reads, a plan of care will be put in place. Patient's brain CT was negative for any acute process. Negative for any skull fracture intracranial bleeding. Cervical spine showed degenerative changes, no acute process. Patient's lumbar spine showed no acute abnormality of the lumbar spine. CT scan thoracic spine showed no acute fracture, there are some degenerative changes. Patient's scalp wound was cleansed with 4 to 500 cc of normal saline. There was a 2.5 cm vertical scalp laceration. Sterile gloves, sterile drapes were used. I was able to place 5 cole, edges approximated nicely. Patient had these removed in 7 to 10 days. Patient be given a Percocet here, short course of Percocet for the pain. Instructed perform gentle stretching. Concussion instructions were given. Patient instructed to return for any worsening confusion, worsening headache. All questions answered, stable for discharge. <Otoniel Pederson MD - Last Filed: 10/05/23 18:54> [facility] Narrative Medical decision making narrative: Dr. Pederson: I have personally performed a face to face assessment of the patient and have reviewed the MODE Note. I performed a substantive portion of the visit including all aspects of the following. My davila findings include: History is fall after trying to mount under cabinet lighting. Fell backwards. Hit the corner of a countertop. Exam is GCS 15. ABCs intact. Positive laceration occiput with tenderness. Neurological examination nonfocal and nonlateralizing. Medical Decision Making: Check CT brain. Check CT spine. I reviewed the CT reports/radiology reports of the CT of the brain, CT of the C-spine, CT of this T-spine, and CT of the lumbar spine. No acute fracture. Laceration repair. Discharge. Other additions or changes: [None] Radiography Diagnostic Testing: Clinical Impression(s) from Imaging Studies Brain CT 10/05/23 15:07 IMPRESSION: Negative head/brain CT without intravenous contrast. Electronically Signed: Callum Oliva MD at 15:44 EDT , Cervical Spine CT 10/05/23 15:07 IMPRESSION: Degenerative changes of the cervical spine. There are no acute findings. Electronically Signed: Callum Oliva MD at 15:59 EDT , Lumbar Spine CT 10/05/23 15:07 IMPRESSION: No acute abnormality of the lumbar spine. Electronically Signed: Callum Oliva MD at 16:00 EDT , Thoracic Spine CT 10/05/23 15:07 IMPRESSION: (NOT LISTED IN ORDER OF SIGNIFICANCE) There are degenerative changes as noted above. Electronically Signed: Callum Oliva MD at 16:01 EDT , Discharge Plan Triage Chief Complaint: Fall ED Midlevel Provider: [facility] ED Provider: Otoniel Pederson Dx/Rx/DC Orders Clinical Impression: Lumbar contusion, Concussion, Cervical muscle strain, Fall, Laceration of scalp Instructions: Concussion Dc, ED Back Contusion, ED Head Injury (Adult), ED Laceration Scalp Stitches or [place], ED Neck Sprain or Strain Prescriptions: New oxycodone-acetaminophen [Percocet] 5-325 mg tablet 1 tab PO Q8H PRN (Reason: pain) 3 Days Qty: 10 0RF No Action cetirizine [Zyrtec] 10 mg tablet 10 mg PO DAILY PRN (Reason: ALLLERGY) fluticasone propionate [Flonase Allergy Relief] 50 mcg/actuation spray,suspension 1 spray intranasal DAILY Rx Instructions: administer into each nostril warfarin 3 mg tablet 3 mg PO DAILY Protocol: Dose Management Condition: Friday Dose/Route: 3 mg Instruction: 1 x 3 mg tablet Condition: Friday Dose/Route: 3 mg Instruction: 1 x 3 mg tablet Condition: Friday Dose/Route: 1.5 mg Instruction: 0.5 x 3 mg tablets Condition: Friday Dose/Route: 3 mg Instruction: 1 x 3 mg tablet Condition: Dose/Route: 1.5 mg Instruction: 0.5 x 3 mg tablets Condition: Friday Dose/Route: 3 mg Instruction: 1 x 3 mg tablet Condition: Friday Dose/Route: 3 mg Instruction: 1 x 3 mg tablet Protocol Text: Adjustment Start Date: Friday09/17/23 INR Value: 3.4 INR Date: 09/17/23 Recheck Date: 10/08/23 Rx Instructions: and Fridays 1.5mg (DME) Bilateral wrist splints See Rx Instructions .Route .MEDSUPPLY Qty: 2 0RF Rx Instructions: As directed tamsulosin 0.4 mg capsule 0.4 mg PO DAILY amoxicillin 875 mg tablet 875 mg PO BID 10 Days Qty: 20 0RF folic acid 1 MG tablet 1 mg PO QHS cholecalciferol (vitamin D3) 1,000 UNIT tablet 2,000 unit PO QHS biotin-keratin 1 EACH tablet 1 ea PO QHS docusate sodium 100 mg capsule 200 mg PO QHS ferrous sulfate 325 MG tablet 325 mg PO QHS multivitamin 1 TABLET tablet 1 tab PO DAILY levothyroxine 100 MCG tablet 100 mcg PO DAILY dutasteride 0.5 mg capsule 0.5 mg PO DAILY (DME) Disability Placard See Rx Instructions .Route .MEDSUPPLY Qty: 1 0RF Rx Instructions: expires 04/20/2026 (DME) blood-glucose meter Kit See Rx Instructions .Route Qty: 1 0RF Rx Instructions: daily atorvastatin 40 mg tablet 40 mg PO QHS Qty: 90 3RF duloxetine 60 mg capsule,delayed release(DR/EC) 60 mg PO QAM Qty: 10 0RF terazosin 1 mg capsule 1 mg PO QHS Qty: 90 0RF albuterol sulfate 90 mcg/actuation HFA aerosol inhaler 2 puff INHALATION Q4H PRN (Reason: shortness of breath or wheezing) Qty: 1 3RF Rx Instructions: administer with spacer diltiazem HCl 120 mg capsule,extended release 24hr 120 mg PO DAILY Qty: 90 3RF potassium chloride 10 mEq capsule, extended release 60 meq PO DAILY Qty: 540 3RF torsemide 20 mg tablet 20 mg PO .COMPLEX Qty: 180 3RF Rx Instructions: Twice daily every other day alternating with Once daily: this is a final dose clarification with Marty Gonzalse NP tizanidine 4 mg tablet 4 mg PO QHS Qty: 90 0RF duloxetine 30 mg capsule,delayed release(DR/EC) 30 mg PO QHS Qty: 90 0RF pantoprazole 40 mg tablet,delayed release (DR/EC) 40 mg PO QAM Qty: 90 1RF Farxiga 10 mg tablet 10 mg PO DAILY Qty: 90 1RF (DME) lancets [Accu-Chek Softclix Lancets] Misc See Rx Instructions .ROUTE .COMPLEX Qty: 100 0RF Dose Instruction: USE TO CHECK GLUCOSE ONCE DAILY Rx Instructions: USE TO CHECK GLUCOSE ONCE DAILY (DME) Accu-Chek Guide test strips Strip See Rx Instructions .Route Qty: 100 2RF Rx Instructions: daily spironolactone 25 mg tablet 25 mg PO DAILY Qty: 90 3RF Trelegy Ellipta 100-62.5-25 mcg blister with device 1 inh inhalation DAILY Qty: 3 3RF bupropion HCl 300 mg tablet extended release 24 hr 300 mg PO DAILY Qty: 90 1RF metoprolol succinate 25 mg tablet extended release 24 hr 25 mg PO DAILY Qty: 90 3RF Primary Care Provider: Silva Webster Referrals: Silva Webster MD [Primary Care Provider] - Activity Restrictions/Additional Instructions: 5 cole to the occiput, head is removed in 7 to 10 days. You may ice. Take a shower as normal just try to decrease touching the area. Disposition Disposition: Home, Self Care Discharge Date/Time: 10/05/23 16:56
[2023-10-05] MEDS: Lidocaine 1% /Epi 1:100 (20ml) 20 ML Vial INFILT (15:36)
[2023-10-05] MEDS: Diphth,Pertuss(Acell),Tet Vac 0.5 ML Vial IM (15:36)
[2023-10-05 15:38] VITALS: BP 128/88; PULSE 85; RESP 16; O2SAT 97
[2023-10-05 16:00] VITALS: BP 102/70; PULSE 99; RESP 16; O2SAT 96
[2023-10-05] MEDS: Oxycodone/Apap 5/325 Tablet PO (16:36)
[2023-10-05 16:50] VITALS: BP 112/67; PULSE 72; RESP 18; TEMP 36.6; O2SAT 95
== END 2023-10-05 16:56 | disposition home or self-care (01) ==
PROVIDERS: Emergency Provider Emergency Medicine; PCP Internal Medicine; Visit Provider Emergency Medicine
DX: S01.01XA Laceration without foreign body of scalp, initial encounter (principal); J43.9 Emphysema, unspecified; I48.11 Longstanding persistent atrial fibrillation; E11.9 Type 2 diabetes mellitus without complications; S06.0X0A Concussion without loss of consciousness, initial encounter; S16.1XXA Strain of muscle, fascia and tendon at neck level, initial encounter; S30.0XXA Contusion of lower back and pelvis, initial encounter; M54.6 Pain in thoracic spine; W17.89XA Other fall from one level to another, initial encounter; I10 Essential (primary) hypertension; E03.9 Hypothyroidism, unspecified; E78.5 Hyperlipidemia, unspecified; G47.33 Obstructive sleep apnea (adult) (pediatric); E66.9 Obesity, unspecified; Z23 Encounter for immunization; Z79.01 Long term (current) use of anticoagulants; Z79.890 Hormone replacement therapy; Z79.899 Other long term (current) drug therapy; Z87.891 Personal history of nicotine dependence; Z95.2 Presence of prosthetic heart valve
CPT/HCPCS: 12001; 70450; 72125; 72128; 72131; 90715; 99283

== ENCOUNTER 2023-10-14 06:26 | Outpatient (RCR) | payer BC, SELFPAY ==
[2023-10-10 16:29] LABS: Absolute Lymphocyte Count 0.98 X10^3/uL (0.83-4.51); Absolute Neutrophil Count 5.7 X10^3/uL (2.0-7.7); Basophil# 0.05 X10^3/uL; Basophil% 0.7 % (0-1); Eosinophil# 0.16 X10^3/uL; Eosinophils% 2.1 % (0-5); Hematocrit 43.3 % (40-54); Hemoglobin 14.2 g/dL (13.0-16.5); Lymphocyte # 0.98 X10^3/ul (0.83-4.51); Lymphocyte % 12.8 % (19-41); Mean Corp Hgb Conc 32.8 g/dL (32-36); Mean Corpuscular Hgb 30.7 pg (27.0-32.0); Mean Corpuscular Volume 93.5 fL (80-94); Mean Platelet Vol. 8.9 fl (6.2-12.0); Monocyte# 0.67 X10^3/uL; Monocyte% 8.8 % (0-10); NRBC Flagged by Analyzer 0 % (0-5); Neutrophil # 5.74 X10^3/uL (2.7-7.7); Neutrophil % 75.2 % (47-70); Platelet Count 278 K/mm3 (150-450); RBC Distribution Width SD 47.3 fl (35.1-43.9); Red Blood Count 4.63 M/mm3 (4.6-6.2); White Blood Count 7.6 K/mm3 (4.4-11.0)
[2023-10-10 16:41] LABS: ALB/GLOB Ratio 1.1 RATIO (0.9-2.4); AST(SGOT) 29 U/L (15-37); Alanine Aminotransfer ALT/SGPT 29 U/L (16-61); Alkaline Phosphatase 124 U/L (45-117); Anion Gap 7 (5-15); BUN 29 mg/dL (7-18); BUN/Creat Ratio 20.6 RATIO (10-20); Calcium,Total 9.5 mg/dL (8.5-10.1); Chloride 105 mmol/L (98-107); Creatinine, Serum 1.41 mg/dL (0.70-1.30); EST Glomerular Filtration Rate 54 mL/min (>60); Est Glom Filt Rate - Afr Amer 65 mL/min (>60); Globulin 3.5 g/dL (2.2-4.2); Glucose 136 mg/dL (74-106); Potassium 4.4 mmol/L (3.5-5.1); Protein, Total 7.5 g/dL (6.4-8.2); Sodium Level 140 mmol/L (136-145)
[2023-10-10 16:42] LABS: Prothrombin Time (Protime)PT. 38.3 SECONDS (11.7-14.9)
[2023-10-14 08:33] LABS: International Normalized Ratio 2.6; Prothrombin Time (Protime)PT. 27.9 SECONDS (11.7-14.9)
== END 2023-10-21 23:45 | disposition home or self-care (01) ==
LOC: LAB 06:26
PROVIDERS: Nurse Practitioner; PCP Internal Medicine; Referring Provider Nurse Practitioner Family; Visit Provider Nurse Practitioner Family
DX: Z79.01 Long term (current) use of anticoagulants (principal); Z95.2 Presence of prosthetic heart valve
CPT/HCPCS: 36415; 80053; 85025; 85610

== ENCOUNTER 2023-11-11 10:19 | Observation (INO) | payer BC, SELFPAY ==
[2023-11-11] VITALS (8 sets, daily range): BP systolic 102–145; BP diastolic 70–113; PULSE 59–103; RESP 16–18; TEMP 36–36.6; O2SAT 95–99; BMI 40.8; BMI 40.4
--- NOTE | 2023-11-11 10:38 | CT_ITS ---
STUDY: CT ABDOMEN AND PELVIS WITH CONTRAST REASON FOR EXAM: Male, 63 years old. Rectal bleeding RADIATION DOSAGE (If Supplied By Facility): CTDIvol = ( 22.06 ) mGy, DLP = ( 1409.96 ) mGycm TECHNIQUE: Transaxial images were obtained from the dome of the diaphragm to the symphysis pubis without oral contrast. ml of 100mL Isovue-300 contrast was administered. Sagittal and coronal images were reconstructed. Individualized dose optimization techniques were used for this CT. COMPARISON: MRI of the pelvis dated October 07, 2022 FINDINGS: The visualized lung bases are unremarkable. The visualized portions of the heart are within normal limits. Normal liver. There are multiple gallstones. Normal spleen. Normal pancreas. Normal bilateral adrenal glands. Normal right kidney. There is mild cortical atrophy of the left kidney, consistent with chronic medical renal disease. Prior gastric bypass without any visualized complications or new abnormalities. Normal small intestine. Normal colon. The appendix is visualized and appears normal. No visualized rectal mass or significant soft tissue edema or thickening. No colonic diverticula are present. Normal abdominal aorta. There is an IVC filter in place. Normal retroperitoneum. Normal urinary bladder. Stable prostate brachytherapy seeds. Normal abdominal wall. There are diffuse degenerative changes of the visualized lumbar spine. Small sclerotic densities are seen in the sacral ala and posterior superior aspect of the L2 vertebral body, unchanged since September 2022 and likely represents bone islands unless there is a history of prostate malignancy. CT/Abdomen/Pelvis W IV Cont ONLY IMPRESSION: 1. Multiple gallstones without evidence of acute cholecystitis 2. Normal colon. The appendix is visualized and appears normal. No visualized rectal mass or significant soft tissue edema or thickening. No colonic diverticula are present. Electronically Signed: Karl Arnold MD at 13:17 EDT ,
--- NOTE | 2023-11-11 10:40 | EDS_ITS ---
HPI HPI - GI History of Present Illness Chief Complaint: GI Bleed Detail of Chief Complaint: Rectal bleeding Informant: patient Narrative Narrative: Patient presents with blood in the stool that started initially about 3 months ago. Has had small amounts. He has noticed a change in his stool and that he is having smaller stools that been greasy. Denies significant abdominal pain. Yesterday passed some clots. Patient called his PCP today and was advised to come to the ER. Patient on Coumadin for history of A-fib and a mechanical aortic valve. He denies feeling lightheaded or dizzy. Patient had a colon oscopy about 3 years ago and tells me he had polyps. Patient also with history of prostate cancer and has had prostate radiation. [facility] Medical History Abrasion, right lower leg, initial encounter Anemia Aortic valvular disease Cardiology follow-up encounter Contusion of right chest wall Contusion of right foot, initial encounter COPD (chronic obstructive pulmonary disease) COVID-19 (06/19/20) CPAP (continuous positive airway pressure) dependence Dysphagia Edema Emphysema, unspecified Fatigue Former smoker GERD (gastroesophageal reflux disease) Gout History of echocardiogram History of echocardiogram History of edema History of Holter monitoring History of stress test History of stress test HLD (hyperlipidemia) Hypertension Hypokalemia Impacted cerumen of both ears Injury of back assisted current use of anticoagulant Longstanding persistent atrial fibrillation Loss of hearing Morbid obesity with BMI of 45.0-49.9, adult Nicotine abuse Nocturia Nonrheumatic aortic (valve) stenosis PAOLA (obstructive sleep apnea) Paroxysmal atrial fibrillation Prostate disease Pulmonary hypertension PVC (premature ventricular contraction) Shortness of breath Shortness of breath on exertion Thyroid disease Wears glasses Wears partial dentures Home Medications ?Medication ?Instructions ?Recorded ?Last Taken ?Type biotin 10,000 mcg-keratin 100 mg 1 ea PO QHS supplement 04/12/16 03/09/20 History tablet cholecalciferol (vitamin D3) 25 2,000 unit PO QHS supplement 04/12/16 03/09/20 History mcg (1,000 unit) tablet folic acid 1 mg tablet 1 mg PO QHS supplement 04/12/16 03/09/20 History ferrous sulfate 325 mg (65 mg 325 mg PO QHS anemia 03/10/20 03/09/20 History iron) tablet multivitamin 1 tab PO DAILY supplement 03/10/20 03/10/20 History Disability Placard #1 ea 04/20/21 Unknown Rx docusate sodium 100 mg capsule 200 mg PO QHS stool softener 01/01/22 Unknown History cetirizine 10 mg tablet (Zyrtec) 10 mg PO DAILY PRN ALLLERGY 04/23/22 Unknown History fluticasone propionate 50 1 spray intranasal DAILY 04/23/22 Unknown History mcg/actuation nasal spray,suspension (Flonase Allergy Relief) dutasteride 0.5 mg capsule 0.5 mg PO DAILY 09/25/22 Unknown History Bilateral wrist splints #2 ea 02/17/23 Unknown Rx warfarin 3 mg tablet 3 mg PO DAILY 02/25/23 Unknown History blood-glucose meter #1 ea 03/06/23 Unknown Rx albuterol sulfate 90 mcg/actuation 2 puff inhalation Q4H PRN 07/25/23 Unknown Rx aerosol inhaler shortness of breath or wheezing #1 device diltiazem HCl 120 mg 120 mg PO DAILY #90 caps 07/25/23 Unknown Rx capsule,extended release 24 hr potassium chloride 10 mEq 60 meq (6 x 10 mEq) PO DAILY Pt 07/25/23 Unknown Rx capsule,extended release has Throat injury, needs capsules #540 caps terazosin 1 mg capsule 1 mg PO QHS blood pressure #90 caps 07/25/23 Unknown Rx torsemide 20 mg tablet 20 mg PO .COMPLEX #180 tabs 07/29/23 Unknown Rx tizanidine 4 mg tablet 4 mg PO QHS #90 tabs 07/30/23 Unknown Rx pantoprazole 40 mg tablet,delayed 40 mg PO QAM #90 tabs 08/05/23 Unknown Rx release dapagliflozin propanediol 10 mg 10 mg PO DAILY #90 tabs 08/20/23 Unknown Rx tablet (Farxiga) lancets (Accu-Chek Softclix #100 ea 09/01/23 Unknown Rx Lancets) blood sugar diagnostic (Accu-Chek #100 ea 09/09/23 Unknown Rx Guide test strips) spironolactone 25 mg tablet 25 mg PO DAILY #90 tabs 09/10/23 Unknown Rx fluticasone fur. 100 mcg-umeclid 1 inh inhalation DAILY #3 ea 09/12/23 Unknown Rx 62.5 mcg-vilant 25 mcg inhalat.powder (Trelegy Ellipta) bupropion HCl 300 mg 24 hr tablet, 300 mg PO DAILY mental health #90 09/15/23 Unknown Rx extended release tabs metoprolol succinate 25 mg 25 mg PO DAILY #90 tabs 10/03/23 Unknown Rx tablet,extended release 24 hr levothyroxine 100 mcg tablet 100 mcg PO DAILY thyroid #90 tabs 10/09/23 Unknown Rx atorvastatin 40 mg tablet 40 mg PO QHS #90 tabs 10/21/23 Unknown Rx duloxetine 30 mg capsule,delayed 30 mg PO QHS #90 caps 10/23/23 Unknown Rx release duloxetine 60 mg capsule,delayed 60 mg PO QAM #90 caps 10/23/23 Unknown Rx release tamsulosin 0.4 mg capsule 0.4 mg PO DAILY help with 11/03/23 Unknown Rx urinating #90 caps Allergy/AdvReac Type Severity Reaction Status Date / Time aspirin Allergy Severe Hives Verified 11/11/23 10:20 Iodinated Contrast Media Allergy Severe Hives Verified 11/11/23 10:20 (Iodinated Contrast Media - IV Dye) shellfish derived Allergy Severe Hives Verified 11/11/23 10:20 Family History Father , age 40 Cancer COPD (chronic obstructive pulmonary disease) Mother Hypertension Brother Cancer Lung CA Aunt Cerebral aneurysm Brother Aortic valve disease Surgical History H/O basal cell carcinoma excision History of cardiac catheterization History of colonoscopy History of deviated nasal septum History of esophagogastroduodenoscopy (EGD) History of tonsillectomy Hx of aortic valve replacement, mechanical (~2010) Hx of gastric bypass Social History household members: spouse current occupational status: employed 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 Smoking Status: Former smoker quit date: 06/23/96 pack-years: 10 Tobacco: How many years used: 20 Electronic Cigarette Use: not used how long ago did patient quit smokin, 0.5 second hand exposure: Yes alcohol intake: current alcohol intake frequency: holidays/special occasions only Alcohol type: beer details: social substance use type: former substance user Date of last use: used Marijuana as a teenager caffeine: Yes Type: coffee Number of servings: 2 what type of physical activity do you participate in: walking frequency: 3-4 times per week duration: 15-30 minutes/day seatbelt use: always do you feel safe at home: Yes ROS ROS ED Review of Systems ROS Unobtainable: other Constitutional Constitutional ED: Reports lethargy; Denies chills, fever(s), sweats or weight loss Eyes Eyes: Denies blurry vision, change in vision or diplopia ENT ENT ED: Denies rhinorrhea or sore throat Cardiovascular Cardiovascular: Denies chest pain, orthopnea or racing heartbeat Respiratory/Chest Respiratory/Chest: Denies cough, dyspnea, dyspnea on exertion, orthopnea or spu juni Gastrointestinal Gastrointestinal: Reports other Details: Blood in stool ; Denies abdominal pain, diarrhea, nausea or vomiting Genitourinary Genitourinary ED: Denies dysuria, hematuria or urinary frequency Musculoskeletal Musculoskeletal: Denies arthralgias, back pain, myalgias or neck pain Integumentary Denies abscess, Abrasions or rash Neurologic Neurologic: Denies headache(s) or weakness Psychiatric Psychiatric: Denies anxiety, depression or suicidal thoughts Endocrine Endocrinology: Denies polydipsia, polyphagia or polyuria Hematologic/Lymphatic Hematologic/Lymphatic: Denies easy bleeding, easy bruising or lymphadenopathy Allergic/Immunologic Allergic/Immunologic ED: Denies mouth swelling, tongue swelling or urticaria EXAM Physical Exam Const Vital Signs: 11/11/23 10:19 11/11/23 10:54 11/11/23 12:19 Temperature 98 F Temperature Source Temporal Pulse Rate 59 L 75 Pulse Rate [Lying] 68 Pulse Rate [Sitting (for 1 minute prior to obtaining)] 76 Pulse Rate [Standing (for 1 minute prior to obtaining)] 79 Respiratory Rate 16 18 Blood Pressure 118/83 H 102/70 Blood Pressure [Lying] 117/85 H Blood Pressure [Sitting (for 1 minute prior to obtaining)] 109/77 Blood Pressure [Standing (for 1 minute prior to obtaining)] 111/71 Blood Pressure Mean 94 80 Blood Pressure Mean [Lying] 95 Blood Pressure Mean [Sitting (for 1 minute prior to obtaining)] 87 Blood Pressure Mean [Standing (for 1 minute prior to obtaining)] 84 Pulse Ox 97 96 Oxygen Delivery Method Room Air Room Air Positive well nourished and well developed General Appearance ED: well developed and NAD HEENT Reports TM's clear and moist mucous membranes normocephalic and atraumatic; Negative for trauma or tenderness Tympanic Membrane ED: Yes TM's clear Eyes PERRL and EOMs intact bilaterally General Eye ED: Negative for pale conjunctiva or scleral icterus Neck no lymphadenopathy, supple and no JVD General: Negative for tenderness Chest Wall inspection of chest normal and palpation of chest normal Chest: Negative for tenderness Resp normal respiratory effort and clear to auscultation bilaterally Effort and Inspection: Negative for respiratory distress or pain with movement Auscultation: Negative for rhonchi, wheezes or diminished lung sounds Cardio regular rate, regular rhythm, S1 normal heart sound, S2 normal heart sound and no murmurs Peripheral Pulses: pulses 2+ throughout GI normal to inspection, nondistended, normoactive bowel sounds, soft to palpation, non-tender, non-distended and no masses GI Narrative: Rectal exam-patient had bright red blood perirectally without evidence of hemorrhoids or obvious fissure. On digital rectal exam he is enlarged prostate but I do not palpate any masses otherwise. Back/Spine no CVA tenderness and no thoracic nor lumbar tenderness Extremity normal to inspection General Extremety ED: Negative for edema General Extremity: Negative for edema Neuro oriented x3, CN's II-XII intact bilaterally, no sensory deficits noted and gait normal Sensorium / Orientation: awake, alert, oriented to person, oriented to place and oriented to time Motor Exam: strength 5/5 throughout and strength abnormal Psych mental status grossly normal Skin no rashes or lesions noted and no wounds MDM MDM MDM Narrative Medical decision making narrative: Patient presents with blood in his stool off and on for several months. On Coumadin for history of aortic valve that is mechanical. IV line established. CBC with differential white count of 8.1 with hemoglobin 14.4 and platelet count of 239. INR was 2.9. Chemistries unremarkable. BUN 27 creatinine 1.29. Lactate normal at 1.5. CT scan of the ab pelvis essentially unremarkable other than some gallstones in the gallbladder. Discussed case with Dr. 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 Lab Data Attestation: I reviewed the patient's lab results. Labs: Laboratory Results - last 24 hr 11/11/23 11/11/23 10:52 12:40 WBC 8.1 RBC 4.70 Hgb 14.4 Hct 43.9 MCV 93.4 MCH 30.6 MCHC 32.8 RDW Std Deviation 45.8 H RDW Coeff of Ernestina 13.4 Plt Count 239 MPV 9.2 Immature Gran % (Auto) 0.400 Neut % (Auto) 73.6 H Lymph % (Auto) 14.0 L Sanders % (Auto) 8.8 Eos % (Auto) 2.1 Baso % (Auto) 1.1 H Absolute Neuts (auto) 5.9 Absolute Lymphs (auto) 1.13 Nucleated RBC % 0 PT 29.7 H INR 2.9 Sodium 138 Potassium 3.4 L Chloride 104 Carbon Dioxide 23.0 Anion Gap 11 BUN 27 H Creatinine 1.29 Estim Creat Clear Calc 78.09 Est GFR (MDRD) Af Amer 72 Est GFR (MDRD) Non-Af 60 BUN/Creatinine Ratio 20.9 H Glucose 150 H Lactic Acid 1.5 Calcium 9.0 Radiography Diagnostic Testing: Clinical Impression(s) from Imaging Studies Abdomen/Pelvis CT 11/11/23 10:38 IMPRESSION: 1. Multiple gallstones without evidence of acute cholecystitis 2. Normal colon. The appendix is visualized and appears normal. No visualized rectal mass or significant soft tissue edema or thickening. No colonic diverticula are present. Electronically Signed: Karl Arnold MD at 13:17 EDT Reading Location ID and State: [address] [place] [address] , Service support , Discharge Plan Triage Chief Complaint: GI Bleed ED Provider: Maureen Schaffer Dx/Rx/DC Orders Clinical Impression: Acute lower GI bleeding, History of atrial fibrillation, History of COPD Prescriptions: No Action cetirizine [Zyrtec] 10 mg tablet 10 mg PO DAILY PRN (Reason: ALLLERGY) fluticasone propionate [Flonase Allergy Relief] 50 mcg/actuation spray,suspension 1 spray intranasal DAILY Rx Instructions: administer into each nostril warfarin 3 mg tablet 3 mg PO DAILY Protocol: Dose Management Condition: Friday Dose/Route: 3 mg Instruction: 1 x 3 mg tablet Condition: Friday Dose/Route: 1.5 mg Instruction: 0.5 x 3 mg tablets Condition: Friday Dose/Route: 1.5 mg Instruction: 0.5 x 3 mg tablets Condition: Friday Dose/Route: 3 mg Instruction: 1 x 3 mg tablet Condition: Dose/Route: 3 mg Instruction: 1 x 3 mg tablet Condition: Friday Dose/Route: 3 mg Instruction: 1 x 3 mg tablet Condition: Friday Dose/Route: 3 mg Instruction: 1 x 3 mg tablet Protocol Text: Adjustment Start Date: Friday11/05/23 INR Value: 2.2 INR Date: 11/05/23 Recheck Date: 11/19/23 Rx Instructions: and Fridays 1.5mg (DME) Bilateral wrist splints See Rx Instructions .Route .MEDSUPPLY Qty: 2 0RF Rx Instructions: As directed folic acid 1 MG tablet 1 mg PO QHS cholecalciferol (vitamin D3) 1,000 UNIT tablet 2,000 unit PO QHS biotin-keratin 1 EACH tablet 1 ea PO QHS docusate sodium 100 mg capsule 200 mg PO QHS ferrous sulfate 325 MG tablet 325 mg PO QHS multivitamin 1 TABLET tablet 1 tab PO DAILY dutasteride 0.5 mg capsule 0.5 mg PO DAILY (DME) Disability Placard See Rx Instructions .Route .MEDSUPPLY Qty: 1 0RF Rx Instructions: expires 04/20/2026 (DME) blood-glucose meter Kit See Rx Instructions .Route Qty: 1 0RF Rx Instructions: daily terazosin 1 mg capsule 1 mg PO QHS Qty: 90 0RF albuterol sulfate 90 mcg/actuation HFA aerosol inhaler 2 puff INHALATION Q4H PRN (Reason: shortness of breath or wheezing) Qty: 1 3RF Rx Instructions: administer with spacer diltiazem HCl 120 mg capsule,extended release 24hr 120 mg PO DAILY Qty: 90 3RF potassium chloride 10 mEq capsule, extended release 60 meq PO DAILY Qty: 540 3RF torsemide 20 mg tablet 20 mg PO .COMPLEX Qty: 180 3RF Rx Instructions: Twice daily every other day alternating with Once daily: this is a final dose clarification with Marty Gonzales NP tizanidine 4 mg tablet 4 mg PO QHS Qty: 90 0RF pantoprazole 40 mg tablet,delayed release (DR/EC) 40 mg PO QAM Qty: 90 1RF Farxiga 10 mg tablet 10 mg PO DAILY Qty: 90 1RF (DME) lancets [Accu-Chek Softclix Lancets] Misc See Rx Instructions .ROUTE .COMPLEX Qty: 100 0RF Dose Instruction: USE TO CHECK GLUCOSE ONCE DAILY Rx Instructions: USE TO CHECK GLUCOSE ONCE DAILY (DME) Accu-Chek Guide test strips Strip See Rx Instructions .Route Qty: 100 2RF Rx Instructions: daily spironolactone 25 mg tablet 25 mg PO DAILY Qty: 90 3RF Trelegy Ellipta 100-62.5-25 mcg blister with device 1 inh inhalation DAILY Qty: 3 3RF bupropion HCl 300 mg tablet extended release 24 hr 300 mg PO DAILY Qty: 90 1RF metoprolol succinate 25 mg tablet extended release 24 hr 25 mg PO DAILY Qty: 90 3RF levothyroxine 100 mcg tablet 100 mcg PO DAILY Qty: 90 1RF atorvastatin 40 mg tablet 40 mg PO QHS Qty: 90 3RF duloxetine 60 mg capsule,delayed release(DR/EC) 60 mg PO QAM Qty: 90 0RF duloxetine 30 mg capsule,delayed release(DR/EC) 30 mg PO QHS Qty: 90 0RF tamsulosin 0.4 mg capsule 0.4 mg PO DAILY Qty: 90 1RF Primary Care Provider: Silva Webster Referrals: Silva Webster MD [Primary Care Provider] - Print Language: Yakut Disposition Disposition: Acute Care Hospital [facility]
[2023-11-11] MEDS: MethylPREDNISolone 125 MG/2 ML Vial IV (11:01)
[2023-11-11] MEDS: 0.9% Normal Saline (1000mL) 1,000 ML 125 ML IV (11:01)
[2023-11-11] MEDS: DiphenhydrAMINE 50 MG/ML Syringe 25 MG IV (11:01)
[2023-11-11 11:07] LABS: Absolute Lymphocyte Count 1.13 X10^3/uL (0.83-4.51); Absolute Neutrophil Count 5.9 X10^3/uL (2.0-7.7); Basophil# 0.09 X10^3/uL; Basophil% 1.1 % (0-1); Eosinophil# 0.17 X10^3/uL; Eosinophils% 2.1 % (0-5); Hematocrit 43.9 % (40-54); Hemoglobin 14.4 g/dL (13.0-16.5); Lymphocyte # 1.13 X10^3/ul (0.83-4.51); Mean Corp Hgb Conc 32.8 g/dL (32-36); Mean Corpuscular Hgb 30.6 pg (27.0-32.0); Mean Corpuscular Volume 93.4 fL (80-94); Mean Platelet Vol. 9.2 fl (6.2-12.0); Monocyte# 0.71 X10^3/uL; Monocyte% 8.8 % (0-10); NRBC Flagged by Analyzer 0 % (0-5); Neutrophil # 5.94 X10^3/uL (2.7-7.7); Neutrophil % 73.6 % (47-70); Platelet Count 239 K/mm3 (150-450); RBC Distribution Width CV 13.4 % (11.6-14.6); RBC Distribution Width SD 45.8 fl (35.1-43.9); White Blood Count 8.1 K/mm3 (4.4-11.0)
[2023-11-11 11:21] LABS: Anion Gap 11 (5-15); BUN 27 mg/dL (7-18); BUN/Creat Ratio 20.9 RATIO (10-20); Chloride 104 mmol/L (98-107); Creatinine, Serum 1.29 mg/dL (0.70-1.30); EST Glomerular Filtration Rate 60 mL/min (>60); Est Glom Filt Rate - Afr Amer 72 mL/min (>60); Estimated Creatinine Clearance 78.09 ml/min; Glucose 150 mg/dL (74-106); Potassium 3.4 mmol/L (3.5-5.1); Sodium Level 138 mmol/L (136-145)
[2023-11-11 11:53] LABS: Lactic Acid 1.5 mmol/L (0.4-1.9)
[2023-11-11 13:07] LABS: International Normalized Ratio 2.9; Prothrombin Time (Protime)PT. 29.7 SECONDS (11.7-14.9)
--- NOTE | 2023-11-11 13:20 | HP.PCM_ITS ---
[facility] - General General Date of Admission: 11/11/23 Date of Service: 11/11/23 Chief Complaint: rectal bleed HPI Narrative STEPAN RIGGS, is a 63 M with a PMh as outlined who presents via the ED on 11/11/2023 with a complaint of rectal bleed. He has a history of mechanical aortic valve, on coumadin. He started having the rectal bleed about 3 months ago; it was initially in small amounts. The day before admission, he went to have a bowel movement and passed some clots. He called his PCP and was counseled to come to the ED. He denied any dizziness, palpitations, nausea, vomiting or any other symptoms. Review of systems is otherwise negative. He has been compliant with his coumadin. He had a colonoscopy by GI about 3 years ago, and it showed he had some polyps. Vitals in the ED were BP of 102/70, MI of 75, RR of 18 and oxygen sats of 96% on room air. CBC showed hb of 14.4, wbc of 8.1 and platelets of 239. INR is 2.9. Chemistry showed sodium of 138, with potassium of 3.[address] of 23. CT of the abdomen and pelvis showed multiple gallstones without evidence of acute cholecystitis, and normal colon with appendix visualised and normal; no visualised rectal mass or significant soft tissue edema or thickening, with no colonic diverticula present. GI was contacted from the ED, and asked for patient to be admitted for a scope as needed. [facility] Medical History Abrasion, right lower leg, initial encounter Anemia Aortic valvular disease Cardiology follow-up encounter Contusion of right chest wall Contusion of right foot, initial encounter COPD (chronic obstructive pulmonary disease) COVID-19 (06/19/20) CPAP (continuous positive airway pressure) dependence Dysphagia Edema Emphysema, unspecified Fatigue Former smoker GERD (gastroesophageal reflux disease) Gout History of echocardiogram History of echocardiogram History of edema History of Holter monitoring History of stress test History of stress test HLD (hyperlipidemia) Hypertension Hypokalemia Impacted cerumen of both ears 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 Longstanding persistent atrial fibrillation Loss of hearing Morbid obesity with BMI of 45.0-49.9, adult Nicotine abuse Nocturia Nonrheumatic aortic (valve) stenosis PAOLA (obstructive sleep apnea) Paroxysmal atrial fibrillation Prostate disease Pulmonary hypertension PVC (premature ventricular contraction) Shortness of breath Shortness of breath on exertion Thyroid disease Wears glasses Wears partial dentures Home Medications ?Medication ?Instructions ?Recorded ?Last Taken ?Type biotin 10,000 mcg-keratin 100 mg 1 ea PO QHS supplement 04/12/16 11/10/23 History tablet cholecalciferol (vitamin D3) 25 2,000 unit PO QHS supplement 04/12/16 11/10/23 History mcg (1,000 unit) tablet folic acid 1 mg tablet 1 mg PO QHS supplement 04/12/16 11/10/23 History ferrous sulfate 325 mg (65 mg 325 mg PO QHS anemia 03/10/20 11/10/23 History iron) tablet multivitamin 1 tab PO DAILY supplement 03/10/20 03/10/20 History Disability Placard #1 ea 04/20/21 Unknown Rx docusate sodium 100 mg capsule 200 mg PO QHS stool softener 01/01/22 11/10/23 History cetirizine 10 mg tablet (Zyrtec) 10 mg PO DAILY PRN ALLLERGY 04/23/22 11/11/23 History fluticasone propionate 50 1 spray intranasal DAILY 04/23/22 11/11/23 History mcg/actuation nasal spray,suspension (Flonase Allergy Relief) dutasteride 0.5 mg capsule 0.5 mg PO DAILY 09/25/22 11/11/23 History warfarin 3 mg tablet 3 mg PO SUMOWEFRSA 02/25/23 11/10/23 History blood-glucose meter #1 ea 03/06/23 Unknown Rx albuterol sulfate 90 mcg/actuation 2 puff inhalation Q4H PRN 07/25/23 10/20/23 Rx aerosol inhaler shortness of breath or wheezing #1 device diltiazem HCl 120 mg 120 mg PO DAILY #90 caps 07/25/23 11/11/23 Rx capsule,extended release 24 hr terazosin 1 mg capsule 1 mg PO QHS blood pressure #90 caps 07/25/23 11/10/23 Rx tizanidine 4 mg tablet 4 mg PO QHS #90 tabs 07/30/23 11/10/23 Rx pantoprazole 40 mg tablet,delayed 40 mg PO QAM #90 tabs 08/05/23 11/11/23 Rx release dapagliflozin propanediol 10 mg 10 mg PO DAILY #90 tabs 08/20/23 11/11/23 Rx tablet (Farxiga) lancets (Accu-Chek Softclix #100 ea 09/01/23 Unknown Rx Lancets) blood sugar diagnostic (Accu-Chek #100 ea 09/09/23 Unknown Rx Guide test strips) spironolactone 25 mg tablet 25 mg PO DAILY #90 tabs 09/10/23 11/11/23 Rx fluticasone fur. 100 mcg-umeclid 1 inh inhalation DAILY #3 ea 09/12/23 11/11/23 Rx 62.5 mcg-vilant 25 mcg inhalat.powder (Trelegy Ellipta) bupropion HCl 300 mg 24 hr tablet, 300 mg PO DAILY mental health #90 09/15/23 11/11/23 Rx extended release tabs metoprolol succinate 25 mg 25 mg PO DAILY #90 tabs 10/03/23 11/11/23 Rx tablet,extended release 24 hr levothyroxine 100 mcg tablet 100 mcg PO DAILY thyroid #90 tabs 10/09/23 11/11/23 Rx atorvastatin 40 mg tablet 40 mg PO QHS #90 tabs 10/21/23 11/10/23 Rx duloxetine 30 mg capsule,delayed 30 mg PO QHS #90 caps 10/23/23 11/10/23 Rx release duloxetine 60 mg capsule,delayed 60 mg PO QAM #90 caps 10/23/23 11/11/23 Rx release tamsulosin 0.4 mg capsule 0.4 mg PO DAILY #90 caps 11/03/23 11/11/23 Rx artificial tears with lanolin eye 1 applic EACH EYE DAILY 11/11/23 11/11/23 History ointment (Ultra Fresh PM eye ointment) melatonin 10 mg tablet 25 mg PO QHS 11/11/23 11/10/23 History potassium chloride 10 mEq 60 meq PO BID 11/11/23 11/11/23 History capsule,extended release torsemide 20 mg tablet 10 mg PO 1200 FLUID RETENTION 11/11/23 11/11/23 History torsemide 20 mg tablet 20 mg PO DAILY 11/11/23 11/11/23 History warfarin 3 mg tablet (Feliciaven) 1.5 mg PO TUTH 11/11/23 11/11/23 History Allergy/AdvReac Type Severity Reaction Status Date / Time aspirin Allergy Severe Hives Verified 11/11/23 10:20 Iodinated Contrast Media Allergy Severe Hives Verified 11/11/23 10:20 (Iodinated Contrast Media - IV Dye) shellfish derived Allergy Severe Hives Verified 11/11/23 10:20 Family History Father , age 40 Cancer COPD (chronic obstructive pulmonary disease) Mother Hypertension Brother Cancer Lung CA Aunt Cerebral aneurysm Brother Aortic valve disease Surgical History H/O basal cell carcinoma excision History of cardiac catheterization History of colonoscopy History of deviated nasal septum History of esophagogastroduodenoscopy (EGD) History of tonsillectomy Hx of aortic valve replacement, mechanical (~2010) Hx of gastric bypass Social History household members: spouse current occupational status: employed 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 Smoking Status: Former smoker quit date: 06/23/96 pack-years: 10 Tobacco: How many years used: 20 Electronic Cigarette Use: not used how long ago did patient quit smokin, 0.5 second hand exposure: Yes alcohol intake: current alcohol intake frequency: holidays/special occasions only Alcohol type: beer details: social substance use type: former substance user Date of last use: used Marijuana as a teenager caffeine: Yes Type: coffee Number of servings: 2 what type of physical activity do you participate in: walking frequency: 3-4 times per week duration: 15-30 minutes/day seatbelt use: always do you feel safe at home: Yes ROS Constitutional Constitutional: Denies anorexia, chills, fatigue, fever(s), night sweats or weakness Eyes Eyes: Denies change in vision ENT HEENT: Denies dysphagia, headache(s) or sore throat Cardiovascular Cardiovascular: Denies chest pain, edema, orthopnea or paroxysmal nocturnal dyspnea Respiratory/Chest Respiratory/Chest: Denies cough, shortness of breath at rest, shortness of breath with exertion or wheezing Gastrointestinal Gastrointestinal: Reports hematochezia; Denies abdominal pain, diarrhea, dyspepsia, hematemesis, melena, nausea or vomiting Genitourinary Genitourinary: Denies dysuria or hematuria Musculoskeletal Musculoskeletal: Denies back pain, joint pain, muscle weakness or neck pain Neurologic Neurologic: Denies confusion, dizziness, focal weakness, headache(s), lack of coordination or numbness Psychiatric Psychiatric: Denies anxiety or depression Endocrine Endocrinology: Denies change in body appearance Vital Signs Vital Signs Vital Signs: 11/11/23 10:19 11/11/23 10:54 11/11/23 12:19 Temperature 98 F Temperature Source Temporal Pulse Rate 59 L 75 Pulse Rate [Lying] 68 Pulse Rate [Sitting (for 1 minute prior to obtaining)] 76 Pulse Rate [Standing (for 1 minute prior to obtaining)] 79 Respiratory Rate 16 18 Blood Pressure 118/83 H 102/70 Blood Pressure [Lying] 117/85 H Blood Pressure [Sitting (for 1 minute prior to obtaining)] 109/77 Blood Pressure [Standing (for 1 minute prior to obtaining)] 111/71 Blood Pressure Mean 94 80 Blood Pressure Mean [Lying] 95 Blood Pressure Mean [Sitting (for 1 minute prior to obtaining)] 87 Blood Pressure Mean [Standing (for 1 minute prior to obtaining)] 84 Pulse Ox 97 96 Oxygen Delivery Method Room Air Room Air Weight Weight: 284 lb 9.868 oz Body Mass Index (BMI) 40.8 Physical Exam Const alert, oriented x3, no apparent distress and well nourished General Appearance: cooperative and well developed HEENT normocephalic, head/scalp atraumatic, moist oral mucous membranes and oropharynx normal Eyes PERRL and EOMs intact bilaterally Neck no lymphadenopathy, supple and no JVD Lymph Lymphatic: no lymphadenopathy noted and no lymphedema noted Resp normal respiratory effort, normal air movement and clear to auscultation bilaterally Cardio regular rate, regular rhythm, S1 normal heart sound and S2 normal heart sound Cardio Narrative: mechanical aortic valve click GI normal to inspection, nondistended, normoactive bowel sounds, soft to palpation, non-tender and non-distended Extremity normal capillary refill, no clubbing, cyanosis or edema and no calf tenderness General Extremity: no tenderness to palpation of joints or extremities Skin General Skin Exam: no breakdown Neuro CN's II-XII intact bilaterally, no focal motor deficits, no sensory deficits noted and deep tendon reflexes 2+ bilaterally Motor Exam: strength 5/5 throughout and general weakness Psych thought process normal, cooperative and affect normal Appearance: appropriate Results Lab / Micro Data 11/11/23 10:52 11/11/23 10:52 Labs: Laboratory Results - last 24 hr 11/11/23 10:52: WBC 8.1, RBC 4.70, Hgb 14.4, Hct 43.9, MCV 93.4, MCH 30.6, MCHC 32.8, RDW Std Deviation 45.8 H, RDW Coeff of Ernestina 13.4, Plt Count 239, MPV 9.2, Immature Gran % (Auto) 0.400, Neut % (Auto) 73.6 H, Lymph % (Auto) 14.0 L, [place] % (Auto) 8.8, Eos % (Auto) 2.1, Baso % (Auto) 1.1 H, Absolute Neuts (auto) 5.9, Absolute Lymphs (auto) 1.13, Nucleated RBC % 0, Sodium 138, Potassium 3.4 L, Chloride 104, Carbon Dioxide 23.0, Anion Gap 11, BUN 27 H, Creatinine 1.29, Estim Creat Clear Calc 78.09, Est GFR (MDRD) Af Amer 72, Est GFR (MDRD) Non-Af 60, BUN/Creatinine Ratio 20.9 H, Glucose 150 H, Lactic Acid 1.5, Calcium 9.0 11/11/23 12:40: PT 29.7 H, INR 2.9 Imaging Radiology Impression Abdomen/Pelvis CT 11/11/23 10:38 IMPRESSION: 1. Multiple gallstones without evidence of acute cholecystitis 2. Normal colon. The appendix is visualized and appears normal. No visualized rectal mass or significant soft tissue edema or thickening. No colonic diverticula are present. Electronically Signed: Karl Arnold MD at 13:17 EDT Reading Location ID and State: [facility] / [place] , Service support , Assessment & Plan Assessment/Plan (1) Acute lower GI bleeding: PLAN: Plan #Acute GI bleed * admit to med surg. Could be due to radiation proctitis since he has had radiation for prostate cancer, vs hemorrhoidal bleed vs diverticular bleed. * Hb is 14.4. * consult gastroenterology * hydrate gently with iVF * IV pantoprazole 40mg bid * clear liquids for now, and NPO past midnight for possible scope * * #History of atrial fibrillation: On Cardizem and metoprolol. Coumadin held due to GI bleed #Hypokalemia: potassium is 3.4. Will replace and trend. #GERD: on PPI. #COPD: not in exacerbation. Breathing treatment with bronchodilators. #Aortic valve stenosis: s/p mechanical aortic valve replacement. On coumadin. INR is therapeutic. Hold coumadin # Hyperlipidemia: On statin #Hypothyroidism: On Synthroid ## Failure with reduced ejection fraction: On torsemide and spironolactone as well as dapagliflozin #BPH: On dutasteride and Flomax #Hypertension: On terazosin, spironolactone and metoprolol as well as Cardizem DVT prophylaxis: SCDs Code status: full code * Patient counseled extensively about different types of CODE STATUS including full code, DNR CCA and DNR CCA. Patient elects to be full code. * Total [id number] time 16 minutes. Charges/Coding Visit Charges Inpatient E&M: 78856 Init Hosp L3 Procedures Hospitalists Procedures: 53991 Advncd Care Plan 30 Min
--- NOTE | 2023-11-11 13:23 | NURSING ---
DR SAMANTHA RAZA
--- NOTE | 2023-11-11 13:55 | NURSING ---
PCU [facility] BLEED, AFIB HX
--- NOTE | 2023-11-11 15:30 | CASEMGMT ---
DEREK DENIS Face to Face with patient for initial transition planning/care coordination assessment. RN CM introduced self and role at [facility]. Patient lying in bed, alert and oriented. Patient willing to participate in assessment and is able to answer all questions appropriately. Care providers, pharmacy, and demographics verified. PCP: Eleanor Specialists: Heather, urologist; RILEY, cardiology; Reba, neuro; Gregorio Barger, urologist; Sonia, Ui Software Engineer; Vadim, radiologist Preferred Pharmacy: [facility] Insurance: [employer] Prescription Benefit: yes Living Will/HPOA: yes, Celia Polo LNOK: Living Arrangements: Patient lives with in a single story condo with 1 step to enter. Patient states he is independent at home. Transportation: self, DME/HHC: Patient has shower chair, raised toilet, cane, and cpap at home. No previous HHC or SNF Patient wishes to discharge home, denies need for home health at this time. Patient states he has no further needs or concerns at this time. CM to follow for discharge planning needs that may arise. Disposition Plan: Patient to discharge home with family support and follow-up plans in place. Penelope MCHUGH, RN, CM
[2023-11-11] MEDS: Pantoprazole Sodium 40 MG in 0.9% Normal Saline (100mL MB+) 100 ML 330 MG IV ×2 (16:05→21:24)
[2023-11-11] MEDS: Potassium Chloride Oral Soln 20 MEQ/15 ML UDC 60 MEQ PO (16:09)
[2023-11-11 16:41] LABS: Bedside Glucose 206 mg/dL (74-106)
[2023-11-11] MEDS: Bisacodyl 5 MG Tablet 20 MG PO (17:25)
[2023-11-11] MEDS: Electrolyte Solution/Peg's 4000 ML PO (19:00)
[2023-11-11] MEDS: Budesonide Respules 0.5 MG/2 ML AMPUL.NEB. INHALATION (19:14)
[2023-11-11] MEDS: Ipratropium/Albuterol Sulfate 3 ML AMPUL.NEB INHALATION (19:15)
[2023-11-11] MEDS: Atorvastatin Calcium 40 MG Tablet PO (20:37)
[2023-11-11] MEDS: Doxazosin 1 MG Tablet PO (20:37)
[2023-11-11] MEDS: Ferrous Sulfate 325 MG Tablet PO (20:37)
[2023-11-11] MEDS: Cholecalciferol (VIT D3) 25 MCG TABLET (1,000 UNITS) 50 MCG PO (20:37)
[2023-11-11] MEDS: DULoxetine Hcl 30 MG Capsule PO (20:37)
[2023-11-11] MEDS: tiZANidine HCl 2 MG Tablet 4 MG PO (20:37)
[2023-11-11] MEDS: Insulin Lispro 100 UNIT/ML INSULN.PEN SC (21:26)
[2023-11-11] MEDS: 0.9% Saline Lock 10 ML Syringe IV (21:26)
[2023-11-11 22:01] LABS: Bedside Glucose 244 mg/dL (74-106)
--- NOTE | 2023-11-11 23:33 | EX.PCM.CON.G ---
HPI Consult Data Date of Consult: 11/11/23 HPI Narrative Reason for Consultation: GI bleed HPI Narrative: 63 M with a PMh as outlined who presents via the ED on 11/11/2023 with a complaint of rectal bleed. He has a history of mechanical aortic valve, on coumadin. He started having the rectal bleed about 3 months ago; it was initially in small amounts. The day before admission, he went to have a bowel movement and passed some clots. He called his PCP and was counseled to come to the ED. He denied any dizziness, palpitations, nausea, vomiting or any other symptoms. Review of systems is otherwise negative. He has been compliant with his coumadin. He had a colonoscopy by GI about 3 years ago, and it showed he had some polyps. Vitals in the ED were BP of 102/70, WA of 75, RR of 18 and oxygen sats of 96% on room air. CBC showed hb of 14.4, wbc of 8.1 and platelets of 239. INR is 2.9. Chemistry showed sodium of 138, with potassium of 3.[address] of [address]. [address] of the abdomen and pelvis showed multiple gallstones without evidence of acute cholecystitis, and normal colon with appendix visualised and normal; no visualised rectal mass or significant soft tissue edema or thickening, with no colonic diverticula present. [facility] Medical History Abrasion, right lower leg, initial encounter Anemia Aortic valvular disease Cardiology follow-up encounter Contusion of right chest wall Contusion of right foot, initial encounter COPD (chronic obstructive pulmonary disease) COVID-19 (06/19/20) CPAP (continuous positive airway pressure) dependence Dysphagia Edema Emphysema, unspecified Fatigue Former smoker GERD (gastroesophageal reflux disease) Gout History of echocardiogram History of echocardiogram History of edema History of Holter monitoring History of stress test History of stress test HLD (hyperlipidemia) Hypertension Hypokalemia Impacted cerumen of both ears Injury of back longterm current use of anticoagulant Longstanding persistent atrial fibrillation Loss of hearing Morbid obesity with BMI of 45.0-49.9, adult Nicotine abuse Nocturia Nonrheumatic aortic (valve) stenosis PAOLA (obstructive sleep apnea) Paroxysmal atrial fibrillation Prostate disease Pulmonary hypertension PVC (premature ventricular contraction) Shortness of breath Shortness of breath on exertion Thyroid disease Wears glasses Wears partial dentures Home Medications ?Medication ?Instructions ?Recorded ?Last Taken ?Type biotin 10,000 mcg-keratin 100 mg 1 ea PO QHS supplement 04/12/16 11/10/23 History tablet cholecalciferol (vitamin D3) 25 2,000 unit PO QHS supplement 04/12/16 11/10/23 History mcg (1,000 unit) tablet folic acid 1 mg tablet 1 mg PO QHS supplement 04/12/16 11/10/23 History ferrous sulfate 325 mg (65 mg 325 mg PO QHS anemia 03/10/20 11/10/23 History iron) tablet multivitamin 1 tab PO DAILY supplement 03/10/20 03/10/20 History Disability Placard #1 ea 04/20/21 Unknown Rx docusate sodium 100 mg capsule 200 mg PO QHS stool softener 01/01/22 11/10/23 History cetirizine 10 mg tablet (Zyrtec) 10 mg PO DAILY PRN ALLLERGY 04/23/22 11/11/23 History fluticasone propionate 50 1 spray intranasal DAILY 04/23/22 11/11/23 History mcg/actuation nasal spray,suspension (Flonase Allergy Relief) dutasteride 0.5 mg capsule 0.5 mg PO DAILY 09/25/22 11/11/23 History warfarin 3 mg tablet 3 mg PO SUMOWEFRSA 02/25/23 11/10/23 History blood-glucose meter #1 ea 03/06/23 Unknown Rx albuterol sulfate 90 mcg/actuation 2 puff inhalation Q4H PRN 07/25/23 10/20/23 Rx aerosol inhaler shortness of breath or wheezing #1 device diltiazem HCl 120 mg 120 mg PO DAILY #90 caps 07/25/23 11/11/23 Rx capsule,extended release 24 hr terazosin 1 mg capsule 1 mg PO QHS blood pressure #90 caps 07/25/23 11/10/23 Rx tizanidine 4 mg tablet 4 mg PO QHS #90 tabs 07/30/23 11/10/23 Rx pantoprazole 40 mg tablet,delayed 40 mg PO QAM #90 tabs 08/05/23 11/11/23 Rx release dapagliflozin propanediol 10 mg 10 mg PO DAILY #90 tabs 08/20/23 11/11/23 Rx tablet (Farxiga) lancets (Accu-Chek Softclix #100 ea 09/01/23 Unknown Rx Lancets) blood sugar diagnostic (Accu-Chek #100 ea 09/09/23 Unknown Rx Guide test strips) spironolactone 25 mg tablet 25 mg PO DAILY #90 tabs 09/10/23 11/11/23 Rx fluticasone fur. 100 mcg-umeclid 1 inh inhalation DAILY #3 ea 09/12/23 11/11/23 Rx 62.5 mcg-vilant 25 mcg inhalat.powder (Trelegy Ellipta) bupropion HCl 300 mg 24 hr tablet, 300 mg PO DAILY mental health #90 09/15/23 11/11/23 Rx extended release tabs metoprolol succinate 25 mg 25 mg PO DAILY #90 tabs 10/03/23 11/11/23 Rx tablet,extended release 24 hr levothyroxine 100 mcg tablet 100 mcg PO DAILY thyroid #90 tabs 10/09/23 11/11/23 Rx atorvastatin 40 mg tablet 40 mg PO QHS #90 tabs 10/21/23 11/10/23 Rx duloxetine 30 mg capsule,delayed 30 mg PO QHS #90 caps 10/23/23 11/10/23 Rx release duloxetine 60 mg capsule,delayed 60 mg PO QAM #90 caps 10/23/23 11/11/23 Rx release tamsulosin 0.4 mg capsule 0.4 mg PO DAILY #90 caps 11/03/23 11/11/23 Rx artificial tears with lanolin eye 1 applic EACH EYE DAILY 11/11/23 11/11/23 History ointment (Ultra Fresh PM eye ointment) melatonin 10 mg tablet 25 mg PO QHS 11/11/23 11/10/23 History potassium chloride 10 mEq 60 meq PO BID 11/11/23 11/11/23 History capsule,extended release torsemide 20 mg tablet 10 mg PO 1200 FLUID RETENTION 11/11/23 11/11/23 History torsemide 20 mg tablet 20 mg PO DAILY 11/11/23 11/11/23 History warfarin 3 mg tablet (Jantoven) 1.5 mg PO TUTH 11/11/23 11/11/23 History Allergy/AdvReac Type Severity Reaction Status Date / Time aspirin Allergy Severe Hives Verified 11/11/23 10:20 Iodinated Contrast Media Allergy Severe Hives Verified 11/11/23 10:20 (Iodinated Contrast Media - IV Dye) shellfish derived Allergy Severe Hives Verified 11/11/23 10:20 Family History Father , age 40 Cancer COPD (chronic obstructive pulmonary disease) Mother Hypertension Brother Cancer Lung CA Aunt Cerebral aneurysm Brother Aortic valve disease Surgical History H/O basal cell carcinoma excision History of cardiac catheterization History of colonoscopy History of deviated nasal septum History of esophagogastroduodenoscopy (EGD) History of tonsillectomy Hx of aortic valve replacement, mechanical (~2010) Hx of gastric bypass Social History household members: spouse current occupational status: employed 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 Smoking Status: Former smoker quit date: 06/23/96 pack-years: 10 Tobacco: How many years used: 20 Electronic Cigarette Use: not used how long ago did patient quit smokin, 0.5 second hand exposure: Yes alcohol intake: current alcohol intake frequency: holidays/special occasions only Alcohol type: beer details: social substance use type: former substance user Date of last use: used Marijuana as a teenager caffeine: Yes Type: coffee Number of servings: 2 what type of physical activity do you participate in: walking frequency: 3-4 times per week duration: 15-30 minutes/day seatbelt use: always do you feel safe at home: Yes ROS Constitutional Constitutional: Denies anorexia, chills, fatigue, fever(s), night sweats or weakness Eyes Eyes: Denies change in vision ENT HEENT: Denies dysphagia, headache(s) or sore throat Cardiovascular Cardiovascular: Denies chest pain, edema, orthopnea or paroxysmal nocturnal dyspnea Respiratory/Chest Respiratory/Chest: Denies cough, shortness of breath at rest, shortness of breath with exertion or wheezing Gastrointestinal Gastrointestinal: Reports hematochezia; Denies abdominal pain, diarrhea, dyspepsia, hematemesis, melena, nausea or vomiting Genitourinary Genitourinary: Denies dysuria or hematuria Musculoskeletal Musculoskeletal: Denies back pain, joint pain, muscle weakness or neck pain Neurologic Neurologic: Denies confusion, dizziness, focal weakness, headache(s), lack of coordination or numbness Psychiatric Psychiatric: Denies anxiety or depression Endocrine Endocrinology: Denies change in body appearance Physical Exam Narrative General: Alert, Oriented x3, Cooperative, No apparent distress HEENT: Atraumatic, PERRLA, EOMI, Normocephalic Oral: Moist Mucosa Neck: Supple, No JVD Lungs: Diminished, Normal air movement, No rhonchi, No wheeze, No rales Cardiovascular: Regular rate, Regular Rhythm, Normal S1, Normal S2, No murmurs, valve click Abdomen: Soft, Non Tender, Non-Distended, No Hepato-splenomegaly Extremities: No edema, Capillary Refill Less than 3 Seconds Skin: No rashes, No breakdown Musculoskeletal: No Tenderness to Palpation of Joints or Extremities Neurological: No focal neurological deficits, Motor Exam 5/5 strength throughout, Sensory exam intact to light touch and pain Psych/Mental Status: Normal Affect, Appropriate Lab / Micro Data 11/12/23 05:48 11/12/23 05:48 Labs: Laboratory Results - last 24 hr 11/11/23 10:52: Lactic Acid 1.5 11/11/23 12:40: PT 29.7 H, INR 2.9 11/11/23 16:15: POC Glucose 206 H 11/11/23 20:36: POC Glucose 244 H 11/12/23 05:48: WBC 10.2, RBC 4.53 L, Hgb 13.8, Hct 42.3, MCV 93.4, MCH 30.5, MCHC 32.6, RDW Std Deviation 46.8 H, RDW Coeff of Ernestina 13.6, Plt Count 245, MPV 9.4, Immature Gran % (Auto) 0.500, Neut % (Auto) 90.9 H, Lymph % (Auto) 4.0 L, Dewey % (Auto) 4.5, Eos % (Auto) 0.0, Baso % (Auto) 0.1, Absolute Neuts (auto) 9.3 H, Absolute Lymphs (auto) 0.41 L, Nucleated RBC % 0, Sodium 139, Potassium 3.6, Chloride 107, Carbon Dioxide 24.0, Anion Gap 8, BUN 21 H, Creatinine 1.16, Estim Creat Clear Calc 86.41, Est GFR (MDRD) Af Amer 82, Est GFR (MDRD) Non-Af 67, BUN/Creatinine Ratio 18.1, Glucose 156 H, Calcium 9.5 11/12/23 06:20: POC Glucose 136 H Imaging Radiology Impression Abdomen/Pelvis CT 11/11/23 10:38 IMPRESSION: 1. Multiple gallstones without evidence of acute cholecystitis 2. Normal colon. The appendix is visualized and appears normal. No visualized rectal mass or significant soft tissue edema or thickening. No colonic diverticula are present. Electronically Signed: Karl Arnold MD at 13:17 EDT Reading Location ID and State: [facility] / [place] , Service support , Assessment & Plan Assessment/Plan (1) Acute lower GI bleeding: PLAN: Plan 59-year-old gentleman with past medical history of prostate cancer stage T2b or Louise 7 with an acute GI bleed DD: radiation proctitis since he has had radiation for prostate cancer, vs hemorrhoidal bleed vs diverticular bleed. Charges/Coding Visit Charges Inpatient E&M: 34792 Init Hosp L3
[2023-11-12] VITALS (12 sets, daily range): BP systolic 97–126; BP diastolic 50–92; PULSE 71–130; RESP 12–18; TEMP 35.9–36.6; O2SAT 93–100
--- NOTE | 2023-11-12 05:55 | EKG12_ITS ---
Test Reason : pre-op Blood Pressure : / mmHG Vent. Rate : 076 BPM Atrial Rate : 000 BPM P-R Int : 000 ms QRS Dur : 182 ms QT Int : 470 ms P-R-T Axes : 000 108 016 degrees QTc Int : 528 ms Atrial fibrillation ABERRANTLY CONUCTED COMPLEXES Right bundle branch block Anteroseptal infarct (cited on or before 10-MAR-2020) T wave abnormality, consider inferior ischemia Abnormal ECG Confirmed by Marcos Dinero ([id number]), marketing editor NICO CASTELLANO ([id number]) on 11/13/2023 2:22:09 PM Referred By: Confirmed By:Marcos Dinero
[2023-11-12 06:52] LABS: Bedside Glucose 136 mg/dL (74-106)
[2023-11-12 07:13] LABS: Absolute Lymphocyte Count 0.41 X10^3/uL (0.83-4.51); Absolute Neutrophil Count 9.3 X10^3/uL (2.0-7.7); Basophil# 0.01 X10^3/uL; Basophil% 0.1 % (0-1); Hematocrit 42.3 % (40-54); Hemoglobin 13.8 g/dL (13.0-16.5); Lymphocyte # 0.41 X10^3/ul (0.83-4.51); Mean Corp Hgb Conc 32.6 g/dL (32-36); Mean Corpuscular Hgb 30.5 pg (27.0-32.0); Mean Corpuscular Volume 93.4 fL (80-94); Mean Platelet Vol. 9.4 fl (6.2-12.0); Monocyte# 0.46 X10^3/uL; Monocyte% 4.5 % (0-10); NRBC Flagged by Analyzer 0 % (0-5); Neutrophil # 9.25 X10^3/uL (2.7-7.7); Neutrophil % 90.9 % (47-70); POSITIVE DIFFERENTIAL YES; Platelet Count 245 K/mm3 (150-450); RBC Distribution Width CV 13.6 % (11.6-14.6); RBC Distribution Width SD 46.8 fl (35.1-43.9); Red Blood Count 4.53 M/mm3 (4.6-6.2); White Blood Count 10.2 K/mm3 (4.4-11.0)
[2023-11-12] MEDS: Ipratropium/Albuterol Sulfate 3 ML AMPUL.NEB INHALATION (07:28)
[2023-11-12] MEDS: Budesonide Respules 0.5 MG/2 ML AMPUL.NEB. INHALATION (07:29)
[2023-11-12 07:42] LABS: Anion Gap 8 (5-15); BUN 21 mg/dL (7-18); BUN/Creat Ratio 18.1 RATIO (10-20); Calcium,Total 9.5 mg/dL (8.5-10.1); Chloride 107 mmol/L (98-107); Creatinine, Serum 1.16 mg/dL (0.70-1.30); EST Glomerular Filtration Rate 67 mL/min (>60); Est Glom Filt Rate - Afr Amer 82 mL/min (>60); Estimated Creatinine Clearance 86.41 ml/min; Glucose 156 mg/dL (74-106); Potassium 3.6 mmol/L (3.5-5.1); Sodium Level 139 mmol/L (136-145)
--- NOTE | 2023-11-12 10:45 | EGD_PTH ---
PATIENT: STEPAN RIGGS LOC: [facility] U#:[id number] AGE/SX: 63/M ROOM: [facility] RE11/11/[address]: Dr. Bony Palma MD : 1960 BED: 1 DIS: 11/12/2023 SPEC #: [id number] RECD: 11/12/23 18:20 STATUS: JAMES VASQUEZ #: [id number] ANN: 11/12/23 10:[address]: Derek Fagan DEPT: SURGICAL PATHOLOGY RECD BY: Marion Poon ENTERED: 11/13/23 07:05 SP TYPE: EGD BIOPSY OTHR DR: MD Dr. Lety Mills MD Dr. Nicholas F Kotsonis, MD Tissues: A - Esophagus, NOS B - Sigmoid colon biopsy Procedures: Special Stain Group I Surgery Specimen Level IV Alcian Blue/PAS (control) Comments: @ Ordering doctor for SUIV edited from to @ by ELVER at 11/13/23 0830 @ Submitting doctor edited from to @ by ELVER at 11/13/23 0830 HEADER OPERATION: Colonoscopy with biopsy and Argon plasma coagulation PRE-OP DIAGNOSIS: GI bleed TISSUE SUBMITTED: A- Distal esophagus, B- Sigmoid polyp biopsy MICROSCOPIC DIAGNOSIS A. Distal esophagus, biopsy: Gastroesophageal junctional mucosa with mild chronic inflammation. No evidence of goblet cell metaplasia. See comment. B. Sigmoid colon polyp, biopsy: Fragments of hyperplastic polyp. AM/mr 11/14/2023 COMMENT A. Alcian blue/PAS stain with matched control supports the above diagnosis. MICROSCOPIC DESCRIPTION Slides are reviewed. GROSS DESCRIPTION A. Received in fixative is one container labeled with the patient's name and designated Distal esophagus biopsy. The specimen consists of two irregular fragments of light mariscal soft tissue that in aggregate measure 0.6 x 0.6 x 0.1 cm. The specimen is totally submitted in one cassette. B. Received in fixative is one container labeled with the patient's name and designated Sigmoid polyp biopsy. The specimen consists of two irregular fragments of light mariscal soft tissue that in aggregate measure 0.5 x 0.3 x 0.1 cm. The specimen is totally submitted in one cassette. Apolonia 11/13/2023 TC:3 CPT:[id number],47527
[2023-11-12] MEDS: Acetaminophen 325 MG Tablet 650 MG PO (10:52)
[2023-11-12] MEDS: Pantoprazole Sodium 40 MG in 0.9% Normal Saline (100mL MB+) 100 ML 330 MG IV (10:53)
[2023-11-12] MEDS: Metoprolol(XL)Succ 25 MG Tablet PO (10:53)
[2023-11-12] MEDS: dilTIAZem CD 120 MG Capsule PO (10:54)
--- NOTE | 2023-11-12 11:22 | PCM.PN.HOSP ---
Subjective Subjective Doing well, no issues overnight hemoglobin still stable and in the normal range Objective Data Objective Data Vital Signs: Vital Signs Temp Pulse Resp BP Pulse Ox O2 Del Method 97.6 F L 130 H 12 126/78 H 96 Room Air 11/12/23 10:51 11/12/23 10:53 11/12/23 10:51 11/12/23 10:51 11/12/23 10:51 11/12/23 10:51 Oxygen Delivery Method Room Air Weight: 281 lb 15.539 oz Body Mass Index (BMI) 40.4 Intake & Output: Intake and Output for Last 24 Hours 11/11/23 11/12/23 11/13/23 03:59 03:59 03:59 Intake Total 915.83 / 915.83 110 / 110 Balance 915.83 / 915.83 110 / 110 Lab / Micro Data 11/12/23 05:48 11/12/23 05:48 Labs: Laboratory Results - last 24 hr 11/11/23 10:52: Lactic Acid 1.5 11/11/23 12:40: PT 29.7 H, INR 2.9 11/11/23 16:15: POC Glucose 206 H 11/11/23 20:36: POC Glucose 244 H 11/12/23 05:48: WBC 10.2, RBC 4.53 L, Hgb 13.8, Hct 42.3, MCV 93.4, MCH 30.5, MCHC 32.6, RDW Std Deviation 46.8 H, RDW Coeff of Ernestina 13.6, Plt Count 245, MPV 9.4, Immature Gran % (Auto) 0.500, Neut % (Auto) 90.9 H, Lymph % (Auto) 4.0 L, Clarke % (Auto) 4.5, Eos % (Auto) 0.0, Baso % (Auto) 0.1, Absolute Neuts (auto) 9.3 H, Absolute Lymphs (auto) 0.41 L, Nucleated RBC % 0, Sodium 139, Potassium 3.6, Chloride 107, Carbon Dioxide 24.0, Anion Gap 8, BUN 21 H, Creatinine 1.16, Estim Creat Clear Calc 86.41, Est GFR (MDRD) Af Amer 82, Est GFR (MDRD) Non-Af 67, BUN/Creatinine Ratio 18.1, Glucose 156 H, Calcium 9.5 11/12/23 06:20: POC Glucose 136 H Radiography Diagnostic Testing: Radiology Impression Abdomen/Pelvis CT 11/11/23 10:38 IMPRESSION: 1. Multiple gallstones without evidence of acute cholecystitis 2. Normal colon. The appendix is visualized and appears normal. No visualized rectal mass or significant soft tissue edema or thickening. No colonic diverticula are present. Electronically Signed: Karl Arnold MD at 13:17 EDT Reading Location ID and State: [facility] / [place] , Service support , Physical Exam Narrative General: Alert, Oriented x3, Cooperative, No apparent distress HEENT: Atraumatic, PERRLA, EOMI, Normocephalic Oral: Moist Mucosa Neck: Supple, No JVD Lungs: Diminished, Normal air movement, No rhonchi, No wheeze, No rales Cardiovascular: Regular rate, Regular Rhythm, Normal S1, Normal S2, No murmurs, valve click Abdomen: Soft, Non Tender, Non-Distended, No Hepato-splenomegaly Extremities: No edema, Capillary Refill Less than 3 Seconds Skin: No rashes, No breakdown Musculoskeletal: No Tenderness to Palpation of Joints or Extremities Neurological: No focal neurological deficits, Motor Exam 5/5 strength throughout, Sensory exam intact to light touch and pain Psych/Mental Status: Normal Affect, Appropriate Assessment & Plan Assessment/Plan (1) Acute lower GI bleeding: PLAN: Plan 1. Acute GI bleed/GERD ? Not severe as his hemoglobin is stable ? He has been prepped and will have gastroenterology eval for C-scope ? Continue with PPI 2. A-fib/essential HTN/HLD/aortic stenosis status post replacement/chronic diastolic CHF ? Given has nonsevere GI bleed we will hold his Coumadin ? Continue with his home blood pressure medications ? Continue with his statin ? We will monitor make adjustments as necessary ? Last echo is from 05/24/2022 with an EF of 55% and moderate global right ventricular systolic dysfunction with an RVSP of 43 mmHg 3. COPD ? Not in exacerbation ? Continue with his home inhalers 4. Hypothyroidism ? Stable ? On Synthroid 5. BPH ? Stable ? Continue with home medications DVT: SCDs Charges/Coding Visit Charges Inpatient E&M: 55168 Subs Hosp L2
[2023-11-12] MEDS: Lactated Ringers 1,000 ML 15 ML IV (11:41)
--- NOTE | 2023-11-12 13:02 | OP.CCLET_ITS ---
11/12/2023 Silva Webster Md Re : Upper GI endoscopy procedure for Renato Polo Dear Eleanor This procedure was performed on Sunday, November 12, 2023. My impressions and recommendations are as follows: Impressions : - Z-line irregular, 38 cm from the incisors. Biopsied. - A single non-bleeding angiodysplastic lesion in the stomach. Treated with argon plasma coagulation (APC). - Normal second portion of the duodenum. Recommendations : - Discharge patient to home. - Continue present medications. My findings are described in the full procedure note, which is enclosed. If I can be of further assistance, please feel free to contact me at . Sincerely, Derek Fagan, 11/12/2023 1:01:43 PM This report has been signed electronically.
--- NOTE | 2023-11-12 13:02 | OP.EGD_ITS ---
Patient Name: Renato Polo Procedure Date: 11/12/2023 11:49 AM Date of : 1960 Age: 63 Procedure: Upper GI endoscopy Indications: Hematochezia Providers: Derek Fagan DO Medicines: Monitored Anesthesia Care Patient Profile: This is a 63 year old male. Complications: No immediate complications. Procedure: Pre-Anesthesia Assessment: - Prior to the procedure, a History and Physical was performed, and patient medications and allergies were reviewed. The patient is competent. The risks and benefits of the procedure and the sedation options and risks were discussed with the patient. All questions were answered and informed consent was obtained. Patient identification and proposed procedure were verified by the physician in the pre-procedure area. Mental Status Examination: alert and oriented. Airway Examination: normal oropharyngeal airway and neck mobility. Respiratory Examination: clear to auscultation. Prophylactic Antibiotics: The patient does not require prophylactic antibiotics. Prior Anticoagulants: The patient has taken no anticoagulant or antiplatelet agents except for NSAID medication. ASA Grade Assessment: III - A patient with severe systemic disease. After reviewing the risks and benefits, the patient was deemed in satisfactory condition to undergo the procedure. The anesthesia plan was to use monitored anesthesia care (MAC). Immediately prior to administration of medications, the patient was re-assessed for adequacy to receive sedatives. The heart rate, respiratory rate, oxygen saturations, blood pressure, adequacy of pulmonary ventilation, and response to care were monitored throughout the procedure. The physical status of the patient was re-assessed after the procedure. After obtaining informed consent, the endoscope was passed under direct vision. Throughout the procedure, the patient's blood pressure, pulse, and oxygen saturations were monitored continuously. The Colonoscope was introduced through the mouth, and advanced to the second part of duodenum. The upper GI endoscopy was accomplished without difficulty. The patient tolerated the procedure well. Scope In: 12:05:53 PM Scope Out: 12:09:49 PM Total Procedure Duration Time 0 hours 3 minutes 56 seconds Findings: The Z-line was irregular and was found 38 cm from the incisors. Biopsies were taken with a cold forceps for histology. Verification of patient identification for the specimen was done. Estimated blood loss was minimal. A single 3 mm angiodysplastic lesion with no bleeding was found in the gastric body. Coagulation for hemostasis using argon plasma at 0.3 liters/minute and 20 nuno was successful. Estimated blood loss was minimal. The second portion of the duodenum was normal. Impression: - Z-line irregular, 38 cm from the incisors. Biopsied. - A single non-bleeding angiodysplastic lesion in the stomach. Treated with argon plasma coagulation (APC). - Normal second portion of the duodenum. Recommendation: - Discharge patient to home. - Continue present medications. Procedure Code(s): --- Professional --- 03721, 59, Esophagogastroduodenoscopy, flexible, transoral; with control of bleeding, any method 87555, 51, Esophagogastroduodenoscopy, flexible, transoral; with biopsy, single or multiple CPT copyright 2021 [employer]. All rights reserved. The codes documented in this report are preliminary and upon ship construction teacher review may be revised to meet current compliance requirements. Derek Fagan DO 11/12/2023 1:01:43 PM This report has been signed electronically. Number of Addenda: 0 Note Initiated On: 11/12/2023 11:49 AM
--- NOTE | 2023-11-12 13:05 | OP.COLON_ITS ---
Patient Name: Renato Polo Procedure Date: 11/12/2023 12:09 PM Date of : 1960 Age: 63 Procedure: Colonoscopy Indications: Hematochezia Providers: Derek Fagan DO Medicines: Monitored Anesthesia Care Patient Profile: This is a 63 year old male. Refer to note in patient chart for documentation of history and physical. Last Colonoscopy: date unknown. Unable to locate last colonoscopy report. Complications: No immediate complications. Procedure: Pre-Anesthesia Assessment: - Prior to the procedure, a History and Physical was performed, and patient medications and allergies were reviewed. The patient is competent. The risks and benefits of the procedure and the sedation options and risks were discussed with the patient. All questions were answered and informed consent was obtained. Patient identification and proposed procedure were verified by the physician in the pre-procedure area. Mental Status Examination: alert and oriented. Airway Examination: normal oropharyngeal airway and neck mobility. Respiratory Examination: clear to auscultation. Prophylactic Antibiotics: The patient does not require prophylactic antibiotics. Prior Anticoagulants: The patient has taken no anticoagulant or antiplatelet agents except for NSAID medication. ASA Grade Assessment: III - A patient with severe systemic disease. After reviewing the risks and benefits, the patient was deemed in satisfactory condition to undergo the procedure. The anesthesia plan was to use monitored anesthesia care (MAC). Immediately prior to administration of medications, the patient was re-assessed for adequacy to receive sedatives. The heart rate, respiratory rate, oxygen saturations, blood pressure, adequacy of pulmonary ventilation, and response to care were monitored throughout the procedure. The physical status of the patient was re-assessed after the procedure. After I obtained informed consent, the scope was passed under direct vision. Throughout the procedure, the patient's blood pressure, pulse, and oxygen saturations were monitored continuously. The Colonoscope was introduced through the anus and advanced to the cecum, identified by appendiceal orifice and ileocecal valve. The colonoscopy was performed without difficulty. The patient tolerated the procedure well. The quality of the bowel preparation was poor. Scope In: 12:13:31 PM Scope Withdrawal Time 0 hours 19 minutes 12 seconds Scope Out: 12:36:44 PM Total Procedure Duration Time 0 hours 23 minutes 13 seconds Findings: The perianal and digital rectal examinations were normal. Multiple large localized angiodysplastic lesions with bleeding were found at the anus and in the rectum. Coagulation for hemostasis using argon plasma at 0.3 liters/minute and 20 nuno was successful. Estimated blood loss was minimal. Multiple small and large-mouthed diverticula were found in the sigmoid colon, descending colon and splenic flexure. A 5 mm polyp was found in the sigmoid colon. The polyp was sessile. The polyp was removed with a jumbo cold forceps. Resection and retrieval were complete. Verification of patient identification for the specimen was done. Estimated blood loss was minimal. Stool was found in the entire colon. Impression: - Preparation of the colon was poor. - Multiple bleeding colonic angiodysplastic lesions. Treated with argon plasma coagulation (APC). - Diverticulosis in the sigmoid colon, in the descending colon and at the splenic flexure. - One 5 mm polyp in the sigmoid colon, removed with a jumbo cold forceps. Resected and retrieved. - Stool in the entire examined colon. Recommendation: - [facility]. - Resume previous diet. - Continue present medications. - Await pathology results. - Repeat colonoscopy in 3 years for surveillance. Procedure Code(s): --- Professional --- 37277, 59, Colonoscopy, flexible; with control of bleeding, any method 11409, Colonoscopy, flexible; with biopsy, single or multiple CPT copyright 2021 [employer]. All rights reserved. The codes documented in this report are preliminary and upon processing archivist review may be revised to meet current compliance requirements. Derek Fagan DO 11/12/2023 1:05:00 PM This report has been signed electronically. Number of Addenda: 0 Note Initiated On: 11/12/2023 12:09 PM
--- NOTE | 2023-11-12 13:05 | OP.CCLET_ITS ---
11/12/2023 Silva Webster Md Re : Colonoscopy procedure for Renato Polo Dear Eleanor This procedure was performed on Sunday, November 12, 2023. My impressions and recommendations are as follows: Impressions : - Preparation of the colon was poor. - Multiple bleeding colonic angiodysplastic lesions. Treated with argon plasma coagulation (APC). - Diverticulosis in the sigmoid colon, in the descending colon and at the splenic flexure. - One 5 mm polyp in the sigmoid colon, removed with a jumbo cold forceps. Resected and retrieved. - Stool in the entire examined colon. Recommendations : - [facility]. - Resume previous diet. - Continue present medications. - Await pathology results. - Repeat colonoscopy in 3 years for surveillance. My findings are described in the full procedure note, which is enclosed. If I can be of further assistance, please feel free to contact me at . Sincerely, Derek Fagan, 11/12/2023 1:05:00 PM This report has been signed electronically.
--- NOTE | 2023-11-12 15:56 | CHAPLAIN ---
Type of Pastoral Visit ___ Initial Visit ___ Follow-up Visit ___ On-call Visit ___ General Patient Visit ___ Spiritual Assessment ___ Family Conference ___ Bereavement ___ Rapid Response ___ Code Blue ___ Other (describe below) Pastoral Care Referral From ___ Patient ___ Family ___ Nurse ___ Physician ___ Rental Agent ___ Meal Attendant ___ Other (describe below) Sacrament/Intervention ___ Active listening ___ Anointing ___ Sabianism ___ Bereavement ___ Communion ___ Dianne exploration ___ ___ Life review ___ Prayer ___ Reconciliation ___ Sacrament of Sick ___ Supportive presence ___ Wedding ___ Other (describe below) Pastoral Comments patient and bed were out of the room; calling card left
[2023-11-12] MEDS: Insulin Lispro 100 UNIT/ML INSULN.PEN SC (16:12)
[2023-11-12 16:30] LABS: Bedside Glucose 201 mg/dL (74-106)
--- NOTE | 2023-11-12 16:55 | DCINST_ITS ---
Discharge Instructions Diet Discharge Diet: Low fat / Low cholesterol Activity Discharge Activity: Return to Normal Activity Dressing / Incision Call your doctor if you observe: Fever of 101 or Higher, Shortness of breath, Dizziness, Fainting spells, Swelling in the ankles, Chest pain and Increased palpitations (irregular heartbeat) Follow Up Care Test Results: Test results from this visit will be discussed in further detail at your follow- up appointment, if applicable. Discharge Plan Admission Admit Date/Time: 11/11/23 13:41 Attending Provider: Bony Palma Primary Care Provider: Silva Webster Consulting Providers: Lety Garcia Instructions Additional Instructions / Restrictions: Follow-up with your PCP in 3 to 5 days to monitor your renal function as well as your anemia. Discharge Orders/Prescriptions Prescriptions: Continued cetirizine [Zyrtec] 10 mg tablet 10 mg PO DAILY PRN (Reason: ALLLERGY) fluticasone propionate [Flonase Allergy Relief] 50 mcg/actuation spray,suspension 1 spray intranasal DAILY Rx Instructions: administer into each nostril warfarin 3 mg tablet 3 mg PO Protocol: Dose Management Condition: Friday Dose/Route: 3 mg Instruction: 1 x 3 mg tablet Condition: Friday Dose/Route: 1.5 mg Instruction: 0.5 x 3 mg tablets Condition: Friday Dose/Route: 1.5 mg Instruction: 0.5 x 3 mg tablets Condition: Friday Dose/Route: 3 mg Instruction: 1 x 3 mg tablet Condition: Dose/Route: 3 mg Instruction: 1 x 3 mg tablet Condition: Friday Dose/Route: 3 mg Instruction: 1 x 3 mg tablet Condition: Friday Dose/Route: 3 mg Instruction: 1 x 3 mg tablet Protocol Text: Adjustment Start Date: Friday11/05/23 INR Value: 2.2 INR Date: 11/05/23 Recheck Date: 11/19/23 Rx Instructions: and Fridays 1.5mg folic acid 1 MG tablet 1 mg PO QHS cholecalciferol (vitamin D3) 1,000 UNIT tablet 2,000 unit PO QHS biotin-keratin 1 EACH tablet 1 ea PO QHS docusate sodium 100 mg capsule 200 mg PO QHS ferrous sulfate 325 MG tablet 325 mg PO QHS multivitamin 1 TABLET tablet 1 tab PO DAILY dutasteride 0.5 mg capsule 0.5 mg PO DAILY warfarin [Jantoven] 3 mg tablet 1.5 mg PO TUTH torsemide 20 mg tablet 10 mg PO 1200 melatonin 10 mg tablet 25 mg PO QHS Ultra Fresh PM Ointment 1 applic EACH EYE DAILY potassium chloride 10 mEq capsule, extended release 60 meq PO BID Rx Instructions: Pt has Throat injury, needs capsules torsemide 20 mg tablet 20 mg PO DAILY Rx Instructions: TAKES 1 TAB IN THE AM AND HALF A TAB AT NOON (DME) Disability Placard See Rx Instructions .Route .MEDSUPPLY Qty: 1 0RF Rx Instructions: expires 04/20/2026 [place] [place] blood-glucose meter Kit See Rx Instructions .Route Qty: 1 0RF Rx Instructions: daily terazosin 1 mg capsule 1 mg PO QHS Qty: 90 0RF albuterol sulfate 90 mcg/actuation HFA aerosol inhaler 2 puff INHALATION Q4H PRN (Reason: shortness of breath or wheezing) Qty: 1 3RF Rx Instructions: administer with spacer diltiazem HCl 120 mg capsule,extended release 24hr 120 mg PO DAILY Qty: 90 3RF tizanidine 4 mg tablet 4 mg PO QHS Qty: 90 0RF pantoprazole 40 mg tablet,delayed release (DR/EC) 40 mg PO QAM Qty: 90 1RF Farxiga 10 mg tablet 10 mg PO DAILY Qty: 90 1RF (DME) lancets [Accu-Chek Softclix Lancets] Misc See Rx Instructions .ROUTE .COMPLEX Qty: 100 0RF Dose Instruction: USE TO CHECK GLUCOSE ONCE DAILY Rx Instructions: USE TO CHECK GLUCOSE ONCE DAILY ([facility] [place]) Accu-Chek Guide test strips Strip See Rx Instructions .Route Qty: 100 2RF Rx Instructions: daily spironolactone 25 mg tablet 25 mg PO DAILY Qty: 90 3RF Trelegy Ellipta 100-62.5-25 mcg blister with device 1 inh inhalation DAILY Qty: 3 3RF bupropion HCl 300 mg tablet extended release 24 hr 300 mg PO DAILY Qty: 90 1RF metoprolol succinate 25 mg tablet extended release 24 hr 25 mg PO DAILY Qty: 90 3RF levothyroxine 100 mcg tablet 100 mcg PO DAILY Qty: 90 1RF atorvastatin 40 mg tablet 40 mg PO QHS Qty: 90 3RF duloxetine 60 mg capsule,delayed release(DR/EC) 60 mg PO QAM Qty: 90 0RF duloxetine 30 mg capsule,delayed release(DR/EC) 30 mg PO QHS Qty: 90 0RF tamsulosin 0.4 mg capsule 0.4 mg PO DAILY Qty: 90 1RF Referrals / Follow Up: Silva Webster MD [Primary Care Provider] - Within 1 Week Disposition Disposition (needs filled in before D/C Order can be placed): Home, Self Care
--- NOTE | 2023-11-12 16:58 | PCM.DC.SUM ---
Providers Date of Admission: 11/11/23 Primary Care Physician: Dr. Silva Webster MD Consultations 11/11/23 14:41 Consult: Gastroenterology Routine Consulting Provider: [facility] Reason for Consult: GI bleed EMERGENT Consult: No MD Notified: Yes Date Notified: 11/11/23 Time Notified: 13:54 Method of Notification: Text Reason For Visit: GI BLEED, AFIB HISTORY Diagnosis Discharge Diagnosis (1) Acute lower GI bleeding: Status: Acute Code(s): K92.2 - Gastrointestinal hemorrhage, unspecified Medications at Discharge Home Medications biotin 10,000 mcg-keratin 100 mg tablet 1 ea PO QHS supplement 04/12/16 cholecalciferol (vitamin D3) 25 mcg (1,000 unit) tablet 2,000 unit PO QHS supplement 04/12/16 folic acid 1 mg tablet 1 mg PO QHS supplement 04/12/16 ferrous sulfate 325 mg (65 mg iron) tablet 325 mg PO QHS anemia 03/10/20 multivitamin 1 tab PO DAILY supplement 03/10/20 Disability Placard #1 ea 04/20/21 docusate sodium 100 mg capsule 200 mg PO QHS stool softener 01/01/22 cetirizine 10 mg tablet (Zyrtec) 10 mg PO DAILY PRN ALLLERGY 04/23/22 fluticasone propionate 50 mcg/actuation nasal spray,suspension (Flonase Allergy Relief) 1 spray intranasal DAILY 04/23/22 dutasteride 0.5 mg capsule 0.5 mg PO DAILY 09/25/22 warfarin 3 mg tablet 3 mg PO SUMOWEFRSA 02/25/23 blood-glucose meter #1 ea 03/06/23 albuterol sulfate 90 mcg/actuation aerosol inhaler 2 puff inhalation Q4H PRN shortness of breath or wheezing #1 device 07/25/23 diltiazem HCl 120 mg capsule,extended release 24 hr 120 mg PO DAILY #90 caps 07/25/23 terazosin 1 mg capsule 1 mg PO QHS blood pressure #90 caps 07/25/23 tizanidine 4 mg tablet 4 mg PO QHS #90 tabs 07/30/23 pantoprazole 40 mg tablet,delayed release 40 mg PO QAM #90 tabs 08/05/23 dapagliflozin propanediol 10 mg tablet (Farxiga) 10 mg PO DAILY #90 tabs 08/20/23 lancets (Accu-Chek Softclix Lancets) #100 ea 09/01/23 blood sugar diagnostic (Accu-Chek Guide test strips) #100 ea 09/09/23 spironolactone 25 mg tablet 25 mg PO DAILY #90 tabs 09/10/23 fluticasone fur. 100 mcg-umeclid 62.5 mcg-vilant 25 mcg inhalat.powder (Trelegy Ellipta) 1 inh inhalation DAILY #3 ea 09/12/23 bupropion HCl 300 mg 24 hr tablet, extended release 300 mg PO DAILY mental health #90 tabs 09/15/23 metoprolol succinate 25 mg tablet,extended release 24 hr 25 mg PO DAILY #90 tabs 10/03/23 levothyroxine 100 mcg tablet 100 mcg PO DAILY thyroid #90 tabs 10/09/23 atorvastatin 40 mg tablet 40 mg PO QHS #90 tabs 10/21/23 duloxetine 30 mg capsule,delayed release 30 mg PO QHS #90 caps 10/23/23 duloxetine 60 mg capsule,delayed release 60 mg PO QAM #90 caps 10/23/23 tamsulosin 0.4 mg capsule 0.4 mg PO DAILY #90 caps 11/03/23 artificial tears with lanolin eye ointment (Ultra Fresh PM eye ointment) 1 applic EACH EYE DAILY 11/11/23 melatonin 10 mg tablet 25 mg PO QHS 11/11/23 potassium chloride 10 mEq capsule,extended release 60 meq PO BID 11/11/23 torsemide 20 mg tablet 10 mg PO 1200 FLUID RETENTION 11/11/23 torsemide 20 mg tablet 20 mg PO DAILY 11/11/23 warfarin 3 mg tablet (Jantoven) 1.5 mg PO TUTH 11/11/23 Hospital Course Operations None Procedures Colonoscopy and EGD Summary of Care Provided Minutes Spent on Discharge: 39 Hospital Course: Per HPI: STEPAN RIGGS, is a 63 M with a PMh as outlined who presents via the ED on 11/11/2023 with a complaint of rectal bleed. He has a history of mechanical aortic valve, on coumadin. He started having the rectal bleed about 3 months ago; it was initially in small amounts. The day before admission, he went to have a bowel movement and passed some clots. He called his PCP and was counseled to come to the ED. He denied any dizziness, palpitations, nausea, vomiting or any other symptoms. Review of systems is otherwise negative. He has been compliant with his coumadin. He had a colonoscopy by GI about 3 years ago, and it showed he had some polyps. Vitals in the ED were BP of 102/70, DE of 75, RR of 18 and oxygen sats of 96% on room air. CBC showed hb of 14.4, wbc of 8.1 and platelets of 239. INR is 2.9. Chemistry showed sodium of 138, with potassium of 3.[address] of 23. CT of the abdomen and pelvis showed multiple gallstones without evidence of acute cholecystitis, and normal colon with appendix visualised and normal; no visualised rectal mass or significant soft tissue edema or thickening, with no colonic diverticula present. GI was contacted from the ED, and asked for patient to be admitted for a scope as needed. Hospital Course: 1. Acute GI bleed secondary to angiodysplastic lesions/GERD?63-year-old male presented to the hospital after a month or 2 of intermittent GI bleeding. He noticed a clot in his stool the other day which is why he called his PCP who sent him to the ER. He had an EGD and a colonoscopy today which demonstrated multiple AVMs in his colon as well as a single nonbleeding AVM in his stomach. All of these were treated and he was continued on his PPI. His hemoglobin today only went to 13.8 so he is stable for discharge. I did discuss the discharge plan with GI who felt that he would be okay for going home today. I also discussed the possibility of discharge with the patient and he expressed understanding of the risk and benefits of going home and he would like to go home today. We did discuss indications for returning to the hospital including recurrent heavy GI bleeding as well as other symptoms including lightheadedness, dizziness, fatigue. I do recommend he follow-up with his PCP as an outpatient for monitoring his anemia. We did discuss also that AVMs are going to be a chronic issue that lead to intermittent bleeding. 2. A-fib, essential hypertension, hyperlipidemia, aortic stenosis status post replacement, chronic diastolic CHF, COPD, hypothyroidism, BPH are all chronic medical conditions which complicate his care. His home medications can be continued where appropriate Physical Exam Narrative General: Alert, Oriented x3, Cooperative, No apparent distress HEENT: Atraumatic, PERRLA, EOMI, Normocephalic Oral: Moist Mucosa Neck: Supple, No JVD Lungs: Diminished, Normal air movement, No rhonchi, No wheeze, No rales Cardiovascular: Regular rate, Regular Rhythm, Normal S1, Normal S2, No murmurs, valve click Abdomen: Soft, Non Tender, Non-Distended, No Hepato-splenomegaly Extremities: No edema, Capillary Refill Less than 3 Seconds Skin: No rashes, No breakdown Musculoskeletal: No Tenderness to Palpation of Joints or Extremities Neurological: No focal neurological deficits, Motor Exam 5/5 strength throughout, Sensory exam intact to light touch and pain Psych/Mental Status: Normal Affect, Appropriate Weight / BMI Weight Weight: 281 lb 15.539 oz Body Mass Index (BMI) 40.4 ABG / Lab / Microbiology Data 11/12/23 05:48 11/12/23 05:48 Laboratory: Laboratory Results - last 24 hr 11/11/23 20:36: POC Glucose 244 H 11/12/23 05:48: WBC 10.2, RBC 4.53 L, Hgb 13.8, Hct 42.3, MCV 93.4, MCH 30.5, MCHC 32.6, RDW Std Deviation 46.8 H, RDW Coeff of Ernestina 13.6, Plt Count 245, MPV 9.4, Immature Gran % (Auto) 0.500, Neut % (Auto) 90.9 H, Lymph % (Auto) 4.0 L, [place] % (Auto) 4.5, Eos % (Auto) 0.0, Baso % (Auto) 0.1, Absolute Neuts (auto) 9.3 H, Absolute Lymphs (auto) 0.41 L, Nucleated RBC % 0, Sodium 139, Potassium 3.6, Chloride 107, Carbon Dioxide 24.0, Anion Gap 8, BUN 21 H, Creatinine 1.16, Estim Creat Clear Calc 86.41, Est GFR (MDRD) Af Amer 82, Est GFR (MDRD) Non-Af 67, BUN/Creatinine Ratio 18.1, Glucose 156 H, Calcium 9.5 11/12/23 06:20: POC Glucose 136 H 11/12/23 16:08: POC Glucose 201 H D/C Instructions Discharge Diet: Low fat / Low cholesterol Call your doctor if you observe: Fever of 101 or Higher, Shortness of breath, Dizziness, Fainting spells, Swelling in the ankles, Chest pain and Increased palpitations (irregular heartbeat) Meaningful Use Info Meaningful Use Meaningful Use Diagnoses (Choose all that apply): None applicable Ischemic Stroke Statin Dosing Therapy Reference: STATIN DOSE THERAPY REFERENCE: * Patients > 75 years receive moderate or high dose statin therapy. * Patients 75 years or YOUNGER should receive HIGH intensity statin dose unless contraindicated. You will be required to document reason for non-treatment if statin daily dose does not meet guidelines. HIGH DOSE STATIN THERAPY DAILY Atorvastatin > than or = to 40 mg Rosuvastatin > than or = to 20 mg Amlodipine + Atorvastatin > than or = to 2.5/40 mg Ezetimibe + Simvastatin 10/80 mg Simvastatin 80mg Discharge Plan Admission Admit Date/Time: 11/11/23 13:41 Attending Provider: Bony Plama Primary Care Provider: Silva Webster Consulting Providers: Lety Garcia Instructions Additional Instructions / Restrictions: Follow-up with your PCP in 3 to 5 days to monitor your renal function as well as your anemia. Discharge Orders/Prescriptions Prescriptions: Continued cetirizine [Zyrtec] 10 mg tablet 10 mg PO DAILY PRN (Reason: ALLLERGY) fluticasone propionate [Flonase Allergy Relief] 50 mcg/actuation spray,suspension 1 spray intranasal DAILY Rx Instructions: administer into each nostril warfarin 3 mg tablet 3 mg PO Protocol: Dose Management Condition: Friday Dose/Route: 3 mg Instruction: 1 x 3 mg tablet Condition: Friday Dose/Route: 1.5 mg Instruction: 0.5 x 3 mg tablets Condition: Friday Dose/Route: 1.5 mg Instruction: 0.5 x 3 mg tablets Condition: Friday Dose/Route: 3 mg Instruction: 1 x 3 mg tablet Condition: Dose/Route: 3 mg Instruction: 1 x 3 mg tablet Condition: Friday Dose/Route: 3 mg Instruction: 1 x 3 mg tablet Condition: Friday Dose/Route: 3 mg Instruction: 1 x 3 mg tablet Protocol Text: Adjustment Start Date: Friday11/05/23 INR Value: 2.2 INR Date: 11/05/23 Recheck Date: 11/19/23 Rx Instructions: and Fridays 1.5mg folic acid 1 MG tablet 1 mg PO QHS cholecalciferol (vitamin D3) 1,000 UNIT tablet 2,000 unit PO QHS biotin-keratin 1 EACH tablet 1 ea PO QHS docusate sodium 100 mg capsule 200 mg PO QHS ferrous sulfate 325 MG tablet 325 mg PO QHS multivitamin 1 TABLET tablet 1 tab PO DAILY dutasteride 0.5 mg capsule 0.5 mg PO DAILY warfarin [Jantoven] 3 mg tablet 1.5 mg PO TUTH torsemide 20 mg tablet 10 mg PO 1200 melatonin 10 mg tablet 25 mg PO QHS Ultra Fresh PM Ointment 1 applic EACH EYE DAILY potassium chloride 10 mEq capsule, extended release 60 meq PO BID Rx Instructions: Pt has Throat injury, needs capsules torsemide 20 mg tablet 20 mg PO DAILY Rx Instructions: TAKES 1 TAB IN THE AM AND HALF A TAB AT NOON (DME) Disability Placard See Rx Instructions .Route .MEDSUPPLY Qty: 1 0RF Rx Instructions: [place] [place] blood[place] Kit See Rx Instructions .Route Qty: 1 0RF Rx Instructions: daily terazosin 1 mg capsule 1 mg PO QHS Qty: 90 0RF albuterol sulfate 90 mcg/actuation HFA aerosol inhaler 2 puff INHALATION Q4H PRN (Reason: shortness of breath or wheezing) Qty: 1 3RF Rx Instructions: administer with spacer diltiazem HCl 120 mg capsule,extended release 24hr 120 mg PO DAILY Qty: 90 3RF tizanidine 4 mg tablet 4 mg PO QHS Qty: 90 0RF pantoprazole 40 mg tablet,delayed release (DR/EC) 40 mg PO QAM Qty: 90 1RF Farxiga 10 mg tablet 10 mg PO DAILY Qty: 90 1RF (DME) lancets [Accu-Chek Softclix Lancets] Misc See Rx Instructions .ROUTE .COMPLEX Qty: 100 0RF Dose Instruction: USE TO CHECK GLUCOSE ONCE DAILY Rx Instructions: USE TO CHECK GLUCOSE ONCE DAILY (DME) Accu-Chek Guide test strips Strip See Rx Instructions .Route Qty: 100 2RF Rx Instructions: daily spironolactone 25 mg tablet 25 mg PO DAILY Qty: 90 3RF Trelegy Ellipta 100-62.5-25 mcg blister with device 1 inh inhalation DAILY Qty: 3 3RF bupropion HCl 300 mg tablet extended release 24 hr 300 mg PO DAILY Qty: 90 1RF metoprolol succinate 25 mg tablet extended release 24 hr 25 mg PO DAILY Qty: 90 3RF levothyroxine 100 mcg tablet 100 mcg PO DAILY Qty: 90 1RF atorvastatin 40 mg tablet 40 mg PO QHS Qty: 90 3RF duloxetine 60 mg capsule,delayed release(DR/EC) 60 mg PO QAM Qty: 90 0RF duloxetine 30 mg capsule,delayed release(DR/EC) 30 mg PO QHS Qty: 90 0RF tamsulosin 0.4 mg capsule 0.4 mg PO DAILY Qty: 90 1RF Referrals / Follow Up: Silva Webster MD [Primary Care Provider] - Within 1 Week Disposition Disposition (needs filled in before D/C Order can be placed): Home, Self Care Charges/Coding Visit Charges Inpatient E&M: 06667 Disch Hosp >30min
== END 2023-11-12 17:58 | disposition home or self-care (01) | DRG 378 ==
LOC: ED 13:25 → PCU 13:50
PROVIDERS: Internal Medicine Gastroenterology; Admitting Provider Student in an Organized Health Care Education/Training Program; Emergency Provider Emergency Medicine; PCP Internal Medicine; Visit Provider Family Medicine
PROC: 0DJD8ZZ Inspection of Lower Intestinal Tract, Via Natural or Artificial Opening Endoscopic (ICD-10-PCS; CPT 45378; principal; 2023-11-12 10:40)
DX: K55.21 Angiodysplasia of colon with hemorrhage (principal); I50.32 Chronic diastolic (congestive) heart failure; I11.0 Hypertensive heart disease with heart failure; J43.9 Emphysema, unspecified; I48.0 Paroxysmal atrial fibrillation; D64.9 Anemia, unspecified; E03.9 Hypothyroidism, unspecified; I35.0 Nonrheumatic aortic (valve) stenosis; K31.819 Angiodysplasia of stomach and duodenum without bleeding; E78.5 Hyperlipidemia, unspecified; E87.6 Hypokalemia; K21.9 Gastro-esophageal reflux disease without esophagitis; K63.5 Polyp of colon; G47.33 Obstructive sleep apnea (adult) (pediatric); K57.30 Diverticulosis of large intestine without perforation or abscess without bleeding; N40.0 Benign prostatic hyperplasia without lower urinary tract symptoms; Z79.01 Long term (current) use of anticoagulants; Z79.51 Long term (current) use of inhaled steroids; Z79.890 Hormone replacement therapy; Z79.899 Other long term (current) drug therapy; Z87.891 Personal history of nicotine dependence; Z85.46 Personal history of malignant neoplasm of prostate; Z95.2 Presence of prosthetic heart valve
CPT/HCPCS: 43255; 45380; 43239; 45382; 36415; 74177; 80048; 82962; 83605; 85025; 85610; 88305; 88312; 93005; 94640; 96361; 96365; 96366; 96375; 99221; 99285; J7030; J7120; A4216; G0378

== ENCOUNTER 2023-11-20 06:00 | Outpatient (RCR) | payer BC, SELFPAY ==
[2023-10-29 09:08] LABS: Prothrombin Time (Protime)PT. 22.2 SECONDS (11.7-14.9)
[2023-11-05 08:56] LABS: International Normalized Ratio 2.2; Prothrombin Time (Protime)PT. 24.2 SECONDS (11.7-14.9)
[2023-11-05 09:12] LABS: AST(SGOT) 23 U/L (15-37); Alanine Aminotransfer ALT/SGPT 27 U/L (16-61); Albumin, Serum 3.8 g/dL (3.2-5.0); Alkaline Phosphatase 136 U/L (45-117); Bilirubin, Direct 0.45 mg/dL (0.00-0.30); Cholesterol 117 mg/dL (200); Globulin 3.6 g/dL (2.2-4.2); High Density Lipoprotein 43 mg/dL; Protein, Total 7.4 g/dL (6.4-8.2); Triglycerides 113 mg/dL; Very Low Density Lipoprotein 23 mg/dL (5-40)
[2023-11-05 09:30] LABS: PSA,Total- Diagnostic 0.02 ng/mL (0.0-4.0)
[2023-11-20 06:11] LABS: INR Fingerstick 2.2; Prothrombin Time Fingerstick 23.2 SEC (11.7-14.9)
== END 2023-11-20 18:00 | disposition home or self-care (01) ==
LOC: LAB 06:00
PROVIDERS: Student in an Organized Health Care Education/Training Program; PCP Internal Medicine; Referring Provider Nurse Practitioner Family; Visit Provider Nurse Practitioner Family
DX: Z79.01 Long term (current) use of anticoagulants (principal); I48.11 Longstanding persistent atrial fibrillation; E78.00 Pure hypercholesterolemia, unspecified; C61 Malignant neoplasm of prostate
CPT/HCPCS: 36415; 36416; 80061; 80076; 84153; 85610

== ENCOUNTER 2023-12-11 11:20 | Observation (INO) | payer BC, SELFPAY ==
[2023-12-11] VITALS (7 sets, daily range): BP systolic 108–147; BP diastolic 71–94; PULSE 87–100; RESP 16–18; TEMP 35.7–37.1; O2SAT 94–100; BMI 39.3; BMI 40.3
--- NOTE | 2023-12-11 11:36 | EKG12_ITS ---
Test Reason : CHETST PAIN Blood Pressure : / mmHG Vent. Rate : 111 BPM Atrial Rate : 000 BPM P-R Int : 000 ms QRS Dur : 170 ms QT Int : 412 ms P-R-T Axes : 000 109 -22 degrees QTc Int : 560 ms Atrial fibrillation with rapid ventricular response Right bundle branch block Septal infarct , age undetermined T wave abnormality, consider inferior ischemia Abnormal ECG Confirmed by ZANE LITTLE, CM ([id number]), news editor SUKHDEEP STOUT ([id number]) on 12/15/2023 11:11:41 AM Referred By: Confirmed By:CM DEGROOT MD
--- NOTE | 2023-12-11 11:38 | CT_ITS ---
STUDY: CT ABDOMEN AND PELVIS WITHOUT CONTRAST REASON FOR EXAM: Male, 63 years old. Four-day history of rectal bleeding. RADIATION DOSAGE (If Supplied By Facility): CTDIvol = ( 23.88 ) mGy, DLP = ( 1235.17 ) mGycm TECHNIQUE: Transaxial images were obtained from the dome of the diaphragm to the symphysis pubis without oral contrast, and without intravenous contrast. Sagittal and coronal images were reconstructed. Individualized dose optimization techniques were used for this CT. COMPARISON: Comparison is made with prior examination of November 11, 2023. FINDINGS: The visualized lung bases are unremarkable. Coronary artery calcification. Prior CABG. Normal liver. Small gallstones are seen along the dependent portion of the gallbladder lumen. Normal spleen. Normal pancreas. Normal bilateral adrenal glands. Tiny nonobstructive right intrarenal calculi. Normal left kidney. There is a small hiatal hernia. There is evidence of prior gastric bypass surgery. Normal small intestine. Normal colon. The appendix is visualized and appears normal. There is scattered atherosclerotic calcification of the abdominal aorta, without a demonstrated aneurysm. There is an IVC filter in place. Normal retroperitoneum. Mild degree of diffuse bladder wall thickening. Metallic radiation seeds are seen within the prostate. The prostate measures 4.2 cm x 4.4 cm. Normal abdominal wall. There are stable small sclerotic density seen in the sacral and posterior superior aspect of the elbow to the vertebrae. Degenerative changes of the visualized lumbar spine. CT/Abdomen/Pelvis without Cont IMPRESSION: Stable examination. Multiple small gallstones. Mild degree of bladder wall thickening. Electronically Signed: Kenton De Anda MD at 12:46 EDT ,
--- NOTE | 2023-12-11 11:38 | EX.ED.DYSGE1 ---
HPI <HINA Wong - Last Filed: 12/11/23 16:17> History of Present Illness Chief Complaint: GI Bleed Narrative Narrative: Patient is 63-year-old male with history of obesity, diabetes, CAD, valve replacement, prostate cancer who recently finished radiation 6 months ago, presents to the emergency department rectal bleeding. Patient dates over the last 4 days, every time he uses the restroom, he is seeing bright red blood with clotting. Patient is on Coumadin, for the valve replacement. Patient denies any dizziness, patient does state to have some chest tightness. This is new for him. He also complains of mid abdominal pain. Denies any fever or chills. PFSH <HINA Wong - Last Filed: 12/11/23 16:17> [facility] Medical History History of COPD History of atrial fibrillation Varicose veins of anus or rectum Contusion of right chest wall Longstanding persistent atrial fibrillation Nocturia Emphysema, unspecified Impacted cerumen of both ears History of echocardiogram Cardiology follow-up encounter History of Holter monitoring History of stress test intermediate current use of anticoagulant Loss of hearing Wears glasses Wears partial dentures Thyroid disease Prostate disease Anemia Injury of back Former smoker CPAP (continuous positive airway pressure) dependence Shortness of breath on exertion COPD (chronic obstructive pulmonary disease) History of edema History of echocardiogram History of stress test Hypertension Dysphagia COVID-19 (06/19/20) PAOLA (obstructive sleep apnea) Gout GERD (gastroesophageal reflux disease) Nonrheumatic aortic (valve) stenosis Abrasion, right lower leg, initial encounter Contusion of right foot, initial encounter Aortic valvular disease Edema Shortness of breath Fatigue Nicotine abuse Pulmonary hypertension Paroxysmal atrial fibrillation Hypokalemia Morbid obesity with BMI of 45.0-49.9, adult HLD (hyperlipidemia) PVC (premature ventricular contraction) Home Medications ?Medication ?Instructions ?Recorded ?Last Taken ?Type biotin 10,000 mcg-keratin 100 mg 1 ea PO QHS supplement 04/12/16 12/10/23 History tablet cholecalciferol (vitamin D3) 25 2,000 unit PO QHS supplement 04/12/16 12/10/23 History mcg (1,000 unit) tablet folic acid 1 mg tablet 1 mg PO QHS supplement 04/12/16 12/10/23 History ferrous sulfate 325 mg (65 mg 325 mg PO QHS anemia 03/10/20 12/10/23 History iron) tablet multivitamin 1 tab PO DAILY supplement 03/10/20 12/10/23 History Disability Placard #1 ea 04/20/21 Unknown Rx docusate sodium 100 mg capsule 200 mg PO QHS stool softener 01/01/22 12/10/23 History cetirizine 10 mg tablet (Zyrtec) 10 mg PO DAILY PRN ALLLERGY 04/23/22 12/10/23 History fluticasone propionate 50 1 spray intranasal DAILY 04/23/22 12/10/23 History mcg/actuation nasal spray,suspension (Flonase Allergy Relief) dutasteride 0.5 mg capsule 0.5 mg PO DAILY 09/25/22 12/10/23 History blood-glucose meter #1 ea 03/06/23 Unknown Rx albuterol sulfate 90 mcg/actuation 2 puff inhalation Q4H PRN 07/25/23 12/10/23 Rx aerosol inhaler shortness of breath or wheezing #1 device pantoprazole 40 mg tablet,delayed 40 mg PO QAM #90 tabs 08/05/23 12/10/23 Rx release dapagliflozin propanediol 10 mg 10 mg PO DAILY #90 tabs 08/20/23 12/10/23 Rx tablet (Farxiga) lancets (Accu-Chek Softclix #100 ea 09/01/23 Unknown Rx Lancets) blood sugar diagnostic (Accu-Chek #100 ea 09/09/23 Unknown Rx Guide test strips) spironolactone 25 mg tablet 25 mg PO DAILY #90 tabs 09/10/23 12/10/23 Rx fluticasone fur. 100 mcg-umeclid 1 inh inhalation DAILY #3 ea 09/12/23 12/10/23 Rx 62.5 mcg-vilant 25 mcg inhalat.powder (Trelegy Ellipta) bupropion HCl 300 mg 24 hr tablet, 300 mg PO DAILY mental health #90 09/15/23 12/10/23 Rx extended release tabs metoprolol succinate 25 mg 25 mg PO DAILY #90 tabs 10/03/23 12/10/23 Rx tablet,extended release 24 hr levothyroxine 100 mcg tablet 100 mcg PO DAILY thyroid #90 tabs 10/09/23 12/10/23 Rx atorvastatin 40 mg tablet 40 mg PO QHS #90 tabs 10/21/23 12/10/23 Rx duloxetine 30 mg capsule,delayed 30 mg PO QHS #90 caps 10/23/23 12/10/23 Rx release duloxetine 60 mg capsule,delayed 60 mg PO QAM #90 caps 10/23/23 12/10/23 Rx release tamsulosin 0.4 mg capsule 0.4 mg PO DAILY #90 caps 11/03/23 11/11/23 Rx artificial tears with lanolin eye 1 applic EACH EYE DAILY 11/11/23 12/10/23 History ointment (Ultra Fresh PM eye ointment) melatonin 10 mg tablet 25 mg PO QHS 11/11/23 12/10/23 History potassium chloride 10 mEq 60 meq PO BID with lasix 11/11/23 11/11/23 History capsule,extended release torsemide 20 mg tablet 10 mg PO 1200 FLUID RETENTION 11/11/23 12/10/23 History torsemide 20 mg tablet 20 mg PO DAILY 11/11/23 12/10/23 History warfarin 3 mg tablet 3 mg PO SUWETHFRSA 11/13/23 12/10/23 History warfarin 3 mg tablet (Jantoven) 1.5 mg PO MOTU 11/13/23 12/09/23 History terazosin 1 mg capsule 1 mg PO QHS blood pressure #90 caps 12/01/23 12/10/23 Rx tizanidine 4 mg tablet 4 mg PO QHS #90 tabs 12/01/23 12/10/23 Rx diltiazem HCl 120 mg capsule,24 120 mg PO DAILY 12/11/23 12/10/23 History hr,extended release Allergy/AdvReac Type Severity Reaction Status Date / Time aspirin Allergy Severe Hives Verified 12/11/23 11:25 Iodinated Contrast Media Allergy Severe Hives Verified 12/11/23 11:25 (Iodinated Contrast Media - IV Dye) shellfish derived Allergy Severe Hives Verified 12/11/23 11:25 Family History Father , age 40 Cancer COPD (chronic obstructive pulmonary disease) Mother Hypertension Brother Cancer Lung CA Aunt Cerebral aneurysm Brother Aortic valve disease Surgical History History of colonoscopy History of esophagogastroduodenoscopy (EGD) History of cardiac catheterization H/O basal cell carcinoma excision Hx of gastric bypass History of deviated nasal septum History of tonsillectomy Hx of aortic valve replacement, mechanical (~2010) Social History household members: spouse current occupational status: employed 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 Smoking Status: Former smoker quit date: 06/23/96 pack-years: 10 Tobacco: How many years used: 20 Electronic Cigarette Use: not used how long ago did patient quit smokin, 0.5 second hand exposure: Yes alcohol intake: current alcohol intake frequency: holidays/special occasions only Alcohol type: beer details: social substance use type: former substance user Date of last use: used Marijuana as a teenager caffeine: Yes Type: coffee Number of servings: 2 what type of physical activity do you participate in: walking frequency: 3-4 times per week duration: 15-30 minutes/day seatbelt use: always do you feel safe at home: Yes ROS <HINA Wong - Last Filed: 12/11/23 16:17> ROS ED ROS Narrative Constitutional: Negative for fever, chills, weight loss, weakness Eyes: Negative for vision loss, vision change, double vision ENT: Negative for any sore throat, ear pain, congestion Cardiovascular: Negative for any chest pain, palpitations. Chest tenderness Respiratory: Negative for any cough, sputum production, hemoptysis, dyspnea, dyspnea on exertion, orthopnea Gastrointestinal: Negative for any nausea, vomiting, diarrhea, constipation, blood in vomit. Abdominal pain, blood in stool, blood clotting clots in stool : Negative for any dysuria, retention, blood in urine. Urinary frequency Muscle skeletal: Negative for any neck pain, back pain Neurological: Negative for any headache, syncope, dizziness Skin: Negative for any rashes, itching, abrasions, lacerations Psychiatric: Negative for any depression, anxiety, stress, suicidal ideation, homicidal ideation Hematologic: Negative for any excessive bruising, easy bleeding EXAM <HINA Wong - Last Filed: 12/11/23 16:17> Physical Exam Narrative Exam Narrative: Vital signs reviewed. HEET: Head normocephalic atraumatic, TMs clear bilaterally. Posterior pharynx is clear, moist mucous membranes. Nares clear bilaterally. Neck: Supple with no lymphadenopathy or tenderness. No signs of meningismus. Cardiac: Regular rate and rhythm no murmurs gallops or rubs, equal peripheral pulses bilaterally. Respiratory: Lungs clear to auscultation bilaterally. No chest tenderness. Abdomen: Soft, nontender, nondistended. No abdominal bruit or pulsatile masses. No hepatosplenomegaly Extremities: No peripheral edema, no signs of gross trauma or deformity. Active full range of motion of all extremities. Neuro: Cranial nerves II through XII intact, no focal neurological deficits. Skin: Clean dry and intact with no rash, purpura, petechiae, vesicles or pustules. Backs/flank: No CVA tenderness, no midline spinal tenderness, no deformity. Psych: Normal mood and affect. No SI, HI or acute psychosis. Rectal: Rectal exam completed with nurse transmission calibration engineer Deann REED. Patient did have some bright red blood around the anus, rectal vault was empty, finger showed bright red blood with a small clot. There is no acute hemorrhage, there is no acute hemorrhoids, this seems to be a chronic hemorrhoid. Const Vital Signs: 12/11/23 11:20 Temperature 96.2 F L Temperature Source Temporal Pulse Rate 87 Respiratory Rate 18 Blood Pressure 147/94 H Blood Pressure Mean 111 Pulse Ox 98 Oxygen Delivery Method Room Air Positive well nourished and well developed General Appearance ED: well developed <Dr. Renato Cabello DO - Last Filed: 12/11/23 16:21> Physical Exam Const Vital Signs: 12/11/23 11:20 Temperature 96.2 F L Temperature Source Temporal Pulse Rate 87 Respiratory Rate 18 Blood Pressure 147/94 H Blood Pressure Mean 111 Pulse Ox 98 Oxygen Delivery Method Room Air MDM <HINA Wong - Last Filed: 12/11/23 16:17> [facility] Lab Data Labs: Laboratory Results - last 24 hr 12/11/23 12/11/23 11:50 12:00 WBC 6.6 RBC 4.09 L Hgb 12.5 L Hct 38.5 L MCV 94.1 H MCH 30.6 MCHC 32.5 RDW Std Deviation 46.9 H RDW Coeff of Ernestina 13.7 Plt Count 229 MPV 9.1 Immature Gran % (Auto) 0.300 Neut % (Auto) 72.0 H Lymph % (Auto) 16.9 L Dubois % (Auto) 7.9 Eos % (Auto) 2.0 Baso % (Auto) 0.9 Absolute Neuts (auto) 4.7 Absolute Lymphs (auto) 1.11 Nucleated RBC % 0 PT 32.1 H INR 3.2 Sodium 139 Potassium 3.8 Chloride 109 H Carbon Dioxide 23.0 Anion Gap 7 BUN 22 H Creatinine 1.31 H Estim Creat Clear Calc 75.35 Est GFR (MDRD) Af Amer 71 Est GFR (MDRD) Non-Af 59 L BUN/Creatinine Ratio 16.8 Glucose 168 H Lactic Acid 1.5 Calcium 8.6 Magnesium 2.4 Total Bilirubin 1.20 H AST 24 ALT 25 Alkaline Phosphatase 115 Troponin I High Sens 7 Total Protein 6.8 Albumin 3.7 Globulin 3.1 Albumin/Globulin Ratio 1.2 Lipase 27 Blood Type O POSITIVE Antibody Screen NEGATIVE Radiography Diagnostic Testing: Clinical Impression(s) from Imaging Studies Abdomen/Pelvis CT 12/11/23 11:38 IMPRESSION: Stable examination. Multiple small gallstones. Mild degree of bladder wall thickening. Electronically Signed: Kenton De Anda MD at 12:46 EDT , Chest X-Ray 12/11/23 11:55 IMPRESSION: Cardiomegaly and mild degree of vascular congestion. Electronically Signed: Kenton De Anda MD at 12:49 EDT , EKG Atrial fibrillation: Attestation: I personally reviewed and interpreted this EKG as follows: Comments: Atrial fibrillation with a rate 111 bpm, CT interval unknown, QRS duration 170 ms, no acute ST elevation, no acute infarct noted. Treatment and Re-Evaluation :: Differential diagnosis includes however is not limited to: Rectal bleeding, anemia, GI hemorrhage, diverticulitis, ACS, PA, atypical chest pain secondary to anemia Patient appears to be in no obvious respiratory distress, patient's vital signs are stable. Patient is nontoxic-appearing. Presenting to the emergency department with complaints of abdominal pain, bright red bleeding per rectum on Coumadin. On my examination, there was bright red blood. Patient received laboratory values including PT/INR, type and screen. Patient did complain of chest tightness so he will receive an EKG, troponin. Reached out to Dr. Fagan, he is aware that the patient is here. Patient will likely need to be admitted to the hospital. Patient remained stable. CT scan the abdomen pelvis without contrast will be ordered to ensure there is no diverticulitis. He does have history of diverticula, I did look at the patient's colonoscopy from 11/12/2023. He did have a polyp at that time was small amount of bleeding. All radiologic examinations were read, reviewed by the emergency department attending. From these reads, a plan of care will be put in place. Patient's laboratory values show no leukocytosis however the patient does have slight anemia with a hemoglobin of 12.5, patient on the was 13.8, patient's PT was 32.1 with an INR 3.2, this is within the range, patient's chemistries show slight renal sufficiency with a creatinine of 1.3, this is chronic. Total bilirubin 1.2, glucose 168 he is diabetic, lactic acid was -1.5. CT scan of the abdomen pelvis showed stable examination, multiple gallstones, mild degree of bladder wall thickening, no acute findings. Secondary to the patient having bright red blood on exam, history for 4 days, as well as on Coumadin, patient will need to be admitted to hospital. Spoke with Dr. Fagan, he is aware the patient admission, patient did have a colonoscopy with him on 11 November. Patient stable for admission. Troponin was negative. <Dr. Renato Cabello, DO - Last Filed: 12/11/23 16:21> [facility] Lab Data Labs: Laboratory Results - last 24 hr 12/11/23 12/11/23 11:50 12:00 WBC 6.6 RBC 4.09 L Hgb 12.5 L Hct 38.5 L MCV 94.1 H MCH 30.6 MCHC 32.5 RDW Std Deviation 46.9 H RDW Coeff of Ernestina 13.7 Plt Count 229 MPV 9.1 Immature Gran % (Auto) 0.300 Neut % (Auto) 72.0 H Lymph % (Auto) 16.9 L Dubois % (Auto) 7.9 Eos % (Auto) 2.0 Baso % (Auto) 0.9 Absolute Neuts (auto) 4.7 Absolute Lymphs (auto) 1.11 Nucleated RBC % 0 PT 32.1 H INR 3.2 Sodium 139 Potassium 3.8 Chloride 109 H Carbon Dioxide 23.0 Anion Gap 7 BUN 22 H Creatinine 1.31 H Estim Creat Clear Calc 75.35 Est GFR (MDRD) Af Amer 71 Est GFR (MDRD) Non-Af 59 L BUN/Creatinine Ratio 16.8 Glucose 168 H Lactic Acid 1.5 Calcium 8.6 Magnesium 2.4 Total Bilirubin 1.20 H AST 24 ALT 25 Alkaline Phosphatase 115 Troponin I High Sens 7 Total Protein 6.8 Albumin 3.7 Globulin 3.1 Albumin/Globulin Ratio 1.2 Lipase 27 Blood Type O POSITIVE Antibody Screen NEGATIVE Radiography Diagnostic Testing: Clinical Impression(s) from Imaging Studies Abdomen/Pelvis CT 12/11/23 11:38 IMPRESSION: Stable examination. Multiple small gallstones. Mild degree of bladder wall thickening. Electronically Signed: Kenton De Anda MD at 12:46 EDT , Chest X-Ray 12/11/23 11:55 IMPRESSION: Cardiomegaly and mild degree of vascular congestion. Electronically Signed: Kenton De Anda MD at 12:49 EDT , Treatment and Re-Evaluation :: Differential diagnosis includes however is not limited to: Rectal bleeding, anemia, GI hemorrhage, diverticulitis, ACS, PA, atypical chest pain secondary to anemia Patient appears to be in no obvious respiratory distress, patient's vital signs are stable. Patient is nontoxic-appearing. Presenting to the emergency department with complaints of abdominal pain, bright red bleeding per rectum on Coumadin. On my examination, there was bright red blood. Patient received laboratory values including PT/INR, type and screen. Patient did complain of chest tightness so he will receive an EKG, troponin. Reached out to Dr. Fagan, he is aware that the patient is here. Patient will likely need to be admitted to the hospital. Patient remained stable. CT scan the abdomen pelvis without contrast will be ordered to ensure there is no diverticulitis. He does have history of diverticula, I did look at the patient's colonoscopy from 11/12/2023. He did have a polyp at that time was small amount of bleeding. All radiologic examinations were read, reviewed by the emergency department attending. From these reads, a plan of care will be put in place. Patient's laboratory values show no leukocytosis however the patient does have slight anemia with a hemoglobin of 12.5, patient on the was 13.8, patient's PT was 32.1 with an INR 3.2, this is within the range, patient's chemistries show slight renal sufficiency with a creatinine of 1.3, this is chronic. Total bilirubin 1.2, glucose 168 he is diabetic, lactic acid was -1.5. CT scan of the abdomen pelvis showed stable examination, multiple gallstones, mild degree of bladder wall thickening, no acute findings. Secondary to the patient having bright red blood on exam, history for 4 days, as well as on Coumadin, patient will need to be admitted to hospital. Spoke with Dr. Fagan, he is aware the patient admission, patient did have a colonoscopy with him on 11 November. Patient stable for admission. Troponin was negative. This patient was seen with a PA/EMERGENCY ROOM CLINICIAN Individually assessed they patient including history and physical. I have reviewed everything on the chart that is available and agree with the documentation provided by the PA/EMERGENCY ROOM CLINICIAN including discussion about the assessment, treatment plan, discussion, and return precautions. Patient on Coumadin with bright red bleeding per rectum. Vital signs are stable and he is afebrile. He had a little bit of chest tightness last evening and has a history of A-fib. His cardiac workup here is normal. Hemoglobin stable at 12.2. White blood cell count 6.6. Creatinine slightly elevated 1.31. Total bilirubin slightly elevated 1.2 however this is near the patient's baseline. EKG shows A-fib at 101 bpm however his vital signs are normal and he is not tachycardic anymore. Chest x-ray interpreted by myself shows cardiomegaly and possibly mild vascular congestion. Radiology interprets and agrees Case was discussed with Dr. Fagan. Patient admitted in stable condition. Discharge Plan Dx/Rx/DC Orders Clinical Impression: Bright red rectal bleeding, Anticoagulation adequate with anticoagulant therapy Disposition Disposition: Acute Care Hospital [facility] Discharge Date/Time: 12/11/23 13:57
--- NOTE | 2023-12-11 11:55 | RAD_ITS ---
STUDY: X-RAY CHEST REASON FOR EXAM: Male, 63 years old. Chest pain TECHNIQUE: Single AP portable view of the chest. COMPARISON: Comparison is made with prior study dated April 23, 2023. FINDINGS: Mild degree of vascular congestion. There is no demonstrated pleural abnormality. Sternal cerclage wires and vascular clips are present from a prior sternotomy and coronary artery bypass graft procedure (CABG). Cardiomegaly. Normal mediastinum and arun. Normal visualized pulmonary arteries. Normal visualized aortic arch and descending thoracic aorta. Normal visualized thoracic spine. Normal visualized ribs, clavicles, and shoulders. There is no demonstrated abnormality of the visualized soft tissue structures of the upper abdomen. RAD/Chest 1 View (Portable) IMPRESSION: Cardiomegaly and mild degree of vascular congestion. Electronically Signed: Kenton De Anda MD at 12:49 EDT ,
[2023-12-11 12:23] LABS: Absolute Lymphocyte Count 1.11 X10^3/uL (0.83-4.51); Absolute Neutrophil Count 4.7 X10^3/uL (2.0-7.7); Basophil# 0.06 X10^3/uL; Basophil% 0.9 % (0-1); Eosinophil# 0.13 X10^3/uL; Hematocrit 38.5 % (40-54); Hemoglobin 12.5 g/dL (13.0-16.5); Lymphocyte # 1.11 X10^3/ul (0.83-4.51); Lymphocyte % 16.9 % (19-41); Mean Corp Hgb Conc 32.5 g/dL (32-36); Mean Corpuscular Hgb 30.6 pg (27.0-32.0); Mean Corpuscular Volume 94.1 fL (80-94); Mean Platelet Vol. 9.1 fl (6.2-12.0); Monocyte# 0.52 X10^3/uL; Monocyte% 7.9 % (0-10); NRBC Flagged by Analyzer 0 % (0-5); Neutrophil # 4.72 X10^3/uL (2.7-7.7); Platelet Count 229 K/mm3 (150-450); RBC Distribution Width CV 13.7 % (11.6-14.6); RBC Distribution Width SD 46.9 fl (35.1-43.9); Red Blood Count 4.09 M/mm3 (4.6-6.2); White Blood Count 6.6 K/mm3 (4.4-11.0)
[2023-12-11 12:43] LABS: International Normalized Ratio 3.2; Prothrombin Time (Protime)PT. 32.1 SECONDS (11.7-14.9)
[2023-12-11 12:44] LABS: ALB/GLOB Ratio 1.2 RATIO (0.9-2.4); AST(SGOT) 24 U/L (15-37); Alanine Aminotransfer ALT/SGPT 25 U/L (16-61); Albumin, Serum 3.7 g/dL (3.2-5.0); Alkaline Phosphatase 115 U/L (45-117); Anion Gap 7 (5-15); BUN 22 mg/dL (7-18); BUN/Creat Ratio 16.8 RATIO (10-20); Calcium,Total 8.6 mg/dL (8.5-10.1); Chloride 109 mmol/L (98-107); Creatinine, Serum 1.31 mg/dL (0.70-1.30); EST Glomerular Filtration Rate 59 mL/min (>60); Est Glom Filt Rate - Afr Amer 71 mL/min (>60); Estimated Creatinine Clearance 75.35 ml/min; Globulin 3.1 g/dL (2.2-4.2); Glucose 168 mg/dL (74-106); Lipase 27 U/L (13-75); Potassium 3.8 mmol/L (3.5-5.1); Protein, Total 6.8 g/dL (6.4-8.2); Sodium Level 139 mmol/L (136-145); Troponin-I HS 7 pg/mL (3.0-78.0)
[2023-12-11 12:53] LABS: Lactic Acid 1.5 mmol/L (0.4-1.9)
--- NOTE | 2023-12-11 13:18 | HP.PCM.HOS_ITS ---
HPI - General General Date of Admission: 12/11/23 Date of Service: 12/11/23 Chief Complaint: Rectal bleed bright red with clots for 4 days HPI Narrative STEPAN RIGGS, is a 63 M who was admitted about a month ago for similar complaint GI bleed came back with passing blood clots with bright red for the last 4 days. Patient stated he might have bled a pint last 4 days with every time it is large-volume and fills the toilet bowl. Denies nausea vomiting hematemesis. Patient had mild abdominal discomfort around umbilical region for few minutes but has gone. It was not pain or something very concerning. No fever or chills. Patient is indicated some localized chest tightness around midsternal region in the morning but denies dizziness palpitation or lightheadedness or increase in shortness of breath. In ED, patient had EKG which shows A-fib with RVR at 111 bpm. QTc 560 ms, QRS 170 ms with chronic right bundle branch block, RBBB. Vitals in the ED reviewed and in normal range. No hypoxia or tachypnea. GI consulted and patient further admitted [facility] Medical History History of COPD History of atrial fibrillation Varicose veins of anus or rectum Contusion of right chest wall Longstanding persistent atrial fibrillation Nocturia Emphysema, unspecified Impacted cerumen of both ears History of echocardiogram Cardiology follow-up encounter History of Holter monitoring History of stress test retirement current use of anticoagulant Loss of hearing Wears glasses Wears partial dentures Thyroid disease Prostate disease Anemia Injury of back Former smoker CPAP (continuous positive airway pressure) dependence Shortness of breath on exertion COPD (chronic obstructive pulmonary disease) History of edema History of echocardiogram History of stress test Hypertension Dysphagia COVID-19 (06/19/20) PAOLA (obstructive sleep apnea) Gout GERD (gastroesophageal reflux disease) Nonrheumatic aortic (valve) stenosis Abrasion, right lower leg, initial encounter Contusion of right foot, initial encounter Aortic valvular disease Edema Shortness of breath Fatigue Nicotine abuse Pulmonary hypertension Paroxysmal atrial fibrillation Hypokalemia Morbid obesity with BMI of 45.0-49.9, adult HLD (hyperlipidemia) PVC (premature ventricular contraction) Home Medications ?Medication ?Instructions ?Recorded ?Last Taken ?Type biotin 10,000 mcg-keratin 100 mg 1 ea PO QHS supplement 04/12/16 12/10/23 History tablet cholecalciferol (vitamin D3) 25 2,000 unit PO QHS supplement 04/12/16 12/10/23 History mcg (1,000 unit) tablet folic acid 1 mg tablet 1 mg PO QHS supplement 04/12/16 12/10/23 History ferrous sulfate 325 mg (65 mg 325 mg PO QHS anemia 03/10/20 12/10/23 History iron) tablet multivitamin 1 tab PO DAILY supplement 03/10/20 12/10/23 History Disability Placard #1 ea 04/20/21 Unknown Rx docusate sodium 100 mg capsule 200 mg PO QHS stool softener 01/01/22 12/10/23 History cetirizine 10 mg tablet (Zyrtec) 10 mg PO DAILY PRN ALLLERGY 04/23/22 12/10/23 History fluticasone propionate 50 1 spray intranasal DAILY 04/23/22 12/10/23 History mcg/actuation nasal spray,suspension (Flonase Allergy Relief) dutasteride 0.5 mg capsule 0.5 mg PO DAILY 09/25/22 12/10/23 History blood-glucose meter #1 ea 03/06/23 Unknown Rx albuterol sulfate 90 mcg/actuation 2 puff inhalation Q4H PRN 07/25/23 12/10/23 Rx aerosol inhaler shortness of breath or wheezing #1 device pantoprazole 40 mg tablet,delayed 40 mg PO QAM #90 tabs 08/05/23 12/10/23 Rx release dapagliflozin propanediol 10 mg 10 mg PO DAILY #90 tabs 08/20/23 12/10/23 Rx tablet (Farxiga) lancets (Accu-Chek Softclix #100 ea 09/01/23 Unknown Rx Lancets) blood sugar diagnostic (Accu-Chek #100 ea 09/09/23 Unknown Rx Guide test strips) spironolactone 25 mg tablet 25 mg PO DAILY #90 tabs 09/10/23 12/10/23 Rx fluticasone fur. 100 mcg-umeclid 1 inh inhalation DAILY #3 ea 09/12/23 12/10/23 Rx 62.5 mcg-vilant 25 mcg inhalat.powder (Trelegy Ellipta) bupropion HCl 300 mg 24 hr tablet, 300 mg PO DAILY mental health #90 09/15/23 12/10/23 Rx extended release tabs metoprolol succinate 25 mg 25 mg PO DAILY #90 tabs 10/03/23 12/10/23 Rx tablet,extended release 24 hr levothyroxine 100 mcg tablet 100 mcg PO DAILY thyroid #90 tabs 10/09/23 12/10/23 Rx atorvastatin 40 mg tablet 40 mg PO QHS #90 tabs 10/21/23 12/10/23 Rx duloxetine 30 mg capsule,delayed 30 mg PO QHS #90 caps 10/23/23 12/10/23 Rx release duloxetine 60 mg capsule,delayed 60 mg PO QAM #90 caps 10/23/23 12/10/23 Rx release tamsulosin 0.4 mg capsule 0.4 mg PO DAILY #90 caps 11/03/23 11/11/23 Rx artificial tears with lanolin eye 1 applic EACH EYE DAILY 11/11/23 12/10/23 History ointment (Ultra Fresh PM eye ointment) melatonin 10 mg tablet 25 mg PO QHS 11/11/23 12/10/23 History potassium chloride 10 mEq 60 meq PO BID 11/11/23 11/11/23 History capsule,extended release torsemide 20 mg tablet 10 mg PO 1200 FLUID RETENTION 11/11/23 12/10/23 History torsemide 20 mg tablet 20 mg PO DAILY 11/11/23 12/10/23 History warfarin 3 mg tablet 3 mg PO SUWETHFRSA 11/13/23 12/10/23 History warfarin 3 mg tablet (Jantoven) 1.5 mg PO MOTU 11/13/23 12/09/23 History terazosin 1 mg capsule 1 mg PO QHS blood pressure #90 caps 12/01/23 12/10/23 Rx tizanidine 4 mg tablet 4 mg PO QHS #90 tabs 12/01/23 12/10/23 Rx diltiazem HCl 120 mg capsule,24 120 mg PO DAILY 12/11/23 12/10/23 History hr,extended release Allergy/AdvReac Type Severity Reaction Status Date / Time aspirin Allergy Severe Hives Verified 12/11/23 11:25 Iodinated Contrast Media Allergy Severe Hives Verified 12/11/23 11:25 (Iodinated Contrast Media - IV Dye) shellfish derived Allergy Severe Hives Verified 12/11/23 11:25 Family History Father , age 40 Cancer COPD (chronic obstructive pulmonary disease) Mother Hypertension Brother Cancer Lung CA Aunt Cerebral aneurysm Brother Aortic valve disease Surgical History History of colonoscopy History of esophagogastroduodenoscopy (EGD) History of cardiac catheterization H/O basal cell carcinoma excision Hx of gastric bypass History of deviated nasal septum History of tonsillectomy Hx of aortic valve replacement, mechanical (~2010) Social History household members: spouse current occupational status: employed 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 Smoking Status: Former smoker quit date: 06/23/96 pack-years: 10 Tobacco: How many years used: 20 Electronic Cigarette Use: not used how long ago did patient quit smokin, 0.5 second hand exposure: Yes alcohol intake: current alcohol intake frequency: holidays/special occasions only Alcohol type: beer details: social substance use type: former substance user Date of last use: used Marijuana as a teenager caffeine: Yes Type: coffee Number of servings: 2 what type of physical activity do you participate in: walking frequency: 3-4 times per week duration: 15-30 minutes/day seatbelt use: always do you feel safe at home: Yes ROS ROS Narrative Constitutional: Reports fatigue and weakness. No fever. HEENT: Reports systems reviewed and no addt'l complaints, except as documented Respiratory/Chest: History of COPD. No acute shortness of breath or respiratory distress or wheezing. CVS: Mild chest tightness lasted for few minutes. No chest pressure or chest pain or characteristic chronic angina. Chronic A-fib and mechanical AV Gastrointestinal: As described in HPI Genitourinary: BPH. History of prostate cancer, completed radiation 6 months ago. Denies burning urination or new urinary tract symptoms Musculoskeletal: Denies acute joint pain or limited range of motion. No acute injury Neurologic: Denies seizure-like symptoms. skin: No ulcer. No rash Endocrinology: Reports systems reviewed and no addt'l complaints, except as documented Hematologic/Lymphatic: Reports systems reviewed and no addt'l complaints, except as documented Rest 14 ROS are negative except as mentioned in HPI Vital Signs Vital Signs Vital Signs: 12/11/23 11:20 Temperature 96.2 F L Temperature Source Temporal Pulse Rate 87 Respiratory Rate 18 Blood Pressure 147/94 H Blood Pressure Mean 111 Pulse Ox 98 Oxygen Delivery Method Room Air Weight Weight: 274 lb Body Mass Index (BMI) 39.3 Physical Exam Narrative General: Alert, Oriented x3, Cooperative. Morbid obesity BMI 39.3 kg/m? HEENT: Atraumatic, PERRLA, EOMI, Normocephalic Oral: Oral mucosa dry no Gingival or Mucosal Lesions/ Ulcerations Neck: Supple, No JVD, Negative Carotid Bruits Chest wall/Lungs: Air entry diminished in bilateral lung bases. Expiratory phase prolonged. No crepitation/rhonchi Cardiovascular: Irregular rate and rhythm, if, Normal S1, Normal S2, mechanical aortic valve with click present. Left posterior lateral surgical scar of childhood at age of 4 aortic stenosis surgery Abdomen: Bowel Sounds Present, Soft, Non Tender, Non-Distended : No dysuria. No renal angle tenderness. No suprapubic tenderness. Extremities: No edema, Capillary Refill Less than 3 Seconds Skin: No rashes, No breakdown Musculoskeletal: No Tenderness to Palpation of Joints or Extremities Neurological: Cranial nerves II-XII grossly intact, DTR 2+/4. No acute focal neurological deficit. Psych/Mental Status: Normal Affect, Appropriate. Results Lab / Micro Data 12/11/23 12:00 12/11/23 12:00 Labs: Laboratory Results - last 24 hr 12/11/23 12:00: WBC 6.6, RBC 4.09 L, Hgb 12.5 L, Hct 38.5 L, MCV 94.1 H, MCH 30.6, MCHC 32.5, RDW Std Deviation 46.9 H, RDW Coeff of Ernestina 13.7, Plt Count 229, MPV 9.1, Immature Gran % (Auto) 0.300, Neut % (Auto) 72.0 H, Lymph % (Auto) 16.9 L, [place] % (Auto) 7.9, Eos % (Auto) 2.0, Baso % (Auto) 0.9, Absolute Neuts (auto) 4.7, Absolute Lymphs (auto) 1.11, Nucleated RBC % 0, PT 32.1 H, INR 3.2, Sodium 139, Potassium 3.8, Chloride 109 H, Carbon Dioxide 23.0, Anion Gap 7, BUN 22 H, Creatinine 1.31 H, Estim Creat Clear Calc 75.35, Est GFR (MDRD) Af Amer 71, Est GFR (MDRD) Non-Af 59 L, BUN/Creatinine Ratio 16.8, Glucose 168 H, Lactic Acid 1.5, Calcium 8.6, Total Bilirubin 1.20 H, AST 24, ALT 25, Alkaline Phosphatase 115, Troponin I High Sens 7, Total Protein 6.8, Albumin 3.7, Globulin 3.1, Albumin/Globulin Ratio 1.2, Lipase 27 Micro: Microbiology 12/11/23 11:35 Stool Stool Occult Blood (LEON) - Final Occult Blood Positive Imaging Radiology Impression Abdomen/Pelvis CT 12/11/23 11:38 IMPRESSION: Stable examination. Multiple small gallstones. Mild degree of bladder wall thickening. Electronically Signed: Kenton De Anda MD at 12:46 EDT , Chest X-Ray 12/11/23 11:55 IMPRESSION: Cardiomegaly and mild degree of vascular congestion. Electronically Signed: Kenton De Anda MD at 12:49 EDT , Assessment & Plan Assessment/Plan (1) Rectal bleeding: PLAN: Plan This is a 63-year-old gentleman is being admitted for recurrent lower GI after first admission in October 2023 about a month ago 1. Lower GI bleed with clots possible from bleeding angiodysplastic lesion: Patient is being admitted in PCU. H&H 12.5/38.5%. Stool for occult blood was positive and rectal exam was positive. Of the his baseline runs around 14 g, last 113.8 g on November 12, 2023. Platelet count is normal. INR 3.2. Hold warfarin. No IV fluid regimen patient chest x-ray shows venous fluid congestion. H&H every 6 hourly. GI is consulted. Pantoprazole 40 mg IV every 12 hourly. Colonoscopy and EGD on November 12, 2019 Impression: - Preparation of the colon was poor. - Multiple bleeding colonic angiodysplastic lesions. Treated with argon plasma coagulation (APC). - Diverticulosis in the sigmoid colon, in the descending colon and at the splenic flexure. - One 5 mm polyp in the sigmoid colon, removed with a jumbo cold forceps. Resected and retrieved. Biopsy also showed hyperplastic polyp - Stool in the entire examined colon. EGD: Impression: Z-line irregular, 38 cm from the incisors. Biopsied. No evidence of goblet cell metaplasia - A single non-bleeding angiodysplastic lesion in the stomach. Treated with argon plasma coagulation (APC). - Normal second portion of the duodenum. 2. Chronic A-fib with RVR: EKG shows A-fib heart rate 111/min. Patient on Cardizem and metoprolol, continued, first dose now warfarin held due to GI bleed. Monitor in PCU. 3. GERD: On PPI. EGD as mentioned above. #COPD: not in exacerbation. DuoNeb as needed. Patient on Trelegy Ellipta continued. #Aortic valve stenosis: s/p mechanical aortic valve replacement. INR is 3.2. Hold warfarin. Monitor INR daily. # Hyperlipidemia: On statin, continued #Hypothyroidism: On levothyroxine continued Chronic heart failure with reduced ejection fraction: Chest x-ray newly reviewed and shows mild vascular congestion with hilar involvement. Continue on torsemide and spironolactone as well as dapagliflozin. #BPH: On dutasteride and Flomax #Hypertension: Continue home antihypertensive and cardiac medications with holding parameters Diabetes mellitus type 2: Patient on Farxiga. Glucose is 168. Accu-Chek before meals and at bedtime with Humalog sliding scale coverage. DVT prophylaxis: SCDs. Pharmacological prophylaxis contraindicated in view of ongoing lower GI bleed Living will/advanced directive/end of life care: Patient does not have living will or advanced directive. After discussion of benefits/risks procedures involved with full code, DNR CC arrest and DNR CC, the patient opted for full code. Patient does want artificial life support including intubation, tube feed, ventilator and/chest compression, central venous catheter, vasopressor and DC shock if needed Total time spent in [id number] encounter in discussion of advanced directive 17 minutes. Microbiology Past 72 Hours 12/11/23 11:35 Stool Stool Occult Blood (LEON) - Final Occult Blood Positive Laboratory Results 12/11/23 11:50: Blood Type O POSITIVE, Antibody Screen NEGATIVE 12/11/23 12:00: WBC 6.6, RBC 4.09 L, Hgb 12.5 L, Hct 38.5 L, MCV 94.1 H, MCH 30.6, MCHC 32.5, RDW Std Deviation 46.9 H, RDW Coeff of Ernestina 13.7, Plt Count 229, MPV 9.1, Immature Gran % (Auto) 0.300, Neut % (Auto) 72.0 H, Lymph % (Auto) 16.9 L, [place] % (Auto) 7.9, Eos % (Auto) 2.0, Baso % (Auto) 0.9, Absolute Neuts (auto) 4.7, Absolute Lymphs (auto) 1.11, Nucleated RBC % 0, PT 32.1 H, INR 3.2, Sodium 139, Potassium 3.8, Chloride 109 H, Carbon Dioxide 23.0, Anion Gap 7, BUN 22 H, Creatinine 1.31 H, Estim Creat Clear Calc 75.35, Est GFR (MDRD) Af Amer 71, Est GFR (MDRD) Non-Af 59 L, BUN/Creatinine Ratio 16.8, Glucose 168 H, Lactic Acid 1.5, Calcium 8.6, Total Bilirubin 1.20 H, AST 24, ALT 25, Alkaline Phosphatase 115, Troponin I High Sens 7, Total Protein 6.8, Albumin 3.7, Globulin 3.1, Albumin/Globulin Ratio 1.2, Lipase 27 Clinical Impression(s) from Imaging Studies Abdomen/Pelvis CT 12/11/23 11:38 IMPRESSION: Stable examination. Multiple small gallstones. Mild degree of bladder wall thickening. Chest X-Ray 12/11/23 11:55 IMPRESSION: Cardiomegaly and mild degree of vascular congestion. Charges/Coding Visit Charges Inpatient E&M: 57180 Init Hosp L3 Procedures Hospitalists Procedures: 46472 Advncd Care Plan 30 Min
[2023-12-11 14:03] LABS: Mucous, Urine 0 SEEN /hpf (<or=2+)
[2023-12-11 14:05] LABS: Color, Urine Yellow (Yellow); Glucose, Dipstick 1000 mg/dl (Normal); Ketone-Dipstick Negative (Negative); Leukocyte Esterase-Dipstick Negative /ul (Negative); Nitrite-Dipstick Negative (Negative); Occult Blood-Urine Negative /ul (Negative); Protein-Dipstick 30 mg/dl (Negative); Urine Bilirubin Dipstick Negative (Negative); Urine Clarity Clear (Clear); Urine Urobilinogen 4 mg/dl (Normal); Urine pH 6.5 (5.0 - 8.0)
[2023-12-11 14:12] LABS: Bacteria 1+ /hpf (None Seen)
[2023-12-11 14:13] LABS: Red Blood Cells-Urine 0-5 SEEN /hpf (0-5); Squamous Epithelial Cells - UA 0-5 SEEN /hpf (0-5); White Blood Cells 0-5 SEEN /hpf (0-5)
[2023-12-11 14:20] LABS: Magnesium 2.4 mg/dL (1.6-2.6)
[2023-12-11 14:34] LABS: Hematocrit 38.4 % (40-54); Hemoglobin 12.2 g/dL (13.0-16.5)
[2023-12-11] MEDS: Metoprolol(XL)Succ 25 MG Tablet PO (15:44)
[2023-12-11] MEDS: Spironolactone 25 MG Tablet PO (15:46)
[2023-12-11] MEDS: dilTIAZem CD 120 MG Capsule PO (15:46)
[2023-12-11] MEDS: Pantoprazole Sodium 40 MG in 0.9% Normal Saline (100mL MB+) 100 ML 330 MG IV ×2 (16:28→21:58)
[2023-12-11] MEDS: Acetaminophen 325 MG Tablet 650 MG PO (16:33)
[2023-12-11 16:48] LABS: Bedside Glucose 103 mg/dL (74-106)
[2023-12-11] MEDS: Bisacodyl 5 MG Tablet 20 MG PO (19:23)
[2023-12-11 20:14] LABS: Hematocrit 37.5 % (40-54); Hemoglobin 11.9 g/dL (13.0-16.5)
[2023-12-11] MEDS: Polyethylene Glycol 3350 BOWEL PREP 1 BOTTLE PO (20:23)
[2023-12-11] MEDS: Senna/Docusate Sodium 1 Tablet 2 TABLET PO (21:47)
[2023-12-11] MEDS: MELATONIN 10 MG TABLET 25 MG PO (21:48)
[2023-12-11] MEDS: Atorvastatin Calcium 40 MG Tablet PO (21:49)
[2023-12-11] MEDS: tiZANidine HCl 2 MG Tablet 4 MG PO (21:50)
[2023-12-11] MEDS: Cholecalciferol (VIT D3) 25 MCG TABLET (1,000 UNITS) 50 MCG PO (21:50)
[2023-12-11] MEDS: Folic Acid 1 MG Tablet PO (21:51)
[2023-12-11] MEDS: Ferrous Sulfate 325 MG Tablet PO (21:51)
[2023-12-11] MEDS: DULoxetine Hcl 30 MG Capsule PO (21:51)
[2023-12-11] MEDS: Insulin Lispro 100 UNIT/ML INSULN.PEN SC (22:04)
[2023-12-11 22:25] LABS: Bedside Glucose 180 mg/dL (74-106)
[2023-12-12] VITALS (12 sets, daily range): BP systolic 97–130; BP diastolic 70–113; PULSE 71–104; RESP 16–18; TEMP 35.8–36.8; O2SAT 93–99
[2023-12-12 03:04] LABS: Absolute Lymphocyte Count 0.84 X10^3/uL (0.83-4.51); Absolute Neutrophil Count 5.5 X10^3/uL (2.0-7.7); Basophil# 0.06 X10^3/uL; Basophil% 0.8 % (0-1); Eosinophil# 0.14 X10^3/uL; Eosinophils% 1.9 % (0-5); Hematocrit 37.3 % (40-54); Lymphocyte # 0.84 X10^3/ul (0.83-4.51); Lymphocyte % 11.7 % (19-41); Mean Corp Hgb Conc 32.2 g/dL (32-36); Mean Corpuscular Hgb 30.8 pg (27.0-32.0); Mean Corpuscular Volume 95.9 fL (80-94); Mean Platelet Vol. 8.8 fl (6.2-12.0); Monocyte# 0.66 X10^3/uL; Monocyte% 9.2 % (0-10); NRBC Flagged by Analyzer 0 % (0-5); Neutrophil # 5.48 X10^3/uL (2.7-7.7); Platelet Count 230 K/mm3 (150-450); RBC Distribution Width CV 13.9 % (11.6-14.6); RBC Distribution Width SD 48.8 fl (35.1-43.9); Red Blood Count 3.89 M/mm3 (4.6-6.2); White Blood Count 7.2 K/mm3 (4.4-11.0)
[2023-12-12 03:13] LABS: International Normalized Ratio 2.9; Prothrombin Time (Protime)PT. 30.3 SECONDS (11.7-14.9)
[2023-12-12 03:29] LABS: Anion Gap 8 (5-15); BUN 18 mg/dL (7-18); BUN/Creat Ratio 15.7 RATIO (10-20); Calcium,Total 9.1 mg/dL (8.5-10.1); Chloride 109 mmol/L (98-107); Creatinine, Serum 1.15 mg/dL (0.70-1.30); EST Glomerular Filtration Rate 68 mL/min (>60); Est Glom Filt Rate - Afr Amer 82 mL/min (>60); Estimated Creatinine Clearance 86.98 ml/min; Glucose 147 mg/dL (74-106); Sodium Level 143 mmol/L (136-145); Thyroid Stim Hormone (TSH) 4.33 uIU/mL (0.358-3.74)
--- NOTE | 2023-12-12 05:55 | EKG12_ITS ---
Test Reason : PRE PROCEDURE Blood Pressure : / mmHG Vent. Rate : 072 BPM Atrial Rate : 000 BPM P-R Int : 000 ms QRS Dur : 180 ms QT Int : 466 ms P-R-T Axes : 000 107 007 degrees QTc Int : 510 ms Atrial fibrillation with premature ventricular or aberrantly conducted complexes Right bundle branch block Septal infarct , age undetermined Abnormal ECG When compared with ECG of 11-DEC-2023 11:59, MANUAL COMPARISON REQUIRED, DATA IS UNCONFIRMED Confirmed by Marcos Dinero ([id number]), advertising editor SUKHDEEP STOUT ([id number]) on 12/16/2023 6:11:46 AM Referred By: Confirmed By:Marcos Dinero
[2023-12-12 06:53] LABS: Bedside Glucose 143 mg/dL (74-106)
[2023-12-12 08:12] LABS: BNP,B-Type NATRIURETIC PEPTIDE 184.6 pg/mL (0-100)
[2023-12-12 08:25] LABS: Hematocrit 38.8 % (40-54); Hemoglobin 12.7 g/dL (13.0-16.5)
[2023-12-12] MEDS: Fluticasone 0.05% 1 SPRAY NASAL.SRY NASAL (09:02)
[2023-12-12] MEDS: Tamsulosin HCl 0.4 MG Capsule PO (09:05)
[2023-12-12] MEDS: DULoxetine Hcl 60 MG Capsule PO (09:05)
[2023-12-12] MEDS: buPROPion (XL) 300 MG TABLET.XL PO (09:05)
[2023-12-12] MEDS: Senna/Docusate Sodium 1 Tablet 2 TABLET PO ×2 (09:06→22:30)
[2023-12-12] MEDS: Multivitamins,Therapeutic Tablet 1 TABLET PO (09:06)
[2023-12-12] MEDS: Pantoprazole Sodium 40 MG in 0.9% Normal Saline (100mL MB+) 100 ML 330 MG IV ×2 (09:07→22:46)
[2023-12-12] MEDS: Finasteride 5 MG Tablet PO (09:07)
[2023-12-12] MEDS: dilTIAZem CD 120 MG Capsule PO (10:41)
[2023-12-12] MEDS: Metoprolol(XL)Succ 25 MG Tablet PO (10:41)
--- NOTE | 2023-12-12 11:04 | PN.HOSP_ITS ---
Reason for Visit Reason for Visit: Diagnoses Hemorrhage of anus and rectum (12/11/23) Subjective Subjective Patient was admitted yesterday afternoon for a recurrent GI bleed. No acute events overnight. Saw patient at bedside this morning, present. Patient was sitting up comfortably in bed, conversing normally, in no acute distress. He stated that he did not have any more bowel movements overnight with either bright red blood or blood clots noted. He feels fine this morning, similar to on admission. Was looking forward to having scopes done today. No other acute concerns at this time. Objective Data Objective Data Vital Signs: Vital Signs Temp Pulse Resp BP Pulse Ox O2 Del Method 98.2 F 95 16 130/78 H 98 Room Air 12/12/23 08:58 12/12/23 10:41 12/12/23 08:58 12/12/23 10:41 12/12/23 08:58 12/12/23 08:58 Oxygen Delivery Method Room Air Weight: 127.4 kg Body Mass Index (BMI) 40.3 Intake & Output: Intake and Output for Last 24 Hours 12/10/23 12/11/23 12/12/23 23:59 23:59 23:59 Intake Total 720 / 720 110 / 110 Balance 720 / 720 110 / 110 Lab / Micro Data 12/12/23 08:07 12/12/23 02:46 Labs: Laboratory Results - last 24 hr 12/11/23 11:50: Blood Type O POSITIVE, Antibody Screen NEGATIVE 12/11/23 12:00: WBC 6.6, RBC 4.09 L, Hgb 12.5 L, Hct 38.5 L, MCV 94.1 H, MCH 30.6, MCHC 32.5, RDW Std Deviation 46.9 H, RDW Coeff of Ernestina 13.7, Plt Count 229, MPV 9.1, Immature Gran % (Auto) 0.300, Neut % (Auto) 72.0 H, Lymph % (Auto) 16.9 L, [place] % (Auto) 7.9, Eos % (Auto) 2.0, Baso % (Auto) 0.9, Absolute Neuts (auto) 4.7, Absolute Lymphs (auto) 1.11, Nucleated RBC % 0, PT 32.1 H, INR 3.2, Sodium 139, Potassium 3.8, Chloride 109 H, Carbon Dioxide 23.0, Anion Gap 7, BUN 22 H, Creatinine 1.31 H, Estim Creat Clear Calc 75.35, Est GFR (MDRD) Af Amer 71, Est GFR (MDRD) Non-Af 59 L, BUN/Creatinine Ratio 16.8, Glucose 168 H, Lactic Acid 1.5, Calcium 8.6, Magnesium 2.4, Total Bilirubin 1.20 H, AST 24, ALT 25, Alkaline Phosphatase 115, Troponin I High Sens 7, Total Protein 6.8, Albumin 3.7, Globulin 3.1, Albumin/Globulin Ratio 1.2, Lipase 27 12/11/23 13:57: Urine Color Yellow, Urine Clarity Clear, Urine pH 6.5, Ur Specific [place] 1.010, Urine Protein 30 H, Urine Glucose (UA) 1000 H, Urine Ketones Negative, Urine Occult Blood Negative, Urine Nitrite Negative, Urine Bilirubin Negative, Urine Urobilinogen 4 H, Ur Leukocyte Esterase Negative, Urine RBC 0-5 SEEN, Urine WBC 0-5 SEEN, Ur Squamous Epith Cells 0-5 SEEN, Urine Bacteria 1+, Urine Mucus 0 SEEN 12/11/23 14:20: Hgb 12.2 L, Hct 38.4 L 12/11/23 16:30: POC Glucose 103 12/11/23 20:03: Hgb 11.9 L, Hct 37.5 L 12/11/23 22:02: POC Glucose 180 H 12/12/23 02:46: WBC 7.2, RBC 3.89 L, Hgb 12.0 L, Hct 37.3 L, MCV 95.9 H, MCH 30.8, MCHC 32.2, RDW Std Deviation 48.8 H, RDW Coeff of Ernestina 13.9, Plt Count 230, MPV 8.8, Immature Gran % (Auto) 0.400, Neut % (Auto) 76.0 H, Lymph % (Auto) 11.7 L, [place] % (Auto) 9.2, Eos % (Auto) 1.9, Baso % (Auto) 0.8, Absolute Neuts (auto) 5.5, Absolute Lymphs (auto) 0.84, Nucleated RBC % 0, PT 30.3 H, INR 2.9, Sodium 143, Potassium 4.0, Chloride 109 H, Carbon Dioxide 26.0, Anion Gap 8, BUN 18, Creatinine 1.15, Estim Creat Clear Calc 86.98, Est GFR (MDRD) Af Amer 82, Est GFR (MDRD) Non-Af 68, BUN/Creatinine Ratio 15.7, Glucose 147 H, Calcium 9.1, B- Natriuretic Peptide 184.6 H, TSH 4.33 H 12/12/23 06:23: POC Glucose 143 H 12/12/23 08:07: Hgb 12.7 L, Hct 38.8 L Micro: Microbiology 12/11/23 11:35 Stool Stool Occult Blood (LEON) - Final Occult Blood Positive Radiography Diagnostic Testing: Radiology Impression Abdomen/Pelvis CT 12/11/23 11:38 IMPRESSION: Stable examination. Multiple small gallstones. Mild degree of bladder wall thickening. Electronically Signed: Kenton De Anda MD at 12:46 EDT , Chest X-Ray 12/11/23 11:55 IMPRESSION: Cardiomegaly and mild degree of vascular congestion. Electronically Signed: Kenton De Anda MD at 12:49 EDT , Physical Exam Const alert, oriented x3 and no apparent distress Constitutional Narrative: Pleasant elderly male, obese, sitting up comfortably in bed, conversing normally, no acute distress. General Appearance: cooperative and comfortable HEENT normocephalic, head/scalp atraumatic, hearing grossly normal bilaterally, nasal mucous membranes and turbinates normal and moist oral mucous membranes Eyes PERRL, EOMs intact bilaterally and conjunctivae normal Neck full ROM Chest inspection of chest normal Resp normal respiratory effort, normal air movement, no use of accessory muscles and clear to auscultation bilaterally Cardio regular rate, regular rhythm, no murmurs and peripheral pulses 2+ throughout GI normal to inspection, nondistended, normoactive bowel sounds, soft to palpation, non-tender and non-distended Back/Spine normal ROM Extremity normal to inspection, full ROM and no pedal edema Skin no rashes or lesions noted Neuro moves all extremities and no focal motor deficits Speech: speech normal Psych mental status grossly normal Assessment & Plan Assessment/Plan (1) Lower GI bleed: (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 1. Recurrent lower GI bleed, mild acute blood loss anemia ? GI following. CT abdomen pelvis with IV contrast on admit with multiple small gallstones, mild bladder wall thickening, otherwise unremarkable. S/p colonoscopy on 12/11 that showed discontinuous areas of bleeding ulcer mucosa present in the rectum that were treated with heater probe and APC. Hemoglobin 12.5 on admit, down from 13.8 on 11/11; has remained stable around 12 since then. Per GI, full liquid diet today with plan to escalate to regular diet tomorrow. Recheck CBC tomorrow morning. If patient remains stable overnight, likely discharge home tomorrow. IV PPI twice daily discontinued, will restart home p.o. PPI today. Continue to hold warfarin for now, appreciate GI recs on when to restart. 2. Chronic A-fib with RVR on warfarin; history of AV stenosis s/p mechanical AVR ? INR 3.2 on admit, goal INR 2-3. Warfarin held on admit given GI bleed as noted above. Rate controlled A-fib noted on admission. Continue home diltiazem and Toprol. Appreciate GI recs on when to restart warfarin. Chronic medical conditions: ? Morbid obesity: BMI 40 on admit. Complicates hospital course, care and prognosis. ? COPD not on home oxygen: Stable, not in acute exacerbation. Continue home inhalers. ? GERD: Continue home PPI. ? BPH with obstructive symptoms: Continue home dutasteride and Flomax. ? Hypothyroidism: Continue home Synthroid. ? Hyperlipidemia: Continue home statin. ? Hypertension: Stable. Continue home spironolactone, Toprol, diltiazem and terazosin. ? HFpEF: Stable, not in acute exacerbation. Continue home torsemide. ? Type 2 diabetes mellitus: Home regimen of only dapagliflozin. Sliding-scale insulin with meals while inpatient. ? Anxiety/depression: Stable. Continue home bupropion and duloxetine. DVT prophylaxis: SCDs CODE STATUS: Full code, verified Expected disposition: Home, 1 to 2 days Total clinical time spent by myself addressing the patient's medical issues, reviewing all the data, and collaborating with patient's care team: 35 minutes. Charges/Coding Visit Charges Inpatient E&M: 83383 Subs Hosp L2
--- NOTE | 2023-12-12 11:27 | CASEMGMT ---
RN CM Face to Face with patient for initial transition planning/care coordination assessment. RN CM introduced self and role at [facility]. Patient standing in room, alert and oriented, at bedside. Patient willing to participate in assessment and is able to answer all questions appropriately. Care providers, pharmacy, and demographics verified. PCP: Eleanor Specialists: Heather, urologist; Rylan, GI; RILEY, carpenter cradle and dolly; Gregorio Barger, masonry installer; Reba, neurologist; Sonia, rod mill operator; Vadim, radiologist Preferred Pharmacy: [facility] Insurance: [id number] Prescription Benefit: yes Living Will/HPOA: yes, Celia Polo LNOK: Living Arrangements: Patient lives with in a single story condo with 1 step to enter. Patient states he is independent at home. Transportation: self, DME/HHC: Patient has shower chair, raised toilet seat, cane, and cpap at home. No previous HHC or SNF Patient wishes to discharge home, denies need for home health at this time. Patient states he has no further needs or concerns at this time. CM to follow for discharge planning needs that may arise. Disposition Plan: Patient to discharge home with family support and follow-up plans in place. Penelope MCHUGH, RN, CM
[2023-12-12 12:20] LABS: Bedside Glucose 131 mg/dL (74-106)
--- NOTE | 2023-12-12 13:19 | PCM.PRE.AN2 ---
ASA Classification* ASA Classification ASA Classification: 3 Assessment & Plan Anesthesia* Anesthesia Assessment Anesthesia Assessment: Discussed sedation and/or anesthesia options, risks, benefits, and alternatives with patient/parents/legal guardian/POA. Questions invited. The patient/parents/legal guardian/POA seems to understand and agrees to proceed with anesthesia plan. Reviewed the physical assessment, medical history, allergy history and patient home medications list prior to surgery/procedure/anesthetic and documented any changes. Performed airway and anesthesia risk assessments. Anesthesia Type Anesthesia Type: MAC History Source History Obtained from:: Patient and Chart Pre-Assessment Diagnosis/Proposed Procedure Planned Operative Procedure(s): Colonoscopy with biopsy and/or polypectomy Anesthesia History Anesthesia History - fox raiser: Anesthesia History - fox raiser Hx Hospitalization No 03/31/23 09:13 Any Problems With Anesthesia No 12/11/23 19:52 Cholinesterase deficiency No 12/11/23 19:52 You/Your Family Experience No 12/11/23 19:52 fever (hyperthermia) with Relationship Recent Exposure to Contagious No 12/11/23 19:52 Disease Does patient have nerve No 12/11/23 19:52 stimulator Patient instructed to have No 12/11/23 19:52 device shut off --Does patient have Pacemaker or ICD? When Was Last Pacemaker Check QUESTION #4 FULL TEXT: You/Your Family Experience fever (hyperthermia) with Anesthesia Last Oral Intake Last Oral intake: Last Oral Intake NPO since Meds taken in AM with sips of water? Meds patient instructed to take am of surgery PONV PONV - fox raiser: PONV - fox raiser Female HX of Motion Sickness HX of N/V After Surgery Non-Smoker Duration of Surgery greater than 60 minutes Number of Risk Factors PONV Score Height & Weight Height & Weight: Anesthesia: Height & Weight Height 5 ft 10 in 12/11/23 14:13 Weight: 127.4 kg 12/11/23 14:13 Body Mass Index (BMI) 40.3 12/11/23 14:13 Respiratory Assessment Respiratory Assessment - fox raiser: Respiratory Tract Infection Hx - fox raiser Hx Respiratory Tract Infection No 12/11/23 19:52 STOP Sleep Apnea STOP Sleep Apnea - fox raiser: STOP Sleep Apnea - fox raiser Hx Hypertension Yes 12/12/23 12:40 Hx Sleep Apnea Yes 12/11/23 14:13 CPAP Yes 12/11/23 14:13 BIPAP No 12/11/23 14:13 Do you snore loudly (louder than talking or can be heard Do you often feel tired/ fatigued/ sleepy during daytime? Has anyone observed you stop breathing during sleep? STOP Results Positive 12/11/23 14:13 QUESTION #5 FULL TEXT : Do you snore loudly (louder than talking or can be heard through closed doors)? Tobacco Use History Tobacco Use History - fox raiser: Tobacco Use History - fox raiser Tobacco Use Smoking Status Former smoker 12/11/23 14:13 Hx Tobacco Use No 12/11/23 14:13 Years Smoking Packs Smoked per Day Smoking Cessation Date was No - quit smoking greater 12/11/23 14:13 within the last 15 years than 15 years ago Hx Smoking Cessation Date 06/23/94 12/11/23 14:13 Hx Smoking Cessation No 12/11/23 14:13 Counseling Hematologic Medial History Hematologic Hx - fox raiser: Hematologic Medical Hx - track oiler Hx of Blood Transfusion Yes 12/11/23 14:13 Hx of Transfusion in last 3 No 12/11/23 14:13 Months Date of Last Transfusion (if within last 3 months) Ever experience any problems No 12/11/23 14:13 with transfusion(s)? Specify any problems Hx of Preganancy in last 3 N/A 12/11/23 14:13 Months Nurse Filling Out Transfusion [email or web address] 12/11/23 14:13 & Questions: Date: 12/11/23 12/11/23 14:13 Time: 14:20 12/11/23 14:13 Patient unable to answer at this time (ie. confused, unrespo /Reproduction History /Reproductive History - fox raiser: /Reproductive Hx- fox raiser Hx Now No 12/11/23 19:52 Gestational Age (in weeks): EDC: Hx Hx Para Hx Section SAB No 12/11/23 19:52 Active Medications Active Medications: Current Medications Generic Name Dose Route Start Last Admin Trade Name Freq PRN Reason Stop Dose Admin Acetaminophen 650 mg 12/11/23 14:11 12/11/23 16:33 Acetaminophen 325 Mg Tablet PO 650 mg Q6H PRN PRN Administration Pain 1-10 Or Fever >100.7 Albuterol/Ipratropium 3 ml 12/11/23 14:11 Ipratropium/Albuterol Sulfate 3 Ml Ampul.Neb INHALATION Q4H.RT PRN SHORTNESS OF BREATH Atorvastatin Calcium 40 mg 12/11/23 22:00 12/11/23 21:49 Atorvastatin Calcium 40 Mg Tablet PO 40 mg QHS ROSARIO Administration Bupropion HCl 300 mg 12/12/23 10:00 12/12/23 09:05 Bupropion (Xl) 300 Mg Tablet.Xl PO 300 mg DAILY ROSARIO Administration Cholecalciferol 50 mcg 12/11/23 22:00 12/11/23 21:50 Cholecalciferol (Vit D3) 25 Mcg Tablet (1,000 Units) PO 50 mcg QHS ROSARIO Administration Diltiazem HCl 120 mg 12/11/23 14:11 12/12/23 10:41 Diltiazem Cd 120 Mg Capsule PO 120 mg DAILY ROSARIO Administration Duloxetine HCl 30 mg 12/11/23 22:00 12/11/23 21:51 Duloxetine Hcl 30 Mg Capsule PO 30 mg QHS ROSARIO Administration Duloxetine HCl 60 mg 12/12/23 10:00 12/12/23 09:05 Duloxetine Hcl 60 Mg Capsule PO 60 mg QAM ROSARIO Administration Empagliflozin 25 mg 12/12/23 10:00 Empagliflozin 25 Mg Tablet PO DAILY ROSARIO Ferrous Sulfate 325 mg 12/11/23 22:00 12/11/23 21:51 Ferrous Sulfate 325 Mg Tablet PO 325 mg QHS ROSARIO Administration Finasteride 5 mg 12/12/23 10:00 12/12/23 09:07 Finasteride 5 Mg Tablet PO 5 mg DAILY ROSARIO Administration Fluticasone Propionate 1 spray 12/12/23 10:00 12/12/23 09:02 Fluticasone 0.05% 1 [place] Nasal.Sry NASAL 1 spray DAILY ROSARIO Administration Folic Acid 1 mg 12/11/23 22:00 12/11/23 21:51 Folic Acid 1 Mg Tablet PO 1 mg QHS RSOARIO Administration Furosemide 20 mg 12/12/23 12:00 Furosemide 20 Mg Tablet PO 1200 ROSARIO Furosemide 40 mg 12/12/23 10:00 12/12/23 13:13 Furosemide 40 Mg Tablet PO Not Given DAILY ROSARIO Glucagon 1 mg 12/11/23 14:11 Glucagon 1 Mg/Ml Syringe IM X1 PRN Hypoglycemia Protocol Pantoprazole Sodium 40 mg/ 110 mls @ 330 mls/hr 12/11/23 14:11 12/12/23 09:58 Sodium Chloride IV Infused Q12 ROSARIO Infusion Dextrose 250 mls @ 0 mls/hr 12/11/23 14:11 Dextrose 10%-Water IV .Q0M PRN HYPOGLYCEMIA Protocol As Directed Sodium Chloride 250 mls @ 15 mls/hr 12/11/23 14:17 IV .[id number] PRN Additional IVPB Infusion Sodium Chloride 250 mls @ 15 mls/hr 12/11/23 14:17 IV .[id number] PRN Saline Flush Insulin Human Lispro 0 unit 12/11/23 16:00 12/12/23 13:13 Insulin Lispro 100 Unit/Ml Insuln.Pen SC Not Given ACHS [facility] Protocol Levothyroxine Sodium 100 mcg 12/12/23 06:00 12/12/23 06:24 Levothyroxine 100 Mcg Tablet PO Not Given DAILY@0600 ROSARIO Melatonin 25 mg 12/11/23 22:00 12/11/23 21:48 Melatonin 10 Mg Tablet PO 25 mg QHS ROSARIO Administration Metoprolol Succinate 25 mg 12/11/23 14:11 12/12/23 10:41 Metoprolol(Xl)Succ 25 Mg Tablet PO 25 mg DAILY ROSARIO Administration Protocol Multivitamins 1 tablet 12/12/23 08:00 12/12/23 09:06 Multivitamins,Therapeutic Tablet PO 1 tablet DAILYCM ROSARIO Administration Nitroglycerin 0.4 mg 12/11/23 14:11 Nitroglycerin (Inpatient Use) 0.4 Mg Tab.Subl SL Q5M PRN CARDIAC/CHEST PAIN Prochlorperazine Edisylate 5 mg 12/11/23 14:11 Prochlorperazine 10 Mg/2 Ml Vial IV Q4H PRN PRN Breakthrough Nausea/Vomiting Senna/Docusate Sodium 2 tablet 12/11/23 22:00 12/12/23 09:06 Senna/Docusate Sodium 1 Tablet PO 2 tablet BID ROSARIO Administration Sodium Chloride 10 - 40 ml 12/11/23 14:17 0.9% Saline Lock 10 Ml Syringe IV UD PRN SALINE FLUSH Spironolactone 25 mg 12/11/23 14:11 12/11/23 15:46 Spironolactone 25 Mg Tablet PO 25 mg DAILY ROSARIO Administration Protocol Tamsulosin HCl 0.4 mg 12/12/23 10:00 12/12/23 09:05 Tamsulosin Hcl 0.4 Mg Capsule PO 0.4 mg DAILY ROSARIO Administration Tizanidine HCl 4 mg 12/11/23 22:00 12/11/23 21:50 Tizanidine Hcl 2 Mg Tablet PO 4 mg QHS ROSARIO Administration Anesthesia Focused Assessment* Temperature: 98.2 F Pulse Rate: 95 Blood Pressure: 130/78 Respiratory Rate: 16 Pulse Ox: 98 Oxygen Delivery Method: Room Air Airway Assessment Mouth opens: >3 cm Mallampati Score: II Teeth Condition: Intact Neck Range of motion (ROM): Full ROM Pertinent Findings EKG Pertinent Findings:: EKG done December 12, 2023 shows atrial fibrillation with premature ventricular or aberrantly conducted complexes also right bundle branch block. Septal infarct age undetermined this is essentially unchanged from the day before December 11, 2023 Focused Labs Anesthesia Preop lab: CBC WBC 7.2 K/mm3 (4.4-11.0) 12/12/23 02:46 RBC 3.89 M/mm3 (4.6-6.2) L 12/12/23 02:46 Hgb 12.7 g/dL (13.0-16.5) L 12/12/23 08:07 Hct 38.8 % (40-54) L 12/12/23 08:07 Plt Count 230 K/mm3 (150-450) 12/12/23 02:46 CHEMISTRY Potassium 4.0 mmol/L (3.5-5.1) 12/12/23 02:46 Sodium 143 mmol/L (136-145) 12/12/23 02:46 Magnesium 2.4 mg/dL (1.6-2.6) 12/11/23 12:00 Phosphorus 3.6 mg/dL (2.5-4.9) 03/11/20 06:18 BUN 18 mg/dL (7-18) 12/12/23 02:46 Creatinine 1.15 mg/dL (0.70-1.30) 12/12/23 02:46 Glucose [facility] 183 mg/dL (70-110) H 06/24/23 16:14 Glucose 147 mg/dL (74-106) H 12/12/23 02:46 POC Glucose 131 mg/dL (74-106) H 12/12/23 12:03 TSH 4.33 uIU/mL (0.358-3.74) H 12/12/23 02:46 COAG PT 30.3 SECONDS (11.7-14.9) H 12/12/23 02:46 Review of Systems (Anesthesia) ROS Narrative System reviewed and no additional complaints, except as documented. [facility], [facility] Medical History History of COPD History of atrial fibrillation Varicose veins of anus or rectum Contusion of right chest wall Longstanding persistent atrial fibrillation Nocturia Emphysema, unspecified Impacted cerumen of both ears History of echocardiogram Cardiology follow-up encounter History of Holter monitoring History of stress test correction current use of anticoagulant Loss of hearing Wears glasses Wears partial dentures Thyroid disease Prostate disease Anemia Injury of back Former smoker CPAP (continuous positive airway pressure) dependence Shortness of breath on exertion COPD (chronic obstructive pulmonary disease) History of edema History of echocardiogram History of stress test Hypertension Dysphagia COVID-19 (06/19/20) PAOLA (obstructive sleep apnea) Gout GERD (gastroesophageal reflux disease) Nonrheumatic aortic (valve) stenosis Abrasion, right lower leg, initial encounter Contusion of right foot, initial encounter Aortic valvular disease Edema Shortness of breath Fatigue Nicotine abuse Pulmonary hypertension Paroxysmal atrial fibrillation Hypokalemia Morbid obesity with BMI of 45.0-49.9, adult HLD (hyperlipidemia) PVC (premature ventricular contraction) Home Medications ?Medication ?Instructions ?Recorded ?Last Taken ?Type biotin 10,000 mcg-keratin 100 mg 1 ea PO QHS supplement 04/12/16 12/10/23 History tablet cholecalciferol (vitamin D3) 25 2,000 unit PO QHS supplement 04/12/16 12/10/23 History mcg (1,000 unit) tablet folic acid 1 mg tablet 1 mg PO QHS supplement 04/12/16 12/10/23 History ferrous sulfate 325 mg (65 mg 325 mg PO QHS anemia 03/10/20 12/10/23 History iron) tablet multivitamin 1 tab PO DAILY supplement 03/10/20 12/10/23 History Disability Placard #1 ea 04/20/21 Unknown Rx docusate sodium 100 mg capsule 200 mg PO QHS stool softener 01/01/22 12/10/23 History cetirizine 10 mg tablet (Zyrtec) 10 mg PO DAILY PRN ALLLERGY 04/23/22 12/10/23 History fluticasone propionate 50 1 spray intranasal DAILY 04/23/22 12/10/23 History mcg/actuation nasal spray,suspension (Flonase Allergy Relief) dutasteride 0.5 mg capsule 0.5 mg PO DAILY 09/25/22 12/10/23 History blood-glucose meter #1 ea 03/06/23 Unknown Rx albuterol sulfate 90 mcg/actuation 2 puff inhalation Q4H PRN 07/25/23 12/10/23 Rx aerosol inhaler shortness of breath or wheezing #1 device pantoprazole 40 mg tablet,delayed 40 mg PO QAM #90 tabs 08/05/23 12/10/23 Rx release dapagliflozin propanediol 10 mg 10 mg PO DAILY #90 tabs 08/20/23 12/10/23 Rx tablet (Farxiga) lancets (Accu-Chek Softclix #100 ea 09/01/23 Unknown Rx Lancets) blood sugar diagnostic (Accu-Chek #100 ea 09/09/23 Unknown Rx Guide test strips) spironolactone 25 mg tablet 25 mg PO DAILY #90 tabs 09/10/23 12/10/23 Rx fluticasone fur. 100 mcg-umeclid 1 inh inhalation DAILY #3 ea 09/12/23 12/10/23 Rx 62.5 mcg-vilant 25 mcg inhalat.powder (Trelegy Ellipta) bupropion HCl 300 mg 24 hr tablet, 300 mg PO DAILY mental health #90 09/15/23 12/10/23 Rx extended release tabs metoprolol succinate 25 mg 25 mg PO DAILY #90 tabs 10/03/23 12/10/23 Rx tablet,extended release 24 hr levothyroxine 100 mcg tablet 100 mcg PO DAILY thyroid #90 tabs 10/09/23 12/10/23 Rx atorvastatin 40 mg tablet 40 mg PO QHS #90 tabs 10/21/23 12/10/23 Rx duloxetine 30 mg capsule,delayed 30 mg PO QHS #90 caps 10/23/23 12/10/23 Rx release duloxetine 60 mg capsule,delayed 60 mg PO QAM #90 caps 10/23/23 12/10/23 Rx release tamsulosin 0.4 mg capsule 0.4 mg PO DAILY #90 caps 11/03/23 11/11/23 Rx artificial tears with lanolin eye 1 applic EACH EYE DAILY 11/11/23 12/10/23 History ointment (Ultra Fresh PM eye ointment) melatonin 10 mg tablet 25 mg PO QHS 11/11/23 12/10/23 History potassium chloride 10 mEq 60 meq PO BID with lasix 11/11/23 11/11/23 History capsule,extended release torsemide 20 mg tablet 10 mg PO 1200 FLUID RETENTION 11/11/23 12/10/23 History torsemide 20 mg tablet 20 mg PO DAILY 11/11/23 12/10/23 History warfarin 3 mg tablet 3 mg PO SUWETHFRSA 11/13/23 12/10/23 History warfarin 3 mg tablet (Jantoven) 1.5 mg PO MOTU 11/13/23 12/09/23 History terazosin 1 mg capsule 1 mg PO QHS blood pressure #90 caps 12/01/23 12/10/23 Rx tizanidine 4 mg tablet 4 mg PO QHS #90 tabs 12/01/23 12/10/23 Rx diltiazem HCl 120 mg capsule,24 120 mg PO DAILY 12/11/23 12/10/23 History hr,extended release Allergy/AdvReac Type Severity Reaction Status Date / Time aspirin Allergy Severe Hives Verified 12/11/23 11:25 Iodinated Contrast Media Allergy Severe Hives Verified 12/11/23 11:25 (Iodinated Contrast Media - IV Dye) shellfish derived Allergy Severe Hives Verified 12/11/23 11:25 Family History Father , age 40 Cancer COPD (chronic obstructive pulmonary disease) Mother Hypertension Brother Cancer Lung CA Aunt Cerebral aneurysm Brother Aortic valve disease Surgical History History of colonoscopy History of esophagogastroduodenoscopy (EGD) History of cardiac catheterization H/O basal cell carcinoma excision Hx of gastric bypass History of deviated nasal septum History of tonsillectomy Hx of aortic valve replacement, mechanical (~2010) Social History household members: spouse current occupational status: employed 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 Smoking Status: Former smoker quit date: 06/23/96 pack-years: 10 Tobacco: How many years used: 20 Electronic Cigarette Use: not used how long ago did patient quit smokin, 0.5 second hand exposure: Yes alcohol intake: current alcohol intake frequency: holidays/special occasions only Alcohol type: beer details: social substance use type: former substance user Date of last use: used Marijuana as a teenager caffeine: Yes Type: coffee Number of servings: 2 what type of physical activity do you participate in: walking frequency: 3-4 times per week duration: 15-30 minutes/day seatbelt use: always do you feel safe at home: Yes
--- NOTE | 2023-12-12 14:24 | PCM.POST.ANE ---
Anesthesia: Postop Eval I Current Vital Signs Temperature: 97.2 F Pulse Rate: 84 Blood Pressure: 125/113 Respiratory Rate: 18 Pulse Ox: 96 Oxygen Delivery Method: Room Air Assessment Airway patent: Yes Spontaneous unlabored respirations: Yes Mental status: Asleep nausea: No Vomiting: No Anesthesia Complication: No Fluid Hydration Crystalloid volume administer (ml): 200 Total IV fluid infused: 200 Progress Note Anesthesia document: Postop Eval 1 completed: Yes
--- NOTE | 2023-12-12 14:45 | OP.COLON_ITS ---
Patient Name: Renato Polo Procedure Date: 12/12/2023 1:53 PM Date of : 1960 Age: 63 Procedure: Colonoscopy Indications: Hematochezia Providers: Derek Fagan DO Medicines: Monitored Anesthesia Care Patient Profile: This is a 63 year old male. Refer to note in patient chart for documentation of history and physical. Last Colonoscopy: 6 months ago. Complications: No immediate complications. Procedure: Pre-Anesthesia Assessment: - Prior to the procedure, a History and Physical was performed, and patient medications and allergies were reviewed. The patient is competent. The risks and benefits of the procedure and the sedation options and risks were discussed with the patient. All questions were answered and informed consent was obtained. Patient identification and proposed procedure were verified by the physician in the pre-procedure area. Mental Status Examination: alert and oriented. Airway Examination: normal oropharyngeal airway and neck mobility. Respiratory Examination: clear to auscultation. CV Examination: normal. Prophylactic Antibiotics: The patient does not require prophylactic antibiotics. Prior Anticoagulants: The patient has taken Coumadin (warfarin), last dose was day of procedure. ASA Grade Assessment: III - A patient with severe systemic disease. After reviewing the risks and benefits, the patient was deemed in satisfactory condition to undergo the procedure. The anesthesia plan was to use monitored anesthesia care (MAC). Immediately prior to administration of medications, the patient was re-assessed for adequacy to receive sedatives. The heart rate, respiratory rate, oxygen saturations, blood pressure, adequacy of pulmonary ventilation, and response to care were monitored throughout the procedure. The physical status of the patient was re-assessed after the procedure. After I obtained informed consent, the scope was passed under direct vision. Throughout the procedure, the patient's blood pressure, pulse, and oxygen saturations were monitored continuously. The was introduced through the anus and advanced to the cecum, identified by appendiceal orifice and ileocecal valve. The colonoscopy was performed without difficulty. The patient tolerated the procedure well. The quality of the bowel preparation was adequate. The ileocecal valve, appendiceal orifice, and rectum were photographed. Scope In: 2:08:36 PM Scope Out: 2:18:16 PM Total Procedure Duration Time 0 hours 9 minutes 40 seconds Findings: The perianal and digital rectal examinations were normal. Discontinuous areas of bleeding ulcerated mucosa with stigmata of recent bleeding were present in the rectum. Coagulation for hemostasis using heater probe was successful. Coagulation for bleeding prevention using argon plasma at 0.8 liters/minute and 20 nuno was successful. Estimated blood loss was minimal. The exam was otherwise without abnormality on direct and retroflexion views. A few small-mouthed diverticula were found in the recto-sigmoid colon and sigmoid colon. Impression: - Mucosal ulceration. Treated with a heater probe. Treated with argon plasma coagulation (APC). - The examination was otherwise normal on direct and retroflexion views. - Diverticulosis in the recto-sigmoid colon and in the sigmoid colon. - No specimens collected. Recommendation: - [facility]. - Full liquid diet today. - Continue present medications. - No recommendation at this time regarding repeat colonoscopy due to age. Procedure Code(s): --- Professional --- 62980, Colonoscopy, flexible; with control of bleeding, any method CPT copyright 2021 [employer]. All rights reserved. The codes documented in this report are preliminary and upon chief clinical officer review may be revised to meet current compliance requirements. Derek Fagan DO 12/12/2023 2:44:47 PM This report has been signed electronically. Number of Addenda: 0 Note Initiated On: 12/12/2023 1:53 PM
--- NOTE | 2023-12-12 14:45 | OP.CCLET_ITS ---
12/12/2023 Silva Webster Md Re : Colonoscopy procedure for Renato Polo Dear Eleanor This procedure was performed on Tuesday, December 12, 2023. My impressions and recommendations are as follows: Impressions : - Mucosal ulceration. Treated with a heater probe. Treated with argon plasma coagulation (APC). - The examination was otherwise normal on direct and retroflexion views. - Diverticulosis in the recto-sigmoid colon and in the sigmoid colon. - No specimens collected. Recommendations : - [facility]. - Full liquid diet today. - Continue present medications. - No recommendation at this time regarding repeat colonoscopy due to age. My findings are described in the full procedure note, which is enclosed. If I can be of further assistance, please feel free to contact me at . Sincerely, Derek Fagan, 12/12/2023 2:44:47 PM This report has been signed electronically.
--- NOTE | 2023-12-12 15:34 | PCM.POSTANE2 ---
Anesthesia Postop Eval I Sum Postop Eval Completion status Anesthesia document: Postop Eval 1 completed: Yes Anesthesia Postop Eval I Summary Anesthesia Postop Eval I Summary: Anesthesia Postop Eval I: Assessment Summary Airway patent Yes 12/12/23 14:29 [email or web address] Spontaneous unlabored Yes 12/12/23 14:29 [email or web address] respirations Mental status Asleep 12/12/23 14:29 [email or web address] nausea No 12/12/23 14:29 [email or web address] Vomiting No 12/12/23 14:29 [email or web address] Anesthesia Postop Eval I: Fluid Summary Crystalloid volume administer 200 12/12/23 14:29 [email or web address] (ml) Colloids volume administered ( ml) Blood Product volume administered (ml) Total IV fluid infused 200 12/12/23 14:29 [email or web address] Anesthesia Postop Eval I: Summary Notes Anesthesia Complication No 12/12/23 14:29 [email or web address] Anesthesia Complication Comment: Post-operative progress note Anesthesia: Postop Eval II Evaluation Mental status: Awake and Calm Pain Level: 0 nausea: No Vomiting: No Complications Anesthesia Complication: No
[2023-12-12] MEDS: Furosemide 20 MG Tablet PO (16:19)
[2023-12-12] MEDS: Spironolactone 25 MG Tablet PO (16:19)
[2023-12-12 16:38] LABS: Bedside Glucose 115 mg/dL (74-106)
[2023-12-12] MEDS: DULoxetine Hcl 30 MG Capsule PO (22:28)
[2023-12-12] MEDS: Folic Acid 1 MG Tablet PO (22:29)
[2023-12-12] MEDS: Ferrous Sulfate 325 MG Tablet PO (22:29)
[2023-12-12] MEDS: Atorvastatin Calcium 40 MG Tablet PO (22:29)
[2023-12-12] MEDS: tiZANidine HCl 2 MG Tablet 4 MG PO (22:30)
[2023-12-12] MEDS: MELATONIN 10 MG TABLET PO (22:30)
[2023-12-12] MEDS: Cholecalciferol (VIT D3) 25 MCG TABLET (1,000 UNITS) 50 MCG PO (22:30)
[2023-12-13 02:45] LABS: Bedside Glucose 136 mg/dL (74-106)
[2023-12-13 06:30] VITALS: BP 99/63; PULSE 74; RESP 18; TEMP 35.8; O2SAT 98
[2023-12-13] MEDS: Levothyroxine 100 MCG Tablet PO (06:50)
[2023-12-13] MEDS: Insulin Lispro 100 UNIT/ML INSULN.PEN SC (06:51)
[2023-12-13 07:52] LABS: Bedside Glucose 150 mg/dL (74-106)
[2023-12-13 08:06] VITALS: BP 99/68; PULSE 86; RESP 16; TEMP 36.7; O2SAT 100
[2023-12-13 08:08] LABS: Hematocrit 38.2 % (40-54); Hemoglobin 12.2 g/dL (13.0-16.5); Mean Corp Hgb Conc 31.9 g/dL (32-36); Mean Corpuscular Hgb 30.7 pg (27.0-32.0); Mean Platelet Vol. 8.9 fl (6.2-12.0); Platelet Count 225 K/mm3 (150-450); RBC Distribution Width SD 48.7 fl (35.1-43.9); Red Blood Count 3.98 M/mm3 (4.6-6.2); White Blood Count 9.2 K/mm3 (4.4-11.0)
[2023-12-13 08:13] VITALS: O2SAT 95
[2023-12-13] MEDS: Acetaminophen 325 MG Tablet 650 MG PO (08:18)
[2023-12-13] MEDS: Multivitamins,Therapeutic Tablet 1 TABLET PO (08:19)
[2023-12-13] MEDS: DULoxetine Hcl 60 MG Capsule PO (10:29)
[2023-12-13] MEDS: dilTIAZem CD 120 MG Capsule PO (10:31)
[2023-12-13] MEDS: Spironolactone 25 MG Tablet PO (10:31)
[2023-12-13] MEDS: Pantoprazole Sodium 40 MG in 0.9% Normal Saline (100mL MB+) 100 ML 330 MG IV (10:32)
[2023-12-13] MEDS: Furosemide 40 MG Tablet PO (10:33)
[2023-12-13] MEDS: Senna/Docusate Sodium 1 Tablet 2 TABLET PO (10:34)
[2023-12-13 10:35] VITALS: PULSE 86
[2023-12-13] MEDS: Fluticasone 0.05% 1 SPRAY NASAL.SRY NASAL (10:35)
[2023-12-13] MEDS: Metoprolol(XL)Succ 25 MG Tablet PO (10:35)
[2023-12-13] MEDS: buPROPion (XL) 300 MG TABLET.XL PO (10:35)
[2023-12-13] MEDS: Tamsulosin HCl 0.4 MG Capsule PO (10:36)
[2023-12-13] MEDS: Finasteride 5 MG Tablet PO (10:37)
[2023-12-13 11:18] LABS: Bedside Glucose 151 mg/dL (74-106)
--- NOTE | 2023-12-13 11:27 | DCINST_ITS ---
Discharge Instructions Diet Discharge Diet: No restrictions Activity Discharge Activity: No Restrictions Follow Up Care Test Results: Test results from this visit will be discussed in further detail at your follow-up appointment, if applicable. Discharge Plan Admission Admit Date/Time: 12/11/23 13:11 Primary Reason for Your Visit: GI bleed Attending Provider: Clayton Powell Primary Care Provider: Silva Webster Consulting Providers: Tomas Camacho Instructions Additional Instructions / Restrictions: Please make dietary changes as recommended by Dr. Fagan. Continue Discharge Orders/Prescriptions Prescriptions: Continued cetirizine [Zyrtec] 10 mg tablet 10 mg PO DAILY PRN (Reason: ALLLERGY) fluticasone propionate [Flonase Allergy Relief] 50 mcg/actuation spray,sal pension 1 spray intranasal DAILY Rx Instructions: administer into each nostril warfarin 3 mg tablet 3 mg PO Protocol: Dose Management Condition: Friday Dose/Route: 3 mg Instruction: 1 x 3 mg tablet Condition: Friday Dose/Route: 1.5 mg Instruction: 0.5 x 3 mg tablets Condition: Friday Dose/Route: 1.5 mg Instruction: 0.5 x 3 mg tablets Condition: Friday Dose/Route: 3 mg Instruction: 1 x 3 mg tablet Condition: Dose/Route: 3 mg Instruction: 1 x 3 mg tablet Condition: Friday Dose/Route: 3 mg Instruction: 1 x 3 mg tablet Condition: Friday Dose/Route: 3 mg Instruction: 1 x 3 mg tablet Protocol Text: Adjustment Start Date: 11/20/23 INR Value: 2.2 INR Date: 11/20/23 Recheck Date: 12/04/23 Rx Instructions: and Fridays 1.5mg folic acid 1 MG tablet 1 mg PO QHS cholecalciferol (vitamin D3) 1,000 UNIT tablet 2,000 unit PO QHS biotin-keratin 1 EACH tablet 1 ea PO QHS docusate sodium 100 mg capsule 200 mg PO QHS ferrous sulfate 325 MG tablet 325 mg PO QHS multivitamin 1 TABLET tablet 1 tab PO DAILY dutasteride 0.5 mg capsule 0.5 mg PO DAILY diltiazem HCl 120 mg capsule,extended release 24 hr 120 mg PO DAILY torsemide 20 mg tablet 10 mg PO 1200 melatonin 10 mg tablet 25 mg PO QHS Ultra Fresh PM Ointment 1 applic EACH EYE DAILY potassium chloride 10 mEq capsule, extended release 60 meq PO BID Rx Instructions: Pt has Throat injury, needs capsules torsemide 20 mg tablet 20 mg PO DAILY Rx Instructions: TAKES 1 TAB IN THE AM AND HALF A TAB AT NOON warfarin [Juntoven] 3 mg tablet 1.5 mg PO MOTU Protocol: Dose Management Condition: Friday Dose/Route: 3 mg Instruction: 1 x 3 mg tablet Condition: Friday Dose/Route: 1.5 mg Instruction: 0.5 x 3 mg tablets Condition: Friday Dose/Route: 1.5 mg Instruction: 0.5 x 3 mg tablets Condition: Friday Dose/Route: 3 mg Instruction: 1 x 3 mg tablet Condition: Dose/Route: 3 mg Instruction: 1 x 3 mg tablet Condition: Friday Dose/Route: 3 mg Instruction: 1 x 3 mg tablet Condition: Friday Dose/Route: 3 mg Instruction: 1 x 3 mg tablet Protocol Text: Adjustment Start Date: 11/20/23 INR Value: 2.2 INR Date: 11/20/23 Recheck Date: 12/04/23 (DME) Disability Placard See Rx Instructions .Route .MEDSUPPLY Qty: 1 0RF Rx Instructions: expires 04/20/2026 (DME) blood-glucose meter Kit See Rx Instructions .Route Qty: 1 0RF Rx Instructions: daily albuterol sulfate 90 mcg/actuation HFA aerosol inhaler 2 puff INHALATION Q4H PRN (Reason: shortness of breath or wheezing) Qty: 1 3RF Rx Instructions: administer with spacer pantoprazole 40 mg tablet,delayed release (DR/EC) 40 mg PO QAM Qty: 90 1RF Farxiga 10 mg tablet 10 mg PO DAILY Qty: 90 1RF (DME) lancets [Accu-Chek Softclix Lancets] Misc See Rx Instructions .ROUTE .COMPLEX Qty: 100 0RF Dose Instruction: USE TO CHECK GLUCOSE ONCE DAILY Rx Instructions: USE TO CHECK GLUCOSE ONCE DAILY (DME) Accu-Chek Guide test strips Strip See Rx Instructions .Route Qty: 100 2RF Rx Instructions: daily spironolactone 25 mg tablet 25 mg PO DAILY Qty: 90 3RF Trelegy Ellipta 100-62.5-25 mcg blister with device 1 inh inhalation DAILY Qty: 3 3RF bupropion HCl 300 mg tablet extended release 24 hr 300 mg PO DAILY Qty: 90 1RF metoprolol succinate 25 mg tablet extended release 24 hr 25 mg PO DAILY Qty: 90 3RF levothyroxine 100 mcg tablet 100 mcg PO DAILY Qty: 90 1RF atorvastatin 40 mg tablet 40 mg PO QHS Qty: 90 3RF duloxetine 60 mg capsule,delayed release(DR/EC) 60 mg PO QAM Qty: 90 0RF duloxetine 30 mg capsule,delayed release(DR/EC) 30 mg PO QHS Qty: 90 0RF tamsulosin 0.4 mg capsule 0.4 mg PO DAILY Qty: 90 1RF terazosin 1 mg capsule 1 mg PO QHS Qty: 90 1RF tizanidine 4 mg tablet 4 mg PO QHS Qty: 90 0RF Referrals / Follow Up: Silva Webster MD [Primary Care Provider] - Disposition Disposition (needs filled in before D/C Order can be placed): Home, Self Care
--- NOTE | 2023-12-13 11:31 | PCM.DC.SUM ---
Providers Date of Admission: 12/11/23 Date of Discharge: 12/13/23 Primary Care Physician: Dr. 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 Medications at Discharge Home Medications biotin 10,000 mcg-keratin 100 mg tablet 1 ea PO QHS supplement 04/12/16 cholecalciferol (vitamin D3) 25 mcg (1,000 unit) tablet 2,000 unit PO QHS supplement 04/12/16 folic acid 1 mg tablet 1 mg PO QHS supplement 04/12/16 ferrous sulfate 325 mg (65 mg iron) tablet 325 mg PO QHS anemia 03/10/20 multivitamin 1 tab PO DAILY supplement 03/10/20 Disability Placard #1 ea 04/20/21 docusate sodium 100 mg capsule 200 mg PO QHS stool softener 01/01/22 cetirizine 10 mg tablet (Zyrtec) 10 mg PO DAILY PRN ALLLERGY 04/23/22 fluticasone propionate 50 mcg/actuation nasal spray,suspension (Flonase Allergy Relief) 1 spray intranasal DAILY allergies 04/23/22 dutasteride 0.5 mg capsule 0.5 mg PO DAILY prostate 09/25/22 blood-glucose meter #1 ea 03/06/23 albuterol sulfate 90 mcg/actuation aerosol inhaler 2 puff inhalation Q4H PRN shortness of breath or wheezing #1 device 07/25/23 pantoprazole 40 mg tablet,delayed release 40 mg PO QAM reflux #90 tabs 08/05/23 dapagliflozin propanediol 10 mg tablet (Farxiga) 10 mg PO DAILY diabetes #90 tabs 08/20/23 lancets (Accu-Chek Softclix Lancets) #100 ea 09/01/23 blood sugar diagnostic (Accu-Chek Guide test strips) #100 ea 09/09/23 spironolactone 25 mg tablet 25 mg PO DAILY diuretic #90 tabs 09/10/23 fluticasone fur. 100 mcg-umeclid 62.5 mcg-vilant 25 mcg inhalat.powder (Trelegy Ellipta) 1 inh inhalation DAILY breathing #3 ea 09/12/23 bupropion HCl 300 mg 24 hr tablet, extended release 300 mg PO DAILY mental health #90 tabs 09/15/23 metoprolol succinate 25 mg tablet,extended release 24 hr 25 mg PO DAILY blood pressure #90 tabs 10/03/23 levothyroxine 100 mcg tablet 100 mcg PO DAILY thyroid #90 tabs 10/09/23 atorvastatin 40 mg tablet 40 mg PO QHS cholesterol #90 tabs 10/21/23 duloxetine 30 mg capsule,delayed release 30 mg PO QHS mental health #90 caps 10/23/23 duloxetine 60 mg capsule,delayed release 60 mg PO QAM mental health #90 caps 10/23/23 tamsulosin 0.4 mg capsule 0.4 mg PO DAILY prostate #90 caps 11/03/23 artificial tears with lanolin eye ointment (Ultra Fresh PM eye ointment) 1 applic EACH EYE DAILY eye health 11/11/23 melatonin 10 mg tablet 25 mg PO QHS sleep 11/11/23 potassium chloride 10 mEq capsule,extended release 60 meq PO BID with lasix/ supplement 11/11/23 torsemide 20 mg tablet 10 mg PO 1200 FLUID RETENTION 11/11/23 torsemide 20 mg tablet 20 mg PO DAILY diuretic 11/11/23 warfarin 3 mg tablet 3 mg PO SUWETHFRSA blood thinner 11/13/23 warfarin 3 mg tablet (Jantoven) 1.5 mg PO MOTU blood thinner 11/13/23 terazosin 1 mg capsule 1 mg PO QHS blood pressure #90 caps 12/01/23 tizanidine 4 mg tablet 4 mg PO QHS spasms #90 tabs 12/01/23 diltiazem HCl 120 mg capsule,24 hr,extended release 120 mg PO DAILY heart rate 12/11/23 Hospital Course Operations None Procedures EGD and - (Chest x-ray, CT abdomen pelvis with IV contrast) Summary of Care Provided Minutes Spent on Discharge: 35 Hospital Course: Patient is a 63-year-old male who presented [facility] ED on 12/11/2023 with a recurrent lower GI bleed. Hospital course as noted below. Discharged home in stable condition on 12/12. 1. Recurrent lower GI bleed, mild acute blood loss anemia ? GI followed. CT abdomen pelvis with IV contrast on admit with multiple small gallstones, mild bladder wall thickening, otherwise unremarkable. S/p colonoscopy on 12/11 that showed discontinuous areas of bleeding ulcer mucosa present in the rectum that were treated with heater probe and APC. Hemoglobin 12.5 on admit, down from 13.8 on 11/11; remained stable around 12 during hospitalization. Tolerated transition to regular diet by day of discharge without issue. Will increase fiber intake to promote regular bowel movements going forward. Unfortunately patient will continue to be at fairly high risk of recurrent GI bleeds from angiodysplasias in GI tract as these are likely secondary to his aortic valve disease, and because of his mechanical aortic valve and A-fib he will need to remain on anticoagulation going forward. Coumadin held during hospitalization, okay to resume on discharge. Continue home p.o. PPI daily. 2. Chronic A-fib with RVR on warfarin; history of AV stenosis s/p mechanical AVR ? INR 3.2 on admit, goal INR 2-3. Warfarin held on admit given GI bleed as noted above. Rate controlled A-fib noted on admission. Continue home diltiazem and Toprol. Okay to resume warfarin on discharge. Chronic medical conditions: ? Morbid obesity: BMI 40 on admit. Complicates hospital course, care and prognosis. ? COPD not on home oxygen: Stable, not in acute exacerbation. Continue home inhalers. ? GERD: Continue home PPI. ? BPH with obstructive symptoms: Continue home dutasteride and Flomax. ? Hypothyroidism: Continue home Synthroid. ? Hyperlipidemia: Continue home statin. ? Hypertension: Stable. Continue home spironolactone, Toprol, diltiazem and terazosin. ? HFpEF: Stable, not in acute exacerbation. Continue home torsemide. ? Type 2 diabetes mellitus: Home regimen of only dapagliflozin. Sliding-scale insulin with meals while inpatient. ? Anxiety/depression: Stable. Continue home bupropion and duloxetine. Total clinical time spent by myself addressing the patient's medical issues, reviewing all the data, and collaborating with patient's care team: 35 minutes. Physical Exam Const alert, oriented x3 and no apparent distress Constitutional Narrative: Pleasant elderly male, obese, sitting up comfortably in bed, conversing normally, no acute distress. General Appearance: cooperative and comfortable HEENT normocephalic, head/scalp atraumatic, hearing grossly normal bilaterally, nasal mucous membranes and turbinates normal and moist oral mucous membranes Eyes PERRL, EOMs intact bilaterally and conjunctivae normal Neck full ROM Chest inspection of chest normal Resp normal respiratory effort, normal air movement, no use of accessory muscles and clear to auscultation bilaterally Cardio regular rate, regular rhythm, no murmurs and peripheral pulses 2+ throughout GI normal to inspection, nondistended, normoactive bowel sounds, soft to palpation, non-tender and non-distended Back/Spine normal ROM Extremity normal to inspection, full ROM and no pedal edema Skin no rashes or lesions noted Neuro moves all extremities and no focal motor deficits Speech: speech normal Psych mental status grossly normal Weight / BMI Weight Weight: 127.4 kg Body Mass Index (BMI) 40.3 ABG / Lab / Microbiology Data 12/13/23 07:59 12/12/23 02:46 Laboratory: Laboratory Results - last 24 hr 12/12/23 12:03: POC Glucose 131 H 12/12/23 16:17: POC Glucose 115 H 12/12/23 22:44: POC Glucose 136 H 12/13/23 06:49: POC Glucose 150 H 12/13/23 07:59: WBC 9.2, RBC 3.98 L, Hgb 12.2 L, Hct 38.2 L, MCV 96.0 H, MCH 30.7, MCHC 31.9 L, RDW Std Deviation 48.7 H, RDW Coeff of Ernestina 14.0, Plt Count 225, MPV 8.9 12/13/23 10:59: POC Glucose 151 H Microbiology: Microbiology 12/11/23 11:35 Stool Stool Occult Blood (LEON) - Final Occult Blood Positive D/C Instructions Discharge Diet: No restrictions Meaningful Use Info Meaningful Use Meaningful Use Diagnoses (Choose all that apply): None applicable Ischemic Stroke Statin Dosing Therapy Reference: STATIN DOSE THERAPY REFERENCE: * Patients > 75 years receive moderate or high dose statin therapy. * Patients 75 years or YOUNGER should receive HIGH intensity statin dose unless contraindicated. You will be required to document reason for non-treatment if statin daily dose does not meet guidelines. HIGH DOSE STATIN THERAPY DAILY Atorvastatin > than or = to 40 mg Rosuvastatin > than or = to 20 mg Amlodipine + Atorvastatin > than or = to 2.5/40 mg Ezetimibe + Simvastatin 10/80 mg Simvastatin 80mg Discharge Plan Admission Admit Date/Time: 12/11/23 13:11 Primary Reason for Your Visit: GI bleed Attending Provider: Clayton Powell Primary Care Provider: Silva Webster Consulting Providers: Tomas Camacho Instructions Additional Instructions / Restrictions: Please make dietary changes as recommended by Dr. Fagan. Continue Discharge Orders/Prescriptions Prescriptions: Continued cetirizine [Zyrtec] 10 mg tablet 10 mg PO DAILY PRN (Reason: ALLLERGY) fluticasone propionate [Flonase Allergy Relief] 50 mcg/actuation spray,suspension 1 spray intranasal DAILY Rx Instructions: administer into each nostril warfarin 3 mg tablet 3 mg PO Protocol: Dose Management Condition: Friday Dose/Route: 3 mg Instruction: 1 x 3 mg tablet Condition: Friday Dose/Route: 1.5 mg Instruction: 0.5 x 3 mg tablets Condition: Friday Dose/Route: 1.5 mg Instruction: 0.5 x 3 mg tablets Condition: Friday Dose/Route: 3 mg Instruction: 1 x 3 mg tablet Condition: Dose/Route: 3 mg Instruction: 1 x 3 mg tablet Condition: Friday Dose/Route: 3 mg Instruction: 1 x 3 mg tablet Condition: Friday Dose/Route: 3 mg Instruction: 1 x 3 mg tablet Protocol Text: Adjustment Start Date: 11/20/23 INR Value: 2.2 INR Date: 11/20/23 Recheck Date: 12/04/23 Rx Instructions: and Fridays 1.5mg folic acid 1 MG tablet 1 mg PO QHS cholecalciferol (vitamin D3) 1,000 UNIT tablet 2,000 unit PO QHS biotin-keratin 1 EACH tablet 1 ea PO QHS docusate sodium 100 mg capsule 200 mg PO QHS ferrous sulfate 325 MG tablet 325 mg PO QHS multivitamin 1 TABLET tablet 1 tab PO DAILY dutasteride 0.5 mg capsule 0.5 mg PO DAILY diltiazem HCl 120 mg capsule,extended release 24 hr 120 mg PO DAILY torsemide 20 mg tablet 10 mg PO 1200 melatonin 10 mg tablet 25 mg PO QHS Ultra Fresh PM Ointment 1 applic EACH EYE DAILY potassium chloride 10 mEq capsule, extended release 60 meq PO BID Rx Instructions: Pt has Throat injury, needs capsules torsemide 20 mg tablet 20 mg PO DAILY Rx Instructions: TAKES 1 TAB IN THE AM AND HALF A TAB AT NOON warfarin [Jantoven] 3 mg tablet 1.5 mg PO MOTU Protocol: Dose Management Condition: Friday Dose/Route: 3 mg Instruction: 1 x 3 mg tablet Condition: Friday Dose/Route: 1.5 mg Instruction: 0.5 x 3 mg tablets Condition: Friday Dose/Route: 1.5 mg Instruction: 0.5 x 3 mg tablets Condition: Friday Dose/Route: 3 mg Instruction: 1 x 3 mg tablet Condition: Dose/Route: 3 mg Instruction: 1 x 3 mg tablet Condition: Friday Dose/Route: 3 mg Instruction: 1 x 3 mg tablet Condition: Friday Dose/Route: 3 mg Instruction: 1 x 3 mg tablet Protocol Text: Adjustment Start Date: 11/20/23 INR Value: 2.2 INR Date: 11/20/23 Recheck Date: 12/04/23 (DME) Disability Placard See Rx Instructions .Route .MEDSUPPLY Qty: 1 0RF Rx Instructions: expires 04/20/2026 (DME) blood-glucose meter Kit See Rx Instructions .Route Qty: 1 0RF Rx Instructions: daily albuterol sulfate 90 mcg/actuation HFA aerosol inhaler 2 puff INHALATION Q4H PRN (Reason: shortness of breath or wheezing) Qty: 1 3RF Rx Instructions: administer with spacer pantoprazole 40 mg tablet,delayed release (DR/EC) 40 mg PO QAM Qty: 90 1RF dapagliflozin propanediol [Farxiga] 10 mg tablet 10 mg PO DAILY Qty: 90 1RF (DME) lancets [Accu-Chek Softclix Lancets] Misc See Rx Instructions .ROUTE .COMPLEX Qty: 100 0RF Dose Instruction: USE TO CHECK GLUCOSE ONCE DAILY Rx Instructions: USE TO CHECK GLUCOSE ONCE DAILY (DME) Accu-Chek Guide test strips Strip See Rx Instructions .Route Qty: 100 2RF Rx Instructions: daily spironolactone 25 mg tablet 25 mg PO DAILY Qty: 90 3RF Trelegy Ellipta 100-62.5-25 mcg blister with device 1 inh inhalation DAILY Qty: 3 3RF bupropion HCl 300 mg tablet extended release 24 hr 300 mg PO DAILY Qty: 90 1RF metoprolol succinate 25 mg tablet extended release 24 hr 25 mg PO DAILY Qty: 90 3RF levothyroxine 100 mcg tablet 100 mcg PO DAILY Qty: 90 1RF atorvastatin 40 mg tablet 40 mg PO QHS Qty: 90 3RF duloxetine 60 mg capsule,delayed release(DR/EC) 60 mg PO QAM Qty: 90 0RF duloxetine 30 mg capsule,delayed release(DR/EC) 30 mg PO QHS Qty: 90 0RF tamsulosin 0.4 mg capsule 0.4 mg PO DAILY Qty: 90 1RF terazosin 1 mg capsule 1 mg PO QHS Qty: 90 1RF tizanidine 4 mg tablet 4 mg PO QHS Qty: 90 0RF Referrals / Follow Up: Silva Webster MD [Primary Care Provider] - Disposition Disposition (needs filled in before D/C Order can be placed): Home, Self Care Charges/Coding Visit Charges Inpatient E&M: 14083 Disch Hosp >30min
== END 2023-12-13 13:04 | disposition home or self-care (01) | DRG 394 ==
LOC: ED 12:58 → PCU 12-12 07:05
PROVIDERS: Anesthesiology; Internal Medicine Gastroenterology; Nurse Practitioner; Admitting Provider Internal Medicine; Emergency Provider Student in an Organized Health Care Education/Training Program; PCP Internal Medicine; Visit Provider Hospitalist
PROC: 0DJD8ZZ Inspection of Lower Intestinal Tract, Via Natural or Artificial Opening Endoscopic (ICD-10-PCS; CPT 45378; principal; 2023-12-12 12:40)
DX: K62.6 Ulcer of anus and rectum (principal); I11.0 Hypertensive heart disease with heart failure; I50.42 Chronic combined systolic (congestive) and diastolic (congestive) heart failure; J44.9 Chronic obstructive pulmonary disease, unspecified; I48.11 Longstanding persistent atrial fibrillation; E66.01 Morbid (severe) obesity due to excess calories; Z68.41 Body mass index [BMI] 40.0-44.9, adult; E11.9 Type 2 diabetes mellitus without complications; D62 Acute posthemorrhagic anemia; E03.9 Hypothyroidism, unspecified; K57.30 Diverticulosis of large intestine without perforation or abscess without bleeding; I25.10 Atherosclerotic heart disease of native coronary artery without angina pectoris; E78.5 Hyperlipidemia, unspecified; K21.9 Gastro-esophageal reflux disease without esophagitis; Z95.2 Presence of prosthetic heart valve; Z79.01 Long term (current) use of anticoagulants; Z79.84 Long term (current) use of oral hypoglycemic drugs; Z79.51 Long term (current) use of inhaled steroids; Z87.891 Personal history of nicotine dependence; N40.1 Benign prostatic hyperplasia with lower urinary tract symptoms; R07.89 Other chest pain; Z79.890 Hormone replacement therapy; F41.9 Anxiety disorder, unspecified; F32.A Depression, unspecified; I45.10 Unspecified right bundle-branch block; K92.2 Gastrointestinal hemorrhage, unspecified; R94.31 Abnormal electrocardiogram [ECG] [EKG]; Z79.899 Other long term (current) drug therapy; N13.8 Other obstructive and reflux uropathy; Z98.84 Bariatric surgery status; G47.33 Obstructive sleep apnea (adult) (pediatric)
CPT/HCPCS: 45382; 36415; 71045; 74176; 80048; 80053; 81001; 82274; 82962; 83605; 83690; 83735; 83880; 84443; 84484; 85014; 85018; 85025; 85027; 85610; 86850; 86900; 86901; 93005; 94668; 96365; 96366; 97802; 99221; 99284; A4216; G0378; J2405

== ENCOUNTER 2024-01-20 15:11 | Outpatient (RCR) | payer BC, SELFPAY ==
[2023-12-31 08:37] LABS: International Normalized Ratio 2.7; Prothrombin Time (Protime)PT. 28.5 SECONDS (11.7-14.9)
[2023-12-31 09:07] LABS: AST(SGOT) 23 U/L (15-37); Alanine Aminotransfer ALT/SGPT 24 U/L (16-61); Albumin, Serum 3.7 g/dL (3.2-5.0); Alkaline Phosphatase 130 U/L (45-117); Bilirubin, Direct 0.45 mg/dL (0.00-0.30); Cholesterol 101 mg/dL (200); Globulin 3.3 g/dL (2.2-4.2); High Density Lipoprotein 41 mg/dL; Triglycerides 118 mg/dL; Very Low Density Lipoprotein 24 mg/dL (5-40)
[2024-01-20 16:32] LABS: Prothrombin Time (Protime)PT. 31.1 SECONDS (11.7-14.9)
== END 2024-01-21 18:00 | disposition home or self-care (01) ==
LOC: LAB 15:11
PROVIDERS: PCP Internal Medicine; Referring Provider Nurse Practitioner Family; Visit Provider Nurse Practitioner Family
DX: Z79.01 Long term (current) use of anticoagulants (principal); I48.11 Longstanding persistent atrial fibrillation; E78.00 Pure hypercholesterolemia, unspecified
CPT/HCPCS: 36415; 80061; 80076; 85610

== ENCOUNTER 2024-02-09 06:53 | Outpatient (RCR) | payer BC, SELFPAY ==
[2024-01-27 12:06] LABS: Absolute Lymphocyte Count 0.87 X10^3/uL (0.83-4.51); Absolute Neutrophil Count 5.5 X10^3/uL (2.0-7.7); Basophil# 0.09 X10^3/uL; Basophil% 1.2 % (0-1); Eosinophil# 0.14 X10^3/uL; Eosinophils% 1.9 % (0-5); Hematocrit 47.5 % (40-54); Hemoglobin 15.2 g/dL (13.0-16.5); Lymphocyte # 0.87 X10^3/ul (0.83-4.51); Mean Corpuscular Hgb 30.2 pg (27.0-32.0); Mean Corpuscular Volume 94.4 fL (80-94); Mean Platelet Vol. 9.3 fl (6.2-12.0); Monocyte# 0.64 X10^3/uL; Monocyte% 8.9 % (0-10); NRBC Flagged by Analyzer 0 % (0-5); Neutrophil # 5.47 X10^3/uL (2.7-7.7); Neutrophil % 75.7 % (47-70); Platelet Count 299 K/mm3 (150-450); RBC Distribution Width CV 13.9 % (11.6-14.6); RBC Distribution Width SD 47.8 fl (35.1-43.9); Red Blood Count 5.03 M/mm3 (4.6-6.2); White Blood Count 7.2 K/mm3 (4.4-11.0)
[2024-01-27 12:06] LABS: International Normalized Ratio 2.6; Prothrombin Time (Protime)PT. 27.9 SECONDS (11.7-14.9)
[2024-01-27 12:17] LABS: Vitamin B12 742 pg/mL (211-911)
[2024-02-09 08:11] LABS: Prothrombin Time (Protime)PT. 31.3 SECONDS (11.7-14.9)
== END 2024-02-09 18:00 | disposition home or self-care (01) ==
LOC: LAB 06:53
PROVIDERS: Internal Medicine Cardiovascular Disease; Nurse Practitioner; PCP Internal Medicine; Referring Provider Nurse Practitioner Family; Visit Provider Nurse Practitioner Family
DX: Z79.01 Long term (current) use of anticoagulants (principal); D50.9 Iron deficiency anemia, unspecified; I48.11 Longstanding persistent atrial fibrillation
CPT/HCPCS: 36415; 82607; 85025; 85610

== ENCOUNTER 2024-03-04 07:22 | Outpatient (RCR) | payer BC, SELFPAY ==
[2024-03-04 11:49] LABS: International Normalized Ratio 2.9
== END 2024-03-04 18:00 | disposition home or self-care (01) ==
LOC: LAB 07:22
PROVIDERS: PCP Internal Medicine; Referring Provider Nurse Practitioner Family; Visit Provider Nurse Practitioner Family
DX: Z79.01 Long term (current) use of anticoagulants (principal); I48.11 Longstanding persistent atrial fibrillation
CPT/HCPCS: 36415; 85610

== ENCOUNTER 2024-04-13 06:43 | Emergency (ER) | payer BC, SELFPAY ==
[2024-04-13 06:44] VITALS: BP 126/94; PULSE 76; RESP 18; TEMP 36.6; O2SAT 99; BMI 40.1
--- NOTE | 2024-04-13 07:10 | EX.ED.GENINJ ---
HPI History of Present Illness Chief Complaint: Fall Informant: patient Onset/Context/Timing Onset: Today Mechanism/Context: Fall Quality of Pain: Sharp and Aching Location: Lower thoracic area Worsened by: Breathing Relieved by: Nothing Associated Symptoms Associated Symptoms: Negative for Parasthesias, Weakness, Loss of function, Inability to ambulate, Loss of consciousness or Amnesia Narrative Narrative: Patient presents with back pain that began after a fall. Patient states he fell this morning. Patient complains of pain over his lower thoracic area. Patient states it is worse with deep breathing. Patient is concerned that he has a rib fracture. Patient denies any paresthesias or weakness. Patient admits to a headache but denies any loss of consciousness. Patient does not think he hit his head but is not 100% sure. Patient states his last tetanus was within 5 years. 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 Loss of hearing Wears glasses Wears partial dentures Thyroid disease Prostate disease Anemia Injury of back Former smoker CPAP (continuous positive airway pressure) dependence Shortness of breath on exertion COPD (chronic obstructive pulmonary disease) History of edema History of echocardiogram History of stress test Hypertension Dysphagia COVID-19 (06/19/20) PAOLA (obstructive sleep apnea) Gout GERD (gastroesophageal reflux disease) Nonrheumatic aortic (valve) stenosis Abrasion, right lower leg, initial encounter Contusion of right foot, initial encounter Aortic valvular disease Edema Shortness of breath Fatigue Nicotine abuse Pulmonary hypertension Paroxysmal atrial fibrillation Hypokalemia Morbid obesity with BMI of 45.0-49.9, adult HLD (hyperlipidemia) PVC (premature ventricular contraction) Home Medications ?Medication ?Instructions ?Recorded ?Last Taken ?Type biotin 10,000 mcg-keratin 100 mg 1 ea PO QHS supplement 04/12/16 12/10/23 History tablet cholecalciferol (vitamin D3) 25 2,000 unit PO QHS supplement 04/12/16 12/10/23 History mcg (1,000 unit) tablet folic acid 1 mg tablet 1 mg PO QHS supplement 04/12/16 12/10/23 History ferrous sulfate 325 mg (65 mg 325 mg PO QHS anemia 03/10/20 12/10/23 History iron) tablet multivitamin 1 tab PO DAILY supplement 03/10/20 12/10/23 History Disability Placard #1 ea 04/20/21 Unknown Rx docusate sodium 100 mg capsule 200 mg PO QHS stool softener 01/01/22 12/10/23 History fluticasone propionate 50 1 spray intranasal DAILY allergies 04/23/22 12/10/23 History mcg/actuation nasal spray,suspension (Flonase Allergy Relief) dutasteride 0.5 mg capsule 0.5 mg PO DAILY prostate 09/25/22 12/10/23 History blood-glucose meter #1 ea 03/06/23 Unknown Rx albuterol sulfate 90 mcg/actuation 2 puff inhalation Q4H PRN 07/25/23 12/10/23 Rx aerosol inhaler shortness of breath or wheezing #1 device lancets (Accu-Chek Softclix #100 ea 09/01/23 Unknown Rx Lancets) blood sugar diagnostic (Accu-Chek #100 ea 09/09/23 Unknown Rx Guide test strips) spironolactone 25 mg tablet 25 mg PO DAILY diuretic #90 tabs 09/10/23 12/10/23 Rx fluticasone fur. 100 mcg-umeclid 1 inh inhalation DAILY breathing 09/12/23 12/10/23 Rx 62.5 mcg-vilant 25 mcg #3 ea inhalat.powder (Trelegy Ellipta) metoprolol succinate 25 mg 25 mg PO DAILY blood pressure #90 10/03/23 12/10/23 Rx tablet,extended release 24 hr tabs atorvastatin 40 mg tablet 40 mg PO QHS cholesterol #90 tabs 10/21/23 12/10/23 Rx tamsulosin 0.4 mg capsule 0.4 mg PO DAILY prostate #90 caps 11/03/23 11/11/23 Rx artificial tears with lanolin eye 1 applic EACH EYE DAILY eye health 11/11/23 12/10/23 History ointment (Ultra Fresh PM eye ointment) torsemide 20 mg tablet 10 mg PO 1200 FLUID RETENTION 11/11/23 12/10/23 History torsemide 20 mg tablet 20 mg PO DAILY diuretic 11/11/23 12/10/23 History warfarin 3 mg tablet 3 mg PO SUWETHFRSA blood thinner 11/13/23 12/10/23 History warfarin 3 mg tablet (Jantoven) 1.5 mg PO MOTU blood thinner 11/13/23 12/09/23 History terazosin 1 mg capsule 1 mg PO QHS blood pressure #90 caps 12/01/23 12/10/23 Rx diltiazem HCl 120 mg capsule,24 120 mg PO DAILY heart rate 12/11/23 12/10/23 History hr,extended release duloxetine 60 mg capsule,delayed 60 mg PO BID #60 caps 12/31/23 Unknown Rx release tizanidine 4 mg tablet 4 mg PO QHS spasms #30 tabs 12/31/23 Unknown Rx amoxicillin 500 mg capsule 2,000 mg (4 x 500 mg) PO ONCE #4 01/16/24 Unknown Rx caps cetirizine 10 mg tablet (Zyrtec) 10 mg PO DAILY ALLLERGY 01/20/24 Unknown History melatonin 10 mg tablet 20 mg PO QHS sleep 01/20/24 Unknown History potassium chloride 10 mEq 30 meq PO BID with lasix/ 01/20/24 Unknown History capsule,extended release supplement pantoprazole 40 mg tablet,delayed 40 mg PO QAM reflux #90 tabs 01/26/24 Unknown Rx release dapagliflozin propanediol 10 mg 10 mg PO DAILY diabetes #90 tabs 02/04/24 Unknown Rx tablet (Farxiga) bupropion HCl 300 mg 24 hr tablet, 300 mg PO DAILY mental health #90 03/04/24 Unknown Rx extended release tabs levothyroxine 100 mcg tablet 100 mcg PO DAILY thyroid #90 tabs 03/16/24 Unknown Rx hydrocodone-acetaminophen 5-325mg 1 tab PO Q6H PRN PRN Pain 3 days 04/13/24 Unknown Rx 5mg-325mg #10 TABLETS Allergy/AdvReac Type Severity Reaction Status Date / Time aspirin Allergy Severe Hives Verified 04/13/24 06:44 Iodinated Contrast Media Allergy Severe Hives Verified 04/13/24 06:44 (Iodinated Contrast Media - IV Dye) shellfish derived Allergy Severe Hives Verified 04/13/24 06:44 Family History Father , age 40 Cancer COPD (chronic obstructive pulmonary disease) Mother Hypertension Brother Cancer Lung CA Aunt Cerebral aneurysm Brother Aortic valve disease Surgical History History of colonoscopy History of esophagogastroduodenoscopy (EGD) History of cardiac catheterization H/O basal cell carcinoma excision Hx of gastric bypass History of deviated nasal septum History of tonsillectomy Hx of aortic valve replacement, mechanical (~2010) Social History household members: spouse current occupational status: employed current occupation: [employer] Smoking Status: Former smoker quit date: 06/23/96 pack-years: 10 Tobacco: How many years used: 20 Electronic Cigarette Use: not used how long ago did patient quit smokin, 0.5 second hand exposure: Yes alcohol intake: current alcohol intake frequency: holidays/special occasions only Alcohol type: beer details: social substance use type: former substance user Date of last use: used Marijuana as a teenager caffeine: Yes Type: coffee Number of servings: 2 what type of physical activity do you participate in: walking frequency: 3-4 times per week duration: 15-30 minutes/day seatbelt use: always do you feel safe at home: Yes ROS ROS ED Constitutional Constitutional ED: Denies chills or fever(s) Eyes Eyes: Denies blurry vision or change in vision ENT ENT ED: Denies rhinorrhea or sore throat Cardiovascular Cardiovascular: Reports chest pain; Denies palpitations Respiratory/Chest Respiratory/Chest: Denies cough or dyspnea Gastrointestinal Gastrointestinal: Denies nausea or vomiting Genitourinary Genitourinary ED: Denies dysuria or hematuria Musculoskeletal Musculoskeletal: Reports back pain; Denies neck pain Integumentary Denies abscess or rash Neurologic Neurologic: Reports headache(s); Denies weakness Allergic/Immunologic Allergic/Immunologic ED: Denies mouth swelling or urticaria EXAM Physical Exam Const Vital Signs: 04/13/24 06:44 04/13/24 06:50 04/13/24 08:43 Temperature 97.8 F Temperature Source Oral Pulse Rate 76 65 Respiratory Rate 18 16 Blood Pressure 126/94 H 130/80 H Blood Pressure Mean 104 96 Pulse Ox 99 99 Oxygen Delivery Method Room Air Room Air Positive well nourished and well developed General Appearance ED: well developed and NAD HEENT atraumatic Resp normal respiratory effort and clear to auscultation bilaterally Cardio regular rhythm Rate: regular rate GI non-tender and non-distended Palpation: soft Back/Spine Back/Spine Narrative: There is tenderness over the lower thoracic spine and paraspinal areas. There is no bony crepitance or step-off. Range of motion was limited in all motions of the thoracic and lumbar spine secondary to pain. There is a linear abrasion over the right lower thoracic and lumbar area. There is mild bleeding. There is no gapping of the wound margins. There is an area over the lower thoracic spine near the midline where there is a loss of tissues. There is minimal bleeding. There are no foreign bodies noted. Extremity normal to inspection and full ROM Neuro oriented x3, CN's II-XII intact bilaterally, moves all extremities, no focal motor deficits and no sensory deficits noted [place] Coma Scale: document GCS findings Spontaneous Obeys Commands Oriented 15 Sensorium / Orientation: alert Motor Exam: strength 5/5 throughout Psych mental status grossly normal MDM MDM MDM Narrative Medical decision making narrative: Differential diagnosis includes rib fracture, contusion, intracranial bleeding, head injury, and abrasion. CT scan of the brain will be obtained to assess for intracranial bleeding. X-rays of the left ribs and chest will be obtained to assess for rib fracture and pneumothorax. Radiography Diagnostic Testing: Clinical Impression(s) from Imaging Studies Brain CT 04/13/24 07:38 IMPRESSION: Age consistent changes, no acute findings Electronically Signed: Krunal Guzman MD at 8:53 EDT , Ribs w/Chest X-Ray 04/13/24 08:00 IMPRESSION: RIBS: No acute rib fracture demonstrated. CHEST: Mild cardiomegaly. Electronically Signed: Ric Price MD at 8:48 EDT , CT scan of the brain was obtained. There is no acute intracranial abnormality. This was interpreted by the radiologist and was also independently reviewed by myself. X-rays of the left ribs were obtained. There are 5 views. On my independent interpretation, there is no acute fracture. There is mild cardiomegaly. There is no pneumothorax. Radiologist also interpreted the x-rays and agrees. Treatment and Re-Evaluation Narrative: Patient was given a dose of Sabin here. The wounds were cleaned and dressed with bacitracin dressing. Patient was advised that the area on his low back has a loss of tissue and she is not amenable to sutures. Patient was advised of his findings. Patient was given a prescription for a short course of Sabin. Patient was instructed to keep the wounds clean and dry. Patient was instructed to follow-up with his primary care physician in 5 to 7 days. Patient was instructed to return if worse in any way. Patient understood and was agreeable with the plan. All questions were answered. Discharge Plan Triage Chief Complaint: Fall ED Provider: Clay Gutierrez Dx/Rx/DC Orders Clinical Impression: Fall, Contusion of left chest wall, Abrasion, Deep wound of skin due to avulsion Instructions: ED Chest Wall Contusion, ED Bruise, Rib Prescriptions: New hydrocodone-acetaminophen 5-325 mg tablet 1 tab PO Q6H PRN PRN (Reason: Pain) 3 Days Qty: 10 0RF No Action fluticasone propionate [Flonase Allergy Relief] 50 mcg/actuation spray,suspension 1 spray intranasal DAILY Rx Instructions: administer into each nostril cetirizine [Zyrtec] 10 mg tablet 10 mg PO DAILY warfarin 3 mg tablet 3 mg PO Protocol: Dose Management Condition: Friday Dose/Route: 3 mg Instruction: 1 x 3 mg tablet Condition: Friday Dose/Route: 1.5 mg Instruction: 0.5 x 3 mg tablets Condition: Friday Dose/Route: 1.5 mg Instruction: 0.5 x 3 mg tablets Condition: Friday Dose/Route: 1.5 mg Instruction: 0.5 x 3 mg tablets Condition: Dose/Route: 3 mg Instruction: 1 x 3 mg tablet Condition: Friday Dose/Route: 3 mg Instruction: 1 x 3 mg tablet Condition: Friday Dose/Route: 3 mg Instruction: 1 x 3 mg tablet Protocol Text: Adjustment Start Date: Friday04/05/24 INR Value: 3.6 INR Date: 04/05/24 Recheck Date: 04/19/24 Rx Instructions: and Fridays 1.5mg duloxetine 60 mg capsule,delayed release(DR/EC) 60 mg PO BID Qty: 60 5RF tizanidine 4 mg tablet 4 mg PO QHS Qty: 30 5RF folic acid 1 MG tablet 1 mg PO QHS cholecalciferol (vitamin D3) 1,000 UNIT tablet 2,000 unit PO QHS biotin-keratin 1 EACH tablet 1 ea PO QHS docusate sodium 100 mg capsule 200 mg PO QHS ferrous sulfate 325 MG tablet 325 mg PO QHS multivitamin 1 TABLET tablet 1 tab PO DAILY dutasteride 0.5 mg capsule 0.5 mg PO DAILY diltiazem HCl 120 mg capsule,extended release 24 hr 120 mg PO DAILY torsemide 20 mg tablet 10 mg PO 1200 Ultra Fresh PM Ointment 1 applic EACH EYE DAILY torsemide 20 mg tablet 20 mg PO DAILY Rx Instructions: TAKES 1 TAB IN THE AM AND HALF A TAB AT NOON warfarin [] 3 mg tablet 1.5 mg PO MOTU Protocol: Dose Management Condition: Friday Dose/Route: 3 mg Instruction: 1 x 3 mg tablet Condition: Friday Dose/Route: 1.5 mg Instruction: 0.5 x 3 mg tablets Condition: Friday Dose/Route: 1.5 mg Instruction: 0.5 x 3 mg tablets Condition: Friday Dose/Route: 1.5 mg Instruction: 0.5 x 3 mg tablets Condition: Dose/Route: 3 mg Instruction: 1 x 3 mg tablet Condition: Friday Dose/Route: 3 mg Instruction: 1 x 3 mg tablet Condition: Friday Dose/Route: 3 mg Instruction: 1 x 3 mg tablet Protocol Text: Adjustment Start Date: Friday04/05/24 INR Value: 3.6 INR Date: 04/05/24 Recheck Date: 04/19/24 potassium chloride 10 mEq capsule, extended release 30 meq PO BID Rx Instructions: Pt has Throat injury, needs capsules melatonin 10 mg tablet 20 mg PO QHS (DME) Disability Placard See Rx Instructions .Route .MEDSUPPLY Qty: 1 0RF Rx Instructions: expires 04/20/2026 (DME) blood-glucose meter Kit See Rx Instructions .Route Qty: 1 0RF Rx Instructions: daily albuterol sulfate 90 mcg/actuation HFA aerosol inhaler 2 puff INHALATION Q4H PRN (Reason: shortness of breath or wheezing) Qty: 1 3RF Rx Instructions: administer with spacer (DME) lancets [Accu-Chek Softclix Lancets] Misc See Rx Instructions .ROUTE .COMPLEX Qty: 100 0RF Dose Instruction: USE TO CHECK GLUCOSE ONCE DAILY Rx Instructions: USE TO CHECK GLUCOSE ONCE DAILY (DME) Accu-Chek Guide test strips Strip See Rx Instructions .Route Qty: 100 2RF Rx Instructions: daily spironolactone 25 mg tablet 25 mg PO DAILY Qty: 90 3RF Trelegy Ellipta 100-62.5-25 mcg blister with device 1 inh inhalation DAILY Qty: 3 3RF metoprolol succinate 25 mg tablet extended release 24 hr 25 mg PO DAILY Qty: 90 3RF atorvastatin 40 mg tablet 40 mg PO QHS Qty: 90 3RF tamsulosin 0.4 mg capsule 0.4 mg PO DAILY Qty: 90 1RF terazosin 1 mg capsule 1 mg PO QHS Qty: 90 1RF amoxicillin 500 mg capsule 2,000 mg PO ONCE Qty: 4 0RF Rx Instructions: Take all 4 capsules 1 hour before dental extractions pantoprazole 40 mg tablet,delayed release (DR/EC) 40 mg PO QAM Qty: 90 0RF dapagliflozin propanediol [Farxiga] 10 mg tablet 10 mg PO DAILY Qty: 90 0RF bupropion HCl 300 mg tablet extended release 24 hr 300 mg PO DAILY Qty: 90 1RF levothyroxine 100 mcg tablet 100 mcg PO DAILY Qty: 90 0RF Primary Care Provider: Silva Webster Referrals: Silva Webster MD [Primary Care Provider] - 5-7 Days Print Language: Citizen Of [place] Disposition Disposition: Home, Self Care
--- NOTE | 2024-04-13 07:38 | CT_ITS ---
STUDY: CT BRAIN WITHOUT CONTRAST REASON FOR EXAM: Male, 63 years old. Severe headache RADIATION DOSAGE (If Supplied By Facility): CTDIvol = ( 44.99 ) mGy, DLP = ( 829.85 ) mGycm TECHNIQUE: Transaxial CT imaging of the brain was performed without administration of intravenous contrast material. Individualized dose optimization techniques were used for this CT. COMPARISON: 10/05/2023 FINDINGS: Normal soft tissue structures. Normal calvarium. Normal size ventricles and extra-axial spaces for the patient''s age. Normal white matter tracts of the cerebral hemispheres. Normal basal ganglia and thalami. Normal brainstem. Normal cerebellum. There is no intracranial hemorrhage. There are no findings of an acute ischemic infarction. Normal visualized paranasal sinuses. CT/Brain/Head without Contrast IMPRESSION: Age consistent changes, no acute findings Electronically Signed: Krunal Guzman MD at 8:53 EDT ,
[2024-04-13] MEDS: HYDROcodone Bitartrate/Apap 5/325 Tablet PO (07:45)
--- NOTE | 2024-04-13 08:00 | RAD_ITS ---
STUDY: X-RAY - UNILATERAL RIBS ( LEFT ) WITH CHEST REASON FOR EXAM: Male, 63 years old. Fall. TECHNIQUE - RIBS: 4 views of the left ribs. TECHNIQUE - CHEST: Single PA view of the chest. COMPARISON: None. FINDINGS - RIBS: Normal visualized left ribs without a demonstrated fracture. FINDINGS - CHEST: There are sternal cerclage wires in place. The lungs are clear and expanded. There is no demonstrated pleural abnormality. There is mild cardiac enlargement. Normal mediastinum and arun. Normal visualized pulmonary arteries. Normal visualized aortic arch and descending thoracic aorta. Normal visualized thoracic spine. Normal visualized ribs, clavicles, and shoulders. There is an IVC filter in place. RAD/Ribs Uni Min 3V w/PA Chest IMPRESSION: RIBS: No acute rib fracture demonstrated. CHEST: Mild cardiomegaly. Electronically Signed: Ric Price MD at 8:48 EDT ,
--- OUTSIDE RECORDS SUMMARY | 2024-04-13 08:07 | XMS RPT_ITS | CCD ---
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 Name Role Phone Compa Wills Unavailable Luis Antonio Centeno Unavailable [phone] COMPA HERNANDEZ Unavailable Unavailable LUIS ANTONIO CENTENO Unavailable Unavailab COMPA Busby Unavailable Unavailable COMPA WILLS Unavailable Unavailable LUIS ANTONIO CENTENO Unavailable Unavailab LUIS ANTONIO Thakur Unavailable Unavailab COMPA Gardner Unavailable Unavailable Compa Wills Primary Care Provider Luis Antonio Centeno Unavailable Allergies Allergy Classification Reported Allergen(s) Allergy Type Date of Onset Reaction(s) Facility (4 sources) aspirin; Translations: [ASPIRIN] Drug Allergy 6 Hives [facility] Work Phone: (4 sources) Iodine Compounds; Translations: [IODINE AND IODIDE CONTAINING PRODUCTS] Propensity to adverse reactions to drug 6 Unknown [facility] Work Phone: Medications Current Medications Medication Drug [...] 1 tablet by mouth daily. 0 Active take 1 tablet by mouth once manuel y BIOTIN ORAL Take 1 tablet by mouth daily. Active BRAN/GUM/FIB/PHOENIX/PSYL/KELP/P EC (FIBER 6 ORAL) (2 sources) take 1 tablet by mouth once daily BRAN/GUM/FIB/PHOENXI/PSYL/KELP/PEC (FIBER 6 ORAL) Take 1 tablet by mouth daily. 0 Active take 1 tablet by makenna th once daily BRAN/GUM/FIB/PHOENIX/PSYL/KELP/PEC (FIBER 6 ORAL) Take 1 tablet by mouth daily. Active cholecalciferol 2000 unt oral capsule (2 sources) Vitamin D take 1 capsule by mouth once daily cholecalciferol, vitamin D3, (VITAMIN D3) 2,000 unit cap Take 2,000 mg by mouth daily. 0 Active clopidogrel 75 mg oral tablet (1 source) P2Y12 Platelet Inhibitor Start: 01-06-20 18 take 1 tablet by mouth once daily clopidogrel (PLAVIX) 75 mg tablet Take 75 mg by mouth daily. 0 01/05/2018 Active docusate (2 sources) take 1 tablet by mouth once daily DOCUSATE CALCIUM (STOOL SOFTENER ORAL) Take 1 tablet by mouth daily. 0 Active take 1 tablet by mouth once manuel y DOCUSATE CALCIUM (STOOL SOFTENER ORAL) Take 1 tablet by mouth daily. Active dofetilide 0.25 mg oral capsule (1 source) Antiarrhythmic Start: 07-16-2016 take 1 capsule by mouth twice daily dofetilide (TIKOSYN) 250 MCG capsule Take 1 capsule (250 mcg total) by mouth 2 (two) times a day. 60 capsule 2 07/16/2016 Active ferrous sulfate 325 mg oral tablet (2 sources) take 1 tablet by mouth once daily ferrous sulfate 325 (65 FE) MG tablet Take 325 mg by mouth daily. 0 Active fexofenadine (2 sources) Histamine-1 Receptor Antagonist take 1 tablet by mouth once daily FEXOFENADINE HCL (HERMELINDA ORAL) Take 1 tablet by mouth daily. 0 Active take 1 tablet by mouth once manuel y FEXOFENADINE HCL (HERMELINDA ORAL) Take 1 tablet by mouth daily. Active folic acid 1 mg oral tablet (2 sources) take 2 tablets by mouth once daily, then take 1 tablet by mouth folic acid (FOLVITE) 1 MG tablet Take 2 mg by mouth daily. 0 Active furosemide 40 mg oral tablet (1 source) Loop Diuretic Start: 05-02-2016 take 1 tablet by mouth once daily furosemide (LASIX) 40 MG tablet Take 40 mg by mouth daily. 05/02/2016 Active metoprolol tartrate 50 mg oral tablet (2 sources) beta-Adrenergic Bridget Start: 03-05-2018 take 1 tablet by mouth twice daily metoprolol tartrate (LOPRESSOR) 50 MG tablet Take 50 mg by mouth 2 (two) times a day. 0 03/05/2018 Active take 2 tablets by mouth twice da massimo metoprolol tartrate (LOPRESSOR) 25 MG tablet Take 50 mg by mouth 2 (two) times a day . Active multivitamin (multivitamin) per tablet (1 source) take 1 tablet by mouth once daily multivitamin (multivitamin) per tablet Take 1 tablet by mouth daily. 0 Active Multivitamin Tablet (1 source) take 1 tablet by mouth once daily multivitamin (multivitamin) per tablet Take 1 tablet by mouth daily. Active microencapsulated potassium chloride 20 meq extended release oral tablet (2 sources) Start: 04-25-2016 take 1 tablet by mouth once daily, then take 1 tablet by mouth KLOR-CON M20 20 mEq tablet Take 20 mEq by mouth daily. 0 04/25/2016 Active Start: 04-25-2016 take 1 tablet by makenna th once daily, then take 1 tablet by mouth KLOR-CON M20 20 mEq tablet Take 20 mEq by mouth daily. 04/25/2016 Active tamsulosin hydrochloride 0.4 mg oral capsule (2 sources) alpha-Adrenergic Bridget Start: 05-12-2017 take 1 capsule by mouth once daily before breakfast tamsulosin (FLOMAX) 0.4 mg capsule Take 0.4 mg by mouth every morning before breakfast . 0 05/12/2017 Active terazosin 1 mg oral capsule (1 source) alpha-Adrenergic Bridget Start: 02-26-2018 take 1 capsule by mouth once daily terazosin (HYTRIN) 1 MG capsule Take 1 mg by mouth daily. 0 02/26/2018 Active levothyroxine sodium 0.05 mg oral tablet (2 sources) l-Thyroxine take 1 tablet by mouth once daily levothyroxine (SYNTHROID, LEVOTHROID) 50 MCG tablet Take 50 mcg by mouth once daily. 0 Active torsemide 20 mg oral tablet (1 source) Loop Diuretic Start: 02-12-2018 torsemide (DEMADEX) 20 MG tablet Take 30 mg by mouth daily. 0 02/12/2018 Active warfarin sodium 3 mg oral tablet (3 sources) Vitamin K Antagonist take 1 tablet by mouth once daily warfarin (COUMADIN) 3 MG tablet Take 3 mg by mouth daily Take 1 tab Tues Thurs Sat and Sun. 0 Active take 1 tablet by mouth once manuel y warfarin (COUMADIN) 4 MG tablet Take 4 mg by mouth daily Take Fri and Active Completed/Discontinued Medications Medication Drug Class(es) Dates [...] Results Test Name Value Interpretation Reference Range Facility PROGRESSon 04-02-2019 PROGRESS HNO ID: [id number] Author: Galo Jacobs Service: ? Author Type: Physician Type: Progress Notes Filed: 04/02/2019 3:54 PM Note Text: Subjective HPI 58-year-old male referred by Dr. Compa Hernandez to review atrial fibrillation management options. Mr. Stepan Riggs has a history of essential hypertension, long-standing persistent a fibrillation, and aortic valve disease. In 1965 he apparently aortic valvuloplasty followed by valve replacement in 2003 and another replacement in 2010. Currently he has a mechanical prosthesis, and is maintained on oral anticoagulation. He does have single-vessel CAD (found to have distal LAD occlusion on coronary angiogram in 2017). He was diagnosed with atrial fibrillation and number of years ago. He was treated with flecainide and then dofetilide without success, underwent cryo-PVI at [facility] in 2017, had a recurrence, was maintained on amiodarone that had to be discontinued because of dizziness. Dr. Luis Antonio Centeno (who performed ablation) felt that the patient was a poor candidate for repeat procedure because of his weight (BMI of 47). Mr. Stepan Riggs presents to review atrial fibrillation management options. His main symptoms are fatigue and exertional dyspnea. He does not feel palpitation. No chest pain, significant dizziness or syncope. His ventricular rate appears to be well-controlled with a beta bridget. He remains on warfarin for both atrial fibrillation and mechanical aortic valve with no obvious bleeding complications. He does have sleep apnea. An echocardiogram in 2017 revealed EF of 60%, iopo-[id number] TR, RVSP of 42. Coronary angiography in 2017 showed distal LAD occlusion with no epicardial CAD otherwise. ECG shows atrial fibrillation with controlled ventricular rate of 60 beats a minute, RBBB. PAST MEDICAL HISTORY Diagnosis Date - Atherosclerotic heart disease of morongo coronary artery without angina pectoris - Atrial flutter (HCC) - COPD (chronic obstructive pulmonary disease) ([facility]) - Edema - Fatigue - GERD (gastroesophageal reflux disease) - Gout - HLD (hyperlipidemia) - Hypokalemia - Morbid obesity ([facility]) - Nicotine abuse - Nonrheumatic aortic (valve) stenosis - PAOLA (obstructive sleep apnea) - PAF (paroxysmal atrial fibrillation) ([facility]) - Presence of prosthetic heart valve - Pulmonary hypertension ([facility]) - PVC (premature ventricular contraction) - SOB (shortness of breath) PAST SURGICAL HISTORY Procedure Laterality Date - CARDIOVERSION 02/2016 - EXCISION CARCINOMA , BASAL CELL, EXTREMITY LOWER - GASTRIC BYPASS HX - PULMONARY VEIN ISOLATION 06/2016 with ablation - REPAIR OF NASAL SEPTUM deviation - SHX AORTIC VALVE REPLACEMENT x3 - #19 Top-Hat aortic valve apparatus - TONSILLECTOMY AND ADENOIDECTOMY HX Current Outpatient Medications Medication Sig Dispense Refill - rOPINIRole (REQUIP) 2 mg tablet Take 2 mg by mouth daily at bedtime. - BIOTIN-KERATIN ORAL Take 1 tablet by mouth once daily. - Cholecalciferol, Vitamin D3, (VITAMIN D-3) 2,000 unit cap Take 1 capsule by mouth once daily. - docusate sodium (COLACE) 100 mg capsule Take 100 mg by mouth daily at bedtime. - FOLIC ACID ORAL Take 2 mg by mouth once daily. - FEXOFENADINE 60 MG CAP Take 1 capsule by mouth once daily. - tamsulosin ER (FLOMAX) 0.4 mg cap Take 0.4 mg by mouth once daily. - amino acids/multivit-min (M.V.M. ORAL) Take 1 tablet by mouth once daily. - warfarin (COUMADIN) 4 mg tablet Take 4 mg by mouth daily as directed. - terazosin (HYTRIN) 1 mg capsule Take 1 mg by mouth daily at bedtime. - potassium chloride (KLOR-CON) 20 mEq packet Take 20 mEq by mouth twice daily. - clopidogrel (PLAVIX) 75 mg tablet Take 75 mg by mouth once daily. - Levothyroxine 50 mcg cap Take 1 capsule by mouth once daily. - torsemide (DEMADEX) 20 mg tablet Take 20 mg by mouth twice daily. - metoprolol tartrate, short acting, (LOPRESSOR) 50 mg tablet Take 50 mg by mouth twice daily. - naltrexone-bupropion 8-90 mg TbER Take 1 tablet by mouth as directed. No current facility-administered medications for this visit. Review of Systems Constitutional: Positive for malaise/fatigue. Negative for chills and fever. HENT: Negative for congestion. Eyes: Negative for double vision. Respiratory: Positive for shortness of breath. Negative for cough and hemoptysis. Cardiovascular: Negative for chest pain, palpitations and PND. Gastrointestinal: Negative for abdominal pain, nausea and vomiting. Genitourinary: Negative for hematuria. Musculoskeletal: Negative for back pain. Neurological: Negative for dizziness and loss of consciousness. Psychiatric/Behavioral: Negative for depression. Objective Physical Exam Constitutional: He is oriented to person, place, and time and well-developed, well-nourished, and in no distress. @VSBMI@ HENT: Head: Normocephalic and atraumatic. Eyes: Conjunctivae are normal. Cardiovascular: Normal pulses. Pulses: Radial pulses are 2+ on the right side, and 2+ on the left side. Irregular, S1, S2, mechanical click. Difficult exam due to chest wall thickness. Pulmonary/Chest: Effort normal. No stridor. No respiratory distress. He has no rales. Musculoskeletal: He exhibits no edema. Neurological: He is alert and oriented to person, place, and time. Skin: Skin is warm and dry. No pallor. Psychiatric: Affect normal. Has been a recommendations: 58-year-old male with coronary disease, status post AVR, long-standing persistent rate controlled atrial fibrillation, morbid obesity. Mr. Stepan Riggs is appropriately anticoagulated. His ventricular rate in atrial fibrillation appears to be reasonably well controlled. I tend to agree with Dr. Centeno that he would not be an ideal candidate for catheter ablation due to his weight (BMI of 47) at this time, although this could certainly change if he is able to attain significant weight loss. Pharmacologic rhythm control options are limited by the presence of structural heart disease, prior dofetilide failure, and intolerance of amiodarone. Sotalol or dronedarone may be considered, but their efficacy in this patient would likely to be suboptimal at best. At this point I believe that rate control and anticoagulation would be the best option for Stepan, as well as diet and exercise program aimed at weight loss, as this could open other options for atrial fibrillation treatment. We reviewed these considerations in detail today. We will be happy to see Mr. Stepan Riggs on as-needed basis. Normal [facility] CNOVon 02-26-2019 CNOV Office Visit (AGCARD POB) STEPAN RIGGS ([id number]) 1960 M Date Time Provider Department 02/26/19 2:20 PM GALO JACOBS ALEKSANDROVICHAGCARDPOB During your visit today, we recorded the following information about you: Pulse Respiration Blood pressure Weight 97/minute 16/minute 130/82 147 kg Height 1.778 m Mae Jones MA 02/26/2019 2:23 PM Signed Patient has no cardiac complaints today. ZACHARY Becker. Galo Jacobs MD 04/02/2019 3:54 PM Signed Subjective HPI 58-year-old male referred by Dr. Compa Hernandez to review atrial fibrillation management options. Mr. Stepan Riggs has a history of essential hypertension, long-standing persistent a fibrillation, and aortic valve disease. In 1964 he apparently aortic valvuloplasty followed by valve replacement in 2003 and another replacement in 2010. Currently he has a mechanical prosthesis, and is maintained on oral anticoagulation. He does have single-vessel CAD (found to have distal LAD occlusion on coronary angiogram in 2017). He was diagnosed with atrial fibrillation and number of years ago. He was treated with flecainide and then dofetilide without success, underwent cryo-PVI at [facility] in 2017, had a recurrence, was maintained on amiodarone that had to be discontinued because of dizziness. Dr. Luis Antonio Centeno (who performed ablation) felt that the patient was a poor candidate for repeat procedure because of his weight (BMI of 47). Mr. Stepan Riggs presents to review atrial fibrillation management options. His main symptoms are fatigue and exertional dyspnea. He does not feel palpitation. No chest pain, significant dizziness or syncope. His ventricular rate appears to be well-controlled with a beta bridget. He remains on warfarin for both atrial fibrillation and mechanical aortic valve with no obvious bleeding complications. He does have sleep apnea. An echocardiogram in 2017 revealed EF of 60%, oquh-se-fiwvkguh TR, RVSP of 42. Coronary angiography in 2017 showed distal LAD occlusion with no epicardial CAD otherwise. ECG shows atrial fibrillation with controlled ventricular rate of 60 beats a minute, RBBB. PAST MEDICAL HISTORY Diagnosis Date - Atherosclerotic heart disease of morongo coronary artery without angina pectoris - Atrial flutter ([facility]) - COPD (chronic obstructive pulmonary disease) ([facility]) - Edema - Fatigue - GERD (gastroesophageal reflux disease) - Gout - HLD (hyperlipidemia) - Hypokalemia - Morbid obesity ([facility]) - Nicotine abuse - Nonrheumatic aortic (valve) stenosis - PAOLA (obstructive sleep apnea) - PAF (paroxysmal atrial fibrillation) ([facility]) - Presence of prosthetic heart valve - Pulmonary hypertension ([facility]) - PVC (premature ventricular contraction) - SOB (shortness of breath) PAST SURGICAL HISTORY Procedure Laterality Date - CARDIOVERSION 02/2016 - EXCISION CARCINOMA , BASAL CELL, EXTREMITY LOWER - GASTRIC BYPASS HX - PULMONARY VEIN ISOLATION 06/2016 with ablation - REPAIR OF NASAL SEPTUM deviation - SHX AORTIC VALVE REPLACEMENT x3 - #19 Top-Hat aortic valve apparatus - TONSILLECTOMY AND ADENOIDECTOMY HX Current Outpatient Medications Medication Sig Dispense Refill - rOPINIRole (REQUIP) 2 mg tablet Take 2 mg by mouth daily at bedtime. - BIOTIN-KERATIN ORAL Take 1 tablet by mouth once daily. - Cholecalciferol, Vitamin D3, (VITAMIN D-3) 2,000 unit cap Take 1 capsule by mouth once daily. - docusate sodium (COLACE) 100 mg capsule Take 100 mg by mouth daily at bedtime. - FOLIC ACID ORAL Take 2 mg by mouth once daily. - FEXOFENADINE 60 MG CAP Take 1 capsule by mouth once daily. - tamsulosin ER (FLOMAX) 0.4 mg cap Take 0.4 mg by mouth once daily. - amino acids/multivit-min (M.V.M. ORAL) Take 1 tablet by mouth once daily. - warfarin (COUMADIN) 4 mg tablet Take 4 mg by mouth daily as directed. - terazosin (HYTRIN) 1 mg capsule Take 1 mg by mouth daily at bedtime. - potassium chloride (KLOR-CON) 20 mEq packet Take 20 mEq by mouth twice daily. - clopidogrel (PLAVIX) 75 mg tablet Take 75 mg by mouth once daily. - Levothyroxine 50 mcg cap Take 1 capsule by mouth once daily. - torsemide (DEMADEX) 20 mg tablet Take 20 mg by mouth twice daily. - metoprolol tartrate, short acting, (LOPRESSOR) 50 mg tablet Take 50 mg by mouth twice daily. - naltrexone-bupropion 8-90 mg TbER Take 1 tablet by mouth as directed. No current facility-administered medications for this visit. Review of Systems Constitutional: Positive for malaise/fatigue. Negative for chills and fever. HENT: Negative for congestion. Eyes: Negative for double vision. Respiratory: Positive for shortness of breath. Negative for cough and hemoptysis. Cardiovascular: Negative for chest pain, palpitations and PND. Gastrointestinal: Negative for abdominal pain, nausea and vomiting. Genitourinary: Negative for hematuria. Musculoskeletal: Negative for back pain. Neurological: Negative for dizziness and loss of consciousness. Psychiatric/Behavioral: Negative for depression. Objective Physical Exam Constitutional: He is oriented to person, place, and time and well-developed, well-nourished, and in no distress. @VSBMI@ HENT: Head: Normocephalic and atraumatic. Eyes: Conjunctivae are normal. Cardiovascular: Normal pulses. Pulses: Radial pulses are 2+ on the right side, and 2+ on the left side. Irregular, S1, S2, mechanical click. Difficult exam due to chest wall thickness. Pulmonary/Chest: Effort normal. No stridor. No respiratory distress. He has no rales. Musculoskeletal: He exhibits no edema. Neurological: He is alert and oriented to person, place, and time. Skin: Skin is warm and dry. No pallor. Psychiatric: Affect normal. Has been a recommendations: 58-year-old male with coronary disease, status post AVR, long-standing persistent rate controlled atrial fibrillation, morbid obesity. Mr. Stepan Riggs is appropriately anticoagulated. His ventricular rate in atrial fibrillation appears to be reasonably well controlled. I tend to agree with Dr. Centeno that he would not be an ideal candidate for catheter ablation due to his weight (BMI of 47) at this time, although this could certainly change if he is able to attain significant weight loss. Pharmacologic rhythm control options are limited by the presence of structural heart disease, prior dofetilide failure, and intolerance of amiodarone. Sotalol or dronedarone may be considered, but their efficacy in this patient would likely to be suboptimal at best. At this point I believe that rate control and anticoagulation would be the best option for Stepan, as well as diet and exercise program aimed at weight loss, as this could open other options for atrial fibrillation treatment. We reviewed these considerations in detail today. We will be happy to see Mr. Stepan Riggs on as-needed basis. Referring Provider: COMPA HERNANDEZ [[id number]] Allergies As of Date: 02/26/2019 Noted Allergy Reaction ASPIRIN 02/25/2019 4 - Hives IODINATED CONTRAST MEDIA 02/25/2019 4 - Hives Comments: IV and PO SHELLFISH DERIVED 02/25/2019 4 - Hives Date Reviewed: 02/26/2019 Reviewed by: Galo Jacobs - Fully Assessed Reason for Visit: CARD New Patient Consult [1228] Primary Visit Diagnosis:Persistent atrial fibrillation (HCC) [I48.1] Other Visit Diagnosis:At risk for stroke [Z91.89] Order(s):ECG B/O W INTERP (MED OFFICE) [ECG06] Order #: [id number] Prescriptions as of 02/26/2019 Sig: ROPINIROLE 2 MG TABLET Take 2 mg by mouth daily at b* BIOTIN-KERATIN ORAL Take 1 tablet by mouth once d* CHOLECALCIFEROL (VITAMIN D3) * Take 1 capsule by mouth once * DOCUSATE SODIUM 100 MG CAPSULE Take 100 mg by mouth daily at* FOLIC ACID ORAL Take 2 mg by mouth once daily. FEXOFENADINE 60 MG CAP Take 1 capsule by mouth once * TAMSULOSIN 0.4 MG CAPSULE Take 0.4 mg by mouth once frank* M.V.M. ORAL Take 1 tablet by mouth once d* WARFARIN 4 MG TABLET Take 4 mg by mouth daily as d* TERAZOSIN 1 MG CAPSULE Take 1 mg by mouth daily at b* POTASSIUM CHLORIDE 20 MEQ ORA* Take 20 mEq by mouth twice da* CLOPIDOGREL 75 MG TABLET Take 75 mg by mouth once manuel* LEVOTHYROXINE 50 MCG CAPSULE Take 1 capsule by mouth once * TORSEMIDE 20 MG TABLET Take 20 mg by mouth twice frank* METOPROLOL TARTRATE 50 MG TAB* Take 50 mg by mouth twice frank* NALTREXONE 8 MG-BUPROPION 90 * Take 1 tablet by mouth as dir* Problem List As Of Date: 02/26/2019 (None) Visit Notes: >> Mae Jones Fri Feb 26, 2019 2:20 PM Status: Signed Patient has no cardiac complaints today. ZACHARY Becker. Disposition: Return if symptoms worsen or fail to improve. Follow-up and Disposition History Recorded Encounter Status:Closed by GALO JACOBS MD on 04/02/19 Normal [facility] CARDIAC EVENon 04-15-2018 CARDIAC EVEN This is a summary re port. The complete report is available in the patient's medical record. If you cannot access the medical record, please contact the sending organization for a detailed fax or copy.Event monitor (enrollment dates: 03/28/2018 through 04/10/2018)Findings:Persist ent atrial fibrillation is noted with rates ranging from 44-145 bpm (mean rate 71 bpm). Normal [facility] ECG 12 Leadon 05-13-2017 Atrial Rate Invalid Interpretation Code [employer] Work Phone: P Magdalena Invalid Interpretation Code [employer] Work Phone: P-R Interval Invalid Interpretation Code [employer] Work Phone: Q-T Interval Invalid Interpretation Code [facility] Work Phone: Q-T Interval (corrected) Invalid Interpretation Code [facility] Work Phone: QRS Duration Invalid Interpretation Code [facility] Work Phone: QTC Calculation (Bezet) Invalid Interpretation Code [facility] Work Phone: R Magdalena Invalid Interpretation Code [facility] Work Phone: T Magdalena Invalid Interpretation Code [facility] Work Phone: Ventricular Rate Invalid Interpretation Code [facility] Work Phone: Vital Signs Date Time Vital Sign Value Performing Clinician Faci lity 05-13-2017 09:46-0500 BP Diastolic 75 mm[Hg] Luis Antonio Centeno [facility] Work Phone: 05-13-2017 09:46-0500 BP Systolic 113 mm[Hg] Luis Antonio Centeno [facility] Work Phone: 05-13-2017 09:46-0500 Pulse (Heart Rate) 63 /min Luis Antonio Centeno [facility] Work Phone: 05-13-2017 09:40-0500 BMI (Body Mass Index) 46.13 kg/m2 Luis Antonio Centeno [facility] Work Phone: 05-13-2017 09:40-0500 Height 177.8 cm Luis Antonio Centeno [facility] Work Phone: 05-13-2017 09:40-0500 Weight 145.83 kg Luis Antonio Centeno [facility] Work Phone: Encounters Encounter Date Encounter Type Care Provider Facility Start: 08-23-2020 End: 08-23-2020 Orders Only Lennie Ledezma Work Phone: [facility] Start: 03-25-2018 End: 03-26-2018 Patient encounter procedure LUIS ANTONIOANIKA BROOKS [facility] Start: 05-13-2017 End: 05-13-2017 Ambulatory COMPA HERNANDEZ [facility] Start: 05-13-2017 Office outpatient vi sit 15 minutes Compa Hernandez Work Phone: [facility] Plan of Treatment Date Care Activity Detail Author Start: 09-04-2022 Tetanus vaccination Tetanus: Every 10yrs [facility] Start: 02-22-2020 Influenza vaccination given Sequential Influenza Vaccine (#1) [facility] Start: 2017 CLASS III : OFFICE VISIT CLASS III : OFFICE VISIT [facility] Work Phone: Start: 02-21-2017 Influenza vaccination SEQUENTIAL INFLUENZA VACCINE (#1) [facility] Work Phone: Start: 11-09-2009 Administration of herpes zoster vaccine Zoster Vaccines (1 of 2) [facility] Start: 11-09-2009 Screening for malignant neoplasm of colon [facility] Start: 11-09-1977 Hepatitis C antibody, confirmatory test Hepatitis C Screening [facility] Start: 1975 COVID-19 Vaccine (1 of 2) COVID-19 Vaccine (1 of 2) [facility] Start: 11-09-1974 HIV screening HIV Screening [facility] Start: 1971 Adolescent depression screening assessment Depression Screening (PHQ9) [facility] Start: 11-09-1962 History and physical examination, annual for health maintenance Wellness Visit [facility] Start: 1959 Prostate specific antigen measurement PSA Level [facility] Start: 1959 CLASS III : CREATININE CLASS III : CREATININE [facility] Work Phone: Start: 1959 CLASS III : EKG CLASS III : EKG [facility] Work Phone: Start: 1959 CLASS III : MAGNESIUM CLASS III : MAGNESIUM [facility] Work Phone: Start: 1959 CLASS III : POTASSIUM CLASS III : POTASSIUM [facility] Work Phone: Start: 1959 HEPATITIS C SCREENING HEPATITIS C SCREENING [facility] Work Phone: Start: 1959 Screening colonoscopy COLONOSCOPY [facility] Work Phone: Start: 1959 Tetanus vaccination TETANUS EVERY 10 YR [facility] Work Phone: Payers Date Payer Category Payer Unknown [id number] 2015 Unknown KAUSHAL JALLOH/ELBA/HMO/PPO [id number] 2015-Present [id number] 1959 Unknown [id number] Social History Date Type Detail Facility Start: 05-13-2017 End: 03-24-2018 Tobacco smoking status NHIS Former smoker [facility] Work Phone: End: 06-23-2014 History of tobacco use Current smoker [facility] Work Phone: Sex Assigned At Not on file [facility] Work Phone: Start: 03-24-2018 Tobacco use and exposure Former user [facility] Start: 03-24-2018 Alcohol intake Current drinke r of alcohol (finding) [facility] Start: 09-20-2016 Alcohol Comment rob [facility] Instructions * Patient Instructions - Emmy Scales [...] ized section and content) DATE CREATED AUTHOR 12/16/2017 [facility] DATE CREATED AUTHOR AUTHOR'S ORGANIZ ATION 05/31/2018 [facility] DATE CREATED AUTHOR AUTHOR'S ORGANIZ ATION [...] BE BASED ON THE PRIMARY CLINICAL RECORDS. [employer] provides no warranty or guarantee of the accuracy or completeness of information in this document.
[2024-04-13 08:43] VITALS: BP 130/80; PULSE 65; RESP 16; O2SAT 99
[2024-04-13 10:06] VITALS: BP 123/67; PULSE 75; RESP 16; TEMP 36.2; O2SAT 98
== END 2024-04-13 10:15 | disposition home or self-care (01) ==
PROVIDERS: Emergency Provider Emergency Medicine; PCP Internal Medicine; Visit Provider Emergency Medicine
DX: S20.212A Contusion of left front wall of thorax, initial encounter (principal); J43.9 Emphysema, unspecified; I48.11 Longstanding persistent atrial fibrillation; S31.000A Unspecified open wound of lower back and pelvis without penetration into retroperitoneum, initial encounter; W19.XXXA Unspecified fall, initial encounter; E78.5 Hyperlipidemia, unspecified; R51.9 Headache, unspecified; M54.9 Dorsalgia, unspecified; I10 Essential (primary) hypertension; E07.9 Disorder of thyroid, unspecified; G47.33 Obstructive sleep apnea (adult) (pediatric); Z79.890 Hormone replacement therapy; Z79.01 Long term (current) use of anticoagulants; Z79.899 Other long term (current) drug therapy; Z87.891 Personal history of nicotine dependence
CPT/HCPCS: 70450; 71101; 99282

== ENCOUNTER 2024-04-21 07:07 | Outpatient (RCR) | payer BC, SELFPAY ==
[2024-04-05 08:19] LABS: International Normalized Ratio 3.6; Prothrombin Time (Protime)PT. 35.7 SECONDS (11.7-14.9)
[2024-04-21 08:49] LABS: International Normalized Ratio 2.9; Prothrombin Time (Protime)PT. 29.9 SECONDS (11.7-14.9)
== END 2024-04-21 18:00 | disposition home or self-care (01) ==
LOC: LAB 07:07
PROVIDERS: PCP Internal Medicine; Referring Provider Nurse Practitioner Family; Visit Provider Nurse Practitioner Family
DX: Z79.01 Long term (current) use of anticoagulants (principal); I48.11 Longstanding persistent atrial fibrillation
CPT/HCPCS: 36415; 85610

== ENCOUNTER 2024-04-21 17:30 | Outpatient (RCR) | payer BC, SELFPAY ==
--- NOTE | 2024-01-14 09:50 | HP.PTEVAL ---
Patient's Visit Information Visit Information Visit Information: STEPAN RIGGS is a 63 year old M referred to Physical Therapy by Dr. Kevin Britton MD with a diagnosis of Polyneuropathy. Date of Evaluation: 01/13/24 Physical Therapist: Chris Mcdaniel DPT Visit Plan Frequency: 2x /Week Duration: 6 Weeks Plan: Start with BLE strengthening including calves, quads and glute musculature. Progress to HEP Progress static balance with focus on eyes closed, progressing to dynamic balance on multiple surfaces. Progress to HEP Add in dynamic stability and righting reactions to improve ability to correct LOB. Subjective Subjective: Pt. is here today for his initial evaluation with diagnosis of cervicalgia and polyneuropathy. Pt. reports that his balance has improved over the past year or so, but is still having troubles with his balance. He reports much less falling. He uses cane a lot, but did not bring it today. Pt. reports having marked neuropathy in BLEs, stocking like pattern. He reports difficulty with feeling the ground with his feet. 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 He does a lot of sitting and sitting in the car. Pt. reports that he feels like his legs are still pretty week. Pt. does report some occasional occurrences where when he first gets up and has a large amount of shaking in his legs and it feels like there are going to give out. Occasionally they do give out. He reports no reason why this tremoring like symptoms occur other than feeling week. Pt. does reports difficulty in the shower when eyes are closed and balancing when his eyes are closed. Pt. is hopeful to improve his balance in order to get away from use of his cane. Objective Objective: POSTURE: Pt. has sway back like posture. Pt. tends to lean back on his heels. Pt. did report that he has lost 70+ lbs over the last year and feels like his COG has drastically changed. NEURO: Pt. has decreased achilles and patellar DTR 1+ bilaterally. Pt. has difficulty rising on heels and toes with out balance aide, and still difficulty with use of a balance aide ROM: Pt. has decent ROM throughout BLEs. Pt. camp B calf tightness and B HS tightness. MMT: RLE: ankle: DF 23.5#, PF: 28.9#;knee: ext 22.2#, flexion 18.0#; hip: abd 13.2# LLE: ankle: DF 23.5, PF 25.3#; knee: ext 27.4#, flexion 17.1#; hip: abd 12.1# Balance/Special Test Scores Functional Gait Assessment Score: 16 % Disability: 46.6700 CATSIB Score (Max score 120 seconds): 72 Lower Extremity Functional Score: 22 TUG Test Time Seconds: 17.1 Goals Goal 1:: LTG: Pt. to be I with HEP for BLE strengthening and balance exercises. Goal Time Frame: 4-6 Weeks Goal 2:: LTG: Pt. to have increased BLE strength by 10# throughout BLEs. Goal Time Frame: 4-6 Weeks Goal 3:: LTG: Pt. to complete TUG with out AD with time less than 10seconds indicating improved functional mobility. Goal Time Frame: 4-6 Weeks Goal 4:: LTG: Pt. to have improved FGA score to greater than 21/30 indicating improved overall dynamic stability indicating reduced risk for future falls. Goal Time Frame: 4-6 Weeks Goal 5:: LTG: Pt. to be to negotiate 1 flight of steps with 1 HR with reciprocal pattern without signs of LOB. Goal Time Frame: 4-6 Weeks Rehabilitation Potential Physical Therapy Diagnosis: Pt. has signs and symptoms consistent with Polyneuropathy and imbalance. Pt. has some weakness in BLEs, and marked imbalance. He would benefit from PT to increase both B ankle and hip strength as well as increase his stability on multiple surfaces reducing his risk for future falls. Rehabilitation Potential: Good Anticipated Interventions Patient/Client Instruction: Educate patient on: Condition, Plan of Care, Risk Factors and Benefits of Fitness Program For the Purpose of:: To improve decision making, To facilitate caregiver knowledge, To improve self management, To prevent re-injury and To improve ability to perform tasks related to life management Therapeutic Exercise to Include: Strength training, Power training, Balance training, Coordination, Body mechanics and Neuromotor development For the Purpose of:: To increase oxygenation perfusion, To improve muscle performance and motor function, To improve ability to perform ADL's, To improve ability of physical actions for home/community/work/leisure, To improve gait and locomotor functions, To improve health of tissue, To increase flexibility/ROM and To improve balance Text: Thank you for the opportunity to evaluate your patient. For Medicare and Medicare HMO plans, please review the plan of care and approve it. It will need to be FAXED BACK to us at [phone] for Medicare purposes. For Medicare only, by signing this I certify the plan of care. Please let me know if there are questions or concerns regarding this plan of care. Physician Signature: Date:
--- NOTE | 2024-02-03 11:26 | HP.OTEVAL ---
Patient's Visit Information Visit Information Visit Information: STEPAN RIGGS is a 63 year old M, referred to Occupational Therapy by Dr. Kevin Britton MD, with a diagnosis of polyneuropathy. Date of Evaluation: 01/13/24 Occupational Therapist: KIRAN Degroot/Kobi, CHT Subjective Subjective: This 63 year old male was seen for OT eval with dx of polyneuropathy pt states 5 years ago neruropathy to feet and two years later hands-complete loss of feeling in his feet. 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 pt states he works 7:30-5 during the week. 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 pt states he has noticed increase difficulty with hand writing and using silverware. ADLs Dressing: Shoes Comments: tie shoes / Fasteners: Tie shoes and Buttons Comments: use of button hook Eating: Bring food to mouth and Use silverware Comments: use of large handle utensils Comments: [facility] with - who is retired can not hold on to his pen use of large handle pen could not hold fork and knife/spoon. pt left handed pt has walk in shower with grab bars does not have shower chair pt states he does have a straight cane he does use at times. ( one in his truck- home and office) Pain bilateral hands: Current Pain Intensity: 5 Pain Intensity Range: 4 and 5 ROM ROM Comments: pt demo with no adduction ability on bilateral RF/LF indication of muscle wasting of adductors Strength Elbow: biceps right 14# left 14# triceps R 21# L 18# Wrist: ext R 14# L 15# flexion R 13# left 15# Director Of Global Sales: right 70# left 55# Lateral Pinch: right 6# left 6# Tripod Pinch: right 4# left 4# Sensation Thumb: Right 3.61 left 3.22 Index: right 3.22 left 3.22 Middle: right 3.84 Left 3.61 Ring: right 3.84 Left 3.61 Little: right 3.84 left 3.61 Nine Hole Peg Right: 48.79 sec. Left: 43.57 sec. Quick DASH-Disab of Arm,Shoulder& Hand Quick DASH Score: [phone] Goals Goal:: PT will demo an increase in workers compensation legal secretary strength by 20# to increase independent with basic occupations of daily living to return pt to PLOF by D/C. Pt will demo an increase in lateral and tripod pinch by 2# to increase pts independent with opening baggies, containers at PLOF by D/C. PT will demo a increase in FET2 muscle testing by 5# to increase ind. with ADLs by d/c Goal:: pt will demo understanding of use of visual compensation for use of FMS to increase iND. and increase safety with hot, sharp objects by d/c Goal:: pt will demo understanding of using ad. devices to increase pts IND with ADLs and IADLs by d/c Goal:: Pt will demo understanding of adaptive Equipment use to decrease stress on joints to allow pt to perform BADSL and IADLS at CHARLENE level. Goal:: Pt will demo understanding of using supportive bracing 80% of workday/ADLS to decrease stress on tendon origin to allow healing and decrease pain by end of 2nd session. Rehabilitation General Assessment: pt demo with muscle wasting in bilateral hands throughout ulnar nerve distribution - pt demo with bilateral UB and workers compensation legal secretary weakness limiting pts IND. with work and daily tasks. pt would benefit from skilled OT services 2x week for 4 weeks to assist pt in recovery, adaptive eq. and modifications to increase pts ind. with ADLs and IADLs. Pt demo understanding and agree to POC. Rehabilitation Potential: Good Anticipated Interventions Anticipated Interventions: Strengthening, Modalities, Orthoses, Joint Protection/Energy Conservation, Fine Motor Coord/Dajuan, Visual/Perceptual Skills, Education re assistive Equipment, Education re Diagnosis, Caregiver Training, Home Program and Other Other Interventions: visual compensation Visit Plan Frequency: 2-3x /Week Duration: 4 Weeks TEXT: Thank you for the opportunity to evaluate your patient. For Medicare and Medicare HMO plans, please review the plan of care and approve it. It will need to be FAXED BACK to us at [phone] for Medicare purposes. Please let me know if there are questions or concerns regarding this plan of care. Physician Signature: Date:
--- NOTE | 2024-07-01 11:39 | HP.OT.NRP ---
Patient Information Patient Information: STEPAN RIGGS was seen in my office for initial evaluation on 01/13/24. The following Plan of Care was established for this patient: POC Established Initial Frequency: 2-3x /Week Initial Duration: 4 Weeks Plan: 1x a week for 4 weeks if approved Anticipated Interventions Anticipated Interventions: Strengthening, Modalities, Orthoses, Joint Protection/Energy Conservation, Fine Motor Coord/Dajuan, Visual/Perceptual Skills, Education re assistive Equipment, Education re Diagnosis, Caregiver Training, Home Program and Other Other Interventions: visual compensation Last Seen Last Seen: This patient was last seen in our office 04/21/24. Pertinent comments regarding their Occupational therapy will appear below: pt was seen for 10 OT session- no further scheduled apts- due to time lapse in services pt is d.c. At this point I will be discontinuing this patient from occupational therapy. I would be happy to see this patient again in the future if found appropriate by the physician. Thank you! Yessy Mancia, OTR/L, CHT
--- NOTE | 2024-07-01 11:56 | HP.PTDCSUM ---
Discharge Summary D/C summary: It has been my pleasure to treat STEPAN RIGGS referred by Dr. Kevin Britton MD, with the diagnosis of Polyneuropathy for a total of 8 visit(s). Discharge Date: Please see the following information for a summary of their discharge status. Subjective Subjective: Pt. reports overall doing well. pt. pleased. Pt. reports no falls. He reports being able to complete all HEP on his own at home. Pain R knee: Pain Intensity (Out of 10): 0 Overall Improvement % Improvement: 95 Objective Objective/Function: Pt. is overall doing well. Pt. reports no falls since starting PT. Pt. is pleased with his current progress. He feels capable of doing his exercises on his own. Pt. has met all goals. Pt. will be DC from PT at this point in time. Goals Goal 1:: LTG: Pt. to be I with HEP for BLE strengthening and balance exercises. Goal Progress: Goal Met Goal 2:: LTG: Pt. to have increased BLE strength by 10# throughout BLEs. Goal Progress: Progressing Goal 3:: LTG: Pt. to complete TUG with out AD with time less than 10seconds indicating improved functional mobility. Goal Progress: Goal Met Goal 4:: LTG: Pt. to have improved FGA score to greater than 21/30 indicating improved overall dynamic stability indicating reduced risk for future falls. Goal Progress: Goal Met Goal 5:: LTG: Pt. to be to negotiate 1 flight of steps with 1 HR with reciprocal pattern without signs of LOB. Goal Progress: Goal Met Plan Plan: Pt. to be DC from PT at this point in time. D/C Information d/c sentence: If there are questions or concerns regarding this patient's physical therapy, please feel free to call me at [phone]. Thank you for the referral of this patient. Sincerely, Chris Peace Sipos, DPT Balance/Gait/Functional tests Balance/Special Test Scores Functional Gait Assessment Score: 24 % Disability: 20.0000 CATSIB Score (Max score 120 seconds): 72 Lower Extremity Functional Score: 37 TUG Test Time Seconds: 9.1 Tug Test: <10 sec.=free mobile Improvement % Improvement: 95
== END 2024-04-21 19:00 | disposition home or self-care (01) ==
LOC: OT 17:30
PROVIDERS: PCP Internal Medicine; Referring Provider Psychiatry & Neurology Neurology; Visit Provider Psychiatry & Neurology Neurology
DX: G62.9 Polyneuropathy, unspecified; R29.898 Other symptoms and signs involving the musculoskeletal system
CPT/HCPCS: 97110; 97116; 97161; 97167; 97530

== ENCOUNTER → 2024-05-03 | Outpatient (CLI) | payer BC, SELFPAY ==
[2024-05-03 13:07] LABS: PSA,Total- Diagnostic 0.04 ng/mL (0.0-4.0)
== END | disposition home or self-care (01) ==
LOC: LAB 11:19
PROVIDERS: PCP Internal Medicine; Referring Provider Nurse Practitioner; Visit Provider Nurse Practitioner
DX: C61 Malignant neoplasm of prostate (principal)
CPT/HCPCS: 36415; 84153

== ENCOUNTER 2024-06-11 07:02 | Outpatient (RCR) | payer BC, SELFPAY ==
[2024-06-11 07:50] LABS: International Normalized Ratio 2.1; Prothrombin Time (Protime)PT. 23.7 SECONDS (11.7-14.9)
== END 2024-06-11 18:00 | disposition home or self-care (01) ==
LOC: LAB 07:02
PROVIDERS: PCP Internal Medicine; Referring Provider Nurse Practitioner Family; Visit Provider Nurse Practitioner Family
DX: Z79.01 Long term (current) use of anticoagulants (principal); Z95.2 Presence of prosthetic heart valve

== ENCOUNTER → 2024-07-29 | Outpatient (CLI) | payer BC, SELFPAY ==
[2024-07-29 16:10] LABS: Bacteria 0 SEEN /hpf (None Seen); Mucous, Urine 0 SEEN /hpf (<or=2+); Squamous Epithelial Cells - UA 0 SEEN /hpf (0-5)
[2024-07-29 17:12] LABS: Color, Urine Yellow (Yellow); Glucose, Dipstick 1000 mg/dl (Normal); Ketone-Dipstick Negative (Negative); Leukocyte Esterase-Dipstick 100 /ul (Negative); Nitrite-Dipstick Negative (Negative); Occult Blood-Urine 50 /ul (Negative); Protein-Dipstick 15 mg/dl (Negative); Urine Bilirubin Dipstick Negative (Negative); Urine Clarity Clear (Clear); Urine Urobilinogen Normal (Normal); Urine pH 6.5 (5.0 - 8.0)
[2024-07-29 17:20] LABS: Red Blood Cells-Urine 0-5 SEEN /hpf (0-5); White Blood Cells 0-5 SEEN /hpf (0-5)
== END | disposition home or self-care (01) ==
LOC: LABSPEC 16:09
PROVIDERS: PCP Internal Medicine; Referring Provider Internal Medicine; Visit Provider Internal Medicine
DX: R35.0 Frequency of micturition (principal)
CPT/HCPCS: 81001; 87086; 87088

== ENCOUNTER → 2024-08-20 | Outpatient (CLI) | payer BC, SELFPAY ==
--- NOTE | 2024-08-20 15:45 | RAD_ITS ---
PROCEDURE: RIBS UNIL 2V NO CXR REASON FOR EXAM: Left rib pain following a recent fall. TECHNIQUE: Frontal and bilateral oblique views of the left ribs were obtained. COMPARISON: Comparison is made with prior study dated April 13, 2024. FINDINGS: No displaced rib fractures are identified. No suspicious lytic or blastic rib lesions. Mild increased markings at the left lung base suggestive of atelectasis and/or scarring. RAD/Ribs Unil 2V No CXR IMPRESSION: NO EVIDENCE OF ACUTE RIB FRACTURE OR PNEUMOTHORAX. Reading Location: [id number]
== END | disposition home or self-care (01) ==
LOC: MTRAD 15:42
PROVIDERS: PCP Internal Medicine; Referring Provider Physician Assistant Surgical; Visit Provider Physician Assistant Surgical
DX: S29.9XXA Unspecified injury of thorax, initial encounter (principal); W19.XXXA Unspecified fall, initial encounter
CPT/HCPCS: 71100

== ENCOUNTER 2024-09-17 09:11 | Outpatient (RCR) | payer BC, SELFPAY ==
[2024-08-25 07:24] LABS: International Normalized Ratio 3.7; Prothrombin Time (Protime)PT. 37.3 SECONDS (11.7-14.9)
[2024-09-17 09:49] LABS: Prothrombin Time (Protime)PT. 23.4 SECONDS (11.7-14.9)
[2024-09-17 11:59] LABS: Cholesterol 120 mg/dL (<=200); High Density Lipoprotein 45 mg/dL; Low Density Lipoprotein Calc. 53 mg/dL; Triglycerides 110 mg/dL; Very Low Density Lipoprotein 22 mg/dL (5-40); cholesterol:hdl ratio screen 2.67
[2024-09-17 12:09] LABS: AST(SGOT) 29 U/L (<=37); Alanine Aminotransfer ALT/SGPT 28 U/L (<=46); Alkaline Phosphatase 138 U/L (40-129); Bilirubin, Direct 0.62 mg/dL (0.00-0.30); Protein, Total 7.2 g/dL (5.9-8.4); Total Bilirubin 1.19 mg/dL (0.00-1.30)
[2024-09-17 12:29] LABS: Albumin, Serum 4.3 g/dL (3.4-4.8); Globulin 2.9 g/dL (2.2-4.2)
== END 2024-09-17 18:00 | disposition home or self-care (01) ==
LOC: LAB 09:11
PROVIDERS: Internal Medicine Cardiovascular Disease; PCP Internal Medicine; Referring Provider Nurse Practitioner Family; Visit Provider Nurse Practitioner Family
DX: Z79.01 Long term (current) use of anticoagulants (principal); I48.11 Longstanding persistent atrial fibrillation; E78.5 Hyperlipidemia, unspecified; I25.10 Atherosclerotic heart disease of native coronary artery without angina pectoris; I35.0 Nonrheumatic aortic (valve) stenosis
CPT/HCPCS: 36415; 80061; 80076; 85610

== ENCOUNTER 2024-10-08 09:53 | Outpatient (RCR) | payer BC, SELFPAY ==
[2024-10-08 10:55] LABS: International Normalized Ratio 2.5; Prothrombin Time (Protime)PT. 27.3 SECONDS (11.7-14.9)
== END 2024-10-20 18:00 | disposition home or self-care (01) ==
LOC: LAB 09:53
PROVIDERS: PCP Internal Medicine; Referring Provider Nurse Practitioner Family; Visit Provider Nurse Practitioner Family
DX: Z79.01 Long term (current) use of anticoagulants (principal); I48.11 Longstanding persistent atrial fibrillation
CPT/HCPCS: 36415; 85610

== ENCOUNTER 2024-11-03 15:41 | Outpatient (RCR) | payer MEDICARE, OTHER, SELFPAY ==
[2024-11-03 18:07] LABS: International Normalized Ratio 3.5; Prothrombin Time (Protime)PT. 36.2 SECONDS (11.7-14.9)
== END 2024-11-20 23:59 ==
LOC: BIMLAB 15:41
PROVIDERS: PCP Internal Medicine; Referring Provider Nurse Practitioner Family; Visit Provider Nurse Practitioner Family
DX: Z79.01 Long term (current) use of anticoagulants (principal); Z95.2 Presence of prosthetic heart valve
CPT/HCPCS: 36415; 85610

== ENCOUNTER 2024-11-26 11:02 | Outpatient (RCR) | payer MEDICARE, OTHER, SELFPAY ==
[2024-11-26 11:38] LABS: International Normalized Ratio 2.7; Prothrombin Time (Protime)PT. 29.5 SECONDS (11.7-14.9)
== END 2024-12-20 23:59 ==
LOC: BIMLAB 11:02
PROVIDERS: PCP Internal Medicine; Referring Provider Nurse Practitioner Family; Visit Provider Nurse Practitioner Family
DX: Z79.01 Long term (current) use of anticoagulants (principal); Z95.2 Presence of prosthetic heart valve
CPT/HCPCS: 36415; 85610

== ENCOUNTER 2024-12-27 05:50 | Day surgery (SDC) | payer MEDICARE, OTHER, SELFPAY ==
--- NOTE | 2024-12-22 23:59 | PAT.ANE_ITS ---
Pre-Assessment Diagnosis/Proposed Procedure Planned Operative Procedure(s): EGD Anesthesia History Anesthesia History - community development technician: Anesthesia History - community development technician Hx Hospitalization No 12/22/24 09:11 Any Problems With Anesthesia No 12/22/24 09:11 Cholinesterase deficiency No 12/22/24 09:11 You/Your Family Experience No 12/22/24 09:11 fever (hyperthermia) with Relationship Recent Exposure to Contagious No 12/11/23 19:52 Disease Does patient have nerve No 12/22/24 09:11 stimulator Patient instructed to have device shut off --Does patient have Pacemaker or ICD? When Was Last Pacemaker Check QUESTION #4 FULL TEXT: You/Your Family Experience fever (hyperthermia) with Anesthesia Last Oral Intake Last Oral intake: Last Oral Intake NPO since Meds taken in AM with sips of water? Meds patient instructed to take am of surgery PONV PONV - community development technician: PONV - community development technician Female No 12/22/24 09:11 HX of Motion Sickness No 12/22/24 09:11 HX of N/V After Surgery No 12/22/24 09:11 Non-Smoker Yes 12/22/24 09:11 Duration of Surgery greater No 12/22/24 09:11 than 60 minutes Number of Risk Factors 1 12/22/24 09:11 PONV Score Low Risk 12/22/24 09:11 Height & Weight Height & Weight: Anesthesia: Height & Weight Height 5 ft 9 in 11/26/24 08:39 Respiratory Assessment Respiratory Assessment - community development technician: Respiratory Tract Infection Hx - community development technician Hx Respiratory Tract Infection No 12/22/24 09:11 STOP Sleep Apnea STOP Sleep Apnea - community development technician: STOP Sleep Apnea - community development technician Hx Hypertension Yes: CONTROLLED WITH MEDS 12/22/24 09:11 Hx Sleep Apnea Yes 12/22/24 09:11 CPAP Yes 12/22/24 09:11 BIPAP No 12/22/24 09:11 Do you snore loudly (louder than talking or can be heard Do you often feel tired/ fatigued/ sleepy during daytime? Has anyone observed you stop breathing during sleep? STOP Results Positive 12/22/24 09:11 QUESTION #5 FULL TEXT : Do you snore loudly (louder than talking or can be heard through closed doors)? 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 Specify any problems Hx of Preganancy in last 3 N/A 12/22/24 09:11 Months Nurse Filling Out Transfusion [id number] 12/22/24 09:11 & Questions: Date: 12/22/24 12/22/24 09:11 Time: 09:15 12/22/24 09:11 Patient unable to answer at this time (ie. confused, unrespo /Reproduction History /Reproductive History - community development technician: /Reproductive Hx- community development technician Hx Now Gestational Age (in weeks): EDC: Hx Hx Para Hx Section SAB No 12/11/23 19:52 PFSH Medical History Wears dentures Ambulates with cane Open wound Varicose veins of anus or rectum History of COPD History of atrial fibrillation Contusion of right chest wall Longstanding persistent atrial fibrillation Nocturia Emphysema, unspecified Impacted cerumen of both ears Neck pain History of echocardiogram Cardiology follow-up encounter History of Holter monitoring History of stress test 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 current use of anticoagulant Loss of hearing Wears glasses Wears partial dentures Thyroid disease Prostate disease Anemia Injury of back Former smoker CPAP (continuous positive airway pressure) dependence Shortness of breath on exertion COPD (chronic obstructive pulmonary disease) History of edema History of echocardiogram History of stress test Hypertension Dysphagia COVID-19 (06/19/20) PAOLA (obstructive sleep apnea) Gout GERD (gastroesophageal reflux disease) Nonrheumatic aortic (valve) stenosis Abrasion, right lower leg, initial encounter Contusion of right foot, initial encounter Aortic valvular disease Edema Shortness of breath Fatigue Nicotine abuse Pulmonary hypertension Paroxysmal atrial fibrillation Hypokalemia Morbid obesity with BMI of 45.0-49.9, adult HLD (hyperlipidemia) PVC (premature ventricular contraction) Home Medications ?Medication ?Instructions ?Recorded ?Last Taken ?Type biotin 10,000 mcg-keratin 100 mg 1 ea PO DAILY supplem ent 04/12/16 12/10/23 History tablet cholecalciferol (vitamin D3) 25 2,000 unit PO DAILY jimenez pplement 04/12/16 12/10/23 History mcg (1,000 unit) tablet ferrous sulfate 325 mg (65 mg 325 mg PO QHS anemia 12/10/23 History iron) tablet multivitamin 1 tab PO DAILY supplement 12/10/23 History Disability Placard #1 ea 04/20/21 Unknown Rx docusate sodium 100 mg capsule 200 mg PO QHS stool sof tener 01/01/22 12/10/23 History blood-glucose meter #1 ea 03/06/23 Unknown Rx lancets (Accu-Chek Softclix #100 ea 09/01/23 Unknown R x Lancets) blood sugar diagnostic (Accu-Chek #100 ea 09/09/23 Unk nown Rx Guide test strips) artificial tears with lanolin eye 1 applic EACH EYE DA [facility] 11/11/23 12/10/23 History ointment (Ultra Fresh PM eye ointment) warfarin 3 mg tablet (Jantoven) 1.5 mg PO TUTH blood t hinner 11/13/23 12/09/23 History melatonin 10 mg tablet 10 mg PO QHS sleep 01/20/24 Unknown History diltiazem HCl 120 mg capsule,24 120 mg PO DAILY heart rate #90 caps 06/22/24 Unknown Rx hr,extended release potassium chloride 10 mEq 30 meq (3 x 10 mEq) PO BID w ith 06/22/24 Unknown Rx capsule,extended release lasix/ supplement 90 days #5 40 caps tamsulosin 0.4 mg capsule 0.4 mg PO DAILY prostate #90 caps 07/05/24 Unknown Rx amitriptyline 25 mg tablet See Rx Instructions PO QHS #90 tabs 08/17/24 Unknown Rx spironolactone 25 mg tablet 25 mg PO DAILY diuretic #9 0 tabs 09/09/24 Unknown Rx bupropion HCl 300 mg 24 hr tablet, 300 mg PO DAILY [facility] #30 09/17/24 Unknown Rx extended release tabs torsemide 20 mg tablet 20 mg PO DAILY diuretic 08/22 02/14 Unknown History metoprolol succinate 25 mg 25 mg PO DAILY blood pressu re #90 09/28/24 Unknown Rx tablet,extended release 24 hr tabs atorvastatin 40 mg tablet 40 mg PO QHS cholesterol #90 tabs 09/29/24 Unknown Rx pantoprazole 40 mg tablet,delayed 40 mg PO QAM reflux #90 tabs 10/04/24 Unknown Rx release terazosin 1 mg capsule 1 mg PO QHS for blood pressu re #90 11/16/24 Unknown Rx caps cetirizine 10 mg tablet (Zyrtec) 10 mg PO DAILY ALLLER GY #30 tabs 11/26/24 Unknown Rx dapagliflozin propanediol 10 mg 10 mg PO QHS diabetes 11/30/24 Unknown History tablet (Farxiga) levothyroxine 100 mcg tablet 100 mcg PO DAILY thyroid #90 tabs 12/06/24 Unknown Rx albuterol sulfate 90 mcg/actuation 2 puff inhalation Q 4H PRN 12/07/24 Unknown Rx aerosol inhaler shortness of breath or wheez ing #1 device fluticasone fur. 100 mcg-umeclid 1 inh inhalation JOANIE Y breathing 12/07/24 Unknown Rx 62.5 mcg-vilant 25 mcg #3 ea inhalat.powder (Trelegy Ellipta) fluticasone propionate 50 1 spray intranasal DAILY all ergies 12/07/24 Unknown Rx mcg/actuation nasal #16 grams spray,suspension (Flonase Allergy Relief) duloxetine 60 mg capsule,delayed 60 mg PO BID #180 cap s 12/09/24 Unknown Rx release tizanidine 4 mg tablet 4 mg PO QHS spasms #90 tabs 12/09/24 Unknown Rx warfarin 3 mg tablet 3 mg PO QDAY blood thinner 0 12/22/24 Unknown History Allergy/AdvReac Type Severity Reaction Status Date / Time aspirin Allergy Severe Hives Verified 12/22/24 09:06 Iodinated Contrast Media Allergy Severe Hives Verified 12/22/24 09:06 (Iodinated Contrast Media - IV Dye) shellfish derived Allergy Severe Hives Verified 12/22/24 09:06 Family History Father , age 40 Cancer COPD (chronic obstructive pulmonary disease) Mother Hypertension Brother Cancer Lung CA Aunt Cerebral aneurysm Brother Aortic valve disease Surgical History History of colonoscopy History of esophagogastroduodenoscopy (EGD) History of cardiac catheterization H/O basal cell carcinoma excision Hx of gastric bypass History of deviated nasal septum History of tonsillectomy Hx of aortic valve replacement, mechanical (~2010) Social History household members: spouse current occupational status: employed 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 Smoking Status: Former smoker quit date: 06/23/96 pack-years: 10 Tobacco: How many years used: 20 Electronic Cigarette Use: not used how long ago did patient quit smokin, 0.5 second hand exposure: Yes alcohol intake: current alcohol intake frequency: holidays/special occasions only Alcohol type: beer details: social substance use type: former substance user Date of last use: used Marijuana as a teenager caffeine: Yes Type: coffee Number of servings: 2 what type of physical activity do you participate in: walking frequency: 3-4 times per week duration: 15-30 minutes/day seatbelt use: always do you feel safe at home: Yes Audit: Pertinent Findings Pertinent Findings EKG Perinent findings: January 20, 2024. Atrial fibrillation. Right bundle branch block. Right axis. Possible right ventricular hypertrophy. Consider pulmonary disease. Old anterior septal infarct. No new changes compared to May 29, 2018. Stress test pertinent findings: May 24, 2022. EF of 51%. No stress-induced myocardial ischemia. Small area near the apical segments without change from rest and stress. Echo (EF%) pertinent findings: May 24, 2022. EF of 55%. Right ventricular systolic pressure is 43 mmHg. There is moderate to severe prosthetic aortic valve stenosis. Heart catheterization pertinent findings: May 20, 2017. LAD is occluded. Left circumflex and RCA are normal. Collateral flows right to left. Mechanical AV prosthesis opening and closing probably. Consult pertinent findings: September 17, 2024. Karlos HENRY. 1. Longstanding persistent atrial fibrillation?chronic-patient is asymptomatic. Not aware that he is in A-fib. Tolerating Coumadin and diltiazem and metoprolol for rate control. 2. 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 Occluded LAD. Last stress in May 2022 showed no ischemia. 3. History of aortic valve [id number] redo in 2010. Stable appearing on last echo. Continue to monitor with routine echoes. Additional pertinent findings: Holter monitor. May 30, 2022. Predominant rhythm is atrial fibrillation with right bundle branch block. 39 PVCs. Diary recorded no symptoms. Recommendation Anesthesia Recommendation Anesthesia recommendation: OPTIMIZED for anesthesia
[2024-12-27] VITALS (8 sets, daily range): BP systolic 85–98; BP diastolic 55–78; PULSE 71–94; RESP 16–20; TEMP 35.9–36.1; O2SAT 93–100; BMI 39.5
[2024-12-27 05:59] LABS: INR Fingerstick 2.1
[2024-12-27] MEDS: Lactated Ringers 1,000 ML 15 ML IV (06:37)
--- NOTE | 2024-12-27 06:40 | PRE.ANES_ITS ---
ASA Classification* ASA Classification ASA Classification: 3 Assessment & Plan Anesthesia* Anesthesia Assessment Anesthesia Assessment: Discussed sedation and/or anesthesia options, risks, benefits, and alternatives with patient/parents/legal guardian/POA. Questions invited. The patient/parents/legal guardian/POA seems to understand and agrees to proceed with anesthesia plan. Reviewed the physical assessment, medical history, allergy history and patient home medications list prior to surgery/procedure/anesthetic and documented any changes. Performed airway and anesthesia risk assessments. Anesthesia Type Anesthesia Type: MAC Anesthesia Focused Assessment* Temperature: 97 F Pulse Rate: 94 Blood Pressure: 97/78 Respiratory Rate: 16 Pulse Ox: 100 Airway Assessment Mouth opens: >3 cm Mallampati Score: II Labs Anesthesia Preop lab: CBC WBC 7.2 K/mm3 (4.4-11.0) 01/27/24 09:18 01/27/24 RBC 5.03 M/mm3 (4.6-6.2) 01/27/24 09:18 01/27/24 Hgb 15.2 g/dL (13.0-16.5) 01/27/24 09:18 01/27/24 Hct 47.5 % (40-54) 01/27/24 09:18 01/27/24 Plt Count 299 K/mm3 (150-450) 01/27/24 09:18 01/27/24 CHEMISTRY Potassium 4.0 mmol/L (3.5-5.1) 12/12/23 02:46 12/12/23 Sodium 143 mmol/L (136-145) 12/12/23 02:46 12/12/23 Magnesium 2.4 mg/dL (1.6-2.6) 12/11/23 12:00 12/11/23 Phosphorus 3.6 mg/dL (2.5-4.9) 03/11/20 06:18 03/11/20 BUN 18 mg/dL (7-18) 12/12/23 02:46 12/12/23 Creatinine 1.15 mg/dL (0.70-1.30) 12/12/23 02:46 12/12/23 Glucose [facility] 183 mg/dL (70-110) H 06/24/23 16:14 08/16 Glucose 147 mg/dL (74-106) H 12/12/23 02:46 12/12/23 POC Glucose 151 mg/dL (74-106) H 12/13/23 10:59 12/13/23 TSH 4.33 uIU/mL (0.358-3.74) H 12/12/23 02:46 06/07/16 COAG PT 29.5 SECONDS (11.7-14.9) H 11/26/24 11:07 06/0 12/15 Pre-Assessment Diagnosis/Proposed Procedure Planned Operative Procedure(s): EGD Anesthesia History 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 When Was Last Pacemaker Check QUESTION #4 FULL TEXT: You/Your Family Experience fever (hyperthermia) with Anesthesia Last Oral Intake Last Oral intake: Last Oral Intake NPO since 04:30 12/27/24 06:23 Meds taken in AM with sips of Yes 12/27/24 06:23 water? Meds patient instructed to see 12/27/24 06:23 take am of surgery PONV PONV - computer applications engineer: PONV - computer applications engineer Female No 12/22/24 09:11 HX of Motion Sickness No 12/22/24 09:11 HX of N/V After Surgery No 12/22/24 09:11 Non-Smoker Yes 12/22/24 09:11 Duration of Surgery greater No 12/22/24 09:11 than 60 minutes Number of Risk Factors 1 12/22/24 09:11 PONV Score Low Risk 12/22/24 09:11 Height & Weight Height & Weight: Anesthesia: Height & Weight Height 5 ft 9 in 12/27/24 06:23 Weight: 121.563 kg 12/27/24 06:23 Body Mass Index (BMI) 39.5 12/27/24 06:23 Respiratory Assessment Respiratory Assessment - computer applications engineer: Respiratory Tract Infection Hx - computer applications engineer Hx Respiratory Tract Infection No 12/22/24 09:11 STOP Sleep Apnea STOP Sleep Apnea - computer applications engineer: STOP Sleep Apnea - computer applications engineer Hx Hypertension Yes: CONTROLLED WITH MEDS 12/22/24 09:11 Hx Sleep Apnea Yes 12/22/24 09:11 CPAP Yes 12/22/24 09:11 BIPAP No 12/22/24 09:11 Do you snore loudly (louder than talking or can be heard Do you often feel tired/ fatigued/ sleepy during daytime? Has anyone observed you stop breathing during sleep? STOP Results Positive 12/22/24 09:11 QUESTION #5 FULL TEXT : Do you snore loudly (louder than talking or can be heard through closed doors)? 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 Specify any problems Hx of Preganancy in last 3 N/A 12/22/24 09:11 Months Nurse Filling Out Transfusion [email or web address] 12/22/24 09:11 & Questions: Date: 12/22/24 12/22/24 09:11 Time: 09:15 12/22/24 09:11 Patient unable to answer at this time (ie. confused, unrespo /Reproduction History /Reproductive History - computer applications engineer: /Reproductive Hx- computer applications engineer Hx Now Gestational Age (in weeks): EDC: Hx Hx Para Hx Section SAB No 12/11/23 19:52 Active Medications Active Medications: Current Medications Generic Name Dose Route Start Last Admin Trade Name Charlesq PRN Reason Stop Dose Admin Lactated Ringer's 1,000 mls @ 15 mls/hr 12/27/24 06:15 12/27/24 06:37 IV 15 mls/hr .Q48H ROSARIO Administration PFSH Medical History Wears dentures Ambulates with cane Open wound Varicose veins of anus or rectum History of COPD History of atrial fibrillation Contusion of right chest wall Longstanding persistent atrial fibrillation Nocturia Emphysema, unspecified Impacted cerumen of both ears Neck pain History of echocardiogram Cardiology follow-up encounter History of Holter monitoring History of stress test custodial current use of anticoagulant Loss of hearing Wears glasses Wears partial dentures Thyroid disease Prostate disease Anemia Injury of back Former smoker CPAP (continuous positive airway pressure) dependence Shortness of breath on exertion COPD (chronic obstructive pulmonary disease) History of edema History of echocardiogram History of stress test Hypertension Dysphagia COVID-19 (06/19/20) PAOLA (obstructive sleep apnea) Gout GERD (gastroesophageal reflux disease) Nonrheumatic aortic (valve) stenosis Abrasion, right lower leg, initial encounter Contusion of right foot, initial encounter Aortic valvular disease Edema Shortness of breath Fatigue Nicotine abuse Pulmonary hypertension Paroxysmal atrial fibrillation Hypokalemia Morbid obesity with BMI of 45.0-49.9, adult HLD (hyperlipidemia) PVC (premature ventricular contraction) Home Medications ?Medication ?Instructions ?Recorded ?Last Taken ?Type biotin 10,000 mcg-keratin 100 mg 1 ea PO DAILY supplem ent 04/12/16 12/10/23 History tablet cholecalciferol (vitamin D3) 25 2,000 unit PO DAILY jimenez pplement 04/12/16 12/10/23 History mcg (1,000 unit) tablet ferrous sulfate 325 mg (65 mg 325 mg PO QHS anemia 12/23/24 History iron) tablet multivitamin 1 tab PO DAILY supplement 12/10/23 History Disability Placard #1 ea 04/20/21 Unknown Rx docusate sodium 100 mg capsule 200 mg PO QHS stool sof tener 01/01/22 12/10/23 History blood-glucose meter #1 ea 03/06/23 Unknown Rx lancets (Accu-Chek Softclix #100 ea 09/01/23 Unknown R x Lancets) blood sugar diagnostic (Accu-Chek #100 ea 09/09/23 Unk nown Rx Guide test strips) artificial tears with lanolin eye 1 applic EACH EYE [facility] 11/11/23 12/10/23 History ointment (Ultra Fresh PM eye ointment) warfarin 3 mg tablet (Jantoven) 1.5 mg PO TUTH blood t hinner 11/13/23 12/23/24 History melatonin 10 mg tablet 10 mg PO QHS sleep 01/20/24 Unknown History diltiazem HCl 120 mg capsule,24 120 mg PO DAILY heart rate #90 caps 06/22/24 12/27/24 04:30 Rx hr,extended release potassium chloride 10 mEq 30 meq (3 x 10 mEq) PO BID w ith 06/22/24 Unknown Rx capsule,extended release lasix/ supplement 90 days #5 40 caps amitriptyline 25 mg tablet See Rx Instructions PO QHS #90 tabs 08/17/24 Unknown Rx spironolactone 25 mg tablet 25 mg PO DAILY diuretic #9 0 tabs 09/09/24 12/27/24 Rx torsemide 20 mg tablet 20 mg PO DAILY diuretic 08/22 02/14 Unknown History metoprolol succinate 25 mg 25 mg PO DAILY blood pressu re #90 09/28/24 12/27/24 05:00 Rx tablet,extended release 24 hr tabs atorvastatin 40 mg tablet 40 mg PO QHS cholesterol #90 tabs 09/29/24 Unknown Rx cetirizine 10 mg tablet (Zyrtec) 10 mg PO DAILY ALLLER GY #30 tabs 11/26/24 Unknown Rx albuterol sulfate 90 mcg/actuation 2 puff inhalation Q 4H PRN 12/07/24 12/27/24 Rx aerosol inhaler shortness of breath or wheez ing #1 device fluticasone fur. 100 mcg-umeclid 1 inh inhalation JOANIE Y breathing 12/07/24 Unknown Rx 62.5 mcg-vilant 25 mcg #3 ea inhalat.powder (Trelegy Ellipta) fluticasone propionate 50 1 spray intranasal DAILY all ergies 12/07/24 Unknown Rx mcg/actuation nasal #16 grams spray,suspension (Flonase Allergy Relief) duloxetine 60 mg capsule,delayed 60 mg PO BID #180 cap s 12/09/24 Unknown Rx release tizanidine 4 mg tablet 4 mg PO QHS spasms #90 tabs 12/09/24 Unknown Rx warfarin 3 mg tablet 3 mg PO QDAY blood thinner 0 12/22/24 12/23/24 History bupropion HCl 300 mg 24 hr tablet, 300 mg PO DAILY [facility] #[facility] 12/23/24 Unknown Rx extended release tabs dapagliflozin propanediol 10 mg 10 mg PO QHS diabetes #90 tabs 12/23/24 12/23/24 Rx tablet (Farxiga) levothyroxine 100 mcg tablet 100 mcg PO DAILY thyroid #90 tabs 12/23/24 12/27/24 Rx pantoprazole 40 mg tablet,delayed 40 mg PO QAM reflux #90 tabs 12/23/24 12/27/24 Rx release tamsulosin 0.4 mg capsule 0.4 mg PO DAILY prostate #90 caps 12/23/24 Unknown Rx terazosin 1 mg capsule 1 mg PO QHS for blood pressu re #90 12/23/24 Unknown Rx caps Allergy/AdvReac Type Severity Reaction Status Date / Time aspirin Allergy Severe Hives Verified 12/27/24 06:19 Iodinated Contrast Media Allergy Severe Hives Verified 12/27/24 06:19 (Iodinated Contrast Media - IV Dye) shellfish derived Allergy Severe Hives Verified 12/27/24 06:19 Family History Father , age 40 Cancer COPD (chronic obstructive pulmonary disease) Mother Hypertension Brother Cancer Lung CA Aunt Cerebral aneurysm Brother Aortic valve disease Surgical History History of colonoscopy History of esophagogastroduodenoscopy (EGD) History of cardiac catheterization H/O basal cell carcinoma excision Hx of gastric bypass History of deviated nasal septum History of tonsillectomy Hx of aortic valve replacement, mechanical (~2010) Social History household members: spouse current occupational status: employed 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 Smoking Status: Former smoker quit date: 06/23/96 pack-years: 10 Tobacco: How many years used: 20 Electronic Cigarette Use: not used how long ago did patient quit smokin, 0.5 second hand exposure: Yes alcohol intake: current alcohol intake frequency: holidays/special occasions only Alcohol type: beer details: social substance use type: former substance user Date of last use: used Marijuana as a teenager caffeine: Yes Type: coffee Number of servings: 2 what type of physical activity do you participate in: walking frequency: 3-4 times per week duration: 15-30 minutes/day seatbelt use: always do you feel safe at home: Yes Review of Systems (Anesthesia) ROS Narrative System reviewed and no additional complaints, except as documented.
--- NOTE | 2024-12-27 06:43 | HP.PCM_ITS ---
[facility] - General General Date of Admission: 12/27/24 Date of Service: 12/27/24 Chief Complaint: GERD and esophageal dysphagia HPI Narrative STEPAN RIGGS, is a 64 M who presents for the treatment of esophageal dysphagia and evaluation of GERD. abd/pelvis CT 11.11.23 1. Multiple gallstones without evidence of acute cholecystitis 2. Normal colon. The appendix is visualized and appears normal. No visualized rectal mass or significant soft tissue edema or thickening. No colonic diverticula are present. EGD and Colonoscopy 11.12.23 EGD Z-line irregular, 38 cm from the incisors. Biopsied. A single non-bleeding angiodysplastic lesion in the stomach. Treated with argon plasma coagulation (APC). Normal second portion of the duodenum. Colonoscopy Preparation of the colon was poor. Multiple bleeding colonic angiodysplastic lesions. Treated with argon plasma coagulation (APC). Diverticulosis in the sigmoid colon, in the descending colon and at the splenic flexure. One 5 mm polyp in the sigmoid colon, removed with a jumbo cold forceps. Resected and retrieved. Stool in the entire examined colon. abd/pelvis CT 12.11.23 Stable examination. Multiple small gallstones. Mild degree of bladder wall thickening. Colonoscopy 12.12.23 Mucosal ulceration. Treated with a heater probe. Treated with argon plasma coagulation (APC). The examination was otherwise normal on direct and retroflexion views. Diverticulosis in the recto-sigmoid colon and in the sigmoid colon. No specimens collected. OV 4.2.25 pt reports difficulty swallowing liquids and that his voice is gravely. denies other GI symptoms of concern at this time. [facility] Medical History (Updated 12/27/24 @ 06:[address] Reed Friend, DO) Dysphagia Wears dentures Ambulates with cane Open wound Varicose veins of anus or rectum History of COPD History of atrial fibrillation Contusion of right chest wall Longstanding persistent atrial fibrillation Nocturia Emphysema, unspecified Impacted cerumen of both ears Neck pain History of echocardiogram Cardiology follow-up encounter History of Holter monitoring History of stress test shelter current use of anticoagulant Loss of hearing Wears glasses Wears partial dentures Thyroid disease Prostate disease Anemia Injury of back Former smoker CPAP (continuous positive airway pressure) dependence Shortness of breath on exertion COPD (chronic obstructive pulmonary disease) History of edema History of echocardiogram History of stress test Hypertension COVID-19 (06/19/20) PAOLA (obstructive sleep apnea) Gout GERD (gastroesophageal reflux disease) Nonrheumatic aortic (valve) stenosis Abrasion, right lower leg, initial encounter Contusion of right foot, initial encounter Aortic valvular disease Edema Shortness of breath Fatigue Nicotine abuse Pulmonary hypertension Paroxysmal atrial fibrillation Hypokalemia Morbid obesity with BMI of 45.0-49.9, adult HLD (hyperlipidemia) PVC (premature ventricular contraction) Home Medications ?Medication ?Instructions ?Recorded ?Last Taken ?Type biotin 10,000 mcg-keratin 100 mg 1 ea PO DAILY supplem ent 04/12/16 12/10/23 History tablet cholecalciferol (vitamin D3) 25 2,000 unit PO DAILY jimenez pplement 04/12/16 12/10/23 History mcg (1,000 unit) tablet ferrous sulfate 325 mg (65 mg 325 mg PO QHS anemia 12/23/24 History iron) tablet multivitamin 1 tab PO DAILY supplement 12/10/23 History Disability Placard #1 ea 04/20/21 Unknown Rx docusate sodium 100 mg capsule 200 mg PO QHS stool sof tener 01/01/22 12/10/23 History blood-glucose meter #1 ea 03/06/23 Unknown Rx lancets (Accu-Chek Softclix #100 ea 09/01/23 Unknown R x Lancets) blood sugar diagnostic (Accu-Chek #100 ea 09/09/23 Unk nown Rx Guide test strips) artificial tears with lanolin eye 1 applic EACH EYE DA [facility] 11/11/23 12/10/23 History ointment (Ultra Fresh PM eye ointment) warfarin 3 mg tablet (Jantoven) 1.5 mg PO TUTH blood t hinner 11/13/23 12/23/24 History melatonin 10 mg tablet 10 mg PO QHS sleep 01/20/24 Unknown History diltiazem HCl 120 mg capsule,24 120 mg PO DAILY heart rate #90 caps 06/22/24 12/27/24 04:30 Rx hr,extended release potassium chloride 10 mEq 30 meq (3 x 10 mEq) PO BID w ith 06/22/24 Unknown Rx capsule,extended release lasix/ supplement 90 days #5 40 caps amitriptyline 25 mg tablet See Rx Instructions PO QHS #90 tabs 08/17/24 Unknown Rx spironolactone 25 mg tablet 25 mg PO DAILY diuretic #9 0 tabs 09/09/24 12/27/24 Rx torsemide 20 mg tablet 20 mg PO DAILY diuretic 08/22 02/14 Unknown History metoprolol succinate 25 mg 25 mg PO DAILY blood pressu re #90 09/28/24 12/27/24 05:00 Rx tablet,extended release 24 hr tabs atorvastatin 40 mg tablet 40 mg PO QHS cholesterol #90 tabs 09/29/24 Unknown Rx cetirizine 10 mg tablet (Zyrtec) 10 mg PO DAILY ALLLER GY #30 tabs 11/26/24 Unknown Rx albuterol sulfate 90 mcg/actuation 2 puff inhalation Q 4H PRN 12/07/24 12/27/24 Rx aerosol inhaler shortness of breath or wheez ing #1 device fluticasone fur. 100 mcg-umeclid 1 inh inhalation JOANIE Y breathing 12/07/24 Unknown Rx 62.5 mcg-vilant 25 mcg #3 ea inhalat.powder (Trelegy Ellipta) fluticasone propionate 50 1 spray intranasal DAILY all ergies 12/07/24 Unknown Rx mcg/actuation nasal #16 grams spray,suspension (Flonase Allergy Relief) duloxetine 60 mg capsule,delayed 60 mg PO BID #180 cap s 12/09/24 Unknown Rx release tizanidine 4 mg tablet 4 mg PO QHS spasms #90 tabs 12/09/24 Unknown Rx warfarin 3 mg tablet 3 mg PO QDAY blood thinner 0 12/22/24 12/23/24 History bupropion HCl 300 mg 24 hr tablet, 300 mg PO DAILY [facility] 12/23/24 Unknown Rx extended release tabs dapagliflozin propanediol 10 mg 10 mg PO QHS diabetes #90 tabs 12/23/24 12/23/24 Rx tablet (Farxiga) levothyroxine 100 mcg tablet 100 mcg PO DAILY thyroid #90 tabs 12/23/24 12/27/24 Rx pantoprazole 40 mg tablet,delayed 40 mg PO QAM reflux #90 tabs 12/23/24 12/27/24 Rx release tamsulosin 0.4 mg capsule 0.4 mg PO DAILY prostate #90 caps 12/23/24 Unknown Rx terazosin 1 mg capsule 1 mg PO QHS for blood pressu re #90 12/23/24 Unknown Rx caps Allergy/AdvReac Type Severity Reaction Status Date / Time aspirin Allergy Severe Hives Verified 12/27/24 06:19 Iodinated Contrast Media Allergy Severe Hives Verified 12/27/24 06:19 (Iodinated Contrast Media - IV Dye) shellfish derived Allergy Severe Hives Verified 12/27/24 06:19 Family History Father , age 40 Cancer COPD (chronic obstructive pulmonary disease) Mother Hypertension Brother Cancer Lung CA Aunt Cerebral aneurysm Brother Aortic valve disease Surgical History History of colonoscopy History of esophagogastroduodenoscopy (EGD) History of cardiac catheterization H/O basal cell carcinoma excision Hx of gastric bypass History of deviated nasal septum History of tonsillectomy Hx of aortic valve replacement, mechanical (~2010) Social History household members: spouse current occupational status: employed 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 Smoking Status: Former smoker quit date: 06/23/96 pack-years: 10 Tobacco: How many years used: 20 Electronic Cigarette Use: not used how long ago did patient quit smokin, 0.5 second hand exposure: Yes alcohol intake: current alcohol intake frequency: holidays/special occasions only Alcohol type: beer details: social substance use type: former substance user Date of last use: used Marijuana as a teenager caffeine: Yes Type: coffee Number of servings: 2 what type of physical activity do you participate in: walking frequency: 3-4 times per week duration: 15-30 minutes/day seatbelt use: always do you feel safe at home: Yes ROS Constitutional Constitutional: Denies fatigue, fever(s), poor appetite, weight gain or weight loss Gastrointestinal Gastrointestinal: Denies belching, bloating, change in bowel habits, change in stool character, chewing difficulty, coffee ground emesis, constipation, cramping, diarrhea, dyspepsia, dysphagia, early satiety, excessive flatus, fecal incontinence, heartburn, hematemesis, hematochezia, hemorrhoids, loose stools, melena, nausea, odynophagia, rectal bleeding, tenesmus, vomiting or weight changes Vital Signs Vital Signs Vital Signs: 12/27/24 06:23 12/27/24 06:23 12/27/24 06:40 Temperature 97 F L 97 F L Temperature Source Temporal Pulse Rate 94 94 Respiratory Rate 16 16 Respiratory Pattern Normal Blood Pressure 97/78 97/78 Blood Pressure Mean 84 Blood Pressure Source Monitor Blood Pressure Position Semi-Fowlers Blood Pressure Location Right Arm Pulse Ox 100 100 Oxygen Delivery Method Room Air Weight Weight: 268 lb Body Mass Index (BMI) 39.5 Physical Exam Const alert, oriented x3, no apparent distress and healthy appearing General Appearance: cooperative GI normal to inspection, nondistended, normoactive bowel sounds, soft to palpation, non-tender and non-distended Percussion: normal to percussion Rectal Exam: deferred Results Lab / Micro Data Labs: Laboratory Results - last 24 hr 12/27/24 05:57: POC PT 22.7 H, INR 2.1 Assessment & Plan Assessment/Plan (1) Dysphagia: (2) GERD (gastroesophageal reflux disease): QUALIFIERS: Esophagitis presence: esophagitis presence not specified Qualified Code(s): K21.9 - Gastro-esophageal reflux disease without esophagitis
[2024-12-27 06:59] LABS: Prothrombin Time (Protime)PT. 18.5 SECONDS (11.7-14.9)
--- NOTE | 2024-12-27 07:00 | EGD_PTH ---
PATIENT: STEPAN RIGGS LOC: EN U#:[id number] AGE/SX: 64/M ROOM: RE12/27/[address]: Dr. Derek Fagan DO : 1960 BED: DIS: 12/27/2024 SPEC #: [id number] RECD: 12/27/24 10:24 STATUS: JAMES REStanley #: [id number] ANN: 12/27/24 07:[address]: Derek Fagan DEPT: SURGICAL PATHOLOGY RECD BY: Moises Sinha ENTERED: 12/27/24 11:36 SP TYPE: EGD BIOPSY ANDRIY DR: Dr. Silva Webster MD Tissues: A - Esophagus, NOS B - Stomach, NOS Procedures: Special Stain Group I Surgery Specimen Level IV GMS Stain (control) HEADER OPERATION: EGD, biopsy, dilation PRE-OP DIAGNOSIS: Dysphagia, GERD TISSUE SUBMITTED: A- Random esophagus biopsy, B- Lesser curvature biopsy MICROSCOPIC DIAGNOSIS A. Esophagus, random biopsy: - Benign squamous mucosa with acute inflammation. - Negative for eosinophils. - PASD is negative for fungal organisms. B. Lesser curvature, stomach, biopsy: - Fragments of oxyntic mucosa with dilated fundic glands and mild foveolar hyperplasia. - Negative for Helicobacter-like organisms (H&E). MICROSCOPIC DESCRIPTION Slides are reviewed. All matched controls reacted appropriately. These tests were developed and their performance characteristics determined by [facility]. They may not have been cleared or approved by the U.[place]. Food and Drug Administration. The FDA has determined that such clearance or approval is not necessary.? The above immunohistochemical/dualISH?markers are reviewed by the Pathologist. GROSS DESCRIPTION A. Received in fixative is one container labeled with the patient's name and designated Random esophagus biopsy. The specimen consists of multiple irregular fragments of light mariscal soft tissue that in aggregate measure <0.1 to 0.7 cm. The specimen is totally submitted in one cassette. B. Received in fixative is one container labeled with the patient's name and designated Lesser curvature biopsy. The specimen consists of three irregular fragments of light mariscal soft tissue that in aggregate measure <0.1 to 0.8 cm. The specimen is totally submitted in one cassette. KO/ 12/27/2024 CPT:[id number]
--- NOTE | 2024-12-27 07:08 | PCM.POST.ANE ---
Anesthesia: Postop Eval I Current Vital Signs Temperature: 97 F Pulse Rate: 83 Blood Pressure: 98/55 Respiratory Rate: 16 Pulse Ox: 96 Oxygen Delivery Method: Room Air Assessment Airway patent: Yes Spontaneous unlabored respirations: Yes Mental status: Awake and Calm nausea: No Vomiting: No Anesthesia Complication: No Fluid Hydration Crystalloid volume administer (ml): 300 Total IV fluid infused: 300 Progress Note Anesthesia document: Postop Eval 1 completed: Yes
--- NOTE | 2024-12-27 07:11 | OP.EGD_ITS ---
Patient Name: Renato Polo Procedure Date: 12/27/2024 6:44 AM Date of : 1960 Age: 64 Procedure: Upper GI endoscopy Indications: Dysphagia, Esophageal reflux Providers: Derek Fagan DO Referring MD: Silva Webster Md Medicines: Monitored Anesthesia Care Patient Profile: This is a 64 year old male. Refer to note in patient chart for documentation of history and physical. Patient has symptoms of dysphagia with both liquids and solids. Complications: No immediate complications. Procedure: Pre-Anesthesia Assessment: - Prior to the procedure, a History and Physical was performed, and patient medications and allergies were reviewed. The patient is competent. The risks and benefits of the procedure and the sedation options and risks were discussed with the patient. All questions were answered and informed consent was obtained. Patient identification and proposed procedure were verified by the physician in the pre-procedure area. Mental Status Examination: alert and oriented. Airway Examination: normal oropharyngeal airway and neck mobility. Respiratory Examination: clear to auscultation. CV Examination: normal. Prophylactic Antibiotics: The patient does not require prophylactic antibiotics. Prior Anticoagulants: The patient has taken no anticoagulant or antiplatelet agents except for NSAID medication. ASA Grade Assessment: II - A patient with mild systemic disease. After reviewing the risks and benefits, the patient was deemed in satisfactory condition to undergo the procedure. The anesthesia plan was to use monitored anesthesia care (MAC). Immediately prior to administration of medications, the patient was re-assessed for adequacy to receive sedatives. The heart rate, respiratory rate, oxygen saturations, blood pressure, adequacy of pulmonary ventilation, and response to care were monitored throughout the procedure. The physical status of the patient was re-assessed after the procedure. After obtaining informed consent, the endoscope was passed under direct vision. Throughout the procedure, the patient's blood pressure, pulse, and oxygen saturations were monitored continuously. The Endoscope was introduced through the mouth, and advanced to the second part of duodenum. The upper GI endoscopy was accomplished without difficulty. The patient tolerated the procedure well. Scope In: 6:55:11 AM Scope Out: 7:00:42 AM Total Procedure Duration Time 0 hours 5 minutes 31 seconds Findings: Abnormal motility was noted in the esophagus. The cricopharyngeus was abnormal. There is a decrease in motility of the esophageal body. The distal esophagus/lower esophageal sphincter is spastic, but gives up passage to the endoscope. Primary peristaltic waves are noted. A guidewire was placed and the scope was withdrawn. Dilation was performed with a Savary dilator with no resistance at 60 Fr. The dilation site was examined following endoscope reinsertion and showed moderate improvement in luminal narrowing. Biopsies were obtained from the proximal and distal esophagus with cold forceps for histology of suspected eosinophilic esophagitis. Patchy mild inflammation characterized by erythema was found in the gastric fundus and on the lesser curvature of the stomach. Biopsies were taken with a cold forceps for histology. Verification of patient identification for the specimen was done. Estimated blood loss was minimal. Biopsies were taken with a cold forceps for Helicobacter pylori testing. Verification of patient identification for the specimen was done. Biopsies were taken with a cold forceps for Helicobacter pylori testing. Verification of patient identification for the specimen was done. Estimated blood loss was minimal. No gross lesions were noted in the entire examined duodenum. Impression: - Abnormal esophageal motility. Dilated. - Chronic gastritis. Biopsied. - No gross lesions in the entire examined duodenum. - Biopsies were taken with a cold forceps for evaluation of eosinophilic esophagitis. Recommendation: - Discharge patient to home. - Resume previous diet. - Continue present medications. - Await pathology results. Procedure Code(s): --- Professional --- 39799, Esophagogastroduodenoscopy, flexible, transoral; with insertion of guide wire followed by passage of dilator(s) through esophagus over guide wire 44593, 59,51, Esophagogastroduodenoscopy, flexible, transoral; with biopsy, single or multiple CPT copyright 2021 [employer]. All rights reserved. The codes documented in this report are preliminary and upon coder operator review may be revised to meet current compliance requirements. Derek Fagan DO 12/27/2024 7:10:06 AM This report has been signed electronically. Number of Addenda: 0 Note Initiated On: 12/27/2024 6:44 AM
--- NOTE | 2024-12-27 07:11 | OP.CCLET_ITS ---
12/27/2024 Silva Webster Md Re : Upper GI endoscopy procedure for Renato Polo Dear Eleanor This procedure was performed on Friday, December 27, 2024. My impressions and recommendations are as follows: Impressions : - Abnormal esophageal motility. Dilated. - Chronic gastritis. Biopsied. - No gross lesions in the entire examined duodenum. - Biopsies were taken with a cold forceps for evaluation of eosinophilic esophagitis. Recommendations : - Discharge patient to home. - Resume previous diet. - Continue present medications. - Await pathology results. My findings are described in the full procedure note, which is enclosed. If I can be of further assistance, please feel free to contact me at . Sincerely, Derek Fagan, 12/27/2024 7:10:06 AM This report has been signed electronically.
--- NOTE | 2024-12-27 07:24 | SUR.PHASEI ---
IV LEFT IN D/T LOWER BP. HE IS WITHIN HIS 20% AND HIS MAP IS FINE BUT DISCHARGE NURSE WANTED IT LEFT IN.
--- NOTE | 2024-12-27 08:14 | PCM.POSTANE2 ---
Anesthesia Postop Eval I Sum Postop Eval Completion status Anesthesia document: Postop Eval 1 completed: Yes Anesthesia Postop Eval I Summary Anesthesia Postop Eval I Summary: Anesthesia Postop Eval I: Assessment Summary Airway patent Yes 12/27/24 07:08 [email or web address] Spontaneous unlabored Yes 12/27/24 07:08 [email or web address] respirations Mental status Awake,Calm 12/27/24 07:08 [email or web address] nausea No 12/27/24 07:08 [email or web address] Vomiting No 12/27/24 07:08 [email or web address] Anesthesia Postop Eval I: Fluid Summary Crystalloid volume administer 300 12/27/24 07:08 [email or web address] (ml) Colloids volume administered ( ml) Blood Product volume administered (ml) Total IV fluid infused 300 12/27/24 07:08 [email or web address] Anesthesia Postop Eval I: Summary Notes Anesthesia Complication No 12/27/24 07:08 [email or web address] Anesthesia Complication Comment: Post-operative progress note Anesthesia: Postop Eval II Evaluation Mental status: Awake Pain Level: 0 nausea: No Vomiting: No
== END 2024-12-27 07:49 | disposition home or self-care (01) ==
LOC: EN 05:50 → AC 05:52
PROVIDERS: Anesthesiology; PCP Internal Medicine; Referring Provider Internal Medicine; Visit Provider Internal Medicine Gastroenterology
PROC: 0DJ08ZZ Inspection of Upper Intestinal Tract, Via Natural or Artificial Opening Endoscopic (ICD-10-PCS; CPT 43235; principal; 2024-12-27 06:55)
DX: K22.4 Dyskinesia of esophagus (principal); I48.0 Paroxysmal atrial fibrillation; K21.00 Gastro-esophageal reflux disease with esophagitis, without bleeding; R13.10 Dysphagia, unspecified; K29.50 Unspecified chronic gastritis without bleeding; D64.9 Anemia, unspecified; I10 Essential (primary) hypertension; E78.5 Hyperlipidemia, unspecified; Z79.51 Long term (current) use of inhaled steroids; Z79.890 Hormone replacement therapy; Z79.899 Other long term (current) drug therapy; Z87.891 Personal history of nicotine dependence
CPT/HCPCS: 43248; 43239; 36416; 82962; 85610; 88305; 88312; C1769; J2405

== ENCOUNTER → 2025-01-10 | Outpatient (CLI) | payer MEDICARE, OTHER, SELFPAY ==
[2025-01-10 15:35] LABS: Hematocrit 49.4 % (40-54); Hemoglobin 16.5 g/dL (13.0-16.5); Immature Granulocytes Count 0.030 X10^3/uL (0.0-0.0); Mean Corp Hgb Conc 33.4 g/dL (32-36); Mean Corpuscular Volume 93.6 fL (80-94); Mean Platelet Vol. 9.4 fl (6.2-12.0); NRBC Flagged by Analyzer 0 % (0-5); Platelet Count 249 K/mm3 (150-450); RBC Distribution Width CV 13.0 % (11.6-14.6); RBC Distribution Width SD 44.4 fl (35.1-43.9); Red Blood Count 5.28 M/mm3 (4.6-6.2); White Blood Count 7.6 K/mm3 (4.4-11.0)
[2025-01-10 16:24] LABS: AST(SGOT) 31 U/L (<=37); Alanine Aminotransfer ALT/SGPT 29 U/L (<=46); Albumin, Serum 4.7 g/dL (3.4-4.8); Alkaline Phosphatase 138 U/L (40-129); Anion Gap 15 (5-15); BUN 28 mg/dL (4-19); BUN/Creat Ratio 20.8 RATIO (10-20); Calcium,Total 9.8 mg/dL (7.6-11.0); Carbon Dioxide 23.4 mmol/L (21.0-32.0); Chloride 99 mmol/L (98-108); Ferritin 359 ng/mL (37-417); Globulin 3.0 g/dL (2.2-4.2); Glucose 132 mg/dL (70-99); Potassium 3.9 mmol/L (3.3-5.1); Vitamin B12 615 pg/mL (180-914)
[2025-01-10 16:49] LABS: Iron 65 ug/dL (65-175); Iron Binding Capacity,Total 249 ug/dL (250-450); Iron Binding Capacity,Unsat 184 ug/dL (228-428)
[2025-01-14 15:08] LABS: ANTINUCLEAR ANTIBODIES DIRECT Negative (Negative); Anti-Chromatin <0.2 AI (0.0-0.9); Anti-Jo <0.2 AI (0.0-0.9); Anti-dsDNA Ab <1 IU/mL (0-9); SJOGREN'S Anti-SS-A test < 0.2 AI (0.0-0.9); SJOGREN'S Anti-SS-B test < 0.2 AI (0.0-0.9); Vitamin D 1,25-Dihydroxy 68.2 pg/mL (24.8-81.5)
[2025-01-14 18:08] LABS: Folate, Hemolysate Test > 620.0 ng/mL (Not Estab.); Folate, RBC (Hct) Test 51.4 % (37.5-51.0); Folates, RBC Test > 1206 ng/mL (>498); VITAMIN B6 15.5 ug/L (3.4-65.2); Vitamin B1, Thiamine 186.9 nmol/L (66.5-200.0)
== END | disposition home or self-care (01) ==
LOC: MTLAB 12:34
PROVIDERS: PCP Internal Medicine; Referring Provider Psychiatry & Neurology Neurology; Visit Provider Psychiatry & Neurology Neurology
DX: E11.9 Type 2 diabetes mellitus without complications (principal); F03.90 Unspecified dementia, unspecified severity, without behavioral disturbance, psychotic disturbance, mood disturbance, and anxiety; E61.1 Iron deficiency
CPT/HCPCS: 36415; 80053; 82607; 82652; 82728; 82747; 83540; 83550; 84207; 84425; 84443; 85014; 85025; 86038; 86225; 86235

== ENCOUNTER 2025-01-17 15:20 | Outpatient (CLI) | payer MEDICARE, OTHER, SELFPAY ==
--- NOTE | 2025-01-17 15:36 | MRI_ITS ---
PROCEDURE: BRAIN WITHOUT CONTRAST 01/17/2025 REASON FOR EXAM: DEMENTIA TECHNIQUE: Multiplanar and multisequential MRI of the brain was performed without contrast. COMPARISON: Brain MRI 11/12/2022. FINDINGS: No regions of abnormal restricted diffusion to indicate recent infarct. Mild generalized brain parenchymal volume loss, and chronic microangiopathic changes throughout the supratentorial white matter. No evidence of acute intracranial hemorrhage, extra-axial collection, mass- effect, or other acute abnormality. Few scattered foci of nonspecific remote microhemorrhage seen on the susceptibility weighted sequence, with 3 in the right parieto-occipital lobe, and 1 in the left cerebellar hemisphere. Major vascular flow voids are preserved. Grossly unremarkable orbits. Well-aerated paranasal sinuses and bilateral mastoid air cells. MRI/Brain without Contrast IMPRESSION: No acute intracranial abnormality. Mild generalized volume loss and chronic microangiopathic changes. Reading Location: [id number]
== END 2025-01-17 23:59 | disposition home or self-care (01) ==
LOC: MRI 15:21
PROVIDERS: PCP Internal Medicine; Referring Provider Psychiatry & Neurology Neurology; Visit Provider Psychiatry & Neurology Neurology
DX: G93.89 Other specified disorders of brain (principal); F03.90 Unspecified dementia, unspecified severity, without behavioral disturbance, psychotic disturbance, mood disturbance, and anxiety
CPT/HCPCS: 70551

== ENCOUNTER 2025-02-01 07:34 | Outpatient (RCR) | payer MEDICARE, OTHER, SELFPAY ==
[2025-02-01 09:02] LABS: Prothrombin Time (Protime)PT. 32.5 SECONDS (11.7-14.9)
[2025-02-01 09:17] LABS: AST(SGOT) 26 U/L (<=37); Alanine Aminotransfer ALT/SGPT 21 U/L (<=46); Albumin, Serum 4.3 g/dL (3.4-4.8); Alkaline Phosphatase 124 U/L (40-129); Bilirubin, Direct 0.54 mg/dL (0.00-0.30); Cholesterol 115 mg/dL (<=200); Globulin 2.7 g/dL (2.2-4.2); Low Density Lipoprotein Calc. 49 mg/dL; Triglycerides 120 mg/dL; Very Low Density Lipoprotein 24 mg/dL (5-40); cholesterol:hdl ratio screen 2.73
== END 2025-02-20 23:59 ==
LOC: BIMLAB 07:34
PROVIDERS: Physician Assistant Medical; PCP Internal Medicine; Referring Provider Nurse Practitioner Family; Visit Provider Nurse Practitioner Family
DX: Z79.01 Long term (current) use of anticoagulants (principal); Z95.2 Presence of prosthetic heart valve; E78.00 Pure hypercholesterolemia, unspecified
CPT/HCPCS: 36415; 80061; 80076; 85610

== ENCOUNTER 2025-03-11 08:29 | Outpatient (RCR) | payer MEDICARE, OTHER, SELFPAY ==
[2025-03-11 09:49] LABS: Prothrombin Time (Protime)PT. 25.3 SECONDS (11.7-14.9)
== END 2025-03-22 18:00 | disposition home or self-care (01) ==
LOC: LAB 08:29
PROVIDERS: PCP Internal Medicine; Referring Provider Nurse Practitioner Family; Visit Provider Nurse Practitioner Family
DX: Z79.01 Long term (current) use of anticoagulants (principal); Z95.2 Presence of prosthetic heart valve
CPT/HCPCS: 36415; 85610

== ENCOUNTER → 2025-03-31 | Outpatient (CLI) | payer MEDICARE, OTHER, SELFPAY | END | disposition home or self-care (01) | LOC: PSN 08:10 | PROVIDERS: PCP Internal Medicine; Referring Provider Nurse Practitioner Acute Care; Visit Provider Nurse Practitioner Acute Care | DX: R06.09 Other forms of dyspnea (principal) | CPT/HCPCS: 94060; 94726; 94729 ==

== ENCOUNTER → 2025-04-01 | Outpatient (CLI) | payer MEDICARE, OTHER, SELFPAY ==
[2025-04-01 13:48] VITALS: PULSE 76; PULSE 79; PULSE 80; PULSE 82; PULSE 90; PULSE 93; PULSE 94; O2SAT 92; O2SAT 95; O2SAT 96; O2SAT 97
== END | disposition home or self-care (01) ==
LOC: PSN 13:19
PROVIDERS: PCP Internal Medicine; Referring Provider Nurse Practitioner Acute Care; Visit Provider Nurse Practitioner Acute Care
DX: R06.09 Other forms of dyspnea (principal)
CPT/HCPCS: 94618

== ENCOUNTER 2025-04-19 17:27 | Emergency (ER) | payer MEDICARE, OTHER, SELFPAY ==
[2025-04-19 17:28] VITALS: BP 132/70; PULSE 80; RESP 18; TEMP 37.1; O2SAT 99; BMI 39.9
--- NOTE | 2025-04-19 18:21 | CT_ITS ---
PROCEDURE: CT/Abdomen/Pelvis without Cont
--- NOTE | 2025-04-19 18:22 | EX.ED.GUMALE ---
HPI History of Present Illness Chief Complaint: Complaint Narrative Narrative: 64-year-old male past medical history of mechanical heart valve on warfarin presents with painless hematuria that began a few hours ago. States he urinated in the bathroom and noticed that they toilet bowl was full of blood and a small clot. He denies any other bleeding diathesis. He is not having any flank pain or pain with urination. No lightheadedness. No exacerbating or alleviating factors. He states he had his INR checked yesterday and it was 3.5. He states that his goal is between 2.5 and 3.5 so they did not tell him to hold his Coumadin at all. He presents because of the 1 episode of painless hematuria that he had today. 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 Loss of hearing Wears glasses Wears partial dentures Thyroid disease Prostate disease Anemia Injury of back Former smoker CPAP (continuous positive airway pressure) dependence Shortness of breath on exertion COPD (chronic obstructive pulmonary disease) History of edema History of echocardiogram History of stress test Hypertension COVID-19 (06/19/20) PAOLA (obstructive sleep apnea) Gout GERD (gastroesophageal reflux disease) Nonrheumatic aortic (valve) stenosis Abrasion, right lower leg, initial encounter Contusion of right foot, initial encounter Aortic valvular disease Edema Shortness of breath Fatigue Nicotine abuse Pulmonary hypertension Paroxysmal atrial fibrillation Hypokalemia Morbid obesity with BMI of 45.0-49.9, adult HLD (hyperlipidemia) PVC (premature ventricular contraction) Home Medications ?Medication ?Instructions ?Recorded ?Last Taken ?Type cholecalciferol (vitamin D3) 25 2,000 unit PO DAILY supplement 04/12/16 12/10/23 History mcg (1,000 unit) tablet ferrous sulfate 325 mg (65 mg 325 mg PO QHS anemia 03/10/20 12/23/24 History iron) tablet multivitamin 1 tab PO DAILY supplement 03/10/20 12/10/23 History Disability Placard #1 ea 04/20/21 Unknown Rx docusate sodium 100 mg capsule 200 mg PO QHS stool softener 01/01/22 12/10/23 History blood-glucose meter #1 ea 03/06/23 Unknown Rx artificial tears with lanolin eye 1 applic EACH EYE DAILY eye health 11/11/23 12/10/23 History ointment (Ultra Fresh PM eye ointment) warfarin 3 mg tablet (Jantoven) 1.5 mg PO TUTH blood thinner 11/13/23 12/23/24 History melatonin 10 mg tablet 10 mg PO QHS sleep 01/20/24 Unknown History cetirizine 10 mg tablet (Zyrtec) 10 mg PO DAILY ALLLERGY #30 tabs 11/26/24 Unknown Rx fluticasone fur. 100 mcg-umeclid 1 inh inhalation DAILY breathing 12/07/24 Unknown Rx 62.5 mcg-vilant 25 mcg #3 ea inhalat.powder (Trelegy Ellipta) fluticasone propionate 50 1 spray intranasal DAILY allergies 12/07/24 Unknown Rx mcg/actuation nasal #16 grams spray,suspension (Flonase Allergy Relief) bupropion HCl 300 mg 24 hr tablet, 300 mg PO DAILY mental health #90 12/23/24 Unknown Rx extended release tabs levothyroxine 100 mcg tablet 100 mcg PO DAILY thyroid #90 tabs 12/23/24 12/27/24 Rx pantoprazole 40 mg tablet,delayed 40 mg PO QAM reflux #90 tabs 12/23/24 12/27/24 Rx release terazosin 1 mg capsule 1 mg PO QHS for blood pressure #90 12/23/24 Unknown Rx caps atorvastatin 40 mg tablet 40 mg PO QHS cholesterol #90 tabs 12/28/24 Unknown Rx diltiazem HCl 120 mg capsule,24 120 mg PO DAILY heart rate #90 caps 12/28/24 Unknown Rx hr,extended release metoprolol succinate 25 mg 25 mg PO DAILY blood pressure #90 12/28/24 Unknown Rx tablet,extended release 24 hr tabs potassium chloride 10 mEq 30 meq (3 x 10 mEq) PO BID with 12/28/24 Unknown Rx capsule,extended release lasix/ supplement 90 days #540 caps spironolactone 25 mg tablet 25 mg PO DAILY diuretic #90 tabs 12/28/24 Unknown Rx warfarin 3 mg tablet 3 mg PO QDAY blood thinner #90 tabs 12/28/24 Unknown Rx torsemide 20 mg tablet 20 mg PO .COMPLEX diuretic #135 12/29/24 Unknown Rx tabs blood sugar diagnostic (Accu-Chek #100 ea 01/17/25 Unknown Rx Guide test strips) lancets (Accu-Chek Softclix #100 ea 01/17/25 Unknown Rx Lancets) albuterol sulfate 90 mcg/actuation 2 puff inhalation Q4H PRN 03/02/25 Unknown Rx aerosol inhaler shortness of breath or wheezing #1 device dapagliflozin propanediol 10 mg 10 mg PO QHS diabetes #90 tabs 03/02/25 Unknown Rx tablet (Farxiga) tamsulosin 0.4 mg capsule 0.4 mg PO DAILY prostate #90 caps 03/02/25 Unknown Rx duloxetine 60 mg capsule,delayed 60 mg PO BID #180 caps 03/03/25 Unknown Rx release tizanidine 4 mg tablet 4 mg PO QHS spasms #90 tabs 03/03/25 Unknown Rx Allergy/AdvReac Type Severity Reaction Status Date / Time aspirin Allergy Severe Hives Verified 04/19/25 17:29 Iodinated Contrast Media Allergy Severe Hives Verified 04/19/25 17:29 (Iodinated Contrast Media - IV Dye) shellfish derived Allergy Severe Hives Verified 04/19/25 17:29 Family History Father , age 40 Cancer COPD (chronic obstructive pulmonary disease) Mother Hypertension Brother Cancer Lung CA Aunt Cerebral aneurysm Brother Aortic valve disease Surgical History History of colonoscopy History of esophagogastroduodenoscopy (EGD) History of cardiac catheterization H/O basal cell carcinoma excision Hx of gastric bypass History of deviated nasal septum History of tonsillectomy Hx of aortic valve replacement, mechanical (~2010) Social History household members: spouse current occupational status: employed 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 Smoking Status: Former smoker quit date: 06/23/96 pack-years: 10 Tobacco: How many years used: 20 Electronic Cigarette Use: not used how long ago did patient quit smokin, 0.5 second hand exposure: Yes alcohol intake: current alcohol intake frequency: holidays/special occasions only Alcohol type: beer details: social substance use type: former substance user Date of last use: used Marijuana as a teenager caffeine: Yes Type: coffee Number of servings: 2 what type of physical activity do you participate in: walking frequency: 3-4 times per week duration: 15-30 minutes/day seatbelt use: always do you feel safe at home: Yes ROS ROS ED ROS Narrative Review of systems is positive for hematuria, no flank pain. No fevers or chills, no nausea or vomiting, no dysuria/pain with urination. Denies any other bleeding diathesis. Reports INR of 3.5 yesterday. EXAM Physical Exam Narrative Exam Narrative: Afebrile. Vital signs noted. Nontoxic-appearing. Cardiovascular examination feels a regular rate and rhythm. Positive heart murmur auscultated on exam. Chronic for patient. Lungs are clear to auscultation bilaterally. Abdomen is soft and nontender with positive bowel sounds. Neurological examination nonfocal, nonlateralizing. No pallor of skin appreciated. Const Vital Signs: 04/19/25 17:28 04/19/25 19:27 04/19/25 21:00 Temperature 98.7 F Temperature Source Oral Pulse Rate 80 70 88 Respiratory Rate 18 16 16 Blood Pressure 132/70 H 132/70 H 132/70 H Blood Pressure Mean 90 90 90 Pulse Ox 99 98 99 Oxygen Delivery Method Room Air MDM MDM MDM Narrative Medical decision making narrative: Differential diagnosis for painless hematuria could be cystitis/hemorrhagic cystitis versus bladder polyp versus mass. I do feel that he requires workup. CT without contrast will be obtained secondary to allergy. Additionally, CBC, BMP, and UA will be obtained. He was bolused normal saline 1 L intravenously. INR will be rechecked. I reviewed his laboratory work and he has a normal white count of 7.3 with hemoglobin normal at 13.8, hematocrit 41.8, platelet count normal at 232. INR is supratherapeutic at 3.8 as he states his ranges 2.5-3.5. BUN of 27 and creatinine slightly elevated at 1.51 but compared to prior labs he has chronic kidney disease. Urinalysis is positive for RBCs of 25-50 but 0 WBCs and negative nitrites. I do not feel that antibiotics are indicated. CT of the abdomen and pelvis does show a thickened bladder wall. He may have more of a hemorrhagic cystitis. I do not feel antibiotics are indicated. He has punctate renal stones, but no obstructive uropathy. He states he has had previous ureterolithiasis and once again he is having painless hematuria. Upon repeat examination he is resting comfortably on the cot, he states that he urinated into the urinal and it is dark, then he urinated again and it is back to clear. At this point in time, he was told to not take his dose of Coumadin today, have it rechecked, then restart as he is only slightly supratherapeutic. I feel he can be discharged to follow-up with his urologist. He should return if he has the inability to urinate, increased hematuria, or any new or worsening symptoms. Disposition is discharged home in stable condition. History & Record Review Discussion w/independent historian: Patient Additional record(s) reviewed:: Prior ED visit (Last ED visit March 2024) Lab Data Attestation: I reviewed the patient's lab results. Labs: Laboratory Results - last 24 hr 04/19/25 04/19/25 18:30 19:10 WBC 7.3 RBC 4.41 L Hgb 13.8 Hct 41.8 MCV 94.8 H MCH 31.3 MCHC 33.0 RDW Std Deviation 52.1 H RDW Coeff of Ernestina 15.0 H Plt Count 232 MPV 9.4 Immature Gran % (Auto) 0.300 Neut % (Auto) 73.7 H Lymph % (Auto) 12.3 L Rock % (Auto) 8.9 Eos % (Auto) 3.7 Baso % (Auto) 1.1 H Absolute Neuts (auto) 5.4 Absolute Lymphs (auto) 0.90 Nucleated RBC % 0 PT 38.1 H INR 3.8 Sodium 137 Potassium 3.9 Chloride 102 Carbon Dioxide 22.1 Anion Gap 13 BUN 27 H Creatinine 1.51 H Estim Creat Clear Calc 65.05 Est GFR (MDRD) Non-Af 51 L BUN/Creatinine Ratio 17.9 Glucose 163 H Calcium 9.3 Urine Color Yellow Urine Clarity Sl. Cloudy Urine pH 6.0 Ur Specific [place] 1.010 Urine Protein 30 H Urine Glucose (UA) 100 H Urine Ketones Negative Urine Occult Blood 250 H Urine Nitrite Negative Urine Bilirubin Negative Urine Urobilinogen 1 H Ur Leukocyte Esterase Negative Urine RBC 25-50 SEEN Urine WBC 0 SEEN Ur Squamous Epith Cells 0 SEEN Urine Bacteria 0 SEEN Urine Mucus 0 SEEN Radiography Diagnostic Testing: Clinical Impression(s) from Imaging Studies Abdomen/Pelvis CT 04/19/25 18:21 IMPRESSION: 1. Few punctate nonobstructive renal stones. No hydronephrosis. Mild bilateral perinephric fat stranding/edema, nonspecific and most likely chronic. 2. Mild bladder wall thickening/hypertrophy. Correlate clinically for possible cystitis. 3. Enlarged prostate with lobular impression on the posterior aspect of the bladder. 4. Hepatic steatosis. Suggestion of hepatic cirrhosis. 5. Cholelithiasis. No evidence for acute cholecystitis. Reading Location: [id number] Discharge Plan Triage Chief Complaint: Complaint ED Provider: Otoniel Pederson Dx/Rx/DC Orders Clinical Impression: Hemorrhagic cystitis, Supratherapeutic INR, Anticoagulant long-term use Instructions: ED Hematuria Prescriptions: No Action cetirizine [Zyrtec] 10 mg tablet 10 mg PO DAILY Qty: 30 11RF bupropion HCl 300 mg tablet extended release 24 hr 300 mg PO DAILY Qty: 90 1RF levothyroxine 100 mcg tablet 100 mcg PO DAILY Qty: 90 1RF pantoprazole 40 mg tablet,delayed release (DR/EC) 40 mg PO QAM Qty: 90 1RF terazosin 1 mg capsule 1 mg PO QHS Qty: 90 1RF cholecalciferol (vitamin D3) 1,000 UNIT tablet 2,000 unit PO DAILY docusate sodium 100 mg capsule 200 mg PO QHS ferrous sulfate 325 MG tablet 325 mg PO QHS multivitamin 1 TABLET tablet 1 tab PO DAILY Ultra Fresh PM Ointment 1 applic EACH EYE DAILY warfarin [Juntoven] 3 mg tablet 1.5 mg PO TUTH Protocol: Dose Management Condition: Friday Dose/Route: 3 mg Instruction: 1 x 3 mg tablet Condition: Friday Dose/Route: 3 mg Instruction: 1 x 3 mg tablet Condition: Friday Dose/Route: 1.5 mg Instruction: 0.5 x 3 mg tablets Condition: Friday Dose/Route: 1.5 mg Instruction: 0.5 x 3 mg tablets Condition: Dose/Route: 3 mg Instruction: 1 x 3 mg tablet Condition: Friday Dose/Route: 3 mg Instruction: 1 x 3 mg tablet Condition: Friday Dose/Route: 3 mg Instruction: 1 x 3 mg tablet Protocol Text: Adjustment Start Date: Friday04/18/25 INR Value: 3.6 INR Date: 04/18/25 Recheck Date: 05/09/25 melatonin 10 mg tablet 10 mg PO QHS (DME) Disability Placard See Rx Instructions .Route .MEDSUPPLY Qty: 1 0RF Rx Instructions: [place]20/20[place] [place] blood-glucose [place] Kit See Rx Instructions .Route Qty: 1 0RF Rx Instructions: daily fluticasone propionate [Flonase Allergy Relief] 50 mcg/actuation spray,suspension 1 spray intranasal DAILY Qty: 16 11RF Rx Instructions: administer into each nostril Trelegy Ellipta 100-62.5-25 mcg blister with device 1 inh inhalation DAILY Qty: 3 3RF atorvastatin 40 mg tablet 40 mg PO QHS Qty: 90 3RF diltiazem HCl 120 mg capsule,extended release 24 hr 120 mg PO DAILY Qty: 90 3RF warfarin 3 mg tablet 3 mg PO QDAY Qty: 90 3RF Protocol: Dose Management Condition: Friday Dose/Route: 3 mg Instruction: 1 x 3 mg tablet Condition: Friday Dose/Route: 3 mg Instruction: 1 x 3 mg tablet Condition: Friday Dose/Route: 1.5 mg Instruction: 0.5 x 3 mg tablets Condition: Friday Dose/Route: 1.5 mg Instruction: 0.5 x 3 mg tablets Condition: Dose/Route: 3 mg Instruction: 1 x 3 mg tablet Condition: Friday Dose/Route: 3 mg Instruction: 1 x 3 mg tablet Condition: Friday Dose/Route: 3 mg Instruction: 1 x 3 mg tablet Protocol Text: Adjustment Start Date: Friday04/18/25 INR Value: 3.6 INR Date: 04/18/25 Recheck Date: 05/09/25 Rx Instructions: as directed metoprolol succinate 25 mg tablet extended release 24 hr 25 mg PO DAILY Qty: 90 3RF spironolactone 25 mg tablet 25 mg PO DAILY Qty: 90 3RF potassium chloride 10 mEq capsule, extended release 30 meq PO BID 90 Days Qty: 540 3RF Rx Instructions: Pt has Throat injury, needs capsules torsemide 20 mg tablet 20 mg PO .COMPLEX Qty: 135 3RF Rx Instructions: Take ONE WHOLE tablet in the am and 1/2 tablet (10 mg) in the afternoon (DME) Accu-Chek Guide test strips Strip See Rx Instructions .Route Qty: 100 2RF Rx Instructions: daily (DME) lancets [Accu-Chek Softclix Lancets] Misc See Rx Instructions .ROUTE .COMPLEX Qty: 100 0RF Dose Instruction: USE TO CHECK GLUCOSE ONCE DAILY Rx Instructions: USE TO CHECK GLUCOSE ONCE DAILY albuterol sulfate 90 mcg/actuation HFA aerosol inhaler 2 puff INHALATION Q4H PRN (Reason: shortness of breath or wheezing) Qty: 1 3RF Rx Instructions: administer with spacer tamsulosin 0.4 mg capsule 0.4 mg PO DAILY Qty: 90 1RF dapagliflozin propanediol [Farxiga] 10 mg tablet 10 mg PO QHS Qty: 90 1RF duloxetine 60 mg capsule,delayed release(DR/EC) 60 mg PO BID Qty: 180 0RF tizanidine 4 mg tablet 4 mg PO QHS Qty: 90 0RF Primary Care Provider: Silva Webster Referrals: Silva Webster MD [Primary Care Provider, Internal Medicine] David Romero MD [Med Staff - Active Staff, Urology] - 3-5 Days if not improving Activity Restrictions/Additional Instructions: You may want to hold your Coumadin for today, have it rechecked, then restart as it was elevated at 3.8 today. Follow-up with Dr. Romero with urology for continued hematuria. Return with inability to urinate, fever, new or worsening symptoms. Print Language: Maori Disposition Disposition: Home, Self Care
[2025-04-19] MEDS: 0.9% Normal Saline (1000mL) 1,000 ML 1000 ML IV (18:32)
[2025-04-19 18:41] LABS: Hematocrit 41.8 % (40-54); Hemoglobin 13.8 g/dL (13.0-16.5); Immature Granulocytes Count 0.020 X10^3/uL (0.0-0.0); Mean Corp Hgb Conc 33.0 g/dL (32-36); Mean Corpuscular Volume 94.8 fL (80-94); Mean Platelet Vol. 9.4 fl (6.2-12.0); NRBC Flagged by Analyzer 0 % (0-5); Platelet Count 232 K/mm3 (150-450); RBC Distribution Width CV 15.0 % (11.6-14.6); RBC Distribution Width SD 52.1 fl (35.1-43.9); Red Blood Count 4.41 M/mm3 (4.6-6.2); White Blood Count 7.3 K/mm3 (4.4-11.0)
[2025-04-19 18:59] LABS: Prothrombin Time (Protime)PT. 38.1 SECONDS (11.7-14.9)
[2025-04-19 19:07] LABS: Anion Gap 13 (5-15); BUN 27 mg/dL (4-19); BUN/Creat Ratio 17.9 RATIO (10-20); Calcium,Total 9.3 mg/dL (7.6-11.0); Carbon Dioxide 22.1 mmol/L (21.0-32.0); Chloride 102 mmol/L (98-108); Estimated Creatinine Clearance 65.05 ml/min (50-250); Glucose 163 mg/dL (70-99); Potassium 3.9 mmol/L (3.3-5.1)
[2025-04-19 19:16] LABS: Mucous, Urine 0 SEEN /hpf (<or=2+); Squamous Epithelial Cells - UA 0 SEEN /hpf (0-5)
[2025-04-19 19:17] LABS: Color, Urine Yellow (Yellow); Glucose, Dipstick 100 mg/dl (Normal); Ketone-Dipstick Negative (Negative); Leukocyte Esterase-Dipstick Negative /ul (Negative); Nitrite-Dipstick Negative (Negative); Occult Blood-Urine 250 /ul (Negative); Protein-Dipstick 30 mg/dl (Negative); Specific Gravity, Urine 1.010 (1.002-1.030); Urine Bilirubin Dipstick Negative (Negative)
[2025-04-19 19:27] VITALS: BP 132/70; PULSE 70; RESP 16; O2SAT 98
[2025-04-19 19:27] LABS: Red Blood Cells-Urine 25-50 SEEN /hpf (0-5)
[2025-04-19 21:00] VITALS: BP 132/70; PULSE 88; RESP 16; O2SAT 99
[2025-04-19 21:15] VITALS: BP 132/70; PULSE 88; RESP 16; TEMP 36.8; O2SAT 99
== END 2025-04-19 21:17 | disposition home or self-care (01) ==
PROVIDERS: Emergency Provider Emergency Medicine; PCP Internal Medicine; Visit Provider Emergency Medicine
DX: N30.90 Cystitis, unspecified without hematuria (principal); J44.9 Chronic obstructive pulmonary disease, unspecified; I48.11 Longstanding persistent atrial fibrillation; I10 Essential (primary) hypertension; R79.1 Abnormal coagulation profile; E78.5 Hyperlipidemia, unspecified; Z87.891 Personal history of nicotine dependence; Z79.01 Long term (current) use of anticoagulants; Z95.2 Presence of prosthetic heart valve; G47.33 Obstructive sleep apnea (adult) (pediatric); Z99.89 Dependence on other enabling machines and devices; Z79.899 Other long term (current) drug therapy; Z79.51 Long term (current) use of inhaled steroids; K21.9 Gastro-esophageal reflux disease without esophagitis
CPT/HCPCS: 74176; 80048; 81001; 85025; 85610; 87086; 87088; 96360; 99283; A4216

== ENCOUNTER → 2025-04-19 | Outpatient (CLI) | payer MEDICARE, OTHER, SELFPAY | END | disposition home or self-care (01) | LOC: SL 11:25 | PROVIDERS: PCP Internal Medicine; Referring Provider Nurse Practitioner Acute Care; Visit Provider Nurse Practitioner Acute Care | DX: G47.33 Obstructive sleep apnea (adult) (pediatric) (principal) | CPT/HCPCS: 98960; G0463 ==

== ENCOUNTER 2025-04-21 07:45 | Outpatient (RCR) | payer MEDICARE, OTHER, SELFPAY ==
[2025-03-29 08:42] LABS: Prothrombin Time (Protime)PT. 42.9 SECONDS (11.7-14.9)
[2025-04-18 09:52] LABS: Prothrombin Time (Protime)PT. 36.4 SECONDS (11.7-14.9)
[2025-04-21 08:35] LABS: Prothrombin Time (Protime)PT. 32.6 SECONDS (11.7-14.9)
[2025-04-21 08:59] LABS: AST(SGOT) 30 U/L (<=37); Alanine Aminotransfer ALT/SGPT 18 U/L (<=46); Albumin, Serum 4.5 g/dL (3.4-4.8); Alkaline Phosphatase 142 U/L (40-129); Bilirubin, Direct 0.92 mg/dL (0.00-0.30); Cholesterol 105 mg/dL (<=200); Globulin 3.1 g/dL (2.2-4.2); Low Density Lipoprotein Calc. 46 mg/dL; Triglycerides 105 mg/dL; Very Low Density Lipoprotein 21 mg/dL (5-40); cholesterol:hdl ratio screen 2.67
[2025-04-21 09:02] LABS: PSA,Total- Diagnostic < 0.02 ng/mL (0.00-4.00)
== END 2025-04-21 18:00 | disposition home or self-care (01) ==
LOC: LAB 07:45
PROVIDERS: PCP Internal Medicine; Referring Provider Nurse Practitioner Family; Visit Provider Nurse Practitioner Family
DX: Z79.01 Long term (current) use of anticoagulants (principal); Z95.2 Presence of prosthetic heart valve; E03.9 Hypothyroidism, unspecified; E78.00 Pure hypercholesterolemia, unspecified; C61 Malignant neoplasm of prostate
CPT/HCPCS: 36415; 80061; 80076; 84153; 84443; 85610

== ENCOUNTER → 2025-05-02 | Outpatient (CLI) | payer MEDICARE, OTHER, SELFPAY | END | disposition home or self-care (01) | LOC: SL 16:00 | PROVIDERS: PCP Internal Medicine; Visit Provider Nurse Practitioner Acute Care | DX: Z00.00 Encounter for general adult medical examination without abnormal findings (principal) ==

== ENCOUNTER 2025-05-10 10:22 | Outpatient (RCR) | payer MEDICARE, OTHER, SELFPAY ==
[2025-05-10 12:03] LABS: Prothrombin Time (Protime)PT. 34.9 SECONDS (11.7-14.9)
== END 2025-05-22 18:00 | disposition home or self-care (01) ==
LOC: LAB 10:22
PROVIDERS: PCP Internal Medicine; Referring Provider Nurse Practitioner Family; Visit Provider Nurse Practitioner Family
DX: Z79.01 Long term (current) use of anticoagulants (principal); Z95.2 Presence of prosthetic heart valve
CPT/HCPCS: 36415; 85610

== ENCOUNTER 2025-06-08 07:27 | Outpatient (RCR) | payer MEDICARE, OTHER, SELFPAY ==
[2025-06-08 08:36] LABS: Prothrombin Time (Protime)PT. 38.2 SECONDS (11.7-14.9)
== END 2025-06-08 18:00 | disposition home or self-care (01) ==
LOC: LAB 07:27
PROVIDERS: PCP Internal Medicine; Referring Provider Nurse Practitioner Family; Visit Provider Nurse Practitioner Family
DX: Z79.01 Long term (current) use of anticoagulants (principal); Z95.2 Presence of prosthetic heart valve
CPT/HCPCS: 36415; 85610